=== PATIENT | male | born 1950 | race Caucasian/White ===

== ENCOUNTER 2023-04-10 10:17 | Outpatient (OUT) | payer MEDICARE, OTHER, SELFPAY ==
[2023-04-10 11:12] LABS: Bilirubin Urine NEGATIVE (NEGATIVE); Blood Urine NEGATIVE (NEGATIVE); Clarity Urine CLEAR (CLEAR); Color Urine YELLOW (YELLOW); Glucose Urine UA NEGATIVE (NEGATIVE); Ketones Urine NEGATIVE (NEGATIVE); Leukocyte Esterase Urine NEGATIVE (NEGATIVE); Nitrite Urine NEGATIVE (NEGATIVE); Protein Urine NEGATIVE (NEG/TRACE); Specific Gravity Urine 1.025 (1.005-1.025); Urobilinogen Urine 0.2 EU/dL (0.2-1.0); pH Urine 5.5 (5.0-9.0)
[2023-04-10 11:14] LABS: Basophils Percent Auto 0.2 % (0.2-2.0); Eosinophils Absolute Auto 0.1 10^3/uL (0.0-0.7); Eosinophils Percent Auto 0.6 % (0.9-7.0); Estimated Average Glucose 111 mg/dL; Glycohemoglobin A1C 5.5 % (4.5-6.2); Hematocrit 42.9 % (42.0-54.0); Hemoglobin 14.1 g/dL (14.0-18.0); Immature Granulocytes Abs Auto 0.02 10^3/uL (0.00-0.03); Immature Granulocytes Pct Auto 0.2 % (0.0-0.5); Lymphocytes Percent Auto 21.6 % (20.5-60.0); Mean Corpuscular HGB Conc 32.9 g/dL (29.9-35.2); Mean Corpuscular Volume 94.3 fL (80.0-94.0); Mean Platelet Volume 9.3 fL (9.5-13.5); Monocytes Absolute Auto 0.6 10^3/uL (0.3-0.8); Monocytes Percent Auto 6.9 % (1.7-12.0); Neutrophils Absolute Auto 6.5 10^3/uL (1.4-6.5); Neutrophils Percent Auto 70.5 % (43.0-75.0); Platelet Count 219 10^3/uL (150-450); Red Blood Count 4.55 10^6/uL (4.70-6.10); Red Cell Distribution Width 12.4 % (11.0-15.0); White Blood Count 9.3 10^3/uL (4.0-11.0)
[2023-04-10 11:21] LABS: Alanine Aminotransferase 42 U/L (16-63); Anion Gap 9.3; BUN Creatinine Ratio 14.7; Calcium 9.2 mg/dL (8.5-10.1); Carbon Dioxide 29.6 mmol/L (21.0-32.0); Chloride 96 mmol/L (98-107); Chol HDL Ratio 2.5; Cholesterol 188 mg/dL (<=200); Estimated GFR (African America >60 (>=60); Estimated GFR (Non-African Ame >60 (>=60); Glucose 100 mg/dL (74-106); HDL Cholesterol 76 mg/dL (40-60); Potassium 3.9 mmol/L (3.5-5.1); Sodium 131 mmol/L (136-145); Triglycerides 119 mg/dL (<=150); VLDL CHOLESTEROL 23.8 mg/dL
[2023-04-10 11:31] LABS: Bacteria Urine NONE SEEN #/HPF (NONE SEEN); Cast Seen? NONE SEEN #/LPF (NONE SEEN); Crystals Seen? None Seen #/HPF (None Seen); Mucus Urine TRACE (NONE SEEN); RBC Urine 0-2 #/HPF (0-2); Squamous Epithelial Cell Urine RARE #/LPF (NONE/RARE)
[2023-04-10 12:17] LABS: Prostate Specific Antigen Scrn 1.98 ng/mL (<=4.00)
== END 2023-04-10 10:18 | disposition home or self-care (01) ==
LOC: LAB 10:22
PROVIDERS: PCP Internal Medicine; Visit Provider Internal Medicine
DX: E78.00 Pure hypercholesterolemia, unspecified (principal); R35.0 Frequency of micturition; I10 Essential (primary) hypertension; Z12.5 Encounter for screening for malignant neoplasm of prostate; R73.01 Impaired fasting glucose; Z79.899 Other long term (current) drug therapy
CPT/HCPCS: 36415; 80048; 80061; 81001; 83036; 84460; 85025; 87086; G0103

== ENCOUNTER 2023-05-05 08:03 | Outpatient (OUT) | payer MEDICARE, OTHER, SELFPAY ==
[2023-05-05 08:47] LABS: Basophils Percent Auto 0.5 % (0.2-2.0); Eosinophils Absolute Auto 0.1 10^3/uL (0.0-0.7); Eosinophils Percent Auto 1.2 % (0.9-7.0); Hematocrit 42.1 % (42.0-54.0); Hemoglobin 13.8 g/dL (14.0-18.0); Immature Granulocytes Abs Auto 0.04 10^3/uL (0.00-0.03); Immature Granulocytes Pct Auto 0.6 % (0.0-0.5); Lymphocytes Percent Auto 30.5 % (20.5-60.0); Mean Corpuscular HGB Conc 32.8 g/dL (29.9-35.2); Mean Corpuscular Hemoglobin 31.2 pg (25.9-34.0); Mean Corpuscular Volume 95.2 fL (80.0-94.0); Mean Platelet Volume 9.4 fL (9.5-13.5); Monocytes Absolute Auto 0.5 10^3/uL (0.3-0.8); Monocytes Percent Auto 7.7 % (1.7-12.0); Neutrophils Absolute Auto 3.9 10^3/uL (1.4-6.5); Neutrophils Percent Auto 59.5 % (43.0-75.0); Platelet Count 224 10^3/uL (150-450); Red Blood Count 4.42 10^6/uL (4.70-6.10); Red Cell Distribution Width 12.7 % (11.0-15.0); White Blood Count 6.5 10^3/uL (4.0-11.0)
== END 2023-05-05 08:04 | disposition home or self-care (01) ==
LOC: LAB 08:06
PROVIDERS: PCP Internal Medicine
DX: I47.1 Supraventricular tachycardia (principal); H02.109 Unspecified ectropion of unspecified eye, unspecified eyelid
CPT/HCPCS: 36415; 85025

== ENCOUNTER 2023-12-17 09:53 | Outpatient (OUT) | payer MEDICARE, OTHER, SELFPAY ==
--- NOTE | 2023-12-17 10:07 | CT_ITS ---
[address] [address] Patient Name: KEVIN GRANT MRN: [id number] date: 1950 Sex: M Assigned Patient Location: CT Current Patient Location: Accession/Order Number: [id number] Exam Date: 12/17/2023 10:19 Report Date: 12/18/2023 05:52 At the request of: BLADE CONROY Procedure: CT lung screening low-dose EXAMINATION: CT lung screening low-dose HISTORY: History Of Tobacco Dependence Z87.891 COMPARISON: No relevant comparison available. TECHNIQUE: Axial, Coronal, and Sagittal images were created without the administration of IV contrast material. Dose reduction techniques were achieved by using automated exposure control and/or adjustment of mA and/or kV according to patient size and/or use of iterative reconstruction technique. FINDINGS: LUNGS: Minimal emphysematous changes. No nodules or acute infiltrates. PLEURA: No mass, effusion, or pneumothorax. VASCULATURE: No abnormality. RENAE: No mass or pathologic adenopathy. MEDIASTINUM: No mass or pathologic adenopathy. CARDIAC: No enlargement, pericardial thickening, or pericardial effusion. AORTA: No aneurysm or dissection. CHEST WALL: No mass or axillary adenopathy BONES: Old healed left rib fractures. LIMITED ABDOMEN: No suspicious findings. Limited images of the upper abdomen. OTHER: Negative. CT/CT lung screening low-dose IMPRESSION: 1. Lung-RADS Category 1 Negative. No nodules and definitely benign nodules. Continue annual screening with LDCT in 12 months. Electronically authenticated by: RANDY BARBER Date: 12/18/2023 05:52
--- NOTE | 2023-12-17 10:30 | NM_ITS ---
Patient Name: KEVIN GRANT MR#: [id number] : 1950 Exam Date: 12/17/2023 Ordering Doctor: DR BLADE CONROY D.O. RADIOLOGY REPORT PROCEDURE: NM DARNELL PERF SPECT REST STR COMPARISON: None. INDICATIONS: CHEST PAIN, DYSPNEA TECHNIQUE: Exam Description: Stress/Rest one day protocol gated SPECT Rest Imagin.5 mCi Tc-99m Cardiolite IV on 12/17/2023 Stress Imaging 29.9 mCi Tc-99m Cardiolite IV on 12/17/2023 Exercise Protocol: 0.4 mg Lexiscan given IV Heart Rate (bpm): Rest: 69 Max: 112 PMHR: 76 Blood Pressure: Rest: 108/64 Max: 126/68 Symptoms: Rest and peak stress ECG findings were normal and the exercise portion of the study was normal per attending physician Dr. Tay Conroy . For more details please see separate cardiac stress test report. FINDINGS: QUALITY OF STUDY: Excellent. PERFUSION DEFECT: None. LOCATION: N/A SIZE: N/A. SEVERITY: N/A. TYPE: N/A. WALL MOTION: Normal. LV SIZE: Normal. 57 mL. TID / TCD: None; 0.7 LVEF: Normal. Calculated EF 84%. SUMMARY: Myocardial perfusion imaging study is NORMAL. CONCLUSION: 1. Normal nuclear medicine myocardial perfusion scan. Dictated by: Toby Simmons M.D. on 12/17/2023 at 15:48 Approved by: Toby Simmons M.D. on 12/17/2023 at 15:49
--- NOTE | 2023-12-17 11:00 | CA_ITS ---
Patient Name: KEVIN GRANT MR#: [id number] : 1950 Exam Date: 12/17/2023 Ordering Doctor: DR Aayush Escudero D.O. ECHOCARDIOGRAM REPORT PROCEDURE: CA ECHO DOPPLER COMPLETE INDICATIONS: Heart murmur, chest pain COMPARISON: None. DESCRIPTION: COMPLETE ECHOCARDIOGRAM Real-time transthoracic echocardiography with 2D, M-mode, spectral and color flow Doppler performed. QUALITY: Technical quality was good. 64 , 184#, BSA 1.89 m2, BP 116/66 LEFT VENTRICLE: Normal chamber size. Borderline left ventricular hypertrophy. LV EF: Global left ventricular systolic function is normal; visually estimated ejection fraction is 60 to 65%. No significant wall motion abnormalities. DIASTOLIC: Normal diastolic function. ATRIAL SEPTUM: Visually appears intact. LEFT ATRIUM: Normal chamber size. RIGHT ATRIUM: Normal chamber size. RIGHT VENTRICLE: Normal chamber size. Normal right ventricular systolic function. TRICUSPID VALVE: Normal mobility and thickness. No stenosis with no regurgitation. Unable to assess right-sided pressures due to lack of measurable tricuspid regurgitation. MITRAL VALVE: Normal mobility and thickness. No evidence of mitral valve stenosis. There is no mitral annular calcification. No mitral regurgitation. AORTIC VALVE: Normal trileaflet appearance. No visible sclerosis. Normal leaflet mobility. No evidence of aortic valve stenosis. Trivial aortic regurgitation. AORTIC ROOT: Normal diameter and appearance. Ascending aorta is normal in size PULMONIC VALVE: Normal thickness and mobility. No stenosis. Trivial regurgitation. PERICARDIUM: No evidence of pericardial effusion. IVC: Collapses with inspirations. IVC is normal in size. CONCLUSION: 1. Global left ventricular systolic function is normal; visually estimated ejection fraction is 60 to 65% 2. Normal right ventricular size and systolic function 3. Normal diastolic function 4. No significant valvular abnormalities Adult Echocardiography Procedure Report Left Ventricle LVEDD (3.7 - 5.6 cm): 3.91 cm LVESD (2.2 - 4.0 cm): 2.82 cm LVIVS thickness (0.6 - 1.2 cm): 0.79 cm LVPW thickness (0.5 - 1.0 cm): 1.08 cm e': 0.09 m/s E - e': 6.56 LVOT Max Gradient: 4.12 mm[Hg] LVOT Area (cm2): 1.01 m/s Peak Velocity (LVOT): 1.01 m/s Mean Velocity (LVOT): 0.60 m/s LVOT Diameter 2.22 cm Left Atrium LA Volume Index (2D A2C): 22.64 ml/m2 Left Atrium Systolic Dimension: 3.50 cm Mitral Valve MV E to A Ratio: 0.87 Mitral Valve A-Wave Peak Velocity: 0.70 m/s Mitral Valve E-Wave Peak Velocity: 0.60 m/s Right Ventricle Aorta AO Root Diam: 3.30 cm Ascending Ao Diam: 2.90 cm Aortic Valve AoV Area (Peak Estevan): 3.95 cm2, 3.95 cm2 AoV Area (VTI): 3.78 cm2, 3.78 cm2 Peak Velocity(Antegrade Flow): 0.99 m/s Peak Gradient(Antegrade Flow): 3.96 mm[Hg] Mean Velocity(Antegrade Flow): 0.61 m/s Mean Gradient(Antegrade Flow): 1.77 mm[Hg] Velocity Time Integral: 20.16 cm Tricuspid Valve Pulmonic Valve Peak Gradient: 2.96 mm[Hg], 2.87 mm[Hg] Right Atrium Right Atrium Systolic Pressure: 33.96 ml, 33.96 ml Dictated by: Mariela Mercer M.D. on 12/17/2023 at 15:50 Approved by: Mariela Mercer M.D. on 12/17/2023 at 15:54
--- NOTE | 2023-12-17 13:44 | P.STRESS_ITS ---
Stress Test Stress Test Requesting physician: Aayush Escudero Procedure: Lexiscan stress test General Information: Reason for Stress Test: [Exertional chest pain] Cardiac History and Risk Factors: [This is a 73-year-old patient with no person al history of coronary disease. Has a strong family mother and brother having coronary disease. Primary risk factors include essential hypertension and hyperlipidemia.] Resting 12 - Lead Electrocardiogram: Normal sinus rhythm with a ventricular rate of 69 bpm. The IN interval is 0.16 QRS 0.08 and the QT is 0.36 all within normal limits. There are no pathologic Q waves only nonspecific ST-T wave changes. Stress Test: Protocol: [. Lexiscan protocol] Exercise Capacity: [. Nonapplicable] Blood Pressure Response: [Blood pressure decreased with a slight decrease in heart rate during the Lexiscan infusion.] Rhythm: [During infusion the patient remained in normal sinus rhythm] ST - Response: [. During infusion there is no ST T-wave changes] Patient Response: [. Following administration of Lexiscan Cardiolite patient did become diaphoretic a list corresponding decrease in blood pressure and heart rate. He remained hemodynamically stable and this resolved without intervention.] Interpretation: . There is no subjective or objective evidence of myocardial ischemia. Cardiolite was injected with images in interpretation pending
[2023-12-17] MEDS: REGADENOSON 0.4 MG/5 ML SYRINGE 0.400000000000000022 MG IV (15:54)
== END 2023-12-17 09:54 | disposition home or self-care (01) ==
LOC: CT 09:56
PROVIDERS: PCP Internal Medicine; Visit Provider Internal Medicine
DX: R07.2 Precordial pain (principal); I10 Essential (primary) hypertension; R73.01 Impaired fasting glucose; E78.00 Pure hypercholesterolemia, unspecified; R01.1 Cardiac murmur, unspecified; Z87.891 Personal history of nicotine dependence
CPT/HCPCS: 71271; 78452; 93017; 93306; A9500; J2785

== ENCOUNTER 2023-12-30 08:44 | Outpatient (OUT) | payer MEDICARE, OTHER, SELFPAY ==
[2023-12-30 08:57] LABS: Hemoglobin 13.7 g/dL (14.0-18.0)
--- OUTSIDE RECORDS SUMMARY | 2023-12-30 09:06 | XMS_ITS | CCD ---
Author Organization [facility] Care Team Providers Care Commercial Escrow Officer Name Role Phone DR AAYUSH ESCUDERO Consulting Unavailable KOTA, DR MURGUIA Attending Unavailable KOTA, DR MURGUIA Admitting Unavailable KOTA, DR MURGUIA Primary Care Unavailable GURVINDER BROOKS Admitting GURVINDER Murphy Consulting Unavailable GURVINDER BROOKS Attending Unavailable KOTA, DR MURGUIA Primary Care Unavailable Aayush Escudero Unavailable Allergies Allergy Classification Reported Allergen(s) Allergy Type Date of Onset Reaction(s) Facility (4 sources) Amoxicillin / Clavulanate Drug Allergy 01-02-2014 Unknown [facility] Medications Current Medications Medication Drug Class(es) Dates Sig (Normalized) Sig (Original) [id number] 200 actuat albuterol 0.09 mg/actuat metered dose inhaler (3 sources) beta2-Adrenergic Agonist Start: 10-30-2021 take 2 puff(s) by inhalation every four hours as needed for cough Albuterol Sulfate HFA 108 (90 Base) MCG/ACT Albuterol Sulfate HFA 108 (90 Base)MCG/ACT, 2 (two) Puff Puff every 4 hours PRN SOB, cough # 1, 10/30/2021, Ref. x2. Active Inhalation every 4 hours PRN SOB, cough Oct, Active Start: 10-30-2021 take 2 puff(s) by in halation every four hours as needed for cough Albuterol Sulfate HFA 108 (90 Base) MCG/ACT Albuterol Sulfate HFA 108 (90 Base)MCG/ACT, 2 (two) Puff Puff every 4 hours PRN SOB, cough # 1, 10/30/2021, Ref. x2. Active Inhalation every 4 hours PRN SOB, cough Oct, Active 24 hr alfuzosin hydrochloride 10 mg extended release oral tablet (2 sources) alpha-Adrenergic Shola Start: 04-14-2023 take 1 tablet by mouth at dinner Alfuzosin HCl ER 10 MG 1 tablet Orally after evening meal for 30 days Mar, Active amLODIPine 5 mg oral tablet (3 sources) Dihydropyridine Calcium Channel Shola amLODIPine Besylate 5 MG TAKE 1 TABLET DAILY Active fluticasone / salmeterol (3 sources) Corticosteroid, beta2-Adrenergic Agonist Start: 06-09-2022 Advair Diskus 250-50mcg/dose Advair Diskus 250-50mcg/dose, 1 (one) Puff every 12 hours # 0, 06/09/2022, No Refill. Active inhalation every 12 hours May, Active Advair Diskus 25 0-50 MCG/ACT USE 1 INHALATION ORALLY EVERY 12 HOURS for 90 Active lisinopril 40 mg oral tablet (3 sources) Angiotensin Converting Enzyme Inhibitor Lisinopril 40 MG CHRIS E 1 TABLET DAILY Active Psyllium (3 sources) Start: 04-10-2023 Metamucil 28 % 1 packet with 8 ounces of liquid as needed Orally Once a day for 30 days Mar, Active Completed/Discontinued Medications Medication Drug Class(es) Dates Sig (Normalized) Sig (Original) amitriptyline hydrochloride 25 mg oral tablet (3 sources) Tricyclic Antidepressant Start: 03-19-2022 take 1 tablet by mouth once daily at bedtime Amitriptyline HCl 25MG Amitriptyline HCl 25MG, 1 (one) Tablet Tablet daily at HS # 0, 03/19/2022, No Refill. Active Oral daily at HS for 0 Feb, Not-Taking ascorbic acid 4700 mg / polyethylene glycol 3350 [id number] mg / potassium chloride 1015 mg / sodium ascorbate 5900 mg / sodium chloride 2690 mg / sodium sulfate 7500 mg powder for oral solution (3 sources) Osmotic Laxative, Vitamin C Start: 12-30-2013 MoviPrep 100 GM as directed Orally 1 for 1 December, Not-Taking pravastatin sodium 80 mg oral tablet (6 sources) HMG-CoA Reductase Inhibitor Start: 03-19-2022 take 1 tablet by mouth once daily in the evening Pravastatin Sodium 80MG Pravastatin Sodium 80MG, 1 (one) Tablet Tablet daily in evening # 0, 03/19/2022, No Refill. Active Oral daily in evening for 0 Feb, Not-Taking Problems Active Problems Problem Classification Problem Date Documented Da te Episodic/Chronic Chronic obstructive pulmonary disease and bronchiectasis (4 sources) Simple chronic bronchitis; Translations: [Simple chronic bronchitis] Chronic Diabetes mellitus without complication (1 source) Impaired fasting glucose Episodic Disorders of lipid metabolism (5 sources) Familial hypercholesterolem ia; Translations: [Hypercholesterole miladis] Onset: 04-04-2022 Chronic Essential hypertension (5 sources) Essential (primary) hypertension; Translations: [Essential hypertension] Onset: 04-04-2022 Chronic Genitourinary symptoms and ill-defined conditions (1 source) Frequency of micturition Episodic Hyperplasia of prostate (5 sources) Urinary frequency due to benign prostatic hypertrophy; Translations: [Benign prostatic hyperplasia with lower urinary tract symptoms] Chronic Other aftercare (2 sources) Other residential (current) drug therapy; Translations: [OTH [facility]DC CURRENT DRUG THERAPY] Onset: 04-04-2022 Episodic Other and unspecified benign neoplasm (3 sources) History of polyp of colon; Translations: [Personal history of colonic polyps] Episodic Other gastrointestinal disorders (1 source) Fecal smearing Episodic Other nervous system disorders (3 sources) Polyneuropathy; Translations: [Polyneuropathy, unspecified] Chronic Other nervous system disorders (1 source) Polyneuropathy, unspecified Chronic Other screening for suspected conditions (not mental disorders or infectious disease) (5 sources) Encounter for screening for malignant neoplasm of prostate; Translations: [ENC SCREEN MALIG NEOPLASM PROSTATE] Onset: 04-03-2022 Episodic Past or Other Problems Problem Classification Problem Date Documented Da te Episodic/Chronic Immunizations and screening for infectious disease (4 sources) Encounter for immunization; Translations: [ENCOUNTER FOR IMMUNIZATION] Onset: 06-11-2021 Episodic Results Test Name Value Interpretation Reference Range Facil ity CBC AUTO DIFFon 04-03-2022 BASO # 0.0 103/ul Normal 0.0-0.1 [facility] Comment on above: Performed By: #### C BC #### [facility] [address] [address] [address] Ashley Elizabeth Basophils/100 WBC (Bld) 0.5 % Normal 0.2-2.0 [facility] Comment on above: Performed By: #### C BC #### [facility] [address] [address] [address] Ashley Elizabeth EO # 0.1 103/ul Normal 0.0-0.7 [facility] Comment on above: Performed By: #### C BC #### [facility] [address] [place] [address] Dr. Ashley Elizabeth Eosinophils/100 WBC (Bld) 0.9 % Normal 0.9-7.0 [facility] Comment on above: Performed By: #### C BC #### [facility] [address] [place] [address] Dr. Ashley Elizabeth Erythrocyte distribution width (RBC) [Ratio] 12.7 % Normal 11.0-15.0 [facility] Comment on above: Performed By: #### C BC #### [facility] [address] [place] [address] Dr. Ashley Elizabeth Hematocrit (Bld) [Volume fraction] 42.9 % Normal 42.0-54.0 [facility] Comment on above: Performed By: #### C BC #### [facility] [address] [place] [address] Dr. Ashley Elizabeth Hemoglobin (Bld) [Mass/Vol] 14.2 g/dL Normal 14.0-18.0 [facility] Comment on above: Performed By: #### C BC #### [facility] [address] [place] [address] Dr. Ashley Elizabeth IG # 0.04 10e3/ul Critically high 0.00-0.03 [facility] Comment on above: Performed By: #### C BC #### [facility] [address] [place] [address] Dr. Ashley Elizabeth IG % 0.5 % Normal 0.0-0.5 [facility] Comment on above: Performed By: #### C BC #### [facility] [address] [place] [address] Dr. Ashley Elizabeth LYMPH # 2.2 103/ul Normal 1.2-3.8 [facility] Comment on above: Performed By: #### C BC #### [facility] [address] [place] [address] Dr. Ashley Elizabeth Lymphocytes/100 WBC (Bld) 27.7 % Normal 20.5-60.0 [facility] Comment on above: Performed By: #### C BC #### [facility] [address] [place] [address] Dr. Ashley Elizabeth MANUAL DIFF REQ NO Normal [facility] Comment on above: Performed By: #### C BC #### [facility] [address] [place] [address] Dr. Ashley Elizabeth MCH (RBC) [Entitic mass] 31.6 pg Normal 25.9-34.0 [facility] Comment on above: Performed By: #### C BC #### [facility] [address] [place] [address] Dr. Ashley Elizabeth MCHC (RBC) [Mass/Vol] 33.1 g/dL Normal 29.9-35.2 [facility] Comment on above: Performed By: #### C BC #### [facility] [address] [place] [address] Dr. Ashley Elizabeth MCV (RBC) [Entitic vol] 95.5 fL Critically high 80.0-94.0 [facility] Comment on above: Performed By: #### C BC #### [facility] [address] [place] [address] Dr. Ashley Elizabeth MONO # 0.6 103/ul Normal 0.3-0.8 [facility] Comment on above: Performed By: #### C BC #### [facility] [address] [place] [address] Dr. Ashley Elizabeth Monocytes/100 WBC (Bld) 7.2 % Normal 1.7-12.0 [facility] Comment on above: Performed By: #### C BC #### [facility] [address] [place] [address] Dr. Ashley Elizabeth NEUT # 5.0 103/ul Normal 1.4-6.5 [facility] Comment on above: Performed By: #### C BC #### [facility] [address] [place] [address] Dr. Ashley Elizabeth Neutrophils/100 WBC (Bld) 63.2 % Normal 43.0-75.0 [facility] Comment on above: Performed By: #### C BC #### [facility] [address] [address] [address] Ashley Elizabeth Platelet mean volume (Bld) [Entitic vol] 9.0 fL Critically low 9.5-13.5 [facility] Comment on above: Performed By: #### C BC #### [facility] [address] [address] [address] Ashley Elizabeth PLT 213 103/ul Normal 150-450 [facility] Comment on above: Performed By: #### C BC #### [facility] [id number] Ashley Elizabeth RBC 4.49 106/ul Critically low 4.70-6.10 [facility] Comment on above: Performed By: #### C BC #### [facility] [address] [address] [address] Ashley Elizabeth WBC 7.9 103/ul Normal 4.0-11.0 [facility] Comment on above: Performed By: #### C BC #### [facility] [address] [address] [address] Ashley Elizabeth DIRECT LDLon 04-03-2022 Cholesterol in LDL [Mass/Vol] 105 mg/dL Normal [facility] Comment on above: Performed By: #### B MICHAEL DLDL, ALT #### [facility] [address] [address] [address] Ashley Elizabeth DLDL NORMAL SEE BELOW Normal [facility] Comment on above: Result Comment: <100 mg/dl OPTIMAL 100 - 129 mg/dl NEAR OR ABOVE OPTIMAL 130 - 159 mg/dl BORDERLINE HIGH 160 - 189 mg/dl HIGH >190 mg/dl VERY HIGH Performed By: #### B MP, DLDL, ALT #### [facility] [id number] Ashley Elizabeth PROF CHEM 8 (BAS METB)on Anion gap [Moles/Vol] 13.9 mmol/L Normal [facility] Comment on above: Performed By: #### B MP, DLDL, ALT #### [facility] [address] [address] [address] Ashley Elizabeth Calcium [Mass/Vol] 9.1 mg/dL Normal 8.5-10.1 [facility] Comment on above: Performed By: #### B MP, DLDL, ALT #### [facility] [address] [address] [address] Ashley Elizabeth Chloride [Moles/Vol] 101 mmol/L Normal 98-107 [facility] Comment on above: Performed By: #### B MP, DLDL, ALT #### [facility] [address] [address] [address] Ashley Elizabeth CO2 [Moles/Vol] 24.6 mmol/L Normal 21.0-32.0 [facility] Comment on above: Performed By: #### B MP, DLDL, ALT #### [facility] [address] [address] [address] Ashley Elizabeth Creatinine [Mass/Vol] 1.28 mg/dL Normal 0.70-1.30 [facility] Comment on above: Performed By: #### B MP, DLDL, ALT #### [facility] [address] [address] [address] Ashley Elizabeth EGFR-AF CHADIAN >60 Normal >=60 [facility] Comment on above: Performed By: #### B MP, DLDL, ALT #### [facility] [address] [address] [address] Ashley Elizabeth EGFR-NON AF CHADIAN 55 mL/min/1.73m2 Critically low >=60 [facility] Comment on above: Performed By: #### B MP, DLDL, ALT #### [facility] [address] [address] [address] Ashley Elizabeth Glucose [Mass/Vol] 121 mg/dL Critically high 74-106 [facility] Comment on above: Performed By: #### B MP, DLDL, ALT #### [facility] [address] [address] [address] Ashley Elizabeth Potassium [Moles/Vol] 4.5 mmol/L Normal 3.5-5.1 [facility] Comment on above: Performed By: #### B MP, DLDL, ALT #### [facility] [address] [address] [address] Ashley Elizabeth Sodium [Moles/Vol] 135 mmol/L Critically low 136-145 [facility] Comment on above: Performed By: #### B MP DLDL, ALT #### [facility] [address] [address] [address] Ashley Elizabeth Urea nitrogen [Mass/Vol] 24.0 mg/dL Critically high 7.0-18.0 [facility] Comment on above: Performed By: #### B MP DLDL, ALT #### [facility] [address] [place] [address] Dr. Ashley Elizabeth Urea nitrogen/Creatinine [Mass ratio] 18.8 mg/mg Normal [facility] Comment on above: Performed By: #### B MICHAEL DLDL, ALT #### [facility] [address] [place] [address] Dr. Ashley Elizabeth [facility] 04-03-2022 ALT [Catalytic activity/Vol] 45 U/L Normal 16-63 [facility] Comment on above: Performed By: #### B MICHAEL DLDL, ALT #### [facility] [address] [place] [address] Dr. Ashley Dumont 02-07-2022 L Specimen: [id number] Received: 02/07/22 Status: JESUS Gary Num: [id number] Spec Type: Surgical Subm Dr: Chintan Dsouza Jr, DO Tissues: A Colon - Polyp (ASCENDING POLYPS) B Colon - Polyp (TRANSVERSE POLYP) Procedures: HE Stain/4, Gross/Micro L4/2 Patient Age/Sex Location Account [id number] Chintan Dsouza Jr, DO SPEC NUM: [id number] RECD: 02/07/22 STATUS: JESUS GARY NUM: [id number] KARLY: 02/07/22- [facility] DR: Chintan Dsouza Jr, DO ENTERED: 02/07/22-1136 [facility] DR: ELENA TYPE: Surgical DEPT: S ORDERED: HE Stain/4, Gross/Micro L4/2 ORDERED: HE Stain/4, Gross/Micro L4/2 Pathological Diagnosis A. Colon, ascending, polypectomy: - Fragments of tubular adenoma and hyperplastic polyp. B. Colon, transverse, polypectomy: - Tubular adenoma Clinical Information History of polyps, family history of colon cancer Gross Description A. Received in formalin labeled with the patient's name, number and ascending colon polyps are multiple peraza-pink tissue fragments aggregating 0.8 x 0.5 x 0.2 cm. The resection margin is indeterminate, entirely submitted in one cassette labeled A1. Type of Fixative: 10% Neutral Buffered Formalin (/YJ) B. Received in formalin labeled with the patient's name, number and transverse colon polyp are multiple peraza-pink tissue fragments aggregating 1.3 x 0.9 x 0.4 cm, entirely submitted in one cassette labeled B1. Type of Fixative: 10% Neutral Buffered Formalin (SM/YJ) Specimen: [id number] Received: 02/07/22 Status: JESUS Raindebbie Num: [id number] Spec Type: Surgical Subm Dr: Chintan Dsouza Jr, DO Tissues: A Colon - Polyp (ASCENDING POLYPS) B Colon - Polyp (TRANSVERSE POLYP) Procedures: HE Stain/4, Gross/Micro L4/2 Patient: Ricardo Grant [id number] (Continued) Specimen: [id number] Received: 02/07/22 (Continued) Signed (signature on file) Arley Poole MD 02/10/22 1467 Specimen: [id number] Received: 02/07/22 Status: JESUS Gary Num: [id number] Spec Type: Surgical Subm Dr: Chintan Dsouza Jr, DO Tissues: A Colon - Polyp (ASCENDING POLYPS) B Colon - Polyp (TRANSVERSE POLYP) Procedures: HE Stain/4, Gross/Micro L4/2 Patient: Ricardo Grant [id number] (Continued) Specimen: [id number] Received: 02/07/22 (Continued) Microscopic Description A, Two H E stained slides are reviewed. Microscopic examination is performed. B. Two H E stained slides are reviewed. Microscopic examination is performed. This case is interpreted at [place], [place]. [address] B. [address]194 Specimen: [id number] Received: 02/07/22 Status: JESUS Gary Num: [id number] Spec Type: Surgical Subm Dr: Chintan Dsouza Jr, DO Tissues: A Colon - Polyp (ASCENDING POLYPS) B Colon - Polyp (TRANSVERSE POLYP) Procedures: HE Stain/4, Gross/Micro L4/2 Patient: Ricardo Grant [id number] (Continued) Signed (signature on file) Arley Poole MD 02/10/22 1735 [facility] COVID-19 Antigenon 2 COVID-19 Antigen Healthcare Worker?: N Reference Range: Negative Negative results, from patients with symptom onset beyond five days, should be treated as presumptive and confirmation with a molecular assay, if necessary, for patient management, may be performed. Negative results do not rule out COVID-19 and should not be used as the sole basis for treatment or patient management decisions, including infection control decisions. Negative results should be considered in the context of a patient's recent exposures, history and the presence of clinical signs and symptoms consistent with COVID-19. The Alanis SARS Antigen MANSOOR does not differentiate between SARS-CoV and SARS-CoV-2. This test was developed and its performance characteristic determined by [employer] and validated at [facility]. This test has not been FDA cleared or approved. This test has been authorized by FDA under an Emergency Use Authorization (EUA). This test has been validated in accordance with the FDA's Guidance Document (Policy for Diagnostics Testing in Laboratories Certified to Perform High Complexity Testing under CLIA prior to Emergency Use Authorization for Coronavirus Disease-2019 during the Public Health Emergency) issued on November 24, 2019. This test is only authorized for the duration of time the declaration that circumstances exist justifying the authorization of the emergency use of in vitro diagnostic tests for detection of SARS-CoV-2 virus and/or diagnosis of COVID-19 infection under section 564(b)(1) of the Act, 21 U.S.C. 360bbb-3(b)(1), unless the authorization is terminated or revoked sooner. SARS-CoV+SARS-CoV-2 (COVID-19) Ag [Presence] in Respiratory specimen by Rapid immunoassay Negative for SARS Antigen by [employer] PERFORMED BY: [place] [address] PATHOLOGIST SADDLE LINING STITCHER SHERRELL WILLS M.D. Normal [facility] Comment on above: Performed By: #### S OFIANEG, COVID-19 ALANIS #### [facility] [address] [id number] [facility] Alanis Ag Negativeon 02-06-20 22 Alanis Ag Negative Negative Normal Negative [facility] Comment on above: Result Comment: This is a duplicate Alanis SARS Antigen (MANSOOR) result to be used for statistical tracking purpose only. PERFORMED BY: [facility] [address] [place] [address] PATHOLOGIST SADDLE LINING STITCHER SHERRELL WILLS M.D. Performed By: #### S FILOMENA BECK-19 ALANIS #### [facility] [address] OBSOLETEon 09-03-2018 OBSOLETE Refill (NENMMN) RICARDO GRANT ([id number]) 1950 M Date Time Provider Department 09/03/18 BIANCA RIVERA During your visit today, we recorded the following information about you: Nika [facility] 09/03/2018 3:41 PM Signed Fax from pharmacy requesting refill. Please E-Scribe. Pending Prescriptions Disp Refills PRAVASTATIN 80 MG TABLET Sig: Take 1 tablet by mouth once daily. JUVE: No Pharmacy Name / Store Number: [facility] Phone #: [phone] [facility] Gloria Reynoso RN, RN 09/03/2018 5:01 PM Signed Medication and dose reviewed. Last refill historical. Last office visit 12/25/17. Future appointment: not scheduled at this time. Appropriate for refill. Please review and if approved e-prescribe as requested below. Routed to [facility]. Gloria Reynoso RN September 03, 2018 5:01 PM Bianca Rivera MD 09/06/2018 5:43 PM Signed Refill request declined - not following this patient for hyperlipidemia. Please call patient to recommend he request refill from his PCP. Thanks! K Allergies As of Date: 09/03/2018 Noted Allergy Reaction AUGMENTIN (AMOXICILLIN-POT CLAVUL*12/25/2017 4 - Hives Date Reviewed: 12/25/2017 Reviewed by: Bianca Rivera - Fully Assessed Reason for Visit: Refill Request [94] Primary Visit Diagnosis:Disturbanc e of skin sensation [R20.9] Prescriptions as of 09/03/2018 Sig: AMITRIPTYLINE 10 MG TABLET Take 2 tablets by mouth daily* GABAPENTIN 300 MG CAPSULE Take 3 capsules by mouth thre* LISINOPRIL 40 MG TABLET Take 40 mg by mouth once titi* PRAVASTATIN 80 MG TABLET Take 80 mg by mouth once titi* ASPIRIN 81 MG TABLET,DELAYED * Take 81 mg by mouth as needed* VITAMIN C ORAL Take by mouth. VITAMIN D2 ORAL Take by mouth. ADVAIR HFA INHALATION Inhale as instructed. Problem List As Of Date 09/03/2018 Noted Resolved Disturbance of skin sensation [R20.9] INVALID FOR* Obesity, Class I, BMI 30-34.9 E66.9 [E66.9] INVALID FOR* Encounter Status:Closed by NIKA THOMAS on 05/25/19 Normal [facility] Vital Signs Date Time Vital Sign Value Performing Clinician Facility 04-10-2023 09:00-0400 Body height 162.56 cm Aayush Escudero Other e([facility] Other 04-10-2023 09:00-0400 Body mass index (BMI) [Ratio] 31.31 kg/m2 Aayush Escudero Other e([facility] Other 04-10-2023 09:00-0400 Body weight 82.74 kg Aayush Escudero Other e(ye)[facility] Other 04-10-2023 09:00-0400 Respiratory rate 56 /min Aayush Kota Other e(ye)[facility] Other Encounters Encounter Date Encounter Type Care Provider Facility Start: 05-15-2023 End: 05-15-2023 ambulatory Aayush Kota Other e(ye)[facility] Other Start: 05-15-2023 Nursing evaluation o f patient and report Aayush Escudero [facility] Start: 04-13-2023 End: 04-13-2023 ambulatory Aayush Kota Other e(ye)[facility] Other Start: 04-13-2023 Telephone encounter Aayush Recio [facility] Start: 04-10-2023 End: 04-10-2023 ambulatory Aayush Escudero Other e(ye)[facility] Other Start: 04-10-2023 Patient encounter procedure [facility] Start: 04-03-2022 End: 04-04-[address] AAYUSH ESCUDERO Facility:[facility] Start: 06-11-2021 End: 06-11-2021 ambulatory GURVINDER BROOKS Facility:[facility] Procedures Date Procedure Procedure Detail Performing Clinician Start: 04-03-[address] FLORES IN [place] Comment on above: Performed By: #### P [facility] [place] #### [facility] [address] [place] [address] Dr. Ashley Elizabeth Immunizations Immunization Date Immunization Notes Care Provider [facility] 05-15-2023 influenza, high dose seasonal, preservative-free Aayush Escudero Other e(ye)[facility] Other 05-06-2022 influenza, high dose seasonal, preservative-free Aayush Escudero Other e(ye)[facility] Other 05-05-2022 COVID-19 Vaccine Pfi zer - Documentation Purposes Only Aayush Escudero Other e(ye)[facility] Other 12-18-2021 COVID-19 Vaccine Pfi zer - Documentation Purposes Only Aayush Escudero Other e(ye)[facility] Other 05-17-2021 influenza virus vaccine, split virus (incl. purified surface antigen) Aayush Escudero Other e(ye)[facility]RA[facility] Other 04-27-2020 influenza virus vaccine, split virus (incl. purified surface antigen) Aayush Escudero Other e(ye)BRAIN Other 05-06-2018 influenza virus vaccine, split virus (incl. purified surface antigen) Aayush Escudero Other e(ye)BRAIN Other 05-01-2017 influenza virus vaccine, split virus (incl. purified surface antigen) Aayush Escudero Other e(ye)BRAIN Other 02-26-2017 pneumococcal polysaccharide vaccine, 23 valent Aayush Escudero Other e(ye)[facility] Other 06-18-2016 influenza virus vaccine, split virus (incl. purified surface antigen) Aayush Escudero Other e(ye)[facility]RA[facility] Other 02-18-2016 pneumococcal conjuga te vaccine, 13 valent Aayush Escudero Other e(ye)BRAIN Other 06-11-2015 influenza virus vaccine, split virus (incl. purified surface antigen) Aayush Escudero Other e(ye)BRAIN Other Payers Date Payer Category Payer Medicare [id number] 1959 Unknown [id number] 1950 Unknown [id number] 1950 Unknown [id number] Social History Date Type Detail Facility Sex Assigned At e(ye)BRAIN Other Evaluation note 04-13-2023 Note Date & Type Note Facility 04-13-2023 Evaluation note Encounter Date Diagnosis Assessment Notes Mar, Benign prostatic hyperplasia with lower urinary tract symptoms (ICD-10 - N40.1) e(ye)BRAIN Other Evaluation note 04-10-2023 Note Date & Type Note Facility 04-10-2023 Evaluation note Encounter Date Diagnosis Assessment Notes Mar, Medicare annual wellness visit, subsequent (ICD-10 - Z00.00) Personalized health advice was given to the beneficiary including a written plan for screenings discussed and provided. Advanced care planning reviewed and/or information given as requested. Additional counseling was provided here today in regards to, [ ]. The above visit was performed by [ ], under direct supervision of [ ]. Document reviewed and amended by provider signed below. Mar, Primary hypertension (ICD-10 - I10) This patient is instructed to consume a healthy, low-fat, low-salt diet. They are also encouraged to continue exercise to achieve/maintain a normal BMI. Mar, Simple chronic bronchitis (ICD-10 - J41.0) Continue mucinex as needed. Continue tobacco abstinence Mar, Elevated cholesterol (ICD-10 - E78.00) Instructed on diet and exercise with continued statin therapy.Discussed the beneficial effects of lowering cholesterol in reducing the risk for cerebrovascular and cardiovascular disease. Mar, IFG (impaired fasting glucose) (ICD-10 - R73.01) This patient is following a comprehensive diabetic treatment plan. They are checking their feet daily for calluses and nonhealing ulcers. They are being seen for yearly dilated eye examinations. Goals: SBP less than 130, LDL less than 100, FBS less than 140, AC and A1C less than 7%. Mar, Peripheral polyneuropathy (ICD-10 - G62.9) Inspect feet daily for cuts and calluses.Recommen d diabetic shoes and inserts to prevent callus formation.Fall precautions. Mar, Frequency of micturition (ICD-10 - R35.0) Mar, Benign prostatic hyperplasia with lower urinary tract symptoms (ICD-10 - N40.1) Check UA for infection and glucosuria Yearly PSA and PETEY Mar, Screening PSA (prostate specific antigen) (ICD-10 - Z12.5) Yearly PSA Mar, High risk medication use (ICD-10 - Z79.899) Mar, Fecal smearing (ICD-10 - R15.1) e(ye)BRAIN Other Evaluation note Note Date & Type Note Facility Evaluation note No Information [employer] Other History general Narrative - Reported Note Date & Type Note Facility History general Narrative - Reported Type Medical History Mixed hyperlipidemia Medical History Essential (primary) hypertension Medical History Hyperlipidemia, unspecified Medical History Polyp of colon Medical History Neuralgia and neuritis Surgical History ARTHROSCOPY KNEE Surgical History ULNAR NERVE RELEASE Surgical History COLONOSCOPY, repeat 5 yrs 2006, 2009,2021 Surgical History LEFT THORACOSTOMY TUBE 2018 Hospitalization History SEE SURGICAL HX e(ye)BRAIN Other Summary Purpose Family History No Family History Records FoundNo Family History Records FoundNo Family History Records Found Advance Directives No Advanced Directives Records FoundNo Advanced Directives Records FoundNo Advanced Directives Records Found Additional Source Comments (unrecognized sect ion and content) No Status Records FoundNo Status Records FoundNo Status Records Found INFORMATION SOURCE (unrecogn ized section and content) DATE CREATED AUTHOR 05/26/2019 [facility] DATE CREATED AUTHOR AUTHOR'S ORGANIZ ATION 02/13/2022 [facility] DATE CREATED AUTHOR AUTHOR'S ORGANIZ ATION 04/05/2022 [facility] REASON FOR VISIT (unrecogniz ed section and content) [facility] ResultsFLU Shot FOR RECORDS PERTAINING TO PATIENTS WHO ARE OR HAVE BEEN ENROLLED IN A CHEMICAL DEPENDENCY/SUBSTANCEABUSE PROGRAM, SOME INFORMATION MAY BE OMITTED. This clinical summary was aggregated from multiple sources. Caution should be exercised in using it in the provision of clinical care. This summary normalizes information from multiple sources, and as a consequence, information in this document may materially change the coding, format and clinical context of patient data. In addition, data may be omitted in some cases. CLINICAL DECISIONS SHOULD BE BASED ON THE PRIMARY CLINICAL RECORDS. [employer] provides no warranty or guarantee of the accuracy or completeness of information in this document.
[2023-12-30] MEDS: ALBUTEROL SULFATE 2.5 MG/3 ML VIAL NEB IH (09:37)
--- NOTE | 2023-12-30 09:37 | RT_ITS ---
[facility] Test Date: 2023-12-30 Pat Name: KEVIN GRANT Department: Room: - Gender: Male [employer] Tender: Shukri Ray RRT : 1950 Requested By: BLADE CONROY Order Number: [id number] Reading MD: BLADE CONROY Interpretive Statements The FEV1, FEV1/FVC ratio and IZA18-15% are reduced indicating airway obstruction. It is impossible to adequately evaluate the flow volume loop due to excessive variablity such as might be produced by coughing. The MVV is reduced. The increased airway resistance and decreased specific conductance indicate a central airway disease. While the TLC is within normal limits, the FRC, RV and RV/TLC ratio are increased. Following administration of bronchodilators, there is no significant response. The reduced diffusing capacity indicates a mild loss of functional alveolar capillary surface. Spirometry: FVC normal 89% FEV1 decreased 60% FEV1/FVC decreased 49 PYR84-44 decreased 29% MVV decreased 58% Volumes: TLC normal 114% RV/TLC increased DLCOcor decreased 67% Impression: Moderate obstructive lung disease without response to bronchodilators. Findings consistent with air trapping. Decreased diffusion capcity consistent with emphysema. Electronically Signed On 01-02-2024 8:25:34 EDT by BLADE CONROY
== END 2023-12-30 08:45 | disposition home or self-care (01) ==
LOC: CARD 08:45
PROVIDERS: PCP Internal Medicine; Visit Provider Internal Medicine
DX: J41.0 Simple chronic bronchitis (principal); R06.00 Dyspnea, unspecified
CPT/HCPCS: 36415; 85018; 94060; 94726; 94729

== ENCOUNTER 2024-04-18 07:38 | Outpatient (OUT) | payer MEDICARE, OTHER, SELFPAY ==
[2024-04-18 08:06] LABS: Basophils Percent Auto 0.4 % (0.2-2.0); Eosinophils Absolute Auto 0.1 10^3/uL (0.0-0.7); Eosinophils Percent Auto 1.1 % (0.9-7.0); Hematocrit 43.3 % (42.0-54.0); Hemoglobin 14.3 g/dL (14.0-18.0); Immature Granulocytes Abs Auto 0.05 10^3/uL (0.00-0.03); Immature Granulocytes Pct Auto 0.6 % (0.0-0.5); Lymphocytes Percent Auto 25.7 % (20.5-60.0); Mean Corpuscular Hemoglobin 31.6 pg (25.9-34.0); Mean Corpuscular Volume 95.6 fL (80.0-94.0); Mean Platelet Volume 9.1 fL (9.5-13.5); Monocytes Absolute Auto 0.6 10^3/uL (0.3-0.8); Monocytes Percent Auto 8.1 % (1.7-12.0); Neutrophils Percent Auto 64.1 % (43.0-75.0); Platelet Count 263 10^3/uL (150-450); Red Blood Count 4.53 10^6/uL (4.70-6.10); Red Cell Distribution Width 12.3 % (11.0-15.0); White Blood Count 7.9 10^3/uL (4.0-11.0)
[2024-04-18 08:41] LABS: Estimated Average Glucose 108 mg/dL; Glycohemoglobin A1C 5.4 % (4.5-6.2)
[2024-04-18 08:43] LABS: Alanine Aminotransferase 37 U/L (16-63); Albumin Globulin Ratio 0.9; Albumin Level 3.2 g/dL (3.4-5.0); Alkaline Phosphatase 96 U/L (46-116); Anion Gap 11.8; Aspartate Amino Transferase 18 U/L (15-37); Bilirubin Total 0.4 mg/dL (0.2-1.0); Calcium 9.4 mg/dL (8.5-10.1); Carbon Dioxide 30.7 mmol/L (21.0-32.0); Chloride 103 mmol/L (98-107); Chol HDL Ratio 2.9; Cholesterol 198 mg/dL (<=200); Estimated GFR (African America >60 (>=60); Estimated GFR (Non-African Ame >60 (>=60); Globulin 3.7 g/dL; Glucose 109 mg/dL (74-106); HDL Cholesterol 69 mg/dL (40-60); Potassium 4.5 mmol/L (3.5-5.1); Sodium 141 mmol/L (136-145); Total Protein 6.9 g/dL (6.4-8.2); Triglycerides 142 mg/dL (<=150); VLDL CHOLESTEROL 28.4 mg/dL
[2024-04-18 09:11] LABS: Prostate Specific Antigen Scrn 2.63 ng/mL (<=4.00)
== END 2024-04-18 07:39 | disposition home or self-care (01) ==
LOC: LAB 07:39
PROVIDERS: PCP Internal Medicine; Visit Provider Internal Medicine
DX: R73.01 Impaired fasting glucose (principal); I10 Essential (primary) hypertension; E78.00 Pure hypercholesterolemia, unspecified; Z12.5 Encounter for screening for malignant neoplasm of prostate
CPT/HCPCS: 36415; 80053; 80061; 83036; 85025; G0103

== ENCOUNTER 2024-06-03 20:36 | Inpatient (IN) | payer MEDICARE, OTHER, SELFPAY ==
[2024-06-03] VITALS (26 sets, daily range): BP systolic 93–118; BP diastolic 59–82; PULSE 59–112; TEMP 36.8; O2SAT 90–97; BMI 31.4
--- OUTSIDE RECORDS SUMMARY | 2024-06-03 20:42 | XMS_ITS | CCD ---
Author Organization [facility] Care Team Providers Care Assistant Chief Nursing Officer Name Role Phone DR AAYUSH ESCUDERO Consulting Unavailable MARYCARMEN, DR MURGUIA Attending Unavailable MARYCARMEN, DR MURGUIA Admitting Unavailable MARYCARMEN, DR MURGUIA Primary Care Unavailable GURVINDER BROOKS Admitting Unavailable GURVINDER BROOKS Consulting Unavailable GURVINDER BROOKS Attending Unavailable MARYCARMEN, DR MURGUIA Primary Care Unavailable Aayush Escudero Unavailable ANJUM LATHAM Attending Unavailable Lane Chen Admitting Unavailable Aayush Escudero Primary Care Unavailable Lane Chen Attending Unavailable Aayush Escudero Primary Care Unavailable Lane Chen Attending Unavailable Lane Chen Admitting Unavailable Aayush Escudero Primary Care Unavailable Lane Chen Attending Unavailable Lane Chen Admitting Unavailable Allergies Allergy Classification Reported Allergen(s) Allergy Type Date of Onset Reaction(s) Facility (5 sources) Amoxicillin / Clavulanate; Translations: [Augmentin] Drug Allergy 01-02-2014 Unknown [facility] Rep[facility] Medications Current Medications Medication Drug Class(es) Dates Sig (Normalized) Sig (Original) [id number] 200 actuat albuterol 0.09 mg/actuat metered dose [...] acid 4700 mg / polyethylene glycol 3350 486514 mg / potassium chloride 1015 mg / [...] symptoms] Chronic Other aftercare (2 sources) Other group home (current) drug therapy; Translations: [OTH CORRECTION CURRENT DRUG THERAPY] Onset: 04-04-2022 Episodic Other [...] Results Test Name Value Interpretation Reference Range Facility Anesthesia Noteon 06-02-2024 Anesthesia Note Patient: RICARDO GRANT Age: 74 years Sex: MALE : 1950 Associated Diagnoses: None Author: Marcos Hoyt MD Postoperative Information Anesthetic utilized: General. Assessment Anesthetic outcome No anesthetic complications noted. Plan Transfer/ Discharge: Patient can be discharged from PACU when criteria met. Condition good. [Electronically Signed on: 06/02/2024 08:52 EDT] Marcos Hoyt MD [Verified on: 06/02/2024 08:52 EDT] Marcos Hoyt MD [facility] Anesthesia Note Patient: RICARDO GRANT Age: 74 years Sex: MALE : 1950 Associated Diagnoses: None Author: Marcos Hoyt MD Preoperative Information Anesthesia history: Family history. Patient history: No prior anesthesia problems. Review of Systems Constitutional: Negative. Cardiovascular: No Chest Pain. No SOB. Health Status Allergies: Allergic Reactions (All) Moderate Augmentin- Hives. Current medications: Home Medications (12) Active Advair Diskus 250 mcg-50 mcg inhalation powder 1 puff(s), Inhale, BID Albuterol (Eqv-ProAir HFA) 90 mcg/inh inhalation aerosol 2 puff(s), PRN, Inhale, q6hr amLODIPine 5 mg oral tablet 5 mg = 1 tab(s), Oral, Daily lisinopril 40 mg oral tablet 40 mg = 1 tab(s), Oral, Daily oxybutynin 10 mg/24 hr oral tablet, extended release 10 mg = 1 tab(s), Oral, Daily pravastatin 80 mg oral tablet 80 mg = 1 tab(s), Oral, Daily r/alpha liporic acid 300 mg, Oral, Daily Vitamin B1 1 tab(s), Oral, HS Vitamin C 1000 mg oral tablet 1,000 mg = 1 tab(s), Oral, Daily Vitamin D3 1 tab(s), Oral, Daily vitamin E 180 mg oral capsule 1 tab(s), Oral, Daily zinc (as gluconate) 50 mg oral tablet 50 mg = 1 tab(s), Oral, Daily Problem list (past medical history): All Problems BPH (benign prostatic hyperplasia) / SNOMED CT 014830860 / Confirmed COPD (chronic obstructive pulmonary disease) / SNOMED CT 513310770 / Confirmed History of skin cancer / SNOMED CT 1883239973 / Confirmed Hyperlipidemia / SNOMED CT 48421298 / Confirmed Hypertension / SNOMED CT 5646050788 / Confirmed Neuropathy / SNOMED CT 5818767801 / Confirmed Histories Family History: No family history items have been selected or recorded. Procedure history: Cystoscopy ([id number]) on 03/17/2024 at 73 Years. Arthroscopy of knee ([id number]) in 1997 at 48 Years. Comments: 05/18/2024 8:59 DARAT - Mandy Hanson RN ?Right Colonoscopy ([id number]). Elbow ([id number]). Comments: 05/18/2024 9:01 Mandy Crawford RN left arm- ? ulnar nerve disposition Social History Electronic Cigarette/Vaping Assessment Electronic Cigarette Use: Former use, quit more than 90 days ago. Comment: about 4-5 months; Also quit in 2010 Alcohol Assessment Use: Current. Beer, 3-5 times per week Tobacco Assessment Former tobacco user Tobacco Use:. 40 year(s). Comment: Quit smoking in 2010 Substance Abuse Assessment Substance use: Never. . Social & Psychosocial Habits Alcohol 05/18/2024 Alcohol Use: Current Type: Beer Frequency: 3-5 times per week Substance Use 05/18/2024 Substance use: Never Tobacco 05/18/2024 Smoking tobacco use: Former tobacco user Number of years: 40 Comment: Quit smoking in 2010 - 05/18/2024 09:01 - Mandy Hanson RN Electronic Cigarette/Vaping 05/18/2024 Electronic Cigarette Use: Former use, quit more nona Comment: about 4-5 months; Also quit in 2010 - 05/18/2024 09:02 - Mandy Hanson RN . Physical Examination Pain assessment: Self-reports no pain. General: Alert and oriented, No acute distress. Airway: Mallampati classification: II (soft palate, fauces, uvula visible). Temporomandibular joint mobility: Good. Respiratory: Lungs are clear to auscultation. Cardiovascular: Regular rhythm. Neurologic: Alert, Oriented. Review / Management Laboratory Results Plan [place] [employer]#( A) physical status classification: Class III. Anesthetic Preoperative Plan Anesthesia: General. . Anesthetic plan, risks, benefits, and alternatives discussed with the patient and/or family. Patient verbalized understanding. Informed consent was given. Anesthetic technique: General anesthesia. [Electronically Signed on: 06/02/2024 07:38 EDT] Marcos Hoyt MD [Verified on: 06/02/2024 07:38 EDT] Marcos Hoyt MD [facility] Inpatient Patient Summaryon 06-02-2024 Inpatient [place] [address] Patient Discharge Instructions Name: RICARDO GRANT : 1950 Patient Address: [address] [place] [address] Primary Care Provider: Name: Aayush Escudero After you are discharged if you find you have any questions, please, call [phone] ext [phone] to speak to a nurse. Discharge Diagnosis: 1:BPH (benign prostatic hyperplasia) Prescription Information: If you have been given a prescription for narcotics, seek immediate medical attention if you have any difficulty breathing or any sudden status changes such as confusion and sleepiness. If you or anyone you know is experiencing suicidal thoughts, mental health, alcohol and/or drug addiction problems; contact the Mental Health [facility] Recovery [facility] 16/03 Crisis Hotline -Text 4HLKZ yk 860689. If you received any narcotics, sedation, or any other medication that causes drowsiness for the next 24 hours, unless otherwise directed: ? Do not drive a car. ? Do not operate machinery such as power tools, lawn mowers, drills, sewing machines, or stoves ? Avoid alcoholic beverages and drugs for allergies, nerves, or sleep ? Do not make important personal or business decisions or sign any legal documents [facility] would like to thank you for allowing us to assist you with your healthcare needs. The following includes patient education materials and information regarding your injury/illness. RICARDO GRANT has been given the following list of follow-up instructions, prescriptions, and patient education materials: Follow-up Instructions With: Address: When: Lane Chen MD Medications During the course of your visit, your medication list was updated with the most current information. The details of those changes are reflected below: New Medications [id number], [address], [place] [id number], [phone] cephalexin (cephalexin 500 mg oral capsule) 1 cap(s) Oral (given by mouth) Every 12 hours scheduled time for 3 Days. Refills: 0. traMADol (Ultram 50 mg oral tablet) 1 tab(s) Oral (given by mouth) every 6 hours as needed as needed for pain. Refills: 0. Medications to Continue That Have Not Changed Other Medications albuterol (Albuterol (Eqv-ProAir HFA) 90 mcg/inh inhalation aerosol) 2 puff(s) Inhale (breathe in) every 6 hours. as needed shortness of breath or wheezing. amLODIPine (amLODIPine 5 mg oral tablet) 1 tab(s) Oral (given by mouth) every day. ascorbic acid (Vitamin C 1000 mg oral tablet) 1 tab(s) Oral (given by mouth) every day. cholecalciferol (Vitamin D3) 1 tab(s) Oral (given by mouth) every day. fluticasone-salmetero l (Advair Diskus 250 mcg-50 mcg inhalation powder) 1 puff(s) Inhale (breathe in) 2 times per day. lisinopril (lisinopril 40 mg oral tablet) 1 tab(s) Oral (given by mouth) every day. oxyBUTYnin (oxybutynin 10 mg/24 hr oral tablet, extended release) 1 tab(s) Oral (given by mouth) every day. pravastatin (pravastatin 80 mg oral tablet) 1 tab(s) Oral (given by mouth) every day. Template Non-Formulary (r/alpha liporic acid) 300 Milligram Oral (given by mouth) every day. thiamine (Vitamin B1) 1 tab(s) Oral (given by mouth) At bedtime. vitamin E (vitamin E 180 mg oral capsule) 1 tab(s) Oral (given by mouth) every day. zinc gluconate (zinc (as gluconate) 50 mg oral tablet) 1 tab(s) Oral (given by mouth) every day. It is important to always keep an active list of medications available so that you can share with other providers and manage your medications appropriately. As an additional courtesy, we are also providing you with your final active medications list that you can keep with you. albuterol (Albuterol (Eqv-ProAir HFA) 90 mcg/inh inhalation aerosol) 2 puff(s) Inhale (breathe in) every 6 hours. as needed shortness of breath or wheezing. amLODIPine (amLODIPine 5 mg oral tablet) 1 tab(s) Oral (given by mouth) every day. ascorbic acid (Vitamin C 1000 mg oral tablet) 1 tab(s) Oral (given by mouth) every day. cephalexin (cephalexin 500 mg oral capsule) 1 cap(s) Oral (given by mouth) Every 12 hours scheduled time for 3 Days. Refills: 0. cholecalciferol (Vitamin D3) 1 tab(s) Oral (given by mouth) every day. fluticasone-salmetero l (Advair Diskus 250 mcg-50 mcg inhalation powder) 1 puff(s) Inhale (breathe in) 2 times per day. lisinopril (lisinopril 40 mg oral tablet) 1 tab(s) Oral (given by mouth) every day. oxyBUTYnin (oxybutynin 10 mg/24 hr oral tablet, extended release) 1 tab(s) Oral (given by mouth) every day. pravastatin (pravastatin 80 mg oral tablet) 1 tab(s) Oral (given by mouth) every day. Template Non-Formulary (r/alpha liporic acid) 300 Milligram Oral (given by mouth) every day. thiamine (Vitamin B1) 1 tab(s) Oral (given by mouth) At bedtime. traMADol (Ultram 50 mg oral tablet) 1 tab(s) Oral (given by mouth) every 6 hours as needed as needed fo (more content not included)... [facility] Intraoperative Record MAGR Intra-Op Record Summary Primary Physician: Lane Chen MD Finalized Date/Time: 06/02/24 08:48:28 Pt. Name: RICARDO GRANT Prasanna/Sex: 1950 MALE Med Rec #: [id number] Physician: Lane Chen MD Financial #: [id number] Pt. Type: D Room/Bed: / Admit/Disch: 06/02/24 05:52:27 - Institution: Case Times MAGR Entry 1 Patient In Room Time 06/02/24 07:41:00 Out Room Time 06/02/24 08:33:00 Anesthesia Start Time 06/02/24 07:41:00 Stop Time 06/02/24 08:33:00 Surgery Start Time 06/02/24 07:55:00 Stop Time 06/02/24 08:26:00 Last Modified By: Frances Ling RN 06/02/24 08:33:30 Case Attendance MAGR Entry 1 Entry 2 Entry [address] Chen MD [facility], Frances Lopes MD, RN Role Performed Surgeon - Primary Anesthesiologist of Filling Carrier Record Time In 06/02/24 07:48:00 06/02/24 07:41:00 06/02/24 07:41:00 Time Out 06/02/24 08:26:00 06/02/24 08:33:00 06/02/24 08:33:00 Procedure Cystoscopy PVP Cystoscopy PVP Cystoscopy PVP Greenlight Laser Greenlight Laser Greenlight Laser Prostate Prostate Prostate Last Modified By: Frances Ling RN, Barbara RN Long, Barbara RN 06/02/24 08:33:31 06/02/24 08:33:31 06/02/24 08:33:31 Entry 4 Entry 5 Entry 6 Case Attendee Todd RN, Imelda Hanson CST, Brittany E CSFA THREADING MACHINE OPERATOR Role Performed Filling Carrier Scrub Personnel Scrub Personnel Time In 06/02/24 07:41:00 06/02/24 07:41:00 06/02/24 07:41:00 Time Out 06/02/24 08:33:00 06/02/24 08:33:00 06/02/24 08:33:00 Procedure Cystoscopy PVP Cystoscopy PVP Cystoscopy PVP Greenlight Laser Greenlight Laser Greenlight Laser Prostate Prostate Prostate Last Modified By: Frances Ling RN, Barbara RN Long, Barbara RN 06/02/24 08:33:31 06/02/24 08:33:31 06/02/24 08:33:31 Surgical Procedures MAGR Pre-Care Text: A.20 Verifies operative procedure, surgical site, and laterality Im.150 Develops individualized plan of care Entry 1 Procedure Cystoscopy PVP Primary Procedure Yes Greenlight Laser Prostate Primary Surgeon Lane Chen MD Surgeon Comment Cysto, Greenlight Laser Start 06/02/24 07:55:00 Stop 06/02/24 08:26:00 Anesthesia Type General Surgical Service Urology Wound Class Clean-Contaminated Technique Details Closure Technique N/A Entire procedure No was performed via laparoscope or robotic assistance Last Modified By: Frances Ling RN 06/02/24 08:31:52 Post-Care Text: O.730 The patient's care is consistent with the individualized perioperative plan of care General Case Data MAGR Pre-Care Text: A.350.1 Classifies surgical wound Entry 1 Case Information OR MAGR OR 05 Case Level Level 4 Wound Class Clean-Contaminated Specialty Urology ASA Class 3 Diagnosis Preop Diagnosis BPH Postop Same As Preop Yes Postop Diagnosis BPH Blunt or No Is the procedure No penetrating injury considered occured prior to Emergent/Urgent? the start of the procedure: Last Modified By: Frances Ling RN 06/02/24 07:45:13 Post-Care Text: O.760 Patient receives consistent and comparable care regardless of the setting Time Out MAGR Entry 1 Procedure(s) Cystoscopy PVP Greenlight Laser Prostate Time Out Checklist Verifications Team Introductions Yes Confirmed Identity, Yes Completed Procedure, Incision Site, and Consent(s) Presence of Yes Site Verification, Yes Necessary Site Marking, Site Procedural Marking Equipment, Devices, Alternative, and/or and Implants Site Marking Verified Exception in Accordance with Facility Policy Anesthesia Review Antibiotic Received Yes All Anesthesia Yes Within an Concerns Addressed Appropriate Time Interval Prior to Surgical Incision Surgeon Review Anticipated Blood Yes Expected Case Yes Loss Risk Addressed Duration Addressed Critical and Yes Non-Routine Steps to be Performed Addressed Nurse Review Equipment Yes Fire Risk Yes Checks/Concerns Assessment Addressed Completed and Interventions Performed Diagnostic and n/a Sterilization n/a Radiological Test Concerns Addressed Results Displayed are Appropriate and Labeled Other Concerns n/a Addressed Time Out Lane Chen MD, Time Out Time 06/02/24 07:54:00 Participants Marcos Hoyt MD, Frances Ling RN, Imelda Balderrama [facility] Last Modified By: Frances Ling RN 06/02/24 07:54:21 Patient Positioning MAGR Pre-Care Text: A.280 Identifies baseline musculoskeletal status Im.40 Positions the patient Im.80 Applies safety devices Entry 1 Procedure Cystoscopy PVP Body Position Low Lithotomy Greenlight Laser Prostate Left Arm Position Extended on padded arm Right Arm Position Extended on padded arm board board Left Leg Position Secured in Stirrup Right Leg Position Secured in Stirrup Press Points Checked Yes Positioning Device Safety Strap, Stirrups Outcome Met (O.80) Yes Last Modified By: Frances Ling RN 06/02/24 07:45:58 Post-Care Text: E.290 Evaluate (more content not included)... [facility]R PACU Record Summary Primary Physician: Lane Chen MD Finalized Date/Time: 06/02/24 09:05:41 Pt. Name: RICARDO GRANT/Sex: 1950 MALE Med Rec #: [id number] Physician: Lane Chen MD Financial #: [id number] Pt. Type: D Room/Bed: / Admit/Disch: 06/02/24 05:52:27 - Institution: PACU Case Times MAGR Entry 1 In PACU I 06/02/24 08:35:00 Discharge from PACU 06/02/24 09:05:00 I Last Modified By: Colleen Denney RN 06/02/24 09:05:09 Finalized By: Colleen Denney RN Document Signatures Signed By: Colleen Denney RN 06/02/24 09:05 [facility] MAGR Postoperative Record MAGR Phase II Record Summary Primary Physician: Lane Chen MD Finalized Date/Time: 06/02/24 10:23:59 Pt. Name: RICARDO GRANT./Sex: 1950 MALE Med Rec #: [id number] Physician: Lane Chen MD Financial #: [id number] Pt. Type: D Room/Bed: / Admit/Disch: 06/02/24 05:52:27 - Institution: Phase II Case Times MAGR Pre-Care Text: Patient is free from s/s of injury. Patient remains free from compromised physical state related to surgery or anesthesia. Patient comfort maintained. Patient/family verbalize understanding of discharge instructions. Entry 1 In PACU II 06/02/24 09:07:00 Discharge from PACU 06/02/24 10:17:00 II Last Modified By: Lorene Pollard RN 06/02/24 10:23:52 Post-Care Text: The patient remains free from s/s of injury. Patient's vital signs stable, circulation maintained, return to preop mental and physical status, opsite/dressing intact, minimal or absent nausea and vomiting, tolerates po intake. Patient verbalizes adequate pain control. Patient/family express understanding of discharge instructions. Finalized By: Lorene Pollard RN Document Signatures Signed By: Lorene Pollard RN 06/02/24 10:23 [facility] Preoperative Recordon 1 [facility] Preoperative Record [facility] Pre-Op Record Summary Primary Physician: Lane Chne MD Finalized Date/Time: 06/02/24 07:41:40 Pt. Name: RICARDO GRANT/Sex: 1950 MALE Med Rec #: [id number] Physician: Lane Chen MD Financial #: [id number] Pt. Type: D Room/Bed: / Admit/Disch: 06/02/24 05:52:27 - Institution: Pre-Op Case Times MAGR Pre-Care Text: Patient will be optimally prepared for surgery. Patient is free from s/s of injury. Provide information to patient/family related to plan of care. Verify patient allergies. Confirm identity and verify consent before the operative or invasive procedure. Entry 1 Patient Arrival Time 06/02/24 05:58:00 Preop Departure 06/02/24 07:40:00 Last Modified By: Clarissa Castro RN 06/02/24 07:41:36 Post-Care Text: Patient is prepared mentally and physically and is ready for surgery. The patient remains free from s/s of injury. Patient/family express understanding of plan of care and participate in decisions affecting his or her perioperrative plan of care. Allergies documented appropriately. Patient identifiers and consent correct. General Comments: Pt arrives to w ambulatory. Pt denies cp, sob, cough or flu like symptoms. Pt denies pacemaker/defibillato r or sleep apnea. Finalized By: Clarissa Castro RN Document Signatures Signed By: Clarissa Castro RN 06/02/24 07:41 [facility] Patient Handouton 06-02-2024 Patient Handout [facility] Coding Summaryon 06-01-2024 Coding Summary HTMLBase 64 OwjobcsrEYw4dHl+PGhlY WQ+PN3UINFwA13tnJWhlI 8jR8JNVJhAAdizKRVEANl ASxIfmbBrKU2mhQVwSXGo IC8+PE9bCWJiIfnefMXpq 8V1rUU7S06wyq0xHQyyaJ E4TAXqFoElzodmj7ujmRb 6IDcuNmluOyBt CEHwnL02RPB3jB21Hg04h YCleTCdc8bgfZw9XlSeKZ MmAGV0sSaePWanz7HvFYS aY42ssVYjr1P0 LYFscWfzzNQyTjNpuEG4r N5nCDcbiudsr6icjhkaIp w8dn63jFBvq1T4wFB3I7Y wmzC1YPJmwZUc FazxrTADrD0hahrmx7xgw mlfXzPyRXYnWGm0NLr2DW GciLhaAwOxFD39DIM8NAS swbIvO3ReFTVm fMazIiE0a8A3Rb8ZM0TDL ydtK6AACMEMYErwzHR+PC 26cy88E0HbVkhsMpl0ROI lVJB0bKN6gJ6q GRYjQImpz8T9hVT0O5Rmn rKdst1mr9nuBONjGUjvB2 6upNKwj9L4KYWbpON7SUF naCknFwXqjQ25 Oyc+AZJulSskd6NjDysgd 1sra2xpwWa7FjagNEWvyc EdjBxeHWZ9l3ToUp3uEUI ilTI8nNE3zE9f XlMoVaX3ZSkuL016GdDfg BQbFcsnK52rL8TpqRW+PH CiCxx0STXpbYimAT9dZ2K hZGRpbmctbGVm pDhsUF3mUMFfiumhQDOio E3qCTFrB8m0CpDtIpV7CU vsU3ArGNZjbbgdZr18lC1 qKeSgWvD5OFzs V1GgauH6LOLvxEDdVCmwO GW2Q06yv4W1IWWrOSXwQK X3kVF0zO3ycOslbsxzaEM mdDsgdmVydGlj WUddGEgeV060QMApsNkxU kNvZGluZyBEYXRlOiAgMT AvMDkvMjAyNDwvdGQ+PHR zOKW4tNpvCVFb aVBlHOlrDc1hzGuyiGziQ R5sYITwpverCOTjoW5xJP AisTDbvOfqON9iQKJwcww yd410KkXrJTB7 YLLmmXJuI7AsnG6pNtVeA JQqFZAjY3XjgYXpTJiyN6 23DYvuMzP6OXYlxwJaJ5K sLWFsaWduOiB0 d6O6Rd5Cg5SznvynQ0Yrs NQyJtXtXdhqTKo2O6NwJg wvdHI+EC56HVDmXH47FBw 1VFL0jDcsWTrh EZZsZ9DsoK4dMdPnFOCgP GRkOyc+PHRhYmxlIHdpZH RoPScxMDAlJyBzdHlsZT0 bKp4nPEUtFWZq rSzwcKGuUxTqe9fgSDJzQ AkqIH6ldXjfG4CxtQY6YJ Ywb0e5Ns89S78wU0WxoCS +BWUxqIP1sRL9 eQ8qUxMdYiB9JUzjB633G qIruLEoBvmjx7tso5pcmJ n3AiJ0HMZngwPloFumRXM 0u0OxAr77X60m IHdpZHRoPSIxNSUiIHZhb Ayjlc7uaH8lBv9+PGNvbC V5aLI0wS5nLdDjDuV2ULz yJ867GbRihBKz Wzykx1wdo0kjxGe3FhDcZ STjaaPhkHnrKLZ8y3GoMq 67T8ErgVvyx5XyZmo3xi6 8fZPcz0S7sOW1 R6RrEOIxvvqezMFgzTvlQ H6fNRPcxjneSWLzeK9cSK JyS1a9CmIlLiQ0IIasU1Y xwhW2MDLghPUw WCIddLISpO5mxnyjy9vfy spuIoIhLIRzKIp2TCp6XU NkiRsnNaIsYIJ1QzN3COL 7dRDdjV2bbXbo tggjkN3xKnh+RXK7lDSjh ABOIJ9fOdsqhUX+PHRkIH S1tLvjEOxmYGAepP0sHVA fT6c8ImJbDyG6 NVygD3WtpnT8WGTvlDEfJ KIitTNDdE0xfuzfc9cnll lhCdHxOMXbHNs0OHk0DQC saWduOiBsZWZ0 SdR8FWB1tXKjlL1koZtxz btioU4lEkg+QmlydGggRG O6PIe0D6EpVjn2KOHgsEa iRR9yyDHbDVtp Um4srHuocReoFL9mENSpj lezg957VnSmv1rwHNDagW ZpZBcdVRI2B41ys9P5CCV jOHDyDOO4tQF8 jE5yiGjkvrquqWDpsDawl wFgeRcyXRviWVwzY626UM KurEwvMuJlSXi0U7HvAiv 7PQJisZgwGO1t gVTbZUxnVr8dgUuwyFdzY W1zEPFddodwg187ScQqp7 mzNKAchDFlNGvuFLX4N03 an8F2PNOsZMCk PZC0cSF6kJ9rmOamfudah GVmdDsgdmVydGljYWwtYW lrR586LYKpgWaqBvMynJm 7G7XmBxo1GGTl dYgdWJ2sxZEnDUljJq9up BfxeHwrEJ3gNYHzkcaam2 91JzMoz0cdJFPnfDCjGWw cMAU1T32hq8G7 NIHdHYYdROC4zSY4hD3vf GlnbjogbGVmdDsgdmVydG faULpqZRgvX519QRLbtEr nPlBhdGllbnQg EKyrRYw9S5VpEdiwzRX+P C87LRIyGM42xEWdlYDvn2 fraGs0DdInZVDsAWK7iSe tAEccy7FnRKGy S40vcKDte3Q3DMWkzXjkc AMwRyEhbTY4hJ0fNBmvai jse5advwwmQuczy9jyac4 9rK92V85wXHqq ZHRoPSIzMCUiIHZhbGlnb f3enH0dQj7+RFPsbII9rG M5wC2dIOJoBbA3RZdjB85 9InRvcCIvPjxj d3vgs8hsdXe1WeV7GIEmn sUhpWwtDPZ6s6FiEf77Y1 9sIHdpZHRoPSIyMCUiIHZ lyFlglq8glU2l Ii8+HNVgyMG4zUW8cZ5hB aUyGnJ8DWboI470NyDlqM NyScuaD60uA6YyoIE+PHR sNls1CWGrqVpy RX8mlVGlAWkcJn7fAIL3P tAtDoPpUKnhW8YwFCUfml hfazcgoOZ3HKIsBLRccE3 1Ai6evEadGFEi qPKGyF1kjbalh2mwpypeZ aMoOXKtVMd3QXl9UDLueA qhZvOoIKB5IxC0WER2jRF isY4iiWqexwzd qE0vV6HpQDGdqqkzIs19c Y1jFkGnSbD9DYhpNpq+UE YZF2eTWtjaEZUYUM8RQFL 7E2FuDrb4VPDz aJtgEL4qdPAkVFhrAy9ax CracNmaSV4xGNAdmmogCT OvoF1oOQDmmPGutEaqMH5 aMIFwxxpzl354 PyOwRVQ3VMSiqZClI2Jov B2pEhNlGVDwEPDgG9ThlQ QtAUasK851TUijJbF3JNI kenSoQ8WxUBEg uLdkCyQ5c6X6Rl9vXW3dC f1gCQKqSW90YD06jPQxp4 V5cPT5N7YbXKAlxxiefvt wyVY6ZHCyJRDh qC04xIFzCPmtPc9xh9G6o 352OOJbFISvrR19Ak8hsQ uwRYCaxPVQpI5htesbf2v vcjogIzAwMDAw CXt9IMu3ZIVwbDseUwZqV GQ1LhM9SZQ2lDHepL9okA ghzackdG2cNml+NzQgWWV kkzT6B5DjHug3 SOHylKfyMY3mlHTxQYyjH x4nnPowvNxlEL4iERRjpi yiMLCwuR2rBJUnrYRcdIg sUL8nDVBnpalr y642QlTfXFD2SFPcwDDaP 5NmiC7zDvRtRGWoBLMlG8 UzwCTiTRuxR826TBesIzP 0SJZiutQgY6Mo NTGrsMiyVfS3c7T3Af3LR JfZCN80VW21qCCly0L8iS J0R4UoORLicrfqdpqmvDH 7TOJnQKImzK17 fQReSWmcUh4tj5T1m948A XHfUQCoxJ00St1sqOjsMO FyzLVHuO3cxbdja4zrpkv gIzAwMDAwMDt0 LTn4YHTmgMcjQbRfVYV0Y nG1XEK6oCBtwH0raYxswi yrnZ3wNrq+R8M3B2LeBpj vdHI+JF85YVQw BT58tVCtgQZnz6dvrTi2T xPgHWGlBHX6fRcqCDtos6 EsNQLeS62xlGQku7V7KDY vbGxhcHNlOyBl tIY7nO8lIOpcyzypj8clw mayVuugs6gdld27hM58Y2 9sIHdpZHRoPSIzMCUiIHZ tcPmgpw9zwH9x Ii8+HKJvzYB2lFK4sI5nH zAqVaJ3YXrbO220MoAqkZ HoFcxwd8ind3jdiIj0ClX wJSIgdmFsaWdu AIR2e3KfVo30B75jSLnbV HRoPSIyMCUiIHZhbGlnbj 7zuG8nNt7+DB9hv6tkgz2 7kY08gHM+PHRk KQQ2iLwiQNncZAInnS4dJ CsbXfX9YLIhNjUfeG22gL TtCVluCs7gqEqqrIieTT0 xZBJrzwsti787 XmLmt8zvMYDqoOKiPOqkI NQ8J78dj6O8KUAnLAIoXQ T8tGT5eU0dxZuslxjxqEZ mdDsgdmVydGlj RFgtUZgqR817BIRcdWieT aRfnUWmP1yjtcGVTJ4eOj wvdGQ+LEKpMNH7jZuvOOa qJVUamF6gAGJk T3b0HzWsOcB9IUiuN9Djk dM2YXDpdQDmFDFsrAXKhB 2xxwrnn6dutsvqZoUlXYX rUGc9WUi7YDBw lFdeIyDsXUW9BoO4SSS9m EMxiB6saDwglovdrX6nSx c+RklOOjwvdGQ+PHRkIHN 0eWxlPSdwYWRk nU6jIWKcW0n7IvRrLrR8H NibG1JzndK3TOJknDSqJL LmcTMHhZ8pyuahz3ilxvn gIzAwMDAwMDt0 IJl4YBRttHnvYaWqJRM0F xQ6AKR4rGBakJ4hdLkejw jtgZ4hWby+TVJOOjwvdGQ +LOQfQPG0bWdw LYsrFPFhiI2lBMYxI7v9F lFlVlG4JIssR3FxerJ5CY WsuSYfVZIbqZOWkV8erlx sf0vmszktIxAv QERqWSn1NPg8YBUhwTozB xFeJNV4LiS4FRA3eGXdyL 7amDwsmqyhhO3rZji+UGF 3VNV3UZ12DJ49 Z2YyPqkrgGQxzGO+PHRhY mxlIHdpZHRoPScxMDAlJy RibOktPL9dPd7zJIWiYLX vbGxhcHNlOiBj b2x (more content not included)... [facility] Progress Note - Nurseon Progress Note - Nurse Pre-op call made for 06-02-2024 surgery- pt given arrival time of 0600 tomorrow. Pt denies being sick. Pt reminded of NPO status after midnight except for any meds that he was instructed to take with sip of water, to bring photo ID and insurance card, no jewelry, and needing transport driver- pt with understanding. [Electronically Signed on: 06/01/2024 09:27 EDT] Mandy Hanson RN [Verified on: 06/01/2024 09:27 EDT] Mandy Hanson RN [facility] Progress Note - Nurseon - Progress Note - Nurse Dr Yoo reviews pt chart and no new orders were received. [Electronically Signed on: 05/20/2024 11:47 EDT] Mya Lobo RN [Verified on: 05/20/2024 11:47 EDT] Yamil, Lossel RN [facility] Coding Summaryon 03-21-2024 Coding Summary HTMLBase 64 ZgengnfhAOf2zGt+PGhlY WQ+MN4VKWXaW88ooJBzeI 1yP7KKUTxSBqrxXTJVWIh MTuQvpkEoMF0crLClRKLm IC8+UF8yJATeYjuscZDps 3Y0iNW0C87smq6lNDsasC U8WDZpHcIzchvkr3ygeKk 6IDcuNmluOyBt QPJmqR64OOM1hC49Zw08z GUfgFSma7qddEe4RlWnFC UjTZU5rMlgKPxfa3SzKYR gE13ffXHlk2F9 HKHatTtdaNAeTlCtuEH8f O9vWIlzghnuc7rdiyvvNo z4pm32kLLlz8H5fJS7G5N swxD7VVPlxGSi RdimvGFTcG3qkmrvl5huy iapCgPlLEQiSRw8ZSu1XV DpgRuiRjGeCH18AAP9IPE aekPqT0XrYOGe mOgxBhA5k3J9El7GA8ZHP rybW6FPCNHYARaacOS+PC 37oy34A6JzUlqvInd8MDM nIAE5mQI3sG0g SLGcFXttq4V3kCC8Z8Hfs pZiin4gb3ewVUMpGXrdU9 3lpRGkl7F1JIZxfOX5AZT dhHedWdWklM61 Oyc+KWYfgZxap2JqMsyco 9pbn7ljfKo3GmccIULrus XziGqmJEB1d8KgAw7jCQK leQW5uSE2iB8o IeJuJrI6CSilR961TdHap LZlKjkmT76xJ2QxnGE+PH LyNvx0SDBdzHweZM8sE3A hZGRpbmctbGVm lYpzOW9cWDPoqyxsBQGpt N6fNEKgQ8b5NuHkCvQ8GB xoS1FhQHUtxxpzRw28lA1 cJyUxKaJ4SYsy V2HpwnW9YADzyIAnPBgdP DM6M31yw8E6ICUpUAFhXZ N9gSG9nC0lrDdjhmzkiTF mdDsgdmVydGlj UOaaJTjhH217EPRmkWtpA kNvZGluZyBEYXRlOiAgMD cvMjkvMjAyNDwvdGQ+PHR aYWR9fEflPZEr vSXbBEkcDq2dyDwlbSwtE X0pCDEovpznCPXecC8pHP IzoGQssJpcGV8mBWWesko kf012VtJeWRZ6 GMSrsYPqV0MvzQ3yFpXeW HHwQHRbH9LudJJgPTveC4 59XBqvDfH5JRFkmcWvX2D sLWFsaWduOiB0 u9Q0Rm6Ib6CrghmkH8Ijn IKyYaPsYbteEHv1N4BhIp wvdHI+NA67KBYoBV77XQz 4JGT7vYwsIGfh COUqY8BaxC7mSvZcQJHeL GRkOyc+PHRhYmxlIHdpZH RoPScxMDAlJyBzdHlsZT0 kEv7eDFXuTTOc gVlvlCOwVfLmg2izEXIqQ InhPY0nfWgaU2DvdSZ9IG Xdc3n8Qe51K07gK3AhiKU +OUZloGS2wRF3 vL6bFmIwBdX6YMbsM960P pAtcLJnNldln2aip8fzpB t0EjF1GDNxtzJnbXhjYKS 1s1IcRj65F77x IHdpZHRoPSIxNSUiIHZhb Kskur0hcG2xKi3+PGNvbC Z2mQB5jU1wKtYiXbS8TGj jM711VnMnyWMh Ayrww8qpm7affWp9UoSyX HIgwuOfrNhdNKZ1b0OiTi 23E1YycGtkf3LqTck4xq0 3vVXpp0I2xYU7 R3RrKUHbwfmtfBSxkQrrM S1qILSeqtbiOZEuwG8zKZ QkP0p0NuKjMkN4UWixA7H jpgS1GTBqfRHa NCBfeZUAiX8zvwhcw4lbl xriLuKmBUXuPWk7PJz3NM RtxMyuNkPgUIO3MhT6HLW 3mENpbU0pnUdm vmfloL0tSak+CAH5aPUsp ZFINR4eTjbpfWN+PHRkIH Q4oMerXJeaAHKltS2zJZG iH4k9DlVeFbW9 YSugU6ScbpE9JTApxWIhG YClyWWYwW6ulmpvd1oqit nqTmLhKYLeHEn3NTr5OSP saWduOiBsZWZ0 WzB1PPG1lTFtzE0zwXhme hvwmN0oUln+QmlydGggRG N7AOn1J7NyBmp3LYBizKc vPW0awSAbMVbl Hi4gwKppsLiqEJ0mLEZcx xkjt647GpZki8mbHLDxlJ TkITlvLGY6R66kh0K3NBC uDKHuFSG2kDB8 wG2usXryuyecgEHazZdef uMeeDssILokVPdzM004FK CziNgbEjFzRKq0Q0LzBjp 9XGBgwWocYM7m wHDhFEqxGg9dwToclMkxI G0iAEUrnwyrl032CiHvn4 jlTQUvtWOhDWcqIEL2O58 ng5L2PPRyCMFz WTG1qZQ1qE2acEbrduerv GVmdDsgdmVydGljYWwtYW wcU737YEVvvLgnVrMcrSo 7Y7QeIai7XNAb yTbyRD7ogNSxRRsvXt3jb NmdcQvjXT8oIEVcfggdm9 87FbLuh6haAQHxjMPeIUi kBVZ1W62ze2B4 OHIcBUMrVYH7hXL2oT4cv GlnbjogbGVmdDsgdmVydG iwWNvyXYdaU248PXLedUl nPlBhdGllbnQg UQjxUDv1T3JxOvaskSP+P U96NOCyBW85xBIbeBWzh7 kpfFi2MaGuDCSkYQA1nJf dKRhty2PoZUZj O83ugMRmj7V4YWTrxUqql KLeJmCeeUY4yA3tQJxnsx aoq0ryxzenMwfjy8hifc5 0yH80Z84aHPfm ZHRoPSIzMCUiIHZhbGlnb w9zzB5oMq5+FAOdcYT4gU T9eH4ySTKaTbE5PIgnM90 9InRvcCIvPjxj d1zqw4sdnPm3LvU3WCKzw cDtmMkxESZ9b9VgPq99S7 9sIHdpZHRoPSIyMCUiIHZ haCclgh0aiF7g Ii8+TSXxbDV6hYH0mL5xF zRnQbU0MFygZ148YwUjaH PpNfdpB95hT4MeqBT+PHR zEkf7GJIbyNvu ZV5orQCiLUspMj5rDTR9A wQjCrHeUAbnA2PfWBBsds irfjbteCU4LLGnZLGkoW6 1Dr3dzDjdMKIz zAWZrQ3putsvt6mwoxetW uXmIWStXVm8YVo8CYKzyY ooIlUuUFT7BaD5MFE1fWG yvT2swVwvhhfy oC9rM6EySBBxkanlEl95t G9lGdOpEoQ9GTdoMbs+UE ECV8zLQcdfUFIZUD2SPUM 0B3SbJqt1NCFk zVorEW7soIXfJIktOr3ac EgboGbaCS9jXODgvhsuCX IqtV9eEFBoeQIjwVswEQ8 oUKYvoypse731 KnElRMA0PBScdKGaT7Gaa J5fQiViEHJrMDQqX4TkxK XdEJqoD372CLjsUfD7ECC sveOrU3WnWERq aSjxUtV4f5I3Mo1uGV6uS l9vTXGwBC56XO69lTVvb6 V2nUP3F2FnKRSkoulrkgu elFX0PLIqYBXw zC57xLUjLEqvJf9jh7C7p 640VMTcYUDbvF48Md1nrG zfSNYeyJWDbN2jborkp2w vcjogIzAwMDAw NFm8QRs5LQAipOsgKrYmA NQ7DmK5NEV8jKHcxV6ruM zfdllifH1pLcz+NzMgWWV cgxB5Z6BfRft9 ZJRsrZzlYG9iaJRkZSlyQ k7oeAoxuZuySK1jZFGtgx fwVAQcoL8kTUUtcGWumBf fFT1gXHGbdsjg p543HaUdRVG2LLYyqRLfE 1TqdH3fFwRcZYGjFTFpM5 BiuYCjWJkvB594EKkqIvR 1CWKonuGyH9Jw MZJmmCasIlS8z4V3Zh6UQ VtEDB71XG42jNVdb6D1pR U7T3GfJHMxpqlxgwlrdKA 7MLDvUROcdQ13 hQGhQEtjDf9kl5D4e475R ECbTMFocT02Ns1zzFzcXN VmlBYRwS5mffugi7rbhhu gIzAwMDAwMDt0 UPr8PMAvjCdiPkWmQOC5L oW7NVK7wRDriY9hdDyctj aztN5hNdr+VSV1TAU0okz xurm5J6LnKhct dHI+JS57NGUmKB56zFCgw FQlm6nwbTq1QyDgROAcAX O9vIscSZekk9YkYYMcU94 fbKIrw0Q2KLMh oJqnwLYyMcQrqVN3nD7eU Btpphhas1ahgwbjJowxx0 rlsa20wV70I78bABuvKOL oPSIzMCUiIHZh dTjdjg2kyA8lXb8+PGNvb LS5tXB1gF6jTeOoBjC2BT sxO990WuEtyZUlXjtbo1g lz7buvLg8KvOq CWNlwqIhzAmuNXJ9p2IpO c84G59kHKonHYHjYYKuEY HtFXKniKjzzt7zjB2cVl6 +MQ4lf4euer47 rF13zND+RPEvANY8eKbbK PjnMPMlzZ5qJOjdWfJ2WJ XeUxFjbJ00fITbFTabOq1 nsOxbyHfpBE1b WQGltolwq625FaWrb4wnY ZAleWWrGOfkBIV3H60bi3 J0QPJxIMEwMVK6hNM8sL8 hbGlnbjogbGVm dDsgdmVydGljYWwtYWxpZ 545SLYwaJyqGjXcrEYpG7 kcjsCVAM5iPlfhvNA+PHR hYDN7mIsdMSrz BHMvoC9kEDQuM4w3JpSqV qA2ZIhpK1NdlnL7QKQelV KjAGPpvTITyN0ueqeat2l vcjogIzAwMDAw XSp1XQc7WGHlkFntGhCiP UL8PcV5DIK7xFVkqK4boR dhgblbwL0bTqe+RklOOjw vdGQ+PHRkIHN0 zYnjQCfjZDMdvE3mILTvL 7i7AcJaTpX4IWoqT1Ykst T1QIFjfWIcKTKgbHFFlL5 qsbcvg4erltmi TnLvJPVgENl4KQb3YFQlv NfrEsLqNRL4NwY9EUX8kV QqpA8byPqwawqdpU8kEkl +TVJOOjwvdGQ+ TTHsMCM4zBxzMDmlXSRba B3eQKVxJ4y2SgRaEyJ3SF nwU1XfczG9EIFpgMHeDIM xbKDJcD2nzgjy o5qhmqkoDwTzJINrTQh6A Cc9BDXviFvoBlTfAFQ0Vx T7EWG8lEPsgQ8cwQxkmsd ypU9dSni+UGF5 GFK1AZ97BZ12V1IrVkmfl GFibGU+PHRhYmxlIHdpZH RoPScxMDAlJyBzdHlsZT0 tWk9vOSCiTKBl bGx (more content not included)... [facility] Provider Orderson 03-21-2024 Provider Orders [id number]. [facility] Cons[facility] 03-18-2024 Consent Forms [id number]. 00[facility] Inpatient Patient Summaryon 03-17-2024 [place]patient [place] [address] Patient Discharge Instructions Name: RICARDO GRANT Ankit : 1950 Patient Address: [address] [place] [address] Primary Care Provider: Name: Aayush Escudero After you are discharged if you find you have any questions, please, call [phone] ext [phone] to speak to a nurse. Discharge Diagnosis: 1:BPH associated with nocturia; Nocturia Prescription Information: If you have been given a prescription for narcotics, seek immediate medical attention if you have any difficulty breathing or any sudden status changes such as confusion and sleepiness. If you or anyone you know is experiencing suicidal thoughts, mental health, alcohol and/or drug addiction problems; contact the [facility] 16/03 Crisis Hotline -Text 1PSND ve 247391. If you received any narcotics, sedation, or any other medication that causes drowsiness for the next 24 hours, unless otherwise directed: ? Do not drive a car. ? Do not operate machinery such as power tools, lawn mowers, drills, sewing machines, or stoves ? Avoid alcoholic beverages and drugs for allergies, nerves, or sleep ? Do not make important personal or business decisions or sign any legal documents [facility] would like to thank you for allowing us to assist you with your healthcare needs. The following includes patient education materials and information regarding your injury/illness. RICARDO GRANT has been given the following list of follow-up instructions, prescriptions, and patient education materials: Follow-up Instructions With: Address: When: Lane hCen MD Medications During the course of your visit, your medication list was updated with the most current information. The details of those changes are reflected below: Medications to Continue That Have Not Changed Other Medications albuterol (Albuterol (Eqv-ProAir HFA) 90 mcg/inh inhalation aerosol) 2 puff(s) Inhale (breathe in) every 6 hours. as needed shortness of breath or wheezing. amLODIPine (amLODIPine 5 mg oral tablet) 1 tab(s) Oral (given by mouth) every day. fluticasone-salmetero l (fluticasone-salmeter ol 250 mcg-50 mcg inhalation powder) 1 puff(s) Inhale (breathe in) 2 times per day. lisinopril (lisinopril 40 mg oral tablet) 1 tab(s) Oral (given by mouth) every day. multivitamin (Multivitamin, generic) 1 tab(s) Oral (given by mouth) every day. oxyBUTYnin (oxybutynin 10 mg/24 hr oral tablet, extended release) 1 tab(s) Oral (given by mouth) every day. pravastatin (pravastatin 80 mg oral tablet) 1 tab(s) Oral (given by mouth) every day. Template Non-Formulary (r/alpha liporic acid) 300 Milligram Oral (given by mouth) every day. thiamine (Vitamin B1) Oral (given by mouth) At bedtime. zinc gluconate (zinc (as gluconate) 50 mg oral tablet) 1 tab(s) Oral (given by mouth) every day. It is important to always keep an active list of medications available so that you can share with other providers and manage your medications appropriately. As an additional courtesy, we are also providing you with your final active medications list that you can keep with you. albuterol (Albuterol (Eqv-ProAir HFA) 90 mcg/inh inhalation aerosol) 2 puff(s) Inhale (breathe in) every 6 hours. as needed shortness of breath or wheezing. amLODIPine (amLODIPine 5 mg oral tablet) 1 tab(s) Oral (given by mouth) every day. fluticasone-salmetero l (fluticasone-salmeter ol 250 mcg-50 mcg inhalation powder) 1 puff(s) Inhale (breathe in) 2 times per day. lisinopril (lisinopril 40 mg oral tablet) 1 tab(s) Oral (given by mouth) every day. multivitamin (Multivitamin, generic) 1 tab(s) Oral (given by mouth) every day. oxyBUTYnin (oxybutynin 10 mg/24 hr oral tablet, extended release) 1 tab(s) Oral (given by mouth) every day. pravastatin (pravastatin 80 mg oral tablet) 1 tab(s) Oral (given by mouth) every day. Template Non-Formulary (r/alpha liporic acid) 300 Milligram Oral (given by mouth) every day. thiamine (Vitamin B1) Oral (given by mouth) At bedtime. zinc gluconate (zinc (as gluconate) 50 mg oral tablet) 1 tab(s) Oral (given by mouth) every day. Take only the medications listed above. Contact your doctor prior to taking any medications not on this list. Diet & Activity Patient Activity Level: Patient Diet: Patient Activity Restrictions: Comment: Patient education materials, if any, will display below Viruses or Bacteria What?s got you sick? Antibiotics only treat bacterial infections. Viral illnesses cannot be treated with antibiotics. When an antibiotic is not prescribed, ask your healthcare professional for tips on how to relieve symptoms and feel better. Usual Cause Illness Viruses Bacteria Antibiotic Needed Cold/Runny Nose NO Bronchitis/Chest Cold (in otherwise healthy children and adults) NO Whooping Cough Yes Flu NO Strep Thro (more content not included)... Normal [facility] MAGR Intraoperative Recordon 03-17-2024 MAGR Intraoperative Record MAGR Intra-Op Record Summary Primary Physician: Lane Chen MD Finalized Date/Time: 03/17/24 13:58:17 Pt. Name: RICARDO GRANT Ankit Mims/Sex: 1950 MALE Med Rec #: [id number] Physician: Lane Chen MD Financial #: [id number] Pt. Type: D Room/Bed: / Admit/Disch: 03/17/24 12:30:36 - Institution: Case Times MAGR Entry 1 Patient In Room Time 03/17/24 13:44:00 Out Room Time 03/17/24 13:59:00 Anesthesia Start Time 03/17/24 13:54:00 Stop Time 03/17/24 13:55:00 Surgery Start Time 03/17/24 13:54:00 Stop Time 03/17/24 13:55:00 Last Modified By: Ann Huang RN 03/17/24 13:58:12 Case Attendance MAGR Entry 1 Entry 2 Entry [address] Chen MD, Erica RN Gump RN, Beryl Role Performed Surgeon - Primary Filling Carrier Filling Carrier Time In 03/17/24 13:53:00 03/17/24 13:44:00 03/17/24 13:44:00 Time Out 03/17/24 13:57:00 03/17/24 13:59:00 03/17/24 13:59:00 Procedure Cystoscopy Local Cystoscopy Local Cystoscopy Local Last Modified By: Ann Huang RN, Erica RN Baumer, Erica RN 03/17/24 13:58:13 03/17/24 13:58:13 03/17/24 13:58:13 Entry 4 Entry 5 Entry 6 Case Attendee Lauren Palma RN, Kelly THREADING MACHINE OPERATOR Iwona Loza THREADING MACHINE OPERATOR Role Performed Filling Carrier Scrub Personnel Strategy Manager Time In 03/17/24 13:44:00 03/17/24 13:44:00 03/17/24 13:44:00 Time Out 03/17/24 13:59:00 03/17/24 13:59:00 03/17/24 13:59:00 Procedure Cystoscopy Local Cystoscopy Local Cystoscopy Local Last Modified By: Ann Huang RN, Erica RN Baumer, Erica RN 03/17/24 13:58:13 03/17/24 13:58:13 03/17/24 13:58:13 Surgical Procedures MAGR Pre-Care Text: A.20 Verifies operative procedure, surgical site, and laterality Im.150 Develops individualized plan of care Entry 1 Procedure Cystoscopy Local Primary Procedure Yes Primary Surgeon Lane Chen MD Surgeon Comment LOCAL CYSTOSCOPY Start 03/17/24 13:54:00 Stop 03/17/24 13:55:00 Anesthesia Type Local Surgical Service Urology Wound Class Clean-Contaminated Technique Details Closure Technique N/A Entire procedure No was performed via laparoscope or robotic assistance Last Modified By: Ann Huang RN 03/17/24 13:57:40 Post-Care Text: O.730 The patient's care is consistent with the individualized perioperative plan of care General Case Data MAGR Pre-Care Text: A.350.1 Classifies surgical wound Entry 1 Case Information OR MAGR OR 01 Case Level Level 2 Wound Class Clean-Contaminated Specialty Urology ASA Class 2 Diagnosis Preop Diagnosis BPH Postop Same As Preop Yes Postop Diagnosis BPH Blunt or No Is the procedure No penetrating injury considered occured prior to Emergent/Urgent? the start of the procedure: Last Modified By: Ann Huang RN 03/17/24 13:50:09 Post-Care Text: O.760 Patient receives consistent and comparable care regardless of the setting Time Out MAGR Entry 1 Procedure(s) Cystoscopy Local Time Out Checklist Verifications Team Introductions Yes Confirmed Identity, Yes Completed Procedure, Incision Site, and Consent(s) Presence of Yes Site Verification, Yes Necessary Site Marking, Site Procedural Marking Equipment, Devices, Alternative, and/or and Implants Site Marking Verified Exception in Accordance with Facility Policy Anesthesia Review Antibiotic Received n/a All Anesthesia Case does not involve Within an Concerns Addressed an anesthesia Appropriate Time professional Interval Prior to Surgical Incision Surgeon Review Anticipated Blood Yes Expected Case Yes Loss Risk Addressed Duration Addressed Critical and Yes Non-Routine Steps to be Performed Addressed Nurse Review Equipment Yes Fire Risk Yes Checks/Concerns Assessment Addressed Completed and Interventions Performed Diagnostic and n/a Sterilization n/a Radiological Test Concerns Addressed Results Displayed are Appropriate and Labeled Other Concerns n/a Addressed Time Out Lane Chen MD, Time Out Time 03/17/24 13:53:00 Participants Ann Huang RN, Todd RN, Louie Cordoba Diane RN, Imelda Balderrama THREADING MACHINE OPERATOR, Iwona Loza THREADING MACHINE OPERATOR Last Modified By: Ann Huang RN 03/17/24 13:55:04 Patient Positioning MAGR Pre-Care Text: A.280 Identifies baseline musculoskeletal status Im.40 Positions the patient Im.80 Applies safety devices Entry 1 Procedure Cystoscopy Local Body Position Supine Left Arm Position Resting at Side Right Arm Position Resting at Side Left Leg Position Extended Right Leg Position Extended Press Points Checked Yes Positioning Device Pillow Outcome Met (O.80) Yes Last Modified By: Ann Huang RN 03/17/24 13:50:48 Post-Care Text: E.290 Evaluates musculoskeletal status O.80 Patient is free from signs and symptoms of injury related to positioning Skin Prep MAGR Pre-Care Text: A.30 Verifies allergies Im.270 Performs skin preparation Im.270.1 Implements protective measures to prevent (more content not included)... [facility] MAGR Preoperative Record MAGR Pre-Op Record Summary Primary Physician: Lane Chen MD Finalized Date/Time: 03/17/24 14:10:40 Pt. Name: RICARDO GRANT/Sex: 1950 MALE Med Rec #: [id number] Physician: Lane Chen MD Financial #: [id number] Pt. Type: D Room/Bed: / Admit/Disch: 03/17/24 12:30:36 - Institution: Pre-Op Case Times MAGR Pre-Care Text: Patient will be optimally prepared for surgery. Patient is free from s/s of injury. Provide information to patient/family related to plan of care. Verify patient allergies. Confirm identity and verify consent before the operative or invasive procedure. Entry 1 Patient Arrival Time 03/17/24 12:38:00 Preop Departure 03/17/24 13:44:00 Last Modified By: Sandy Ward RN 03/17/24 14:10:36 Post-Care Text: Patient is prepared mentally and physically and is ready for surgery. The patient remains free from s/s of injury. Patient/family express understanding of plan of care and participate in decisions affecting his or her perioperrative plan of care. Allergies documented appropriately. Patient identifiers and consent correct. General Comments: Pt arrives to w ambulatory. Pt denies cp, sob, cough or flu like symptoms. Pt denies pacemaker/defibillato r or sleep apnea. Finalized By: Sandy Ward RN Document Signatures Signed By: Sandy Ward RN 03/17/24 14:10 Normal [facility] Patient Handouton 03-17-2024 Patient Handout Normal [facility] CBC AUTO DIFFon 04-03-2022 BASO # 0.0 103/ul Normal 0.0-0.1 [facility] Comment on above: Performed By: #### C BC #### [facility] [address] [place] [address] Dr. Ashley Elizabeth Basophils/100 WBC (Bld) 0.5 % Normal 0.2-2.0 [facility] Comment on above: Performed By: #### C BC #### [facility] [address] [place] [address] Dr. Ashley Elizabeth EO # 0.1 103/ul Normal 0.0-0.7 [facility] Comment on above: Performed By: #### C BC #### [facility] [address] [place] [address] Dr. Ashley Elizabeth Eosinophils/100 WBC (Bld) 0.9 % Normal 0.9-7.0 [facility] Comment on above: Performed By: #### C BC #### [facility] [address] [place] [address] Dr. Ashley Elizabeth Erythrocyte distribution width (RBC) [Ratio] 12.7 % Normal 11.0-15.0 [facility] Comment on above: Performed By: #### C BC #### [facility] [address] [place] [address] Dr. Ashley Elizabeth Hematocrit (Bld) [Volume fraction] 42.9 % Normal 42.0-54.0 [facility] Comment on above: Performed By: #### C BC #### [facility] [address] [place] [address] Dr. Ashley Elizabeth Hemoglobin (Bld) [Mass/Vol] 14.2 g/dL Normal 14.0-18.0 [facility] Comment on above: Performed By: #### C BC #### [facility] [address] [place] [address] Dr. Ashley Elizabeth IG # 0.04 10e3/ul Critically high 0.00-0.[address] [facility] Comment on above: Performed By: #### C BC #### [facility] [address] [place] [address] Dr. Ashley Elizabeth IG % 0.5 % Normal 0.0-0.5 [facility] Comment on above: Performed By: #### C BC #### [facility] [address] [place] [address] Dr. Ashley Elizabeth LYMPH # 2.2 103/ul Normal 1.2-3.8 [facility] Comment on above: Performed By: #### C BC #### [facility] [address] [place] [address] Dr. Ashley Elizabeth Lymphocytes/100 WBC (Bld) 27.7 % Normal 20.5-60.0 [facility] Comment on above: Performed By: #### C BC #### [facility] [address] [place] [address] Dr. Ashley Elizabeth MANUAL DIFF REQ NO Normal [facility] Comment on above: Performed By: #### C BC #### [facility] [address] [place] [address] Dr. Ashley Elizabeth MCH (RBC) [Entitic mass] 31.6 pg Normal 25.9-34.0 [facility] Comment on above: Performed By: #### C BC #### [facility] [address] [address] [address] Ashley Elizabeth MCHC (RBC) [Mass/Vol] 33.1 g/dL Normal 29.9-35.2 [facility] Comment on above: Performed By: #### C BC #### [facility] [address] [place] [address] Dr. Ashley Elizabeth MCV (RBC) [Entitic vol] 95.5 fL Critically high 80.0-94.0 [facility] Comment on above: Performed By: #### C BC #### [facility] [address] [place] [address] Dr. Ashley Elizabeth MONO # 0.6 103/ul Normal 0.3-0.8 [facility] Comment on above: Performed By: #### C BC #### [facility] [address] [place] [address] Dr. Ashley Elizabeth Monocytes/100 WBC (Bld) 7.2 % Normal 1.7-12.0 [facility] Comment on above: Performed By: #### C BC #### [facility] [address] [place] [address] Dr. Ashley Elizabeth NEUT # 5.0 103/ul Normal 1.4-6.5 [facility] Comment on above: Performed By: #### C BC #### [facility] [address] [place] [address] Dr. Ashley Elizabeth Neutrophils/100 WBC (Bld) 63.2 % Normal 43.0-75.0 [facility] Comment on above: Performed By: #### C BC #### [facility] [address] [place] [address] Dr. Ashley Elizabeth Platelet mean volume (Bld) [Entitic vol] 9.0 fL Critically low 9.5-13.5 [facility] Comment on above: Performed By: #### C BC #### [facility] [address] [place] [address] Dr. Ashley Elizabeth PLT 213 103/ul Normal 150-450 [facility] Comment on above: Performed By: #### C BC #### [facility] [address] [place] [address] Dr. Ashley Elizabeth RBC 4.49 106/ul Critically low 4.70-6.10 [facility] Comment on above: Performed By: #### C BC #### [facility] [address] [address] [address] Ashley Elizabeth WBC 7.9 103/ul Normal 4.0-11.0 [facility] Comment on above: Performed By: #### C BC #### [facility] [address] [address] [address] Ashley Elizabeth DIRECT LDLon 04-03-2022 Cholesterol in LDL [Mass/Vol] 105 mg/dL Normal [facility] Comment on above: Performed By: #### B OLGA LIDIA RODRIGUEZL, ALT #### [facility] [address] [place] [address] Dr. Ashley Elizabeth DLDL NORMAL SEE BELOW Normal [facility] Comment on above: Result Comment: <100 mg/dl OPTIMAL 100 - 129 mg/dl NEAR OR ABOVE OPTIMAL 130 - 159 mg/dl BORDERLINE HIGH 160 - 189 mg/dl HIGH >190 mg/dl VERY HIGH Performed By: #### B MICHAEL DLDL, ALT #### [facility] [address] [address] [address] Ashley Elizabeth PROF CHEM 8 (BAS METB)on Anion gap [Moles/Vol] 13.9 mmol/L Normal [facility] Comment on above: Performed By: #### B MP DLDL, ALT #### [facility] [address] [address] [address] Ashely Elizabeth Calcium [Mass/Vol] 9.1 mg/dL Normal 8.5-10.1 [facility] Comment on above: Performed By: #### B MP DLDL, ALT #### [facility] [address] [address] [address] Ashley Elizabeth Chloride [Moles/Vol] 101 mmol/L Normal 98-107 [facility] Comment on above: Performed By: #### B MP DLDL, ALT #### [facility] [address] [address] [address] Ashley Elizabeth CO2 [Moles/Vol] 24.6 mmol/L Normal 21.0-32.0 [facility] Comment on above: Performed By: #### B MIRYAM RODRIGUEZ, ALT #### [facility] [address] [address] [address] Ashley Elizabeth Creatinine [Mass/Vol] 1.28 mg/dL Normal 0.70-1.30 [facility] Comment on above: Performed By: #### B MIRYAM RODRIGUEZ, ALT #### [facility] [address] [address] [address] Ashley Elizabeth EGFR-AF PARAGUAYAN >60 Normal >=60 [facility] Comment on above: Performed By: #### B MIRYAM RODRIGUEZ, ALT #### [facility] [address] [place] [address] Dr. Ashley Elizabeth EGFR-NON AF PARAGUAYAN 55 mL/min/1.73m2 Critically low >=60 [facility] Comment on above: Performed By: #### B MIRYAM RODRIGUEZ, ALT #### [facility] [address] [address] [address] Ashley Elizabeth Glucose [Mass/Vol] 121 mg/dL Critically high 74-106 T [facility] Comment on above: Performed By: #### B MIRYAM RODRIGUEZ, ALT #### [facility] [address] [place] [address] Dr. Ashley Elizabeth Potassium [Moles/Vol] 4.5 mmol/L Normal 3.5-5.1 [facility] Comment on above: Performed By: #### B MIRYAM RODRIGUEZ, ALT #### [facility] [address] [address] [address] Ashley Elizabeth Sodium [Moles/Vol] 135 mmol/L Critically low 136-145 Th [facility] Comment on above: Performed By: #### B MIRYAM RODRIGUEZ, ALT #### [facility] [address] [address] [address] Ashley Elizabeth Urea nitrogen [Mass/Vol] 24.0 mg/dL Critically high 7.0-18.0 [facility] Comment on above: Performed By: #### B MIRYAM RODRIGUEZ, ALT #### [facility] [address] [place], [place] [address] Dr. Ashley Elizabeth Urea nitrogen/Creatinine [Mass ratio] 18.8 mg/mg Normal [facility] Comment on above: Performed By: #### B MP, DLDL, ALT #### [facility] [address] [place], [place] [address] Dr. Ashley Elizabeth [facility] 04-03-2022 ALT [Catalytic activity/Vol] 45 U/L Normal 16-63 [facility] Comment on above: Performed By: #### B MP, DLDL, ALT #### [facility] [address], [place] [address] Dr. Ashley Dumont 02-07-2022 L - -------- Specimen: [id number] Received: 02/07/22 Status: JESUS Gary Num: [id number] Spec Type: Surgical Subm Dr: Chintan Dsouza Jr, Tissues: A Colon - Polyp (ASCENDING POLYPS) B Colon - Polyp (TRANSVERSE POLYP) Procedures: HE Stain/4, Gross/Micro L4/2 -------- Patient Age/Sex Location Account Attending Physician -------- Ricardo Grant/Surjit [id number] Chintan Dsouza Jr, DO -------- SPEC NUM: [id number] RECD: 02/07/22 STATUS: JESUS GARY NUM: [id number] KARLY: 02/07/22- DR: Chintan Dsouza Jr, DO ENTERED: 02/07/22-[address]: ELENA TYPE: Surgical DEPT: S ORDERED: [...] Type of Fixative: 10% Neutral Buffered Formalin (/YDexter) B. Received in formalin labeled with the patient's name, number and transverse colon polyp are multiple peraza-pink tissue fragments aggregating 1.3 x 0.9 x 0.4 cm, entirely submitted in one cassette labeled B1. Type of Fixative: 10% Neutral Buffered Formalin (SM/YJ) -------- Specimen: Received: 02/07/22 Status: JESUS Gary Num: [id number] Spec Type: Surgical Subm Dr: Chintan Dsouza Jr, Tissues: A Colon - Polyp (ASCENDING POLYPS) B Colon - Polyp (TRANSVERSE POLYP) Procedures: HE Stain/4, Gross/Micro L4/2 -------- Patient: Ricardo Grant [id number] (Continued) -------- Specimen: Received: 02/07/22 (Continued) Signed (signature on file) Arley Poole MD 02/10/22 1455 -------- Specimen: Received: 02/07/22 Status: JESUS Gary Num: [id number] Spec Type: Surgical Subm Dr: Chintan Dsouza Jr, Tissues: A Colon - Polyp (ASCENDING POLYPS) B Colon - Polyp (TRANSVERSE POLYP) Procedures: HE Stain/4, Gross/Micro L4/2 -------- Patient: Ricardo Grant [id number] (Continued) -------- Specimen: [id number] Received: 02/07/22 (Continued) Microscopic Description A, Two H E stained slides are reviewed. Microscopic examination is performed. B. Two H E stained slides are reviewed. Microscopic examination is performed. This case is interpreted at [place], [place] CPT Codes A. 9[address] B. 07395 -------- -------- Specimen: [id number] Received: 02/07/22 Status: JESUS Gary Num: [id number] Spec Type: Surgical Subm Dr: Chintan Dsouza Jr, DO Tissues: A Colon - Polyp (ASCENDING POLYPS) B Colon - Polyp (TRANSVERSE POLYP) Procedures: HE Stain/4, Gross/Micro L4/2 -------- Patient: Ricardo Grant [id number] (Continued) -------- Signed (signature on file) Arley Poole MD 02/10/22 1455 [facility] COVID-19 Antigenon 2 COVID-19 Antigen Healthcare [...] developed and its performance characteristic determined by [employer] and validated at [facility]. This test has not been FDA cleared [...] for SARS Antigen by [employer] PERFORMED BY: [place] [address] PATHOLOGIST [employer] SHERRELL WILLS M.D. [facility] Comment on above: Performed By: #### S EBONY COVID-19 ALANIS #### [address] Alanis Ag Negativeon 02-06-20 22 Alanis Ag Negative Negative Normal Negative [facility] Comment on above: Result Comment: This is a duplicate Alanis SARS Antigen ([employer]) result to be used for statistical tracking purpose only. PERFORMED BY: [place] [address] PATHOLOGIST [employer] SHERRELL WILLS M.D. Performed By: #### S EBONY COVID-19 ALANIS #### [address] OBSOLETEon 09-03-2018 OBSOLETE Refill (NENMMN) RICARDO GRANT ([id number]) 1950 M Date Time Provider Department 09/03/18 BIANCA RIVERA NENMMN During your visit today, we recorded the following information about you: Nika Simmons 09/03/2018 3:41 PM Signed Fax from pharmacy requesting refill. Please E-Scribe. Pending Prescriptions Disp Refills PRAVASTATIN 80 MG TABLET Sig: Take 1 tablet by mouth once daily. JUVE: No Pharmacy Name / Store Number: [facility] Pharmacy Phone #: [phone] Nika Olivier [place] Gloria Reynoso RN, RN 09/03/2018 5:01 PM Signed Medication and dose reviewed. Last refill historical. Last office visit 12/25/17. Future appointment: not scheduled at this time. Appropriate for refill. Please review and if approved e-prescribe as requested below. [facility] Gloria Reynoso RN September 03, 2018 5:01 [...] for Visit: Refill Request [94] Primary Visit Diagnosis:Disturbance of skin sensation [R20.9] Prescriptions as of [...] Encounter Status:Closed by NIKA THOMAS on 05/25/19 [facility] Vital Signs Date Time Vital Sign Value Performing Clinician Facility 04-10-2023 09:00-0400 Body height 162.56 cm Aayush Escudero Other [email or web address] Other 04-10-2023 09:00-0400 Body mass index (BMI) [Ratio] 31.31 kg/m2 Aayush Escudero Other [email or web address] Other 04-10-2023 09:00-0400 Body weight 82.74 kg Aayush Escudero Other [email or web address] Other 04-10-2023 09:00-0400 Respiratory rate 56 /min Aayush Escudero Other [email or web address] Other Encounters Encounter Date Encounter Type Care Provider Facility Start: 06-02-2024 End: 06-02-2024 ambulatory Aayush Escudero Facility:[facility] Start: 05-18-2024 End: 05-18-[address] Chen Facility:[facility] Start: 03-24-2024 End: 03-24-2024 ambulatory ANJUM LATHAM Not Available Start: 03-17-2024 End: 03-17-2024 ambulatory Aayush Escudero Facility:[facility] Start: 05-15-2023 End: 05-15-2023 ambulatory Aayush Escudero Other [email or web address] Other Start: 05-15-2023 Nursing evaluation o f patient and report Aayush Escudero [facility] Start: 04-13-2023 End: 04-13-2023 ambulatory Aayush Escudero Other [email or web address] Other Start: 04-13-2023 Telephone encounter Aayush Escudero [facility] Start: 04-10-2023 End: 04-10-2023 ambulatory Aayush Escudero Other [email or web address] Other Start: 04-10-2023 Patient encounter procedure Aayush Escudero [facility] Start: 04-03-2022 End: 04-04-[address] AAYUSH ESCUDERO Facility:[facility] Start: 06-11-2021 End: 06-11-2021 ambulatory GURVINDERCHRISTIAN BROOKS Facility:[facility] Procedures Date Procedure Procedure Detail Performing Clinician Start: 04-03-[address] MARK ESCUDERO Comment on above: Performed By: #### P [facility] #### [facility] [address] [place] [address] Dr. Ashley Elizabeth Immunizations Immunization Date Immunization Notes Care Provider Fa [facility] 05-15-2023 influenza, high dose seasonal, preservative-free Aayush Escudero Other [email or web address] Other 05-06-2022 influenza, high dose seasonal, preservative-free Aayush Escudero Other [email or web address] Other 05-05-2022 COVID-19 Vaccine Pfi zer - Documentation Purposes Only Aayush Escudero Other [email or web address] Other 12-18-2021 COVID-19 Vaccine Pfi zer - Documentation Purposes Only Aayush Escudero Other [email or web address] Other 05-17-2021 influenza virus vaccine, split virus (incl. purified surface antigen) Aayush Escudero Other [email or web address] Other 04-27-2020 influenza virus vaccine, split virus (incl. purified surface antigen) Aayush Escudero Other [email or web address] Other 05-06-2018 influenza virus vaccine, split virus (incl. purified surface antigen) Aayush Escudero Other [email or web address] Other 05-01-2017 influenza virus vaccine, split virus (incl. purified surface antigen) Aayush Escudero Other [email or web address] Other 02-26-2017 pneumococcal polysaccharide vaccine, 23 valent Aayush Escudero Other [email or web address] Other 06-18-2016 influenza virus vaccine, split virus (incl. purified surface antigen) Aayush Escudero Other [email or web address] Other 02-18-2016 pneumococcal conjuga te vaccine, 13 valent Aayush Escudero Other [email or web address] Other 06-11-2015 influenza virus vaccine, split virus (incl. purified surface antigen) Aayush Escudero Other [email or web address] Other Payers Date Payer Category Payer Unknown [id number] 2015 Unknown [id number] 1959 Medicare [id number] 1959 Unknown [id number] 1950 Unknown [id number] 2.16.84 [id number] 1950 Unknown [id number] 2.16.84 [id number] 1950 Unknown [id number] 2.16.84 [id number] 1950 Unknown [id number] 2.16.8 [id number] 1950 Unknown [id number] 2.16.8 [id number] 1950 Unknown [id number] 2.16.8 [id number] Social History Date Type Detail Facility Sex Assigned At [email or web address] Other Clinical Note 06-02-2024 Note Date & Type Note Facility 06-02-2024 Note [facility] SURGERY Clinical Discharge Summary PERSON INFORMATION Name RICARDO GRANT Age 74 Years 1950 Sex MALE Language [place] PCP Aayush Escudero Marital Status Med Service Ambulatory Surgery Acct# Arrival 06/02/2024 05:52:27 Visit Reason Surgery- Cysto, Greenlight Laser Acuity LOS 072 19:32 Address: [address] [place] [id number] Comment: PROVIDER INFORMATION VITALS INFORMATION Vital Sign Triage Latest Temp Oral Temp Temporal Temp Intravascular Temp Axillary Temp Rectal 02 Sat 98 % 94 % Respiratory Rate Peripheral Pulse Rate Apical Heart Rate Blood Pressure / 72 mmHg / 66 mmHg Comment: MEDICAL INFORMATION Allergy Info: Augmentin Prescriptions Given: albuterol (Albuterol (Eqv-ProAir HFA) 90 mcg/inh inhalation aerosol) 2 puff(s) Inhale (breathe in) every 6 hours. as needed shortness of breath or wheezing. amLODIPine (amLODIPine 5 mg oral tablet) 1 tab(s) Oral (given by mouth) every day. ascorbic acid (Vitamin C 1000 mg oral tablet) 1 tab(s) Oral (given by mouth) every day. cephalexin (cephalexin 500 mg oral capsule) 1 cap(s) Oral (given by mouth) Every 12 hours scheduled time for 3 Days. Refills: 0. cholecalciferol (Vitamin D3) 1 tab(s) Oral (given by mouth) every day. fluticasone-salmeterol (Advair Diskus 250 mcg-50 mcg inhalation powder) 1 puff(s) Inhale (breathe in) 2 times per day. lisinopril (lisinopril 40 mg oral tablet) 1 tab(s) Oral (given by mouth) every day. oxyBUTYnin (oxybutynin 10 mg/24 hr oral tablet, extended release) 1 tab(s) Oral (given by mouth) every day. pravastatin (pravastatin 80 mg oral tablet) 1 tab(s) Oral (given by mouth) every day. Template Non-Formulary (r/alpha liporic acid) 300 Milligram Oral (given by mouth) every day. thiamine (Vitamin B1) 1 tab(s) Oral (given by mouth) At bedtime. traMADol (Ultram 50 mg oral tablet) 1 tab(s) Oral (given by mouth) every 6 hours as needed as needed for pain. Refills: 0. vitamin E (vitamin E 180 mg oral capsule) 1 tab(s) Oral (given by mouth) every day. zinc gluconate (zinc (as gluconate) 50 mg oral tablet) 1 tab(s) Oral (given by mouth) every day. Medication List: New Medications [id number], [address], [place] [id number], [phone] cephalexin (cephalexin 500 mg oral capsule) 1 cap(s) Oral (given by mouth) Every 12 hours scheduled time for 3 Days. Refills: 0. traMADol (Ultram 50 mg oral tablet) 1 tab(s) Oral (given by mouth) every 6 hours as needed as needed for pain. Refills: 0. Medications to Continue That Have Not Changed Other Medications albuterol (Albuterol (Eqv-ProAir HFA) 90 mcg/inh inhalation aerosol) 2 puff(s) Inhale (breathe in) every 6 hours. as needed shortness of breath or wheezing. amLODIPine (amLODIPine 5 mg oral tablet) 1 tab(s) Oral (given by mouth) every day. ascorbic acid (Vitamin C 1000 mg oral tablet) 1 tab(s) Oral (given by mouth) every day. cholecalciferol (Vitamin D3) 1 tab(s) Oral (given by mouth) every day. fluticasone-salmeterol (Advair Diskus 250 mcg-50 mcg inhalation powder) 1 puff(s) Inhale (breathe in) 2 times per day. lisinopril (lisinopril 40 mg oral tablet) 1 tab(s) Oral (given by mouth) every day. oxyBUTYnin (oxybutynin 10 mg/24 hr oral tablet, extended release) 1 tab(s) Oral (given by mouth) every day. pravastatin (pravastatin 80 mg oral tablet) 1 tab(s) Oral (given by mouth) every day. Template Non-Formulary (r/alpha liporic acid) 300 Milligram Oral (given by mouth) every day. thiamine (Vitamin B1) 1 tab(s) Oral (given by mouth) At bedtime. vitamin E (vitamin E 180 mg oral capsule) 1 tab(s) Oral (given by mouth) every day. zinc gluconate (zinc (as gluconate) 50 mg oral tablet) 1 tab(s) Oral (given by mouth) every day. New Medications [id number], [address], [place] [id number], [phone] cephalexin (cephalexin 500 mg oral capsule) 1 cap(s) Oral (given by mouth) Every 12 hours scheduled time for 3 Days. Refills: 0. traMADol (Ultram 50 mg oral tablet) 1 tab(s) Oral (given by mouth) every 6 hours as needed as needed for pain. Refills: 0. Medications to Continue That Have Not Changed Other Medications albuterol (Albuterol (Eqv-ProAir HFA) 90 mcg/inh inhalation aerosol) 2 puff(s) Inhale (breathe in) every 6 hours. as needed shortness of breath or wheezing. amLODIPine (amLODIPine 5 mg oral tablet) 1 tab(s) Oral (given by mouth) every day. ascorbic acid (Vitamin C 1000 mg oral tablet) 1 tab(s) Oral (given by mouth) every day. cholecalciferol (Vitamin D3) 1 tab(s) Oral (given by mouth) every day. fluticasone-salmeterol (Advair Diskus 250 mcg-50 mcg inhalation powder) 1 puff(s) Inhale (breathe in) 2 times per day. lisinopril (lisinopril 40 mg oral tablet) 1 tab(s) Oral (given by mouth) every day. oxyBUTYnin (oxybutynin 10 mg/24 hr oral tablet, extended release) 1 tab(s) Oral (given by mouth) every day. pravastatin (pravastatin 80 mg oral tablet) 1 tab(s) (more content not included)... [facility] History and physical note 03-21-2024 Note Date & Type Note Facility 03-21-2024 Note [id number] F [facility] Clinical Note 03-17-2024 Note Date & Type Note Facility 03-17-2024 Note [facility] SURGERY Clinical Discharge Summary PERSON INFORMATION Name RICARDO GRANT Age 73 Years 1950 Sex MALE Language [place] PCP Aayush Escudero Marital Status Med Service Ambulatory Surgery Acct# Arrival 03/17/2024 12:30:36 Visit Reason SURGERY - LOCAL CYSTO Acuity LOS 002 01:59 Address: [address] [place] [address] Comment: PROVIDER INFORMATION VITALS INFORMATION Vital Sign Triage Latest Temp Oral Temp Temporal Temp Intravascular Temp Axillary Temp Rectal 02 Sat 96 % 97 % Respiratory Rate Peripheral Pulse Rate Apical Heart Rate Blood Pressure / 76 mmHg / 64 mmHg Comment: MEDICAL INFORMATION Allergy Info: Augmentin Prescriptions Given: albuterol (Albuterol (Eqv-ProAir HFA) 90 mcg/inh inhalation aerosol) 2 puff(s) Inhale (breathe in) every 6 hours. as needed shortness of breath or wheezing. amLODIPine (amLODIPine 5 mg oral tablet) 1 tab(s) Oral (given by mouth) every day. fluticasone-salmeterol (fluticasone-salmeterol 250 mcg-50 mcg inhalation powder) 1 puff(s) Inhale (breathe in) 2 times per day. lisinopril (lisinopril 40 mg oral tablet) 1 tab(s) Oral (given by mouth) every day. multivitamin (Multivitamin, generic) 1 tab(s) Oral (given by mouth) every day. oxyBUTYnin (oxybutynin 10 mg/24 hr oral tablet, extended release) 1 tab(s) Oral (given by mouth) every day. pravastatin (pravastatin 80 mg oral tablet) 1 tab(s) Oral (given by mouth) every day. Template Non-Formulary (r/alpha liporic acid) 300 Milligram Oral (given by mouth) every day. thiamine (Vitamin B1) Oral (given by mouth) At bedtime. zinc gluconate (zinc (as gluconate) 50 mg oral tablet) 1 tab(s) Oral (given by mouth) every day. Medication List: Medications to Continue That Have Not Changed Other Medications albuterol (Albuterol (Eqv-ProAir HFA) 90 mcg/inh inhalation aerosol) 2 puff(s) Inhale (breathe in) every 6 hours. as needed shortness of breath or wheezing. amLODIPine (amLODIPine 5 mg oral tablet) 1 tab(s) Oral (given by mouth) every day. fluticasone-salmeterol (fluticasone-salmeterol 250 mcg-50 mcg inhalation powder) 1 puff(s) Inhale (breathe in) 2 times per day. lisinopril (lisinopril 40 mg oral tablet) 1 tab(s) Oral (given by mouth) every day. multivitamin (Multivitamin, generic) 1 tab(s) Oral (given by mouth) every day. oxyBUTYnin (oxybutynin 10 mg/24 hr oral tablet, extended release) 1 tab(s) Oral (given by mouth) every day. pravastatin (pravastatin 80 mg oral tablet) 1 tab(s) Oral (given by mouth) every day. Template Non-Formulary (r/alpha liporic acid) 300 Milligram Oral (given by mouth) every day. thiamine (Vitamin B1) Oral (given by mouth) At bedtime. zinc gluconate (zinc (as gluconate) 50 mg oral tablet) 1 tab(s) Oral (given by mouth) every day. Medications to Continue That Have Not Changed Other Medications albuterol (Albuterol (Eqv-ProAir HFA) 90 mcg/inh inhalation aerosol) 2 puff(s) Inhale (breathe in) every 6 hours. as needed shortness of breath or wheezing. amLODIPine (amLODIPine 5 mg oral tablet) 1 tab(s) Oral (given by mouth) every day. fluticasone-salmeterol (fluticasone-salmeterol 250 mcg-50 mcg inhalation powder) 1 puff(s) Inhale (breathe in) 2 times per day. lisinopril (lisinopril 40 mg oral tablet) 1 tab(s) Oral (given by mouth) every day. multivitamin (Multivitamin, generic) 1 tab(s) Oral (given by mouth) every day. oxyBUTYnin (oxybutynin 10 mg/24 hr oral tablet, extended release) 1 tab(s) Oral (given by mouth) every day. pravastatin (pravastatin 80 mg oral tablet) 1 tab(s) Oral (given by mouth) every day. Template Non-Formulary (r/alpha liporic acid) 300 Milligram Oral (given by mouth) every day. thiamine (Vitamin B1) Oral (given by mouth) At bedtime. zinc gluconate (zinc (as gluconate) 50 mg oral tablet) 1 tab(s) Oral (given by mouth) every day. Medications to Continue That Have Not Changed Other Medications albuterol (Albuterol (Eqv-ProAir HFA) 90 mcg/inh inhalation aerosol) 2 puff(s) Inhale (breathe in) every 6 hours. as needed shortness of breath or wheezing. amLODIPine (amLODIPine 5 mg oral tablet) 1 tab(s) Oral (given by mouth) every day. fluticasone-salmeterol (fluticasone-salmeterol 250 mcg-50 mcg inhalation powder) 1 puff(s) Inhale (breathe in) 2 times per day. lisinopril (lisinopril 40 mg oral tablet) 1 tab(s) Oral (given by mouth) every day. multivitamin (Multivitamin, generic) 1 tab(s) Oral (given by mouth) every day. oxyBUTYnin (oxybutynin 10 mg/24 hr oral tablet, extended release) 1 tab(s) Oral (given by mouth) every day. pravastatin (pravastatin 80 mg oral tablet) 1 tab(s) Oral (given by mouth) every day. Template Non-Formulary (r/alpha liporic acid) 300 Milligram Oral (given by mouth) every day. thiamine (Vitamin B1) Oral (given by mouth) At bedtime. zinc gluconate (zinc (as gluconate) 50 mg oral tablet) 1 tab(s) Oral (given by mouth) every day. Comment: Lab and Radiology Resu (more content not included)... [facility] Evaluation note 04-13-2023 Note Date & Type Note Facility 04-13-2023 Evaluation note Encounter Date Diagnosis Assessment Notes Mar, Benign prostatic hyperplasia with lower urinary tract symptoms (ICD-10 - N40.1) [email or web address] Other Evaluation note 04-10-2023 Note Date & [...] Z79.899) Mar, Fecal smearing (ICD-10 - R15.1) [email or web address] Other Evaluation note Note Date & Type Note Facility Evaluation note No Information [employer] Other History general Narrative - Reported Note [...] TUBE 2018 Hospitalization History SEE SURGICAL HX [email or web address] Other Summary Purpose Family History No Family [...] Records FoundNo Status Records FoundNo Status Records FoundNo Status Records FoundNo Status Records Found INFORMATION SOURCE (unrecogn ized section and content) DATE CREATED AUTHOR 05/26/2019 [facility] DATE CREATED AUTHOR AUTHOR'S ORGANIZ ATION 02/13/2022 [facility] DATE CREATED AUTHOR AUTHOR'S ORGANIZ ATION 04/05/2022 [facility] DATE CREATED AUTHOR AUTHOR'S ORGANIZ ATION 03/26/2024 [facility] EPIC DATE CREATED AUTHOR AUTHOR'S ORGANIZ ATION 06/03/2024 [facility] REASON FOR VISIT (unrecogniz ed section and content) [facility] Shot FOR RECORDS PERTAINING TO PATIENTS [...] BE BASED ON THE PRIMARY CLINICAL RECORDS. [employer] [facility]. provides no warranty or guarantee of the accuracy or completeness of information in this document.
--- NOTE | 2024-06-03 20:43 | CT_ITS ---
The [address] [address] Patient Name: KEVIN GRANT MRN: [id number] date: 1950 Sex: M Assigned Patient Location: ER Current Patient Location: ED.MAIN Accession/Order Number: [id number] Exam Date: 06/03/2024 21:05 Report Date: 06/03/2024 22:58 At the request of: KATHERIN GREEN Procedure: CT head/brain wo con EXAM: CT head/brain wo con HISTORY: Syncope, fall COMPARISON: None. TECHNIQUE: Noncontrast axial CT images through the head were obtained with coronal and sagittal reformats. Dose reduction techniques were achieved by using automated exposure control and/or adjustment of mA and/or kV according to patient size and/or use of iterative reconstruction technique. FINDINGS: There is mild generalized volume loss. The density of the cerebrum, brainstem, and cerebellum is unremarkable. There is no evidence of intracranial hemorrhage, mass, or midline shift. No extra-axial fluid collection is seen. The brainstem and cerebellum are normal in appearance. The visualized paranasal sinuses and mastoid air cells are clear. No skull abnormalities are identified. CT/CT head/brain wo con IMPRESSION: 1. No acute intracranial abnormality. Electronically authenticated by: Sue HENRY Date: 06/03/2024 22:58
--- NOTE | 2024-06-03 20:43 | ECG_ITS ---
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
--- NOTE | 2024-06-03 20:43 | XR_ITS ---
The [address] [address] Patient Name: KEVIN GRANT MRN: [id number] date: 1950 Sex: M Assigned Patient Location: ER Current Patient Location: ER Accession/Order Number: [id number] Exam Date: 06/03/2024 21:05 Report Date: 06/03/2024 23:02 At the request of: KATHERIN GREEN Procedure: XR chest 1V EXAM: XR chest 1V HISTORY: Syncope COMPARISON: None. TECHNIQUE: One view of the chest was obtained. FINDINGS: The cardiac silhouette is normal in size. There are a few suspected calcified granulomas in the lungs. There is no significant pneumothorax or pleural effusion. No acute osseous abnormality is seen. XR/XR chest 1V IMPRESSION: 1. No acute cardiopulmonary abnormality. Electronically authenticated by: Sue HENRY Date: 06/03/2024 23:02
--- NOTE | 2024-06-03 20:44 | ED_ITS ---
HPI HPI - General Adult General Chief complaint: Syncope Stated complaint: Syncope Time Seen by Provider: 06/03/24 20:37 Source: patient Mode of arrival: ambulance History of Present Illness HPI narrative: 74-year-old male presented for a syncopal episode. He was in his home and was going to the bathroom and he reportedly slid down and was on the bathroom floor. Paramedics were summoned and he was found to have a low blood pressure of 60-65 systolic. He was given IV fluids and transported here. The patient does not believe he hurt himself when he went down. 2 days ago he had laser surgery on his prostate for enlargement, not cancer. Earlier today he had his catheter removed. He states he has been urinating sporadically. He does not complain of abdominal pain or neck pain. Related Data Allergies Allergy/AdvReac Type Severity Reaction Status Date / Time amoxicillin (From Augmentin) Allergy Severe Unknown Verified 06/03/24 21:41 clavulanic acid (From Allergy Severe Unknown Verified 06/03/24 21:41 Augmentin) Opioid HPI Opioid Management Most Recent Opioid Data: No Data to Display Review of Systems ROS Narrative A ten point review of systems is negative except as noted above. Exam Narrative Exam Narrative: Nurses note and vital signs reviewed and patient is not hypoxic. General: The patient appears in no apparent distress. Skin: Warm, dry, no pallor noted. There is no rash noted. Head: Normocephalic, atraumatic Eye: Normal conjunctiva, no drainage Ears, Nose, Mouth, and Throat: oral mucosa is moist. Nares patent. Cardiovascular: Regular Rate and Rhythm Respiratory: Patient is in no distress, no accessory muscle use, lungs are clear to auscultation, no wheezing, rales or rhonchi Back: non-tender GI: Obese and nontender Musculoskeletal: No palpable tenderness to his extremities. Neurological: Awake and alert and oriented. Psychiatric: Cooperative Constitutional Vital Signs, click to edit/add: Last Vital Signs Temp 98.3 F 06/03/24 20:37 Pulse 59 L 06/03/24 21:50 Resp 38 H 06/03/24 21:12 BP 102/68 06/03/24 21:45 Pulse Ox 96 06/03/24 21:50 O2 Del Method Room Air 06/03/24 21:02 Course Vital Signs Vital signs: Vital Signs Temperature 98.3 F 10/11/24 20:37 Pulse Rate 64 06/03/24 20:37 Respiratory Rate 16 06/03/24 20:37 Blood Pressure 100/64 06/03/24 20:37 Pulse Oximetry 95 06/03/24 20:37 Oxygen Delivery Method Room Air 06/03/24 20:37 Temperature 98.3 F 06/03/24 20:37 Pulse Rate 59 L 06/03/24 21:50 Respiratory Rate 38 H 06/03/24 21:12 Blood Pressure 102/68 06/03/24 21:45 Pulse Oximetry 96 06/03/24 21:50 Oxygen Delivery Method Room Air 06/03/24 21:02 Medical Decision Making MDM Narrative Medical decision making narrative: The patient presented with syncope and this appears to be due to dehydration. BUN and creatinine are elevated above his baseline. He was given IV fluids and feels improved. The rest of his workup is negative with urinalysis pending. Bladder scan on arrival showed only 19 mL in his bladder. Findings are discussed thoroughly with the patient and his . Differential Diagnosis Differential Diagnosis: Dehydration, acute kidney injury, cardiac dysrhythmia Lab Data Lab results reviewed: Yes I reviewed the patient's lab results Labs: Lab Results 06/03/24 06/03/24 Range/Units 20:43 20:55 WBC 18.1 H (4.0-11.0) 10^3/uL RBC 5.00 (4.70-6.10) 10^6/uL Hgb 15.8 (14.0-18.0) g/dL Hct 48.7 (42.0-54.0) % MCV 97.4 H (80.0-94.0) fL MCH 31.6 (25.9-34.0) pg MCHC 32.4 (29.9-35.2) g/dL RDW 12.9 (11.0-15.0) % Plt Count 252 (150-450) 10^3/uL MPV 9.8 (9.5-13.5) fL Neut % (Auto) 81.2 H (43.0-75.0) % Lymph % (Auto) 13.6 L (20.5-60.0) % Wallace % (Auto) 4.3 (1.7-12.0) % Eos % (Auto) 0.1 L (0.9-7.0) % Baso % (Auto) 0.2 (0.2-2.0) % Neut # (Auto) 14.7 H (1.4-6.5) 10^3/uL Lymph # (Auto) 2.5 (1.2-3.8) 10^3/uL Wallace # (Auto) 0.8 (0.3-0.8) 10^3/uL Eos # (Auto) 0.0 (0.0-0.7) 10^3/uL Baso # (Auto) 0.0 (0.0-0.1) 10^3/uL Abs Immat Gran (auto) 0.10 H (0.00-0.03) 10^3/uL Imm/Tot Granulo (auto) 0.6 H (0.0-0.5) % Sodium 131 L (136-145) mmol/L Potassium 4.3 (3.5-5.1) mmol/L Chloride 98 (98-107) mmol/L Carbon Dioxide 22.5 (21.0-32.0) mmol/L Anion Gap 14.8 BUN 32.0 H (7.0-18.0) mg/dL Creatinine 2.29 H (0.70-1.30) mg/dL Est GFR ( Amer) 34 L (>=60 mL/min/1.73m^2) Est GFR (Non-Af Amer) 28 L (>=60 mL/min/1.73m^2) BUN/Creatinine Ratio 14.0 Glucose 152 H (74-106) mg/dL Calcium 8.8 (8.5-10.1) mg/dL Troponin I High Sens 9.5 (4.0-76.1) pg/mL POC Glucose 136 H (74-106) mg/dL Imaging Data Chest x-ray: Radiologist's impression: ITS Impressions Chest X-Ray 06/03/24 20:43 IMPRESSION: 1. No acute cardiopulmonary abnormality. Electronically authenticated by: Sue HENRY Date: 06/03/2024 23:[address] 06/03/24 20:43 IMPRESSION: 1. No acute intracranial abnormality. Electronically authenticated by: Sue HENRY Date: 06/03/2024 22:58 ECG Data Attestation: I personally reviewed and interpreted this ECG as follows: (EKG on my interpretation shows normal sinus rhythm with a rate of 62 and no acute change.) Discharge Plan Discharge Chief Complaint: Syncope Clinical Impression: Syncope, Dehydration Patient Disposition: Admitted as Observation Time of Disposition Decision: 23:10 Condition: Fair
[2024-06-03 20:47] LABS: Glucometer 136 mg/dL (74-106)
[2024-06-03 21:36] LABS: Basophils Percent Auto 0.2 % (0.2-2.0); Eosinophils Percent Auto 0.1 % (0.9-7.0); Hematocrit 48.7 % (42.0-54.0); Hemoglobin 15.8 g/dL (14.0-18.0); Immature Granulocytes Pct Auto 0.6 % (0.0-0.5); Lymphocytes Absolute Auto 2.5 10^3/uL (1.2-3.8); Lymphocytes Percent Auto 13.6 % (20.5-60.0); Mean Corpuscular HGB Conc 32.4 g/dL (29.9-35.2); Mean Corpuscular Hemoglobin 31.6 pg (25.9-34.0); Mean Corpuscular Volume 97.4 fL (80.0-94.0); Mean Platelet Volume 9.8 fL (9.5-13.5); Monocytes Absolute Auto 0.8 10^3/uL (0.3-0.8); Monocytes Percent Auto 4.3 % (1.7-12.0); Neutrophils Absolute Auto 14.7 10^3/uL (1.4-6.5); Neutrophils Percent Auto 81.2 % (43.0-75.0); Platelet Count 252 10^3/uL (150-450); Red Cell Distribution Width 12.9 % (11.0-15.0); White Blood Count 18.1 10^3/uL (4.0-11.0)
[2024-06-03] MEDS: 0.9 % SODIUM CHLORIDE 1,000 ML 1000 ML IV (21:45)
[2024-06-03 21:55] LABS: Anion Gap 14.8; Calcium 8.8 mg/dL (8.5-10.1); Carbon Dioxide 22.5 mmol/L (21.0-32.0); Chloride 98 mmol/L (98-107); Estimated GFR (African America 34 (>=60 mL/min/1.73m^2); Estimated GFR (Non-African Ame 28 (>=60 mL/min/1.73m^2); Glucose 152 mg/dL (74-106); Potassium 4.3 mmol/L (3.5-5.1); Sodium 131 mmol/L (136-145); Troponin I High Sensitivity 9.5 pg/mL (4.0-76.1)
--- OUTSIDE RECORDS SUMMARY | 2024-06-03 23:47 | XMS_ITS | CCD ---
Author Organization [facility] Care Team Providers Care Chairman & Co Founder Name Role Phone DR AAYUSH ESCUDERO Consulting [...] Translations: [Augmentin] Drug Allergy 01-02-2014 Unknown [facility] Repository Medications Current Medications Medication Drug Class(es) Dates Sig (Normalized) Sig (Original) [id number] 200 actuat albuterol 0.09 mg/actuat metered dose [...] acid 4700 mg / polyethylene glycol 3350 [id number] mg / potassium chloride 1015 mg / [...] symptoms] Chronic Other aftercare (2 sources) Other chcf (current) drug therapy; Translations: [OTH PENITENTIARY CURRENT DRUG THERAPY] Onset: 04-04-2022 Episodic Other [...] on: 06/02/2024 08:52 EDT] Marcos Hoyt MD [facility] Anesthesia Note Patient: RICARDO GRANT Age: [...] BPH (benign prostatic hyperplasia) / SNOMED CT 224291826 / Confirmed COPD (chronic obstructive pulmonary disease) / SNOMED CT 145561144 / Confirmed History of skin cancer / SNOMED CT 6887188748 / Confirmed Hyperlipidemia / SNOMED CT 21100165 / Confirmed Hypertension / SNOMED CT 0311756927 / Confirmed Neuropathy / SNOMED CT 8673711144 / Confirmed Histories Family History: No family history items have been selected or recorded. Procedure history: Cystoscopy ([id number]) on 03/17/2024 at 73 Years. Arthroscopy of knee ([id number]) in 1997 at 48 Years. Comments: 05/18/2024 8:59 DARAT - Mandy Hanson RN ?Right Colonoscopy ([id number]). Elbow ([id number]). Comments: 05/18/2024 9:01 Mandy Crawford RN left [...] Oriented. Review / Management Laboratory Results Plan [employer]#( A) physical status classification: Class III. Anesthetic Preoperative Plan Anesthesia: General. . Anesthetic plan, risks, benefits, and alternatives discussed with the patient and/or family. Patient verbalized understanding. Informed consent was given. Anesthetic technique: General anesthesia. [Electronically Signed on: 06/02/2024 07:38 EDT] Marcos Hoyt MD [Verified on: 06/02/2024 07:38 EDT] Marcos Hoyt MD [facility] Inpatient Patient Summaryon 06-02-2024 Inpatient [place] [address] Patient Discharge Instructions Name: RICARDO GRANT : 1950 Patient Address: [address] [place] [address] Primary Care Provider: Name: Aayush Escudero After you are discharged if you find you have any questions, please, call [phone] ext [phone] to speak to a nurse. Discharge Diagnosis: [...] problems; contact the [facility] 16/03 Crisis Hotline -Text 4HIDQ yv [id number]. If you received any narcotics, sedation, or [...] business decisions or sign any legal documents [facility] would like to thank you for allowing [...] changes are reflected below: New Medications [id number], [address] [place], [place] [id number], [phone] cephalexin (cephalexin 500 mg oral capsule) 1 [...] needed fo (more content not included)... [facility] MAGR Intraoperative Record MAGR Intra-Op Record Summary Primary Physician: Lane Chen MD Finalized Date/Time: 06/02/24 08:48:28 Pt. Name: RICARDO GRANT Prasanna/Sex: 1950 MALE Med Rec #: [id number] Physician: Lane Chen MD Financial #: [id number] Pt. Type: D Room/Bed: / Admit/Disch: 06/02/24 [...] Entry [address] Chen MD [facility], Frances Lopes MD, RN Role Performed Surgeon - Primary Anesthesiologist of [place] Drier Record Time In 06/02/24 07:48:00 06/02/24 07:41:00 [...] RN, Imelda Hanson CST, Brittany E CSFA INVOICE MACHINE OPERATOR Role Performed [place] Scrub Personnel Scrub Personnel Time In 06/02/24 [...] Hoyt MD, Frances Ling RN, Imelda Balderrama [facility] Last Modified By: Frances Ling RN 06/02/24 [...] Text: E.290 Evaluate (more content not included)... [facility]R PACU Record Summary Primary Physician: Lane Chen MD Finalized Date/Time: 06/02/24 09:05:41 Pt. Name: RICARDO GRANT/Sex: 1950 MALE Med Rec #: [id number] Physician: Lane Chen MD Financial #: [id number] Pt. Type: D Room/Bed: / Admit/Disch: 06/02/24 05:52:27 - Institution: PACU Case Times MAGR Entry 1 In PACU I 06/02/24 08:35:00 Discharge from PACU 06/02/24 09:05:00 I Last Modified By: Colleen Denney RN 06/02/24 09:05:09 Finalized By: Colleen Denney RN Document Signatures Signed By: Colleen Denney RN 06/02/24 09:05 [facility]-02-2024 MAGR Postoperative Record MAGR Phase II Record Summary Primary Physician: Lane Chen MD Finalized Date/Time: 06/02/24 10:23:59 Pt. Name: RICARDO GRANT./Sex: 1950 MALE Med Rec #: [id number] Physician: Lane Chen MD Financial #: [id number] Pt. Type: D Room/Bed: / Admit/Disch: 06/02/24 [...] Signed By: Lorene Pollard RN 06/02/24 10:23 [facility] Preoperative Recordon 1 [facility] Preoperative Record [facility] Pre-[facility] Summary Primary Physician: Lane Chen MD Finalized Date/Time: 06/02/24 07:41:40 Pt. Name: RICARDO GRANT/Sex: 1950 MALE Med Rec #: [id number] Physician: Lane Chen MD Financial #: [id number] Pt. Type: D Room/Bed: / Admit/Disch: 06/02/24 [...] Signed By: Clarissa Castro RN 06/02/24 07:41 [facility] Patient Handouton 06-02-2024 Patient Handout [facility] Coding Summaryon 06-01-2024 Coding Summary HTMLBase 64 UxqqkgwbURe2oBb+PGhlY WQ+PB0RBLGzA39wgNGmmZ 9vE1WFNZhWTyswRIKLVYg YDbWspvRfYJ2oxHNiCWPp IC8+SD2cPVFqSlnhuAZof 9B8aYM9O82fsn2jJQhzfV T8JHQgXoYubdfxp2essHg 6IDcuNmluOyBt URJuoV62QPO1lU59Ns68w SRhfSFlh4anpJt0UaMcFJ KaOTU6eYqrAOrie1KcKHU rD09vrQHax9C2 OGUyvUkhcONkYdOxkPX9q G9wCSfzyiggy8giimjxVt g9ce92zNUcs1S4pHV9R3S ybeR6AJQmqAFm DyrodDFJcW4gnjvei9rks rbrYrWbJZZeUTv4SYf4QC VdwPkrKkZzLU15IXS1FHJ lzzBfH9VpKQAb hZmoQfG8x0T7Uo3YW5PKV mpnF2FKCDIHSMeypHJ+PC 10uz76X2WcGrrkLhj8QTN fINE9nZP7lG7k ASGhJOhbs5I1hAN5S5Lnz sLplx0mu5tqBABvTBnnR1 9seOScp1I2CLFucTF8KFE onQoeNbEgtC84 Oyc+EPHnuKkor1WkFhsyb 4bzk4fdbHv4UduyYTBggl IhuFjeSUO7o0RjPp1eRWP tvZT3kPI5nT4s XzRxFuI0BGjuL707LpOcm BOsZqkfX91fI6NufXX+PH WzUmu9DXVyyLkjCH8tO2W hZGRpbmctbGVm hTqjSS7tWLYaxdtyFAXij Y3aNJTlV7n7IeZnFmP2DC cnM3GtFGQuzasoXv49yH6 dDmUqTrL4SPok E6FwklC3LCPcuKIwRWvzC BS1I11eo1A7AZIxHBKnOZ N1lRN3mW1uiJqsmbimvCY mdDsgdmVydGlj GQxfLBdpO812OIWobSmcF kNvZGluZyBEYXRlOiAgMT AvMDkvMjAyNDwvdGQ+PHR dPHB7rMvaXRUt tRKjLAqeWy5usQhjoElrB W8vVDIrrbqjGAYafG6mBI OwtFLasYzlIA4eDRUpvwy or999KfDjVLH9 PWEplTUkW9OfaA5tWhGsL FHwHEOxM6MwfOAqDYnsN2 58YSceWxH3CKJmepWbN0J sLWFsaWduOiB0 a9U8Li0Ar0IaxmywQ7Bby YTeEtXkTdbmTUe7W2HuUc wvdHI+FH96UPRpYT29AIs 7VKN9zBagKAeo NALbK5JvrN7iZkXtKVVwZ GRkOyc+PHRhYmxlIHdpZH RoPScxMDAlJyBzdHlsZT0 qNh9hFOBgEGZa gWxalCGfWjDyp5xpRDAkN HvtIU2pkWesK1UpzZF5JE Xta5m4Zs61S01uM7RlhRK +MFZgsSY8wHW9 sW3nCzUjEiN1SNufT544U tXzbIByOfwdh9pnb2umcD d8OaY0NKKuaqKzxAljAHK 8i9MkOs47C31u IHdpZHRoPSIxNSUiIHZhb Wdjil1weV1hZe3+PGNvbC C5sBU7fJ3dDrSpPoS3QDt zL304NaZeqFZv Qiook3frs7hahBt7XrExE UQzcsNjuDwcJYD4t5NjEi 58Q4CobAuzs5WkTlf1da5 8cEHxg6C9wZY7 K5GuMCKiyiewpQXseVoiB P8kVOHugqbtLPDycI2gYS SzM0v5JeOnBkR7GTswZ1W rleR8SRGtaJKe ATXskDBSuW4sotrza3vwe lroOtMxVABzPAn0MRf1LM RfrAgjLyKjYVH8QtO1BKQ 6lGRfuS3zkYwc fuzzkH9rGeu+GTU2vCIev OBYSH7qQxzhjTQ+PHRkIH T6yZniXXdvBENslY5zANU lQ8e1NoXhSoR9 FNekH5DfxpI4SNHwiWWyJ HDaxIIJxS0svojbf6jvse neDwJnSVPrQVm4IWq7PMX saWduOiBsZWZ0 SkC1ZKL4uGGgxL8zdMthv worsB6sYpl+QmlydGggRG Q1WNd7K8JiTty2YRZhcAj sWN1uqKNbVMpg Im7nyFcbdOuaPZ7rGASjh kurp306PzJle7atWVQpcW ErEYizVXU6R69ho2P9BAN uICNySAC2vIN5 rS8snWotshvtcMJcgXhkh zRftUrqDGwnOQceN857FS GsoRrbEkXrLPu8H6CcSer 1QUOkjVhrJS1d fLJzOPygMv3ooEzgiTboP I3hWTKortdyn161JnUie8 naUJUqzCRgVAiqSBN1Q33 oh9N8IWXrAXHu ZIE3nEX6tU7vkVjzjqazk GVmdDsgdmVydGljYWwtYW byL944UJOrpCtyBdEmuUw 8K5AvJck2SJEl gZiyUZ4dtWJkNQbhGy1sb HxbwZnsID2hESGkpttkp1 72XbMiu6paEQDupSSgJFb wFGO7Q87jt8W3 DHHaXJJiSNJ5bHH8hT1ug GlnbjogbGVmdDsgdmVydG fbCMucVCgxX368SJAprWu nPlBhdGllbnQg FLfaGQl0N6MtWvdgsHH+P D94VQLbVN79iOSjfZWqx6 vosBp4IwHnNZVhSHD9pSw zQDypf7ZlESWq T67vuLLnb1D7YBNcoZjln FAgZrDajMT7uZ4tQWbbmd yct4zogjplFethl3zlso2 9eJ41T90zKRnu ZHRoPSIzMCUiIHZhbGlnb x0grR9oWz3+PJBpgOH5tL A1gC4uGRSrXyN2QSkkB33 9InRvcCIvPjxj l9pem8talSa7UyW4VBEnv sPhaPrtENR2s6IvSk53E0 9sIHdpZHRoPSIyMCUiIHZ yyElocb9dkQ9d Ii8+EVDneNT3qJB0wJ4sR dZuYgV5DXmcQ424ZdIvcB FoLqmlV22fQ4LulXC+PHR iOki5KIPoeJmr EY1hqHVcKSvjXw2zIZQ2V uRrSgMnOUnoX8BhBYGfnj aeslfpgQD7TGWdGNMiiR4 1Be7tpHcuKUYv aBWWtX1mpcncm8xpcrwgQ uBaIRVmRZp1XCh2LSRtsI tnInGaKPO2VwB1FNJ2yNW miW9uxCzvdrki oE1bT8LfJPGknrwxUc82n Y0nDfJuPkP7APhrItq+UE WSG0bMAhppQQBCKR9IBMK 9B6BgFev3JFCx kUelKA9lbEBkTYarCg2qw VzpcKwfMW8gVKHyhfycUN MrnO2aUTGndXCjzVnfBQ3 uNOTxhmwxq301 QbUbBHD1HKXnwRWzU7Izy E0qBaYaQXKfZNKgI9WxkJ IpGBigG696QVtkNhP4NPO vpzZtB8WmBMMa fYbyKpH3q1G0Pr2jIY5eC u6vUTQkKJ25ND59bDNcl9 J1zES5N5UoMTUmqwdegud jtHH2SORcDKZt oA50xEFgQCysLd0td5U4w 183GZTbNPKnuC96Br1trV fqVICkhWJIpO1srkqwx6y vcjogIzAwMDAw CTt5ZFb9DODsoDstYpQyJ SV2XhZ5FKJ8lSPqsV9tiC wqmisfuG8xWgi+NzQgWWV qqrU2K6SaYhm3 FBTmxCgcYR6vxBJbYKbtA e6cpYbcuOmaNM2nZSZgcz adJKMwoF6jHRNorEOvvIm gDD9sXKPostll j625OiRgKTU0GVQepSTgK 7QctJ0sSaQrAWIrJPHjG1 DvhKRqPCanC023XEacZbS 5JUFvgbZmK8At NQAisEohHmG4o4T4Gx9CW LyIJT77TF40yBYqj2U6nC N9E3JwJQKwccifnqueiMN 5KJPgHPStlZ23 rZCgTCmjXb6et5W3q286C ASeRYRcaU09Fz7vaLhfJO AtaPBHtQ4taidtx2knbzn gIzAwMDAwMDt0 HPn8RYYgjWdbYaEdQMK0S vI2CSX0jYYoeQ2gyEdqyt qwgR3bTij+T5W7N8EtTff vdHI+NO81ELAz TL36wZNvtKLda7bwnLs4H mNdPCDpXNQ4eQdxXTjwz7 XxLSZmU81dkKMeh5Y4SVW vbGxhcHNlOyBl qFR0qK8hBApxpjyyt1mag orrGxclu0dtry50aV10O4 9sIHdpZHRoPSIzMCUiIHZ foRstax8tzG4v Ii8+SXZwyJX9hLG2hS7pN wYjUjI1BLbdB705ScYbqP AyRjrmx1wlg6hljQb4MlC wJSIgdmFsaWdu TQB9r4AbDs12L93oCFroB HRoPSIyMCUiIHZhbGlnbj 8guE0zVx2+EE6no9xuyw0 8jQ69jAM+PHRk ACS0wKqxUGngHOBbbA5yD HffPxL7JHYmQiMdrQ62rJ DcQEivHf2imGqkaKiwSR8 xMFBlnhrsn819 BqWic7taZRVbhQNlIDzgA LC0R68kk4E1SHLoAMZkSB O0oWL1jU2thExpigidpOO mdDsgdmVydGlj GFzbPSbhJ503XWGyrCdvR vQgbZMuA1zjzeYJGR5lOl wvdGQ+VDWiWVL3jMohNOc xLOMqwD4nAIOr T6o9BaQgBrS8ZKhgS3Mlv iF5XNMafPHbWSCtpVEKqO 8wtmzhk4mcwznuZrUtJBX xZQc9GSg7HHMw vOxpTvBvJHH0TtH4HXQ7l SGfeZ4msBxaeclzoT7qSk c+RklOOjwvdGQ+PHRkIHN 0eWxlPSdwYWRk nD6hESOnL9b0VgLzQgR0Z OfkU2ArchI1STVqiIFjNW ZtmMZPfP8gdyazv9daeof gIzAwMDAwMDt0 IWe5UDLwgBvvDnGzGQX0U aD2IIP0qFOnuJ2gwLylhm nglN1lKzk+TVJOOjwvdGQ +LCLrPZN3aKhe DGlsOABhjV7dVXDfO7m8D sMpUyO6IPyoC3PsnrR5CY QhlJYcWCIjaWZRqM3rozr al8xgvcfjXaAb GYEgFWc4PDk7SAEzwYtjX gVkSED1ZyL3AOM7yQUnrJ 9jzVylwantpU5cJmg+UGF 6ABF8TQ81CX90 T2KeDtfynGOvlVA+PHRhY mxlIHdpZHRoPScxMDAlJy MmmNtbES6jYk9vRPVhJKQ vbGxhcHNlOiBj b2x (more content not included)... [facility] Progress Note - Nurseon Progress Note - Nurse Pre-op call made for 06-02-2024 surgery- pt given arrival time of 0600 tomorrow. Pt denies being sick. 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 [Electronically Signed on: 06/01/2024 09:27 EDT] Mandy Hanson RN [Verified on: 06/01/2024 09:27 EDT] Mandy Hanson RN [facility] Progress Note - Nurseon - Progress Note - Nurse Dr Yoo reviews pt chart and no new orders were received. [Electronically Signed on: 05/20/2024 11:47 EDT] Mya Lobo RN [Verified on: 05/20/2024 11:47 EDT] Yamil, Lossel RN [facility] Coding Summaryon 03-21-2024 Coding Summary HTMLBase 64 AjtpmuktRIp9aAy+PGhlY WQ+BC4EGPVnC92xxICgvP 0zD1JRDCrMLainCRUJHBu QQcYsaaGqSW1hhAMxCVWo IC8+CR2tSMLbGngyqAYri 9E4wTE7Q48baq1sELkkbS Q8RTVeLcXazmzng6mjdIy 6IDcuNmluOyBt WKXmkI96GOC5aL02Oy62t FOjzGDfg3kbiQh1TxKmUD XeIJP1vZslYDkrr9ZhKYI pE74rkNFll8T8 GOWfbFxvyEQwGlKdyWY1e P1nZRjcwsvmz2kdzeiaCe n6ce06sMIel4H6rNB2Q0E qbiB2AMUiyNMb XqrcwYSGbI2oesjie6cty rxhJhCuDPRhUWi1ICb7KJ WwtLcyShXbMR94PBA6AKF ncdEvJ0CjASOx bBjwXcA6b3V7Xz4TP8LWK ducJ8EJRBQSFViwsGW+PC 43jk35C6LqUzxrRth6HWP vEDB5eUF3eK3o UTYtISjyl8U3nCM0P8Dqr dYnls7vf0rdWFYjAZhgF3 4emLNpb8S9VTXmtKW6OQL ueZxlBwCxoP08 Oyc+GIOdoJjml8CdHdtkc 6naa6rdqTo1AqikEJZheu QhsTvyASF1n4DlAz8uLEL fvZF2yLV6oH6j IyWrDxX7NMgvU202AaEhp FViXbrlR13rN8AnvMZ+PH YwJsy4TWYiiSmwSF9jK8Z hZGRpbmctbGVm aRryFJ3vMYNavycaWAQlm I1rSQQxO1m8ErHsRzR6EI kxA5VwVCGpkvodJb88pK4 jEuZyJmG2PLtl C9UemaC2YPPwjDHnKNaoB EQ1I90qq2J5YECrQXUfUN C9lCU9rO3ocWcybduxtMT mdDsgdmVydGlj KEqlMUklJ474LLUdzQllX kNvZGluZyBEYXRlOiAgMD cvMjkvMjAyNDwvdGQ+PHR hYWJ5cRfuIKUd tMItFXpqQy2izDvdwGoeV W9eMISnfxvvIYTgjY6jQV SzmJCoeNclIW9xLBAymzr nd265KcCfATC5 UAPsjQYjW6JjtY0dXmEwX DFbDJJiK1OcsRBsRArxV2 99QKutRyK0ZNHkyoYoC5N sLWFsaWduOiB0 t8F4Fd3Cl4ZpquhpV8Lex UTcEnZbKvbrQEk9B8VjIl wvdHI+DF61NPTeXX67CFs 9TMT0mJylHDqj VHWpV8OxfU4hRtFmUIZrQ GRkOyc+PHRhYmxlIHdpZH RoPScxMDAlJyBzdHlsZT0 mNb6aBUHnTGIw cTjwuERnZuMbp1vqKIGdG JuhNR8hrNvaE9HbaIQ7SO Jgj4r9Jo05Y50iX7BlrXI +DBIvqQG8pPV9 eD4lGrPaMqH5MNetQ306S cEzkFPkCkccs4zvg8nbuF v9MhT9ILKxvhKavFmeVVV 5i5KbYh35S24k IHdpZHRoPSIxNSUiIHZhb Elmak8fsM3jRg5+PGNvbC Y9vZY1xM7iRiWdUjU9ISm fT661FpFirCDx Zegar4pbh5clbOs0RaLsQ UJojiGamUkwKGP0o6UzUy 30H8BdlQwxh0VqRet7qt7 9oONmb3W2fLK6 E6EiIEOkezrcnIEmmHqmF G9qPQOlvzziECTgyA2nQE MqS5u8AbWiRkW8LLhxG9M emgE0LHTacDNv OPCmlBSKtS0cplasm3xvq nvlYpHxCVJeMOt5MDp0XH CmeQhmYuMbNBF5WhH1EBC 8gYKtmG6nkQjt zlblaQ0mIxs+TBH4tDHgw CNLIL0iSprpvDO+PHRkIH E5bOmeRGndIXQniS1yOOS qW1s1YqNlYeG3 ZZbxU9JjjxK3LZMyoOEvH GZgoSCGhV0kxqzvk9uxmh zrQhHvRLOcPHw9BIb7FKR saWduOiBsZWZ0 ZjL7WOB9fBNxoT6vaOweh dyevK8yOme+QmlydGggRG L8RId0C6CyDav9TRPsoCi xZM4hsPBoDUoj Dy6smJnbuTwtLM4cJDAqf jcxy305CbFaf2tvKTUavW HbQDduFMY4U44qf3F6LOZ kYPGfBPR1fLO0 sC6gnRpeoefxxUJbyMrdf zHpnCzrINuqREqaB262DL AdtAswEqRvYIm3S5WdCly 8EERjxHnsJK2v gRRgDWspCe6tmZfulKfrL B2nTEToimggj617VbFlx5 brFTAhlQCkHYydIJG5S45 hd7N8XTBtTGTf ZDI0tGT4zB8pjNcvegwuq GVmdDsgdmVydGljYWwtYW inT813FSFiwGbbZeDjtYr 2F2QdKdh7BODf eWwkCZ6baADgNWtyEz4ox NlefUkdIE1xBHHghvbkw3 84AvUry2yeJEGihAMzVAo eRDQ6A15ar3W9 CSHqCYOiLMX1cOR5dD2ei GlnbjogbGVmdDsgdmVydG uqGPvrFFznB585EWMteCb nPlBhdGllbnQg GLdmMVo1T3XoPixewSM+P G46ILNfUY17vLTwrPUmt2 crbMa3ItYwZQAvITU9wGm uAIflk0MbTMLm U70yyYFvo5D3ZTUvuGdyo HYjYnQliWB9sV2yVUmbuo ypk3jmrescZueum0rqgf6 0mT49Z00mVCxk ZHRoPSIzMCUiIHZhbGlnb k9onT4oVt9+BCVgsFG8fG F8qW4vINTfPxK5CXvtW47 9InRvcCIvPjxj z8qty0pwjEx8GeR0TMKza wTarKjiVIB0r4UhCj51H5 9sIHdpZHRoPSIyMCUiIHZ kfMzrvd1naK0g Ii8+YTAjlDW2xFD2mV1eD oOvJkJ2XCsyT268FgZswN XdEtalV85fQ0CrzAE+PHR hAup6TWOhlRhw DK1wuTJwYUimZa9rBIZ4Y jYsScKmGIwwD2CpDBNnwn pgfmbcxPP3YHVpRPYsdC9 3Rm0iiLogSPSy zCAYyS1qtjpye3kwyccuL oJfKTKmBFt8CWz3RAAzhO hiJySxEAG2PeY6XCR1cRB seU0mmJsrkhcc eH8cN5QlTCEfidwrYn85h M2tJbKlLcN4AGorQbh+UE WTV1oIIlzlMYQPCB1UHER 3T8VfKrp3OFFm nQosNL1mjTYtINecBw1vt KbsvXtzRC9kGSEgpzmyDP DmoG5pMGKqeWKrbFnaME6 zEBXiyfuow651 OcPsPAR3RTXdrKFiG0Bvc S4fGyRlXNIkQQTpK5RwtL FmKLdrK178FGotKjT7BEZ dwzZdO7UiTUDs yUgyFiF4b6V8Lz5mKN9mX a6fNTOwBB64OC72tAXeg2 E1nHH1E2HcTMAhesanyuj gtDQ8KBSlPVEy dA78jKJdAMoiYp0ag9K3f 699ZSWuADFriL83Wv6dnK xvFMNozTJFyY8oogvaq9u vcjogIzAwMDAw DNh4KEr6TYJwdEzbEmTaY OK8LjI9KMI2nFAoxV9xdE gexxmitH2aYdm+NzMgWWV uugM6L5EzQpb8 DTQktZczTK5acPMhCFjgF y0auQqppJqiTS5cFJFqfx seTPUgtX6yIQSzgQCnoUd vNT4aBGJeuykm b087ZaHrIQK4ISCbrQBoA 5YouN9nJjBxVEKmUROnD3 FfoKPtSZvhK745HHxxAdM 4TRPesqHkT5Na JMAcfTxnDgQ9p5K6Nf9NU AbOKZ32CI84cRPgo8H2mV R0X2KfDJFbctspdfdsdHV 8SEOiAWYepV86 bKIpIUnyBz2di1S7n205D PCiFLIupP77Li7arTqgQL HgnEQSzH4nsdzpu5llkpr gIzAwMDAwMDt0 EQv0OTIqlMpzThLfTDH5A sN0UTD3bGBeyL8xlKtent rhwM3yHxq+QML7TUS3chg mrfg2X6EmEvwj dHI+QI31IXCuAG57cRKfh LZcf9krbQk4UgLkWLGwDE B3lYesKJczi3GdVAOoV59 gpPOph7Z5IMHk eUhfdPLoDiZtvDA8eV6wO Xstfreiz1ajmaryFxeed5 fjlq70iD86Y73eVFngTKK oPSIzMCUiIHZh dJxhku4wnR9dGy7+PGNvb FG4lNJ7sH2uJoFnNgY2IF kcR565JuOcbIXcDizul5r bs2oiaNc5EjNq LVSwmvZylYvpZOQ8e8GoP n34X46pGQlxOXOoYFUnVE QpMDNuyQklud3ahS2qTh9 +BN5cn2znra28 uQ17jLQ+CFYsSFZ3xMfiT FahWTKemI0qVQfaSrO5KF BwSsLzyJ41gPOeUBuwXu2 llDwxfWqqYE1n LPFuhskbq041OrEpv0sfB MAhrHXfRYjaGMW1P37tw3 Q8QUToSKDyICY0gQX7nU9 hbGlnbjogbGVm dDsgdmVydGljYWwtYWxpZ 851TSIbuTdvEoMsuXPlY8 ffysLETE7jLsxcwSP+PHR nXAX1iBzuKEqm PXBauS5xPQUkU1l8YqKoC wD3AJihI1GvibL1GHSaaF XcFTKkoDUVtR8pojmjb3k vcjogIzAwMDAw FPa4HEk3NIQwrKjmYyDgG PT5FkM6RXF8bQLajH1tdF cendkwhW5aAnc+RklOOjw vdGQ+PHRkIHN0 eUtyYPqsJXEdyY8xASMkQ 4b7ApFwTjM8IQtwY5Yzph N5JPOqkADpETOrcLVVqV7 htkkpd7xqiycq JxFtKHVuTQd6HIs4VGHpp JveIsHtVYN2AlM2YOJ7xA KifX5hwOdxckbmoE2cXqr +TVJOOjwvdGQ+ XEHuPPN6uQrqKCzrFOUlh I2jNWBoN1j1QrTdFfE6AK wpZ3TxsxC6BTRzoVMdKZQ xoYNQeP5oubex o2utqsriRpLbUFAcXAc3S Xj5DZWbuGzaLhVfEVS7Dd T6XZI7zCUnbE7iwXgkuat grM9hUko+UGF5 YUX5GH25KT51N3ZmNttic GFibGU+PHRhYmxlIHdpZH RoPScxMDAlJyBzdHlsZT0 wPd1kHTFfGZWl bGx (more content not included)... [facility] Provider Orderson 03-21-2024 Provider Orders [id number]. [facility]-18-[facility]24 Consent Forms [id number]#1. [facility] Inpatient Patient Summaryon 03-17-2024 Inpatient [place] [address] Patient Discharge Instructions Name: RICARDO GRANT Ankit : 1950 Patient Address: [address] [place] [address] Primary Care Provider: Name: Aayush Escudero After you are discharged if you find you have any questions, please, call [phone] ext [phone] to speak to a nurse. Discharge Diagnosis: 1:BPH associated with nocturia; Nocturia Prescription Information: If you have been given a prescription for narcotics, seek immediate medical attention if you have any difficulty breathing or any sudden status changes such as confusion and sleepiness. If you or anyone you know is experiencing suicidal thoughts, mental health, alcohol and/or drug addiction problems; contact the [facility] 16/03 Crisis Hotline -Text 0UJLV xn [phone]. If you received any narcotics, sedation, or [...] business decisions or sign any legal documents [facility] would like to thank you for allowing [...] Strep Thro (more content not included)... Normal [facility] MAGR Intraoperative Recordon 03-17-2024 MAGR Intraoperative Record MAGR Intra-Op Record Summary Primary Physician: Lane Chen MD Finalized Date/Time: 03/17/24 13:58:17 Pt. Name: RICARDO GRANT Ankit Mims/Sex: 1950 MALE Med Rec #: [id number] Physician: Lane Chen MD Financial #: [id number] Pt. Type: D Room/Bed: / Admit/Disch: 03/17/24 [...] RN, Beryl Role Performed Surgeon - Primary Skein Drier Skein Drier Time In 03/17/24 13:53:00 03/17/24 13:44:00 03/17/24 13:44:00 Time Out 03/17/24 13:57:00 03/17/24 13:59:00 03/17/24 13:59:00 Procedure Cystoscopy Local Cystoscopy Local Cystoscopy Local Last Modified By: Ann Huang RN, Erica RN Baumer, Erica RN 03/17/24 13:58:13 03/17/24 13:58:13 03/17/24 13:58:13 Entry 4 Entry 5 Entry 6 Case Attendee Lauren Palma RN, Kelly INVOICE MACHINE OPERATOR Iwona Loza INVOICE MACHINE OPERATOR Role Performed Skein Drier [employer] Representative Time In 03/17/24 13:44:00 03/17/24 13:44:00 03/17/24 [...] RN, Louie Cordoba Diane RN, Imelda Balderrama INVOICE MACHINE OPERATOR, Iwona Loza INVOICE MACHINE OPERATOR Last Modified By: Ann Huang [...] to prevent (more content not included)... [facility] 03-17-2024 MAGR Preoperative Record MAGR Pre-Op Record Summary Primary Physician: Lane Chen MD Finalized Date/Time: 03/17/24 14:10:40 Pt. Name: RICARDO GRANT/Sex: 1950 MALE Med Rec #: [id number] Physician: Lane Chen MD Financial #: [id number] Pt. Type: D Room/Bed: / Admit/Disch: 03/17/24 [...] By: Sandy Ward RN 03/17/24 14:10 Normal [facility] Patient Handouton 03-17-2024 Patient Handout Normal [facility] CBC AUTO DIFFon 04-03-2022 BASO # 0.0 103/ul Normal 0.0-0.1 [facility] Comment on above: Performed By: #### C BC #### [facility] [address] [place] [address] Dr. Ashley Elizabeth Basophils/100 WBC (Bld) 0.5 % Normal 0.2-2.0 [facility] Comment on above: Performed By: #### C BC #### [facility] [address] [place] [address] Dr. Ashley Elizabeth EO # 0.1 103/ul Normal 0.0-0.7 [facility] Comment on above: Performed By: #### C BC #### [facility] [address] [place] [address] Dr. Ashley Elizabeth Eosinophils/100 WBC (Bld) 0.9 % Normal 0.9-7.0 [facility] Comment on above: Performed By: #### C BC #### [facility] [address] [place] [address] Dr. Ashley Elizabeth Erythrocyte distribution width (RBC) [Ratio] 12.7 % Normal 11.0-15.0 [facility] Comment on above: Performed By: #### C BC #### [facility] [address] [place] [address] Dr. Ashley Elizabeth Hematocrit (Bld) [Volume fraction] 42.9 % Normal 42.0-54.0 [facility] Comment on above: Performed By: #### C BC #### [facility] [address] [place] [address] Dr. Ashley Elizabeth Hemoglobin (Bld) [Mass/Vol] 14.2 g/dL Normal 14.0-18.0 [facility] Comment on above: Performed By: #### C BC #### [facility] [address] [place] [address] Dr. Ashley Elizabeth IG # 0.04 10e3/ul Critically high 0.00-0.03 [facility] Comment on above: Performed By: #### C BC #### [facility] [address] [place] [address] Dr. Ashley Elizabeth IG % 0.5 % Normal 0.0-0.5 [facility] Comment on above: Performed By: #### C BC #### [facility] [address] [place] [address] Dr. Ashley Elizabeth LYMPH # 2.2 103/ul Normal 1.2-3.8 [facility] Comment on above: Performed By: #### C BC #### [facility] [address] [place] [address] Dr. Ashley Elizabeth Lymphocytes/100 WBC (Bld) 27.7 % Normal 20.5-60.0 [facility] Comment on above: Performed By: #### C BC #### [facility] [address] [place] [address] Dr. Ashley Elizabeth MANUAL DIFF REQ NO Normal [facility] Comment on above: Performed By: #### C BC #### [facility] [address] [place] [address] Dr. Ashley Elizabeth MCH (RBC) [Entitic mass] 31.6 pg Normal 25.9-34.0 [facility] Comment on above: Performed By: #### C BC #### [facility] [address] [address] [address] Ashley Elizabeth MCHC (RBC) [Mass/Vol] 33.1 g/dL Normal 29.9-35.2 [facility] Comment on above: Performed By: #### C BC #### [facility] [address] [place] [address] Dr. Ashley Elizabeth MCV (RBC) [Entitic vol] 95.5 fL Critically high 80.0-94.0 [facility] Comment on above: Performed By: #### C BC #### [facility] [address] [place] [address] Dr. Ashley Elizabeth MONO # 0.6 103/ul Normal 0.3-0.8 [facility] Comment on above: Performed By: #### C BC #### [facility] [address] [place] [address] Dr. Ashley Elizabeth Monocytes/100 WBC (Bld) 7.2 % Normal 1.7-12.0 [facility] Comment on above: Performed By: #### C BC #### [facility] [address] [place] [address] Dr. Ashley Elizabeth NEUT # 5.0 103/ul Normal 1.4-6.5 [facility] Comment on above: Performed By: #### C BC #### [facility] [address] [place] [address] Dr. Ashley Elizabeth Neutrophils/100 WBC (Bld) 63.2 % Normal 43.0-75.0 [facility] Comment on above: Performed By: #### C BC #### [facility] [address] [place] [address] Dr. Ashley Elizabeth Platelet mean volume (Bld) [Entitic vol] 9.0 fL Critically low 9.5-13.5 [facility] Comment on above: Performed By: #### C BC #### [facility] [address] [place] [address] Dr. Ashley Elizabeth PLT 213 103/ul Normal 150-450 [facility] Comment on above: Performed By: #### C BC #### [facility] Laboratory [address] [place] [address] Dr. Ashley Elizabeth RBC 4.49 106/ul Critically low 4.70-6.10 [facility] Comment on above: Performed By: #### C BC #### [facility] [address] [address] [address] Ashley Elizabeth WBC 7.9 103/ul Normal 4.0-11.0 [facility] Comment on above: Performed By: #### C BC #### [facility] [address] [address] [address] Ashley Elizabeth DIRECT LDLon 04-03-2022 Cholesterol in LDL [Mass/Vol] 105 mg/dL Normal [facility] Comment on above: Performed By: #### B OLGA LIDIA RODRIGUEZL, ALT #### [facility] [address] [place] [address] Dr. Ashley Elizabeth DLDL NORMAL SEE BELOW Normal [facility] Comment on above: Result Comment: <100 mg/dl OPTIMAL 100 - 129 mg/dl NEAR OR ABOVE OPTIMAL 130 - 159 mg/dl BORDERLINE HIGH 160 - 189 mg/dl HIGH >190 mg/dl VERY HIGH Performed By: #### B MICHAEL DLDL, ALT #### [facility] [address] [address] [address] Ashley Elizabeth PROF CHEM 8 (BAS METB)on Anion gap [Moles/Vol] 13.9 mmol/L Normal [facility] Comment on above: Performed By: #### B MP DLDL, ALT #### [facility] [address] [address] [address] Ashley Elizabeth Calcium [Mass/Vol] 9.1 mg/dL Normal 8.5-10.1 [facility] Comment on above: Performed By: #### B MP DLDL, ALT #### [facility] [address] [address] [address] Ashley Elizabeth Chloride [Moles/Vol] 101 mmol/L Normal 98-107 [facility] Comment on above: Performed By: #### B MP DLDL, ALT #### [facility] [address] [address] [address] Ashley Elizabeth CO2 [Moles/Vol] 24.6 mmol/L Normal 21.0-32.0 [facility] Comment on above: Performed By: #### B MIRYAM RODRIGUEZ, ALT #### [facility] [address] [address] [address] Ashley Elizabeth Creatinine [Mass/Vol] 1.28 mg/dL Normal 0.70-1.30 [facility] Comment on above: Performed By: #### B MIRYAM RODRIGUEZ, ALT #### [facility] [address] [address] [address] Ashley Elizabeth EGFR-AF BERMUDIAN >60 Normal >=60 [facility] Comment on above: Performed By: #### B MIRYAM RODRIGUEZ, ALT #### [facility] [address] [place] [address] Dr. Ashley Elizabeth EGFR-NON AF BERMUDIAN 55 mL/min/1.73m2 Critically low >=60 [facility] Comment on above: Performed By: #### B MIRYAM RODRIGUEZ, ALT #### [facility] [address] [address] [address] Ashley Elizabeth Glucose [Mass/Vol] 121 mg/dL Critically high 74-106 [facility] Comment on above: Performed By: #### B MIRYAM RODRIGUEZ, ALT #### [facility] [address] [place] [address] Dr. Ashley Elizabeth Potassium [Moles/Vol] 4.5 mmol/L Normal 3.5-5.1 [facility] Comment on above: Performed By: #### B MIRYAM RODRIGUEZ, ALT #### [facility] [address] [address] [address] Ashley Elizabeth Sodium [Moles/Vol] 135 mmol/L Critically low 136-145 [facility] Comment on above: Performed By: #### B MIRYAM RODRIGUEZ, ALT #### [facility] [address] [address] [address] Ashley Elizabeth Urea nitrogen [Mass/Vol] 24.0 mg/dL Critically high 7.0-18.0 [facility] Comment on above: Performed By: #### B MIRYAM RODRIGUEZ, ALT #### [facility] [address], [place] [address] Dr. Ashley Elizabeth Urea nitrogen/Creatinine [Mass ratio] 18.8 mg/mg Normal [facility] Comment on above: Performed By: #### B MP, DLDL, ALT #### [facility] [address], [place] [address] Dr. Ashley Elizabeth [facility] 04-03-2022 ALT [Catalytic activity/Vol] 45 U/L Normal 16-63 [facility] Comment on above: Performed By: #### B MP, DLDL, ALT #### [facility] [address], [place] [address] Dr. Ashley Dumont 02-07-2022 L - -------- Specimen: [id number] Received: 02/07/22 Status: JESUS Gary Num: [id number] Spec Type: Surgical Subm Dr: Chintan Dsouza Jr, Tissues: A Colon - Polyp (ASCENDING POLYPS) B Colon - Polyp (TRANSVERSE POLYP) Procedures: HE Stain/4, Gross/Micro L4/2 -------- Patient Age/Sex Location Account Attending Physician -------- Ricardo Grant/Surjit [id number] Chintan Dsouza Jr, DO -------- SPEC NUM: [id number] RECD: 02/07/22 STATUS: JESUS GARY NUM: [id number] KARLY: 02/07/22- DR: Chintan Dsouza Jr, DO [...] Specimen: Received: 02/07/22 Status: JESUS Gary Num: [id number] Spec Type: Surgical Subm Dr: Chintan Dsouza Jr, Tissues: A Colon - Polyp (ASCENDING POLYPS) B Colon - Polyp (TRANSVERSE POLYP) Procedures: HE Stain/4, Gross/Micro L4/2 -------- Patient: Ricardo Grant [id number] (Continued) -------- Specimen: Received: 02/07/22 (Continued) Signed (signature on file) Arley Poole MD 02/10/22 1455 -------- Specimen: Received: 02/07/22 Status: JESUS Gary Num: [id number] Spec Type: Surgical Subm Dr: Chintan Dsouza Jr, Tissues: A Colon - Polyp (ASCENDING POLYPS) B Colon - Polyp (TRANSVERSE POLYP) Procedures: HE Stain/4, Gross/Micro L4/2 -------- Patient: Ricardo Grant [id number] (Continued) -------- Specimen: [id number] Received: 02/07/22 (Continued) Microscopic Description A, Two H E stained slides are reviewed. Microscopic examination is performed. B. Two H E stained slides are reviewed. Microscopic examination is performed. This case is interpreted at [place], [place] CPT Codes A. [address] B. 22704 -------- -------- Specimen: [id number] Received: 02/07/22 Status: JESUS Gary Num: [id number] Spec Type: Surgical Subm Dr: Chintan Dsouza Jr, DO Tissues: A Colon - Polyp (ASCENDING POLYPS) B Colon - Polyp (TRANSVERSE POLYP) Procedures: HE Stain/4, Gross/Micro L4/2 -------- Patient: Ricardo Grant [id number] (Continued) -------- Signed (signature on file) Arley Poole MD 02/10/22 1455 [facility] COVID-19 Antigenon 2 COVID-19 Antigen Healthcare Worker?: [...] developed and its performance characteristic determined by [employer] and validated at [facility]. This test has not been FDA [...] for SARS Antigen by [employer] PERFORMED BY: [place] [address] PATHOLOGIST GEOSPATIAL ANALYST SHERRELL WILLS M.D. [facility] Comment on above: Performed By: #### S EBONY COVID-19 ALANIS #### [address] Alanis Ag Negativeon 02-06-20 22 Alanis Ag Negative Negative Normal Negative [facility] Comment on above: Result Comment: This is a duplicate Alanis SARS Antigen ([facility]) result to be used for statistical tracking purpose only. PERFORMED BY: [place] [address] PATHOLOGIST GEOSPATIAL ANALYST SHERRELL WILLS M.D. Performed By: #### S EBONY COVID-19 ALANIS #### [address] OBSOLETEon 09-03-2018 OBSOLETE Refill (NENMMN) RICARDO GRANT ([id number]) 1950 M Date Time Provider Department 09/03/18 BIANAC RIVERA NENMMN During your visit today, we recorded the following information about you: Nika Simmons 09/03/2018 3:41 PM Signed Fax from pharmacy requesting refill. Please E-Scribe. Pending Prescriptions Disp Refills PRAVASTATIN 80 MG TABLET Sig: Take 1 tablet by mouth once daily. JUVE: No Pharmacy Name / Store Number: [facility] Pharmacy Phone #: [phone] Nika Olivier [facility] Gloria Reynoso RN, RN 09/03/2018 5:01 PM Signed Medication and dose reviewed. Last refill historical. Last office visit 12/25/17. Future appointment: not scheduled at this time. Appropriate for refill. Please review and if approved e-prescribe as requested below. Routed to [facility]. Gloria Reynoso RN September 03, 2018 [...] Encounter Status:Closed by NIKA THOMAS on 05/25/19 [facility] Vital Signs Date Time Vital Sign Value Performing Clinician Facility 04-10-2023 09:00-0400 Body height 162.56 cm Aayush Escudero Other [facility] Other 04-10-2023 09:00-0400 Body mass index (BMI) [Ratio] 31.31 kg/m2 Aayush Escudero Other [facility] Other 04-10-2023 09:00-0400 Body weight 82.74 kg Aayush Escudero Other [facility] Other 04-10-2023 09:00-0400 Respiratory rate 56 /min Aayush Escudero Other [facility] Other Encounters Encounter Date Encounter Type Care Provider Facility Start: 06-02-2024 End: 06-02-2024 ambulatory Aayush Escudero Facility:[facility] Start: 05-18-2024 End: 05-18-[address] Chen Facility:[facility] Start: 03-24-2024 End: 03-24-2024 ambulatory ANJUM LATHAM Not Available Start: 03-17-2024 End: 03-17-2024 ambulatory Aayush Escudero Facility:[facility] Start: 05-15-2023 End: 05-15-2023 ambulatory Aayush Escudero Other [facility] Other Start: 05-15-2023 Nursing evaluation o f patient and report Aayush Escudero [facility] Start: 04-13-2023 End: 04-13-2023 ambulatory Aayush Escudero Other [facility] Other Start: 04-13-2023 Telephone encounter Aayush Escudero [facility] Start: 04-10-2023 End: 04-10-2023 ambulatory Aayush Escudero Other [facility] Other Start: 04-10-2023 Patient encounter procedure Aayush Escudero [facility] Start: 04-03-2022 End: 04-04-[address] AAYUSH ESCUDERO Facility:[facility] Start: 06-11-2021 End: 06-11-2021 ambulatory GURVINDERCHRISTIAN BROOKS Facility:[facility] Procedures Date Procedure Procedure Detail Performing Clinician Start: 04-03-[address] MARK ESCUDERO Comment on above: Performed By: #### P [facility] #### [facility] [address] [place] [address] Dr. Ashley Elizabeth Immunizations Immunization Date Immunization Notes Care Provider Fa [facility] 05-15-2023 influenza, high dose seasonal, preservative-free Aayush Escudero Other [facility] Other 05-06-2022 influenza, high dose seasonal, preservative-free Aayush Escudero Other [facility] Other 05-05-2022 COVID-19 Vaccine Pfi zer - Documentation Purposes Only Aayush Escudero Other [facility] Other 12-18-2021 COVID-19 Vaccine Pfi zer - Documentation Purposes Only Aayush Escudero Other [facility] Other 05-17-2021 influenza virus vaccine, split virus (incl. purified surface antigen) Aayush Escudero Other [facility] Other 04-27-2020 influenza virus vaccine, split virus (incl. purified surface antigen) Aayush Escudero Other [facility] Other 05-06-2018 influenza virus vaccine, split virus (incl. purified surface antigen) Aayush Escudero Other [facility] Other 05-01-2017 influenza virus vaccine, split virus (incl. purified surface antigen) Aayush Escudero Other [facility] Other 02-26-2017 pneumococcal polysaccharide vaccine, 23 valent Aayush Escudero Other [facility] Other 06-18-2016 influenza virus vaccine, split virus (incl. purified surface antigen) Aayush Escudero Other [facility] Other 02-18-2016 pneumococcal conjuga te vaccine, 13 valent Aayush Escudero Other [facility] Other 06-11-2015 influenza virus vaccine, split virus (incl. purified surface antigen) Aayush Escudero Other [facility] Other Payers Date Payer Category Payer Unknown [id number] 2015 Unknown [id number] 1959 Medicare [id number] 1959 Unknown [id number] 1950 Unknown [id number] 2.16.84 [id number] 1950 Unknown [id number] 2.16.84 [id number] 1950 Unknown [id number] 2.16.84 [id number] 1950 Unknown [id number] 2.16.8 [id number] 1950 Unknown [id number] 2.16.8 [id number] 1950 Unknown [id number] 2.16.8 [id number] Social History Date Type Detail Facility Sex Assigned At [facility] Other Clinical Note 06-02-2024 Note Date & Type Note Facility 06-02-2024 Note [facility] SURGERY Clinical Discharge Summary PERSON INFORMATION Name RICARDO GRANT Age 74 Years 1950 Sex MALE Language Palestinian PCP Aayush Escudero Marital Status Med Service Ambulatory Surgery Acct# Arrival 06/02/2024 05:52:27 Visit Reason Surgery- Cysto, [facility] LOS 072 19:32 Address: [address] [place] [address] Comment: PROVIDER INFORMATION VITALS INFORMATION Vital Sign [...] Medication List: New Medications [id number], [address] [place], [place] [id number], [phone] cephalexin (cephalexin 500 mg oral capsule) 1 [...] day. New Medications [facility], [address] [place], [place] [id number], [phone] cephalexin (cephalexin 500 mg oral capsule) 1 [...] tablet) 1 tab(s) (more content not included)... [facility] History and physical note 03-21-2024 Note Date & Type Note Facility 03-21-2024 Note [id number] F [facility] Clinical Note 03-17-2024 Note Date & Type Note Facility 03-17-2024 Note [facility] SURGERY Clinical Discharge Summary PERSON INFORMATION Name RICARDO GRANT Age 73 Years 1950 Sex MALE Language Palestinian PCP Aayush Escudero Marital Status Med Service Ambulatory Surgery Acct# Arrival 03/17/2024 12:30:36 Visit Reason SURGERY - LOCAL CYSTO Acuity LOS 002 01:59 Address: [address] [place] [address] Comment: PROVIDER INFORMATION VITALS INFORMATION Vital Sign [...] and Radiology Resu (more content not included)... [facility] Evaluation note 04-13-2023 Note Date & Type Note Facility 04-13-2023 Evaluation note Encounter Date Diagnosis Assessment Notes Mar, Benign prostatic hyperplasia with lower urinary tract symptoms (ICD-10 - N40.1) [facility] Other Evaluation note 04-10-2023 Note Date & [...] Z79.899) Mar, Fecal smearing (ICD-10 - R15.1) [facility] Other Evaluation note Note Date & Type Note Facility Evaluation note No Information [facility] Other History general Narrative - Reported Note [...] TUBE 2018 Hospitalization History SEE SURGICAL HX [facility] Other Summary Purpose Family History No Family [...] section and content) DATE CREATED AUTHOR 05/26/2019 [facility] DATE CREATED AUTHOR AUTHOR'S ORGANIZ ATION 02/13/2022 [facility] DATE CREATED AUTHOR AUTHOR'S ORGANIZ ATION 04/05/2022 [facility] DATE CREATED AUTHOR AUTHOR'S ORGANIZ ATION 03/26/2024 [facility] EPIC DATE CREATED AUTHOR AUTHOR'S ORGANIZ ATION 06/03/2024 [facility] REASON FOR VISIT (unrecogniz ed section and [...] BE BASED ON THE PRIMARY CLINICAL RECORDS. [facility]. provides no warranty or guarantee of the accuracy or completeness of information in this document.
[2024-06-04] VITALS (42 sets, daily range): BP systolic 76–128; BP diastolic 44–78; PULSE 57–90; TEMP 36.3–36.4; O2SAT 91–100; BMI 33.3
[2024-06-04] MEDS: 0.9 % SODIUM CHLORIDE 1,000 ML 125 ML IV ×2 (00:48→06:30)
--- NOTE | 2024-06-04 04:22 | PC.NURSE ---
0350 patient called out to go to bathroom. Rn and nurse aide into room. Patient helped to sit at side of bed. Patient doing and feeling fine. Patient into bathroom. Sat on commode, voided bloody urine. Patient walked over and to sink and hunched over and stated I don't feel good. Nurse aide went out and grabbed a wheel chair. Patient helped to wheel chair. Vital signs obtianed, temp 97.4 temp, 57 pulse, 20 resp and 53/34 machine spo2 93% on room air. 76/44 manual.. Patient back to bed. Oxygen applied to patient as he was complaining of sob. Once in bed patient laid flat. bp obtained at 112/54. 0404 bp 115/70. Telehospitalist contract administration specialist notified. Telemetry and iv bolus ordered.
[2024-06-04 04:24] LABS: Clarity Urine CLEAR (CLEAR); Color Urine DK RED (YELLOW)
[2024-06-04 04:25] LABS: Bilirubin Urine COLOR INTERFERENCE (NEGATIVE); Blood Urine COLOR INTERFERENCE (NEGATIVE); Glucose Urine UA COLOR INTERFERENCE mg/dL (NEGATIVE); Ketones Urine COLOR INTERFERENCE mg/dL (NEGATIVE); Leukocyte Esterase Urine COLOR INTERFERENCE (NEGATIVE); Nitrite Urine COLOR INTERFERENCE (NEGATIVE); Protein Urine COLOR INTERFERENCE mg/dL (NEG/TRACE); Specific Gravity Urine 1.015 (1.005-1.025); Urobilinogen Urine COLOR INTERFERENCE EU/dL (0.2-1.0); pH Urine COLOR INTERFERENCE (5.0-9.0)
[2024-06-04 04:29] LABS: Bacteria Urine NONE SEEN #/HPF (NONE SEEN); Cast Seen? NONE SEEN #/LPF (NONE SEEN); Crystals Seen? None Seen #/HPF (None Seen); Mucus Urine NONE SEEN (NONE SEEN); RBC Urine >100 #/HPF (0-2); Squamous Epithelial Cell Urine RARE #/LPF (NONE/RARE); Urine Culture Indicated NO
[2024-06-04 06:21] LABS: Basophils Absolute Auto 0.1 10^3/uL (0.0-0.1); Basophils Percent Auto 0.4 % (0.2-2.0); Eosinophils Percent Auto 0.2 % (0.9-7.0); Hematocrit 46.6 % (42.0-54.0); Immature Granulocytes Abs Auto 0.13 10^3/uL (0.00-0.03); Lymphocytes Absolute Auto 1.4 10^3/uL (1.2-3.8); Mean Corpuscular HGB Conc 32.2 g/dL (29.9-35.2); Mean Corpuscular Hemoglobin 31.6 pg (25.9-34.0); Mean Corpuscular Volume 98.1 fL (80.0-94.0); Mean Platelet Volume 9.6 fL (9.5-13.5); Monocytes Absolute Auto 0.6 10^3/uL (0.3-0.8); Monocytes Percent Auto 4.9 % (1.7-12.0); Neutrophils Absolute Auto 10.6 10^3/uL (1.4-6.5); Neutrophils Percent Auto 82.5 % (43.0-75.0); Platelet Count 210 10^3/uL (150-450); Red Blood Count 4.75 10^6/uL (4.70-6.10); Red Cell Distribution Width 13.1 % (11.0-15.0); White Blood Count 12.9 10^3/uL (4.0-11.0)
[2024-06-04 06:40] LABS: Alanine Aminotransferase 23 U/L (16-63); Albumin Globulin Ratio 0.8; Albumin Level 2.4 g/dL (3.4-5.0); Alkaline Phosphatase 80 U/L (46-116); Anion Gap 14.7; Aspartate Amino Transferase 21 U/L (15-37); BUN Creatinine Ratio 12.7; Bilirubin Total 0.6 mg/dL (0.2-1.0); Calcium 7.8 mg/dL (8.5-10.1); Carbon Dioxide 22.7 mmol/L (21.0-32.0); Chloride 102 mmol/L (98-107); Estimated GFR (African America 27 (>=60 mL/min/1.73m^2); Estimated GFR (Non-African Ame 22 (>=60 mL/min/1.73m^2); Globulin 2.9 g/dL; Glucose 106 mg/dL (74-106); Potassium 4.4 mmol/L (3.5-5.1); Sodium 135 mmol/L (136-145); Total Protein 5.3 g/dL (6.4-8.2)
[2024-06-04] MEDS: SODIUM CHLORIDE 0.9% IRRIG SOLUTION 1,000 ML BOTTLE 3000 ML IRR ×2 (06:50→07:23)
--- NOTE | 2024-06-04 06:59 | P.HP_ITS ---
HPI H&P: HPI History of Present Illness Chief complaint: Syncope Narrative: Patient had recent procedure for prostate and bladder procedure with laser. This is for BPH and not for cancer. Had Dozier catheter removed the day before. Got up in the middle the night and had syncopal episode. Squad was called and blood pressure significantly low upon arrival started fluid bolus in the field. In the ER blood pressure still low, kidney test elevated consistent with acute renal failure and patient was admitted for workup and treatment of same This a.m. patient had another fall no head injury at that time. Blood pressure low, low-dose fluid bolus was instituted. Received a phone call and increase the fluid bolus to finish over the rest of an hour. . when I arrived at the hospital was called from nursing staff the patient had left facial droop, ordered stat CT scan, in the CT scanner patient had worsening dysarthria and patient transferred from the CT scanner up to the intensive care unit. Once up in the intensive care unit to speech did seem to improve. When I saw patient at bedside other than a little slowness to his speech he could identify me remember my name from 10 minutes previously as well as could say his and where he was located. On secondary rounds approximately 2 hours later patient had had a essentially normal neurological assessment by nursing staff, he could do the reading as requested he could identify the objects as requested and he can do all the motions requested. Shortly after that had another episode of dysarthria. Unable to express where he was at. Was unable to verbalize his name my name. This lasted about 15 to 20 minutes and then was able to start to identify objects again, could say who his was speech is a little thickened. During the episode the patient no focal neurological deficits again he had good strengt h in his upper and lower extremities and able to follow physical commands just not verbal. Case initially discussed with telestroke team and at the earlier stage since he had improved and CT scan was negative recommended is to observe and continue with treatment for sepsis. With recurrence of the neurological changes reconsulted to telestroke team recommended CTA unable to do secondary to acute renal failure, unable to do MRI due to availability, equipment down. Opioid HPI Opioid Management Most Recent Pain and Opioid Data: Last Pain Assessment 06/04/24 10:00 Last ORT Total Score 0 06/04/24 00:01 06/04/24 Last ORT Risk Category Low Risk 06/04/24 00:01 06/04/24 Review of Systems ROS Status of ROS 10 or more systems reviewed and unremark able except as noted in history and below [facility] Medical History (Updated 06/04/24 @ 11:32 by Luis Ross MD) Cataracts, bilateral ?H26.9 - Unspecified cataract (ICD-10) Pinched nerve ?G58.9 - Mononeuropathy, unspecified (ICD-10) High cholesterol ?E78.00 - Pure hypercholesterolemia, unspecified (ICD-10) High blood pressure ?I10 - Essential (primary) hypertension (ICD-10) COPD (chronic obstructive pulmonary disease) ?J44.9 - Chronic obstructive pulmonary disease, unspecified (ICD-10) Surgical History (Updated 06/04/24 @ 00:33 by Gloria Suresh) History of prostate surgery ?Z98.890 - Other specified postprocedural states (ICD-10) Family History (Updated 06/04/24 @ 00:18 by Gloria Suresh) Mother Family history of cancer Family history of diabetes mellitus Father Family history of cancer Brother Family history of cancer Family history of myocardial infarction Social History (Updated 06/04/24 @ 00:20 by Gloria Suresh) Within the past year, how often did you have a drink containing alcohol: 2-3 times a week Smoking status: Former smoker Non-prescribed substance use: denies use Previous occupational history: retired Highest level of school completed/degree received: high school graduate Are you now , , , , never or living with a partner: In a typical week, how many times do you talk on the telephone with family, friends, or neighbors: once per week How often do you get together with friends or relatives: once per week How often do you attend scientologist or anabaptist services: never Little interest or pleasure in doing things: not at all Feeling down, depressed, or hopeless: not at all Feel stressed/tense/nervous/anxious/difficulty sleeping: not at all Do you think of yourself as: straight/heterosexual Gender Identity: male Meds Home Medications and Allergies Home Medications ?Medication ?Instructions ?Recorded ?Confirmed ?Type amlodipine 5 mg tablet 5 mg PO .qd 06/04/24 06/04/24 History cephalexin 500 mg capsule 500 mg PO Q12H 06/04/24 06/04/24 History fluticasone 250 mcg-salmeterol 50 1 inh inhalation Q12H 06/04/24 06/04/24 History mcg/dose blistr powdr for inhalation lisinopril 40 mg tablet 40 mg PO DAILY 06/04/24 06/04/24 History oxybutynin chloride 10 mg 10 mg PO DAILY 06/04/24 06/04/24 History tablet,extended release 24 hr pravastatin 80 mg tablet 80 mg PO DAILY 06/04/24 06/04/24 History tramadol 50 mg tablet 50 mg PO Q6H PRN pain 06/04/24 06/04/24 History Allergies Allergy/AdvReac Type Severity Reaction Status Date / Time amoxicillin (From Augmentin) Allergy Severe Unknown Verified 06/03/24 21:41 clavulanic acid (From Allergy Severe Unknown Verified 06/03/24 21:41 Augmentin) Exam Constitutional Vital Signs, click to edit/add: Last Vital Signs Temp 97.4 F L 06/04/24 03:59 Pulse 57 L 06/04/24 03:59 Resp 20 06/04/24 03:59 BP 115/70 06/04/24 04:04 Pulse Ox 93 L 06/04/24 03:59 O2 Del Method Room Air 06/04/24 03:59 Documenting provider has reviewed patient's vital signs: yes Common normals: apparent distress (During time of dysarthria, patient anxious with increasing tremor) Chest Common normals: inspection of chest normal Respiratory Common normals: normal respiratory effort and no retractions Cardio Common normals: regular rate and regular rhythm GI Common normals: Normal to inspection, nondistended, normoactive bowel sounds present Common normals: no CVA tenderness Bladder/kidney exam: catheter in place Results Labs Labs: Short CBC 06/03/24 06/04/24 Range/Units 20:55 05:44 WBC 18.1 H 12.9 H (4.0-11.0) 10^3/uL Hgb 15.8 15.0 (14.0-18.0) g/dL Hct 48.7 46.6 (42.0-54.0) % Plt Count 252 210 (150-450) 10^3/uL BMP 06/03/24 06/04/24 20:55 05:44 Sodium 131 L 135 L Potassium 4.3 4.4 Chloride 98 102 Carbon Dioxide 22.5 22.7 BUN 32.0 H 36.0 H Creatinine 2.29 H 2.84 H Glucose 152 H 106 Calcium 8.8 7.8 L Liver Function 06/04/24 Range/Units 05:44 Total Bilirubin 0.6 (0.2-1.0) mg/dL AST 21 (15-37) U/L ALT 23 (16-63) U/L Alkaline Phosphatase 80 (46-116) U/L Albumin 2.4 L (3.4-5.0) g/dL Urine 06/04/24 Range/Units 04:10 Urine Color Dk red A (YELLOW) Urine Clarity Clear (CLEAR) Urine pH Color interference A (5.0-9.0) Ur Specific [place] 1.015 (1.005-1.025) Urine Protein Color interference A (NEG/TRACE) mg/dL Urine Glucose (UA) Color interference A (NEGATIVE) mg/dL Assessment and Plan Assessment and Plan (1) Dehydration: (2) Syncope: (3) Dysarthria: (4) Facial droop: (5) Acute renal failure: (6) Multisystem organ failure: (7) Leukocytosis: (8) Hyponatremia: (9) Hyperglycemia: (10) High blood pressure: (11) High cholesterol: (12) History of prostate surgery: (13) COPD (chronic obstructive pulmonary disease): (14) Moderate protein-calorie malnutrition: (15) Hypotension: (16) Sepsis: (17) Altered mental status: (18) Hematuria: Plan Admission criteria: Hypotension with syncope, acute renal failure, severe hypotension, not responding to IV fluids after getting 2 L of normal saline in ER, tomorrow after admission, leukocytosis, altered mental status, dysarthria, left facial droop, hematuria post prostate surgery Syncope with sepsis syndrome with multisystem organ failure-significant hypotension despite IV fluid resuscitation, 4 L so far and blood pressure still less than 100 at times. Continue with IV fluid resuscitation. Multisystem organ failure being acute renal failure and altered mental status Left facial droop with dysarthria-waxing and waning-consultation with telestroke, unable to do CTA secondary to acute renal failure, unable to do MRI due to machine. Discussed likely transfer for further intervention and testing unable to be performed here. This has been waxing and waning is currently stable without facial droop and speech improving Severe hypotension secondary to sepsis likely secondary to urinary tract infection due to recent prostate laser surgery-started IV antibiotics, blood cultures and urine culture pending Hematuria-secondary to recent prostate surgery, three-way catheter placed and bladder irrigated, currently is clear and CBI will be stopped. Recheck urinalysis Leukocytosis secondary to the sepsis as outlined above-somewhat improved from admission, repeat lab pending later today. Hyponatremia likely secondary to the sepsis as outlined above-monitor daily Hyperglycemia on admission-this is nonfasting, will track and trend results daily Hypertension by history-holding blood pressure medications Hypercholesterolemia-holding oral medications COPD-can use home inhaler, currently not active Moderate protein calorie malnutrition-1 swallowing eval is completed can institute oral supplementation Admission criteria: Patient. Initially placed in observation but condition continued to deteriorate-had recurrent syncopal episode with severe hypotension despite now 4 L of IV fluids, patient with sepsis with multisystem organ dysfunction and possible recurrent stroke, medically necessary treatment will span 2 midnights, inpatient status. Currently working on transfer to [facility] in [facility]
--- NOTE | 2024-06-04 07:35 | CT_ITS ---
The [address] [address] Patient Name: KEVIN GRANT MRN: [id number] date: 1950 Sex: M Assigned Patient Location: MS Current Patient Location: ICU Accession/Order Number: [id number] Exam Date: 06/04/2024 07:53 Report Date: 06/04/2024 08:43 At the request of: KATRIN HERNANDEZ Procedure: CT stroke head/brain wo con EXAM: CT stroke head/brain wo con HISTORY: facial droop COMPARISON: CT head 06/03/2024. TECHNIQUE: Axial noncontrast CT imaging of the head was performed with coronal and sagittal reformats. This CT exam was performed using one or more of the following dose reduction techniques: Automated exposure control, adjustment of the MA and/or kV according to patient size, or use of iterative reconstruction technique. FINDINGS: Calvarium/skull base: No evidence of acute fracture or destructive lesion. Bilateral [place] ocular lens replacements. Mastoid air cells are well aerated. Paranasal sinuses: No air fluid levels. Brain: No acute intracranial hemorrhage. No acute large vascular territory infarct. . Small right extra-axial arachnoid cyst adjacent to the frontal parietal interface splaying adjacent sulci with mild mass effect on adjacent brain parenchyma. The presumed arachnoid cyst measures approximately 1.8 x 2.8 x 2.1 cm. No associated parenchymal edema. No hydrocephalus. CT/CT stroke head/brain wo con IMPRESSION: 1. No acute large vascular territory infarct or acute cranial hemorrhage. No substantial change in appearance of the brain parenchyma from CT head performed 06/03/2024. If there is clinical concern for acute ischemia recommend MR brain for further evaluation. 2. Probable right parietal convexity arachnoid cyst without associated parenchymal edema. Electronically authenticated by: DARLYN ALANIS Date: 06/04/2024 08:43
--- NOTE | 2024-06-04 07:45 | ECG_ITS ---
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
[2024-06-04 08:10] LABS: INR 1.03; Partial Thromboplastin Time 26.2 sec (22.3-36.2); Prothrombin Time 10.9 sec (9.0-11.6)
[2024-06-04 08:12] LABS: Lactate/Lactic Acid 1.4 mmol/L (0.4-2.0)
--- NOTE | 2024-06-04 08:16 | PC.NURSE ---
aware of patient moving to ICU. [employer] Assistants escorted her back to ICU.
--- NOTE | 2024-06-04 08:18 | PC.NURSE ---
Patient arrived to the floor at 8:10, Assistant Analyst Dr. Cody Cho, RN Bernarda, RN Peggy Millan in the room. Stroke assessment completed. Patient was able to say his name and give his location when asked. Patient was able to complete touch tests without issue. Bilateral supervisor carbon paper coating is equal. Patient was unable to completed the heel to chin. Tele-stroke initiated per Dr. Ross. Lab in with patient. CBI to be discontinued. Urine flow is clear.
[2024-06-04 09:10] LABS: Troponin I High Sensitivity 10.8 pg/mL (4.0-76.1)
[2024-06-04 09:16] LABS: Troponin I High Sensitivity 9.7 pg/mL (4.0-76.1)
[2024-06-04] MEDS: 0.9 % SODIUM CHLORIDE 1,000 ML 1000 ML IV (10:29)
[2024-06-04] MEDS: CEFTRIAXONE 1,000 MG in 0.9 % SODIUM CHLORIDE 50 ML 100 MG IV (10:32)
[2024-06-04 10:40] LABS: Glucometer 81 mg/dL (74-106)
[2024-06-04] MEDS: BUDESONIDE 0.5 MG/2 ML AMPULE NEB IH (11:11)
[2024-06-04] MEDS: ALBUTEROL SULFATE 2.5 MG/3 ML VIAL NEB IH (11:11)
[2024-06-04 11:22] LABS: Basophils Percent Auto 0.2 % (0.2-2.0); Eosinophils Percent Auto 0.1 % (0.9-7.0); Hematocrit 39.1 % (42.0-54.0); Hemoglobin 12.8 g/dL (14.0-18.0); Immature Granulocytes Abs Auto 0.12 10^3/uL (0.00-0.03); Immature Granulocytes Pct Auto 0.7 % (0.0-0.5); Lymphocytes Absolute Auto 1.8 10^3/uL (1.2-3.8); Mean Corpuscular HGB Conc 32.7 g/dL (29.9-35.2); Mean Corpuscular Volume 97.8 fL (80.0-94.0); Mean Platelet Volume 9.5 fL (9.5-13.5); Monocytes Absolute Auto 1.6 10^3/uL (0.3-0.8); Monocytes Percent Auto 8.6 % (1.7-12.0); Neutrophils Absolute Auto 14.7 10^3/uL (1.4-6.5); Neutrophils Percent Auto 80.4 % (43.0-75.0); Platelet Count 169 10^3/uL (150-450); Red Cell Distribution Width 13.1 % (11.0-15.0); White Blood Count 18.3 10^3/uL (4.0-11.0)
[2024-06-04 11:38] LABS: Anion Gap 13.9; BUN Creatinine Ratio 17.6; Calcium 7.6 mg/dL (8.5-10.1); Carbon Dioxide 20.7 mmol/L (21.0-32.0); Chloride 109 mmol/L (98-107); Estimated GFR (African America 36 (>=60 mL/min/1.73m^2); Estimated GFR (Non-African Ame 30 (>=60 mL/min/1.73m^2); Glucose 98 mg/dL (74-106); Potassium 4.6 mmol/L (3.5-5.1); Sodium 139 mmol/L (136-145); Troponin I High Sensitivity 8.1 pg/mL (4.0-76.1)
--- NOTE | 2024-06-04 11:38 | P.DS_ITS ---
DS: Providers Provider Date of admission: 06/03/24 23:43 Primary care physician: Aayush Escudero DO Consults: 06/04/24 Consult to Telestroke Routine Reason for consultation: r/o or confirm stroke Has provider been notified: Yes 06/04/24 07:01 Occupational Therapy Eval and Treat Routine Reason for consultation: Only if needed for Rehab Has provider been notified: No Physical Therapy Eval and Treat Routine Reason for consultation: Eval and Treat Has provider been notified: No DS: Diagnosis Discharge Diagnosis (1) Dehydration: (2) Syncope: (3) Dysarthria: (4) Facial droop: (5) Acute renal failure: (6) Multisystem organ failure: (7) Leukocytosis: (8) Hyponatremia: (9) Hyperglycemia: (10) High blood pressure: (11) High cholesterol: (12) History of prostate surgery: (13) COPD (chronic obstructive pulmonary disease): (14) Moderate protein-calorie malnutrition: (15) Hypotension: (16) Sepsis: (17) Altered mental status: (18) Hematuria: Plan Admission criteria: Hypotension with syncope, acute renal failure, severe hypotension, not responding to IV fluids after getting 2 L of normal saline in ER, tomorrow after admission, leukocytosis, altered mental status, dysarthria, left facial droop, hematuria post prostate surgery Syncope with sepsis syndrome with multisystem organ failure-significant hypotension despite IV fluid resuscitation, 4 L so far and blood pressure still less than 100 at times. Continue with IV fluid resuscitation. Multisystem organ failure being acute renal failure and altered mental status Left facial droop with dysarthria-waxing and waning-consultation with telestroke, unable to do CTA secondary to acute renal failure, unable to do MRI due to machine. Discussed likely transfer for further intervention and testing unable to be performed here. This has been waxing and waning is currently stable without facial droop and speech improving Severe hypotension secondary to sepsis likely secondary to urinary tract infection due to recent prostate laser surgery-started IV antibiotics, blood cultures and urine culture pending Hematuria-secondary to recent prostate surgery, three-way catheter placed and bl adder irrigated, currently is clear and CBI will be stopped. Recheck urinalysis Leukocytosis secondary to the sepsis as outlined above-somewhat improved from admission, repeat lab pending later today. Hyponatremia likely secondary to the sepsis as outlined above-monitor daily Hyperglycemia on admission-this is nonfasting, will track and trend results daily Hypertension by history-holding blood pressure medications Hypercholesterolemia-holding oral medications COPD-can use home inhaler, currently not active Moderate protein calorie malnutrition-1 swallowing eval is completed can institute oral supplementation Admission criteria: Patient. Initially placed in observation but condition continued to deteriorate-had recurrent syncopal episode with severe hypotension despite now 4 L of IV fluids, patient with sepsis with multisystem organ dysfunction and possible recurrent stroke, medically necessary treatment will span 2 midnights, inpatient status. Currently working on transfer to [facility] in [facility] ? DS: Summary Hospital Course Hospital Course: Present to the hospital with syncopal episode and significant hypotension as documented in the field. Started on IV fluids in the field, in the ER had leukocytosis and acute kidney injury, given 2 L of fluid in the ER, was given start of another third liter when up on the floor when he had another after having another syncopal episode. Blood pressure in the 70s. Blood pressure did improve when patient was placed back in the bed and third fluid bolus was started. About an hour after the fall patient did have some left facial weakness and alteration in mental status. CT stat CT scan was done which showed no acute bleed, telestroke was consulted that by the time he was transferred to the intensive care unit his symptoms had improved. Patient had a neurological assessment with the nurse and was stable, when I entered the room approximate 10 minutes after that patient had another episode of dysarthria, no facial droop, family was present and agreed, after about 10 to 15 minutes he was able to start speaking again, he had no focal neurological deficits with good strength in upper and lower extremities. Speech is improving when I left, blood pressure was still little bit low at that time. Case was again read discussed with telestroke team and agreed to accept patient in transfer, unable to do CTA head and neck or MRI due to acute renal failure and MRI availability. Patient will be transferred to stepdown unit at the [facility] for continued critical care. Status at Discharge Cognitive/behavioral status at discharge: Stable but critical Overall status at discharge: patient is not back to baseline Time Spent with Patient Time attestation: Total time spent providing and/or coordinating discharge services: Time spent: greater than 30 minutes Exam Constitutional Vital Signs, click to edit/add: Last Vital Signs Temp 97.6 F 06/04/24 07:54 Pulse 67 06/04/24 11:12 Resp 18 06/04/24 07:54 BP 108/57 06/04/24 07:54 Pulse Ox 95 06/04/24 11:12 O2 Del Method Nasal Cannula 06/04/24 11:12 O2 Flow Rate 1 06/04/24 11:12 Documenting provider has reviewed patient's vital signs: yes Common normals: apparent distress (During time of dysarthria, patient anxious with increasing tremor) Chest Common normals: inspection of chest normal Respiratory Common normals: normal respiratory effort and no retractions Cardio Common normals: regular rate and regular rhythm GI Common normals: Normal to inspection, nondistended, normoactive bowel sounds present Common normals: no CVA tenderness Bladder/kidney exam: catheter in place DS: Data Data Completed and Pending Labs on day of discharge: Labs from last 24 hours 06/04/24 06/04/24 06/04/24 11:17 10:39 08:50 WBC 18.3 H RBC 4.00 L Hgb 12.8 L Hct 39.1 L MCV 97.8 H MCH 32.0 MCHC 32.7 RDW 13.1 Plt Count 169 MPV 9.5 Neut % (Auto) 80.4 H Lymph % (Auto) 10.0 L [place] % (Auto) 8.6 Eos % (Auto) 0.1 L Baso % (Auto) 0.2 Neut # (Auto) 14.7 H Lymph # (Auto) 1.8 Giles # (Auto) 1.6 H Eos # (Auto) 0.0 Baso # (Auto) 0.0 Abs Immat Gran (auto) 0.12 H Imm/Tot Granulo (auto) 0.7 H PT INR APTT Sodium Potassium Chloride Carbon Dioxide Anion Gap BUN Creatinine Est GFR ( Amer) Est GFR (Non-Af Amer) BUN/Creatinine Ratio Glucose Lactate Calcium Magnesium Total Bilirubin AST ALT Alkaline Phosphatase Troponin I High Sens 9.7 NT-Pro-B Natriuret Pep 119.0 Total Protein Albumin Globulin Albumin/Globulin Ratio Urine Color Urine Clarity Urine pH Ur Specific [place] Urine Protein Urine Glucose (UA) Urine Ketones Urine Occult Blood Urine Nitrite Urine Bilirubin Urine Urobilinogen Ur Leukocyte Esterase Urine RBC Urine WBC Ur Squamous Epith Cells Urine Crystals Urine Bacteria Urine Casts Urine Mucus Ur Culture Indicated? POC Glucose 81 06/04/24 06/04/24 06/04/24 07:40 05:44 04:10 WBC 12.9 H RBC 4.75 Hgb 15.0 Hct 46.6 MCV 98.1 H MCH 31.6 MCHC 32.2 RDW 13.1 Plt Count 210 MPV 9.6 Neut % (Auto) 82.5 H Lymph % (Auto) 11.0 L [place]iles % (Auto) 4.9 Eos % (Auto) 0.2 L Baso % (Auto) 0.4 Neut # (Auto) 10.6 H Lymph # (Auto) 1.4 Giles # (Auto) 0.6 Eos # (Auto) 0.0 Baso # (Auto) 0.1 Abs Immat Gran (auto) 0.13 H Imm/Tot Granulo (auto) 1.0 H PT 10.9 INR 1.03 APTT 26.2 Sodium 135 L Potassium 4.4 Chloride 102 Carbon Dioxide 22.7 Anion Gap 14.7 BUN 36.0 H Creatinine 2.84 H Est GFR ( Amer) 27 L Est GFR (Non-Af Amer) 22 L BUN/Creatinine Ratio 12.7 Glucose 106 Lactate 1.4 Calcium 7.8 L Magnesium 2.0 Total Bilirubin 0.6 AST 21 ALT 23 Alkaline Phosphatase 80 Troponin I High Sens 10.8 NT-Pro-B Natriuret Pep Total Protein 5.3 L Albumin 2.4 L Globulin 2.9 Albumin/Globulin Ratio 0.8 Urine Color Dk red A Urine Clarity Clear Urine pH Color interference A Ur Specific [place] 1.015 Urine Protein Color interference A Urine Glucose (UA) Color interference A Urine Ketones Color interference A Urine Occult Blood Color interference A Urine Nitrite Color interference A Urine Bilirubin Color interference A Urine Urobilinogen Color interference A Ur Leukocyte Esterase Color interference A Urine RBC >100 A Urine WBC 2-5 A Ur Squamous Epith Cells Rare Urine Crystals None seen Urine Bacteria None seen Urine Casts None seen Urine Mucus None seen Ur Culture Indicated? No POC Glucose 06/03/24 06/03/24 20:55 20:43 WBC 18.1 H RBC 5.00 Hgb 15.8 Hct 48.7 MCV 97.4 H MCH 31.6 MCHC 32.4 RDW 12.9 Plt Count 252 MPV 9.8 Neut % (Auto) 81.2 H Lymph % (Auto) 13.6 L [place] % (Auto) 4.3 Eos % (Auto) 0.1 L Baso % (Auto) 0.2 Neut # (Auto) 14.7 H Lymph # (Auto) 2.5 Giles # (Auto) 0.8 Eos # (Auto) 0.0 Baso # (Auto) 0.0 Abs Immat Gran (auto) 0.10 H Imm/Tot Granulo (auto) 0.6 H PT INR APTT Sodium 131 L Potassium 4.3 Chloride 98 Carbon Dioxide 22.5 Anion Gap 14.8 BUN 32.0 H Creatinine 2.29 H Est GFR ( Amer) 34 L Est GFR (Non-Af Amer) 28 L BUN/Creatinine Ratio 14.0 Glucose 152 H Lactate Calcium 8.8 Magnesium Total Bilirubin AST ALT Alkaline Phosphatase Troponin I High Sens 9.5 NT-Pro-B Natriuret Pep Total Protein Albumin Globulin Albumin/Globulin Ratio Urine Color Urine Clarity Urine pH Ur Specific [place] Urine Protein Urine Glucose (UA) Urine Ketones Urine Occult Blood Urine Nitrite Urine Bilirubin Urine Urobilinogen Ur Leukocyte Esterase Urine RBC Urine WBC Ur Squamous Epith Cells Urine Crystals Urine Bacteria Urine Casts Urine Mucus Ur Culture Indicated? POC Glucose 136 H Discharge Plan Discharge Disposition: Xfer Acute Care Hospital Condition: Fair
[2024-06-04] MEDS: LEVOFLOXACIN IN DEXTROSE 5 % 750 MG/150 ML PREMIX 100 MG IV (11:46)
--- NOTE | 2024-06-04 13:26 | P.CCEN_ITS ---
Critical Care Event Note Summary Code activated: No Narrative: This case had a high probability of a clinically significant, sudden, or life threatening deterioration of this patient's condition which required my full and direct attention, intervention and personal management. Called to see patient secondary to left facial droop, had a significant fall about an hour prior to that patient was transferred to stat CT scan of the head and then transferred to continue the intensive care unit, care coordination spent secondary to significant hypotension long-term discussion with telestroke team on multiple occasions as well as coordinating care with transfer, was present in the ICU for over 30 minutes. Family with patient at bedside. Long- term discussion with them as well Critical care time: 30 - 74 mins
--- NOTE | 2024-06-04 14:11 | PC.NURSE ---
10:45 Spoke with MI Fiore with [facility] Tele-Stroke. 11:00 Dr. Ross was contacted, Patient kidney function currently too poor for CTA of the neck and head as requested by Dr. Farfan. BGL at 81, BP 118/57 with bolus of NS, temp 99.1, O2 95 on 2L via NC 11:15 Lab and RT in with patient, Dr. Nice from [facility] is requesting and MRI be done, Dr. Ross notified. Patient O2 at 99%, NC reduced to 1L 11:45 Blood results back for kidney function, BUN 38.0, Creatinine 2.16. CTA unable to be done at this time due to Renal function, Family decides to transfer patient to [facility] in [place]. 12:[address] Ross, Accepting Dr is Dr. Weinberg at [facility] in [place]. Family updated on patients condition. 12:15 [facility] contaced, Bed information given and transportation arranged. Arival ETA 45 minutes. 13:30 [facility] arrives, ground crew, Elisa. Family updated, Report given to Joshua. 13:40 [facility] leaves with patient. 13:41 Attempted to call report, no answer 14:01 Report called and given to Marisol at [facility].
[2024-06-04 14:57] LABS: Bilirubin Urine NEGATIVE (NEGATIVE); Blood Urine LARGE (NEGATIVE); Glucose Urine UA NEGATIVE (NEGATIVE); Ketones Urine NEGATIVE (NEGATIVE); Leukocyte Esterase Urine TRACE (NEGATIVE); Nitrite Urine NEGATIVE (NEGATIVE); Protein Urine 100 mg/dL (NEG/TRACE); Specific Gravity Urine 1.025 (1.005-1.025); Urobilinogen Urine 0.2 EU/dL (0.2-1.0)
[2024-06-04 15:28] LABS: Clarity Urine CLOUDY (CLEAR); Color Urine BROWN (YELLOW); RBC Urine >100 #/HPF (0-2); WBC Urine 20-50 #/HPF (NONE SEEN)
[2024-06-04 15:29] LABS: Amorphous Sediment Urine MODERATE; Bacteria Urine SMALL #/HPF (NONE SEEN); Cast Seen? NONE SEEN #/LPF (NONE SEEN); Crystals Seen? None Seen #/HPF (None Seen); Mucus Urine NONE SEEN (NONE SEEN); Squamous Epithelial Cell Urine NONE SEEN #/LPF (NONE/RARE); Urine Culture Indicated ALREADY ORDERED
== END 2024-06-04 13:40 | disposition short-term general hospital (02) | DRG 872 ==
LOC: ER 23:44 → MS 23:45 → ICU 06-04 09:05 → MS 06-08 13:52
PROVIDERS: Registered Nurse; Admitting Provider Family Medicine; Emergency Provider Emergency Medicine; PCP Internal Medicine; Visit Provider Family Medicine
DX: A41.9 Sepsis, unspecified organism (principal); N17.9 Acute kidney failure, unspecified; E87.1 Hypo-osmolality and hyponatremia; E44.0 Moderate protein-calorie malnutrition; R55 Syncope and collapse; R41.82 Altered mental status, unspecified; R47.1 Dysarthria and anarthria; R29.810 Facial weakness; R31.9 Hematuria, unspecified; I10 Essential (primary) hypertension; R73.9 Hyperglycemia, unspecified; E78.00 Pure hypercholesterolemia, unspecified; J44.9 Chronic obstructive pulmonary disease, unspecified; Z79.899 Other long term (current) drug therapy; Z68.33 Body mass index [BMI] 33.0-33.9, adult; Z87.891 Personal history of nicotine dependence; Z98.890 Other specified postprocedural states
CPT/HCPCS: 36415; 51702; 51798; 70450; 71045; 80048; 80053; 81001; 82948; 83605; 83735; 83880; 84484; 85025; 85610; 85730; 87040; 87086; 93005; 94640; 94761; 96360; 96361; 99285; J0696

== ENCOUNTER 2024-12-06 06:39 | Emergency (ER) | payer MEDICARE, OTHER, SELFPAY ==
[2024-12-06] VITALS (16 sets, daily range): BP systolic 128–165; BP diastolic 66–78; PULSE 56–64; TEMP 36.6; O2SAT 91–98; BMI 31.8
--- OUTSIDE RECORDS SUMMARY | 2024-12-06 06:45 | XMS_ITS | CCD ---
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 Name Role Phone DR AAYUSH ESCUDERO Consulting Unavailable MARYCARMEN, DR MURGUIA Attending Unavailable BALL, DR MURGUIA Admitting Unavailable BALL, DR MURGUIA Primary Care Unavailable GURVINDER BROOKS Admitting Unavailable GURVINDER BROOKS Consulting Unavailable GURVINDER BROOKS Attending Unavailable MARYCARMEN, DR MURGUIA Primary Care Unavailable Aayush Escudero Unavailable Aayush Escudero MD Primary Care Provider JUAN DRUMMOND Attending Unavailable JUAN DRUMMOND Attending Unavailable DEVON ROWELL Attending Unavailable AAYUSH ESCUDERO Referring Unavailable AAYUSH ESCDUERO Primary Care Unavailable KENNY, CARMELITA Contreras Admitting Unavailable GANJULY, CARMELITA Contreras Attending Unavailable KATRIN HERNANDEZ Referring Unavailable PARAMJIT, DEVON Consulting Unavailable PEDRO INGRAM Consulting Unavailable RANDY CASTANO Consulting Unavailable HOPPS V, VLADISLAV Consulting Unavailable LANE CHEN Consulting Unavailable RIOS, MURTAZA Referring Unavailable AAYUSH ESCUDERO Primary Care Unavailable KATRIN HERNANDEZ Referring Unavailable Lane Chen Admitting Unavailable Marycarmen, Aayush Primary Care Unavailable Lane Chen Attending Unavailable Lane Chen Admitting Unavailable Aayush Escudreo Primary Care Unavailable Lane Chen Attending Unavailable Marycarmen, Aayush Primary Care Unavailable Lane Chen Admitting Unavailable Lane Chen Attending Unavailable Lane Chen Admitting Unavailable Aayush Escudero Primary Care Unavailable Lane Chen Attending Unavailable Aayush sEcudero DO Primary Care Provider Allergies Allergy Classification Reported Allergen(s) Allergy Type Date of Onset Reaction(s) Facility (5 sources) Amoxicillin / Clavulanate; Translations: [Augmentin] Drug Allergy 4 Unknown [facility] Repository (8 sources) Amoxicillin; Translations: [AMOXICILLIN] Drug Allergy 4 [facility] Repository (8 sources) AMOXICILLIN-POT CLAVULANATE; Translations: [AMOXICILLIN-POT CLAVULANATE] Propensity to adverse reactions to drug (disorder) [facility] Medications Current Medications Medication Drug Class(es) Dates Sig (Normalized) Sig (Original) [id number] 200 actuat albuterol 0.09 mg/actuat metered dose [...] Mar, Active amLODIPine 5 mg oral tablet (11 sources) Dihydropyridine Calcium Channel Shola Start: 03-16-2024 take 1 tablet by mouth once daily amLODIPine (Norvasc) 5 MG tablet Take 5 mg by mouth Daily 03/16/2024 Active ascorbic acid 500 mg oral tablet (6 sources) Vitamin C take 1 tablet by mouth in the morning ascorbic acid (VITAMIN C) 500 mg tablet Take 1 tablet (500 mg total) by mouth in the morning. Active aspirin 81 mg delayed release oral tablet (6 sources) Platelet Aggregation Inhibitor, Nonsteroidal Anti-inflammatory Drug Start: 06-07-2024 take 1 tablet by mouth in the morning aspirin 81 mg Take 1 tablet (81 mg total) by mouth in the morning. 30 tablet 2 06/07/2024 Active cholecalciferol 0.025 mg oral tablet (6 sources) Vitamin D take 1 tablet by mouth in the morning cholecalciferol 1,000 units tablet Take 1 tablet (1,000 Units total) by mouth in the morning. Active ciprofloxacin 500 mg oral tablet (3 sources) Quinolone Antimicrobial Start: 07-18-2024 take 1 tablet by mouth in the morning, then take 1 tablet by mouth at bedtime ciprofloxacin HCl (CIPRO) 500 mg tablet Take 1 tablet (500 mg total) by mouth in the morning and 1 tablet (500 mg total) before bedtime. 07/18/2024 Active docusate sodium 50 mg / sennosides, assisted 8.6 mg oral tablet (6 sources) Start: 06-07-2024 take 2 tablets by mouth once daily sennosides-docusate sodium (SENOKOT-S) 8.6-50 mg Take 2 tablets by mouth nightly. 06/07/2024 Active fluticasone / salmeterol (9 sources) Corticosteroid, beta2-Adrenergic Agonist Start: 06-09-2022 Advair Diskus 250-50mcg/dose Advair Diskus 250-50mcg/dose, 1 (one) Puff every 12 hours # 0, 06/09/2022, No Refill. Active inhalation every 12 hours May, Active take 1 puff(s) by in halation in the morning fluticasone propion-salmeteroL (ADVAIR) 250-50 mcg/dose DISKUS Inhale 1 puff in the morning and 1 puff before bedtime. Active Advair Diskus 25 0-50 MCG/ACT USE 1 INHALATION ORALLY EVERY 12 HOURS for 90 Active lisinopril 40 mg oral tablet (11 sources) Angiotensin Converting Enzyme Inhibitor Start: 03-16-2024 take 1 tablet by mouth once daily lisinopril 40 MG tablet Take 40 mg by mouth Daily 03/16/2024 Active polyethylene glycol 3350 27644 mg powder for oral solution (6 sources) Osmotic Laxative Start: 06-07-2024 polyethylene glycol (GLYCOLAX) 17 gram packet Indications: constipation Take 17 g by mouth in the morning. Indications: constipation. 06/07/2024 Active pravastatin sodium 80 mg oral tablet (8 sources) HMG-CoA Reductase Inhibitor Start: 03-16-2024 take 1 tablet by mouth once daily pravastatin (Pravachol) 80 MG tablet Take 80 mg by mouth Daily 03/16/2024 Active Start: 03-19-2022 take 1 tablet by ryan th once daily in the evening Pravastatin Sodium 80MG Pravastatin Sodium 80MG, 1 (one) Tablet Tablet daily in evening # 0, 03/19/2022, No Refill. Active Oral daily in evening for 0 Feb, Not-Taking Psyllium (3 sources) Start: 04-10-2023 Metamucil 28 % 1 packet with 8 ounces of liquid as needed Orally Once a day for 30 days Mar, Active rosuvastatin calcium 20 mg oral tablet (7 sources) HMG-CoA Reductase Inhibitor Start: 06-07-2024 End: 07-19-2024 take 1 tablet by mouth once daily rosuvastatin (CRESTOR) 20 mg tablet Take 1 tablet (20 mg total) by mouth nightly. 30 tablet 2 07/19/2024 Active zinc gluconate 50 mg oral tablet (8 sources) Start: 03-16-2024 take 1 tablet by mouth once daily zinc gluconate 50 MG tablet Take 50 mg by mouth Daily 03/16/2024 Active Completed/Discontinued Medications Medication Drug Class(es) Dates [...] acid 4700 mg / polyethylene glycol 3350 432213 mg / potassium chloride 1015 mg / sodium ascorbate 5900 mg / sodium chloride 2690 mg / sodium sulfate 7500 mg powder for oral solution (3 sources) Osmotic Laxative, Vitamin C Start: 12-30-2013 MoviPrep 100 GM as directed Orally 1 for 1 December, Not-Taking Problems Active Problems Problem Classification Problem Date Documented Da te Episodic/Chronic Acute cerebrovascular disease (2 sources) Cerebral infarction, unspecified; Translations: [Cerebral artery occlusion, unspecified with cerebral infarction] Onset: 07-19-2024 07-19-2024 Chronic Chronic obstructive pulmonary disease and bronchiectasis (4 sources) Simple chronic bronchitis; Translations: [Simple chronic bronchitis] Chronic Diabetes mellitus without complication (1 source) Impaired fasting glucose Episodic Disorders of lipid metabolism (5 sources) Familial hypercholesterolemia; Translations: [Hypercholesterolemia ] Onset: 04-04-2022 Chronic Essential hypertension (5 sources) Essential (primary) hypertension; Translations: [Essential hypertension] Onset: 04-04-2022 Chronic Genitourinary symptoms and ill-defined conditions (1 source) Frequency of micturition Episodic Hyperplasia of prostate (5 sources) Urinary frequency due to benign prostatic hypertrophy; Translations: [Benign prostatic hyperplasia with lower urinary tract symptoms] Chronic Mycoses (1 source) Pain in toe; Translations: [Tinea unguium] 06-17-2024 Episodic Other aftercare (2 sources) 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; Translations: [OTH FORKLIFT TECHNICIAN CURRENT DRUG THERAPY] Onset: 04-04-2022 Episodic Other and ill-defined cerebrovascular disease (1 source) Other cerebrovascular vasospasm and vasoconstriction; Translations: [Other cerebrovascular vasospasm and vasoconstriction] Onset: 06-09-2024 Chronic Other and ill-defined cerebrovascular disease (2 sources) Cerebrovascular disease; Translations: [Other cerebrovascular vasospasm and vasoconstriction] 06-09-2024 Chronic Other and unspecified benign neoplasm (3 sources) History of polyp of colon; Translations: [Personal history of colonic polyps] Episodic Other gastrointestinal disorders (1 source) Fecal smearing Episodic Other nervous system disorders (4 sources) Polyneuropathy; Translations: [Polyneuropathy, unspecified] 06-17-2024 Chronic Other nervous system disorders (1 source) Polyneuropathy, unspecified Chronic Other nervous system disorders (1 source) Aphasia; Translations: [Aphasia] Onset: 06-04-2024 Chronic Other nervous system disorders (8 sources) Expressive dysphasia; Translations: [Aphasia] Onset: 06-04-2024 06-04-2024 Chronic Other screening for suspected conditions (not mental disorders or infectious disease) (5 sources) Encounter for screening for malignant neoplasm of prostate; Translations: [ENC SCREEN MALIG NEOPLASM PROSTATE] Onset: 04-03-2022 Episodic Residual codes; unclassified (1 source) Pain, unspecified; Translations: [Pain, unspecified] Onset: 06-04-2024 Episodic Transient cerebral ischemia (1 source) Transient cerebral ischemic attack, unspecified; Translations: [Transient cerebral ischemic attack, unspecified] Onset: 06-04-2024 Chronic Unclassified (1 source) Expressive Aphasia Onset: 06-04-2024 Past or Other Problems Problem Classification Problem Date Documented Da te Episodic/Chronic Epilepsy; convulsions (6 sources) Seizure; Translations: [Unspecified convulsions] Onset: 06-05-2024 06-05-2024 Episodic Immunizations and screening for infectious disease (4 sources) Encounter for immunization; Translations: [ENCOUNTER FOR IMMUNIZATION] Onset: 06-11-2021 Episodic Mood disorders (6 sources) Mood disorders Onset: 06-04-2024 Resolved: 07-19-2024 06-04-2024 Results Test Name Value Interpretation Reference Range Facility Coding Queryon 08-11-2024 Coding Query [id number] [facility] Coding Summaryon 08-09-2024 Coding Summary HTMLBase 64 IoefxlgiOGf5jNq+PGhlY WQ+SN1HZGJcU38gnZEtyR 2jI2IJBKnRQbqtJLALWFd UVcUfgzGtUV2lpTYkPLLa IC8+TX0wLUFnUztnpMGsh 8C2xKO6T16hlr1dJYczdU H5NWYtSkBsblgrr8yvgZe 6IDcuNmluOyBt WXEpuS19SAX1vQ09Nh50f DQkfJVjk6cuoEj7WoFbFR NeCKT7mGkwDJsyr1UnBSK jL25vhBVim5S0 ZSPteJygtOJeJmFlwZS8a J4sPLroirtgn6txtljpZc j7vi36iNSdd3V2lJG2W5K elpI3ILGueMDb PepmzZHOxZ7hdyrrm8xgx ewdDwGaMZHtTKa3JHo9YD WltUvjWhDjBQ68FRP3HFV pykTsZ2RtHLZi cVgxGtS3l9N1Tc5ST2HOX tfpG6FYZVGKIGjrhTZ+PC 21bs22E5XiRcjdNud7BJX eFIK8yPE9zX2n QRZvNCoul9H0xSQ4Y6Wvy aYxho4to8nzSAGuGXscD0 9lmETnv0F2CSTtsEG9QTG gsSidDcIqiD16 Oyc+EJIflLklq1ZdGmddi 3yen1ssxOj7NugdBQLtcg JotSpcNDA0a7XbYc5tOFC bwMD3cEP5tJ4z YoJfDsA5JJlwV425SdGny IYkHaywG47yK1WauTQ+PH OxUar6TOQcnTkzGA7yP6H hZGRpbmctbGVm rTczPK0mZVAjtvwgEILjy K3vWROpM1t6NpIaApL4PJ uwY9NhBOHqgfyrXv35bL2 qYvAyFjB4NGal P2XasyW2MGQkqZIgYFruA SY5I34zo2B9LCVtABXkRG E9hJN4wW3fiAbjxcrrkWR mdDsgdmVydGlj OSrkZFwbL682CQRbiUzeP kNvZGluZyBEYXRlOiAgMT IvMTcvMjAyNDwvdGQ+PHR hVQA9fKwdMFKa kZWpIOdtLb2qjYgyvDypC C9bJIEycpbjHCFenJ6gGK VdjWEsfYmbAI2fQWDkmql rb643HnJfHIL5 WOOkoHCnR2UadI2tAhQvQ LUeARJxX7BruUSwLAuzB5 38SYheXfL3YOWvszSaT4F sLWFsaWduOiB0 s9A4Ry5Qf2RkojofI3Gxt ZVpSlXiDvxvQCe1D1BiNb wvdHI+WM89HPUoAT65EYt 7BSG7kKmcPAco OMIdP9HgzJ7lZqKdJXZtB GRkOyc+PHRhYmxlIHdpZH RoPScxMDAlJyBzdHlsZT0 aPb8aODZpPYZx aDxkyWLlCvYvh4iaKZGwG NpwOS6jwVfpL1JrkBR3AA Ink4v8Tg45O01hI9VzpYK +BSWytZW0dOW2 lM2sBxRkChA1CTxlI438L dAntXBdFluhw8aet8pyyG r0YuJ2LAThrzIgqZuyMRP 1r9JjOa77W30b IHdpZHRoPSIxNSUiIHZhb Nxfqz3eoU9qYk3+PGNvbC H4jHI4dM2lFqKpEcL5VVj fB013NeHswVOj Pxgaj5nji9ixbRz5TtRtS XOlcnGtoPcsBGN2n7DoJc 77S9GnzTeiq2FmTsw1et8 3uMChi8X8jLT3 X7EwBEOhfmhpbTSpkUjjK U8rIVFiamjmAVKapM1iDM UiJ0n8NnSdBkB0PIdiF4X yweY4QICqhSNb DRHikHSOpD2zczkmz9ajt bzuHhKpDJXdYXs7QCi0NZ HgkNvbBsDvTQT3TsQ5FBR 7hSOmvH5klBkk mmeqtV8aOzm+AVV7vAEgg FRKZL1wHmyedCW+PHRkIH N1gGbzQLwzPLYwyI8tOBX nB6o4PcOiBpB0 WHtzG0IvkyO7BWLkyVAeU MWktDRKuL6zmbtto2wmgh cxBbNcNRPmVOa1IJc2RHL saWduOiBsZWZ0 OtZ2QST0dPZpqJ7jlYkab fvkmI1rNoa+QmlydGggRG N7MTv3V3CsMml5DRAdmWt xGB9fvZSlZBpe Si7cwSrxgAzrSI3vOYMbb cixl509JsAdl3gbXAEstY PlYYytABM4J05rm2F7XHT tODAuKXY3eYN2 vJ2mzKclaihvbQVguDtyg fJuwBqzUJtwZDkpO624NN PhlUbwRxNmLQr2Q9CgZrp 3ODSafPztMJ8l wXJjZXpvSb3xaEqtkGpoF H6rYLHzdphsn578RoArf2 jxJGLmnMNfHOppCBX3I88 gw6S8ZSDbTKOp IYQ5aPS0bL5pdKhmnvdhz GVmdDsgdmVydGljYWwtYW aoR474WIBsaUcsOlVpdGo 0G6AePfj8CGGc cZvaNO3avOJoIDraGq1qg UppcZndTB5zBMVmhhkba2 98QdZws8gpRPEljAMpHBl hCRW2T65th7H4 DCQiGMIhVNH9dIG5uA8al GlnbjogbGVmdDsgdmVydG qcNOvnOGneL902LYDdzNn nPlBhdGllbnQg IBzaMNe3G0FmKtjctYJ+P P38OZAdTW69jPQjjBQjj7 kdvJz4PePeIJSlAFZ4rOa jOKykz2TeAVBl P93raBEsm1W9ECQblQqdv FNySvDtxFY3aP6uZSulcv gjk8hvipshOqmxd3ptym7 8nV19C67gGPna ZHRoPSIzMCUiIHZhbGlnb a9gtB2yIh2+FIPleMH8bY D6zG2yFCCzBvY9FLsvZ92 9InRvcCIvPjxj i1ugn8usxCw6EbY4BBBty mSqjLfvUSF6s8VsOd94N2 9sIHdpZHRoPSIyMCUiIHZ fhDpzae5xvY9y Ii8+ATLuhJH4lRR4aU6sU pGlTyI8PPzzM509RnVcrM MwKgdhP45dZ5HjvXX+PHR tGrj2VJDvuMuc OV6yaKWdOTjrAu0dWLG8V aDhKqKrXAoyE0FaVIXous docqcrrTS4RXJiSNDvqY8 2Xg6zyLkuESCh vOHLlS8dgflsl7fhwcfdX aOkPAWoRZz9PSk7HMZddJ lxGrEsLVU2AfU5SFI3tXI vtD0rjQkvbehx yE1mL9PbLKSwqttmXi86q L4pIsZwCkZ3JYlpGrg+UE YUK5zZFakwRKUSOC4SQCG 6I1CdPjo3CPTr zCkhGL5ovQVcNZhvAq7bl DsidOemQV5cEUCceiqiQE BnqB1gLAEhwPSvyWndGF3 pNNDorwfgo703 IwMxKLA0GOMizOTmX6Dnk L4gToNqRVHeYEIxM6GclA FmWFtpI322SRxvYnA6CTK yfhPtW9ZsYDHx kRnqRhP3o8R8Uz5nAT3hH g7rEMMtBQ82DX49lJMfg7 W6rEU4B8ExUTGkkitbyad pbZR9UXOwJOIg iF75jUJwJRlrCv4wy4K7z 009BONyHQCgrV79Eb7cuD mbBAWyqKHPuR1hyqbip1n vcjogIzAwMDAw ANl1TRd9ZLZmuTlaTfKxT PA6ZdC2CJQ3bQDvwL0ksZ zxfsezwF2hZbc+NzQgWWV xiaB9L1KzYpz8 EWDfgBrxZN7sdOVcRWwsR d7ndUbcmJeqLY9nDDCrpw zdFMJygZ5bEXXvdEDnuTa uYE2sNFTpxpfk j113KaYrFWO9XKBdlYJbK 6XxeC3tHxFoHYXiEJFoH0 FuuVWhJVwpA426KThsPmA 3IWPwzaXkD3Ba HCUzkJhyBlD5u6W2Fk2IC OjQWP14KX20sOHse4N0vD V4H3ZvICPoydbxrqfqjGM 1ESMnZYIunB46 oNTxQXpmKo3dc7V8n095B NVuJSGzuR51Hb3anYhfIV MjnFMKjO0wrgwbr3dzoee gIzAwMDAwMDt0 YGt9GOYvkLbgDwCbSYS4I rM3AKJ3mIEioI3fiDhpgf iszU9yQar+B1X4Y7NfChk vdHI+JK76MKJz WT77nJHcuGHmu0sybPu3X tQcCRNzSSP6uPlgRDulr2 RuGCWcU89eoVHlw2D6TQK vbGxhcHNlOyBl vUA4iG7yXUxsrixwk5yny zstOamju6yfhp60wC88D9 9sIHdpZHRoPSIzMCUiIHZ pcIaknn1skB4u Ii8+LFBdcGO3fAY7xU7eV uZgIrS6RIftP095EeUsdU VyOktet2jfn6rxnSo6WgF wJSIgdmFsaWdu AUW4w8OnIq52O68tUEomT HRoPSIyMCUiIHZhbGlnbj 6ftQ6mTu8+JT1dw7gxio3 8fW59qQB+PHRk BCZ7pEhpYKsdBHSjkI1jP VifUoU8QDMkUyFmsZ10cN LsZFlnKz1woNrkdLreHG6 oOHAwrejup050 VlHqt2baTRMylVKaZJuwX QT1J63ts6J4ZBZpMARxOL O2oMD4fV9ojHyjfodfqHG mdDsgdmVydGlj DBgwORdrS732PWHnkTloX gXteYDwX3dhgxRULK0nNa wvdGQ+ZOEoAIB2bBudVFa uEQUxmE8wDBIm B2x1MhSrMdP5OSipW3Stq uQ9AZUheLOxHITpkEKEaT 5ffpdvx6ueqcsjUwCwZRD bGSo4KMs2PEIi nCeeFnSlLLO1PdM8QTT1d IHrrR5eiLgljuesyU3gCu c+RklOOjwvdGQ+PHRkIHN 0eWxlPSdwYWRk pA3lWMWjT2n5VwFpOdI2S ZvlG6AmruV6YUDepJKlDT DdoDMOtO8pasbrr6iiyow gIzAwMDAwMDt0 GJp3FRJvzZgyEsLjXUM1W tK6OTK2aIVkuP4hbPyigh hgwJ2bEbc+TVJOOjwvdGQ +VOVvTTH3rVeh MOcgTPNytZ4sLVWgH9r4I rLeZqO4EZauD4PxweF6YR BqtPMzPQPepATWoV3eawu vc1aegpjeZkJx WVOjAQt5KOr5SQVncFdsD fZkLAW0PhM2TRO5xAKlqV 2lyFdavbrbbL4iUpz+UGF 4YBY4NQ26LA32 A0KdKzwnzLTjxIC+PHRhY mxlIHdpZHRoPScxMDAlJy BaqMfoKR7rVd1jQUQdVAA vbGxhcHNlOiBj b2x (more content not included)... [facility] C Urineon 07-16-2024 C Urine >100,000 cfu/ml Enterococcus faecalis ORGANISM [employer] ---- SUSCEPTIBILITY --- ORGANISM ID: 1 ANTIBIOTIC INTERPRETATION JENIFFER STATUS ORGANISM [employer] Amox/Cla <=4/2 Verified Amp S <=2 Verified Amp/Sul <=8/4 Verified Ceftri >32 Verified Cipro S <=1 Verified Clinda >4 Verified Eryth >4 Verified Gent 8 Verified Gent-Syn S <=500 Verified Levo S <=1 Verified Linez S <=1 Verified Nitro S <=32 Verified Ox >2 Verified Pen S 2 Verified Rif I 2 Verified Tetra R >8 Verified Tri/Sulf <=0.5/9.5 Verified Vanc S 2 Verified [facility] Comment on above: Performed By: #### [id number] ####[facility] (DEFAULT)[address] [place] [address] Provider Orderson 07-12-2024 Provider Orders [id number] [facility] MAGR PACU Recordon MAGR PACU Record MAGR PACU Record Summary Primary Physician: Lane Chen MD Finalized Date/Time: 07/04/24 14:17:54 Pt. Name: RICARDO GRANT/Sex: 1950 MALE Med Rec #: [id number] Physician: Lane Chen MD Financial #: [id number] Pt. Type: D Room/Bed: / Admit/Disch: 06/02/24 05:52:27 - 06/02/24 10:17:00 Institution: PACU Case Times MAGR Entry 1 In PACU I 06/02/24 08:35:00 Discharge from PACU 06/02/24 09:04:00 I Last Modified By: Lamar Christie RN 07/04/24 14:17:53 Finalized By: Lamar Christie RN Document Signatures Signed By: Colleen Denney RN 06/02/24 09:05 Lamar Christie RN 07/04/24 14:17 Unfinalized History Date/Time Username Reason for Unfinalizing Freetext Reason for Unfinalizing 07/04/24 14:17 MHRSCOTT Correct Documentation Decreasing time by 1 minute in order for charges to drop correctly. [facility] MAGR Postoperative Recordon 07-04-2024 MAGR Postoperative Record MAGR Phase II Record Summary Primary Physician: Lane Chen MD Finalized Date/Time: 07/04/24 14:18:22 Pt. Name: RICARDO GRANT/Sex: 1950 MALE Med Rec #: [id number] Physician: Lane Chen MD Financial #: [id number] Pt. Type: D Room/Bed: / Admit/Disch: 06/02/24 05:52:27 - 06/02/24 10:17:00 Institution: Phase II Case Times [facility] Pre-Care Text: Patient is free from s/s of injury. Patient remains free from compromised physical state related to surgery or anesthesia. Patient comfort maintained. Patient/family verbalize understanding of discharge instructions. Entry 1 In PACU II 06/02/24 09:07:00 Discharge from PACU 06/02/24 10:16:00 II Last Modified By: Lamar Christie RN 07/04/24 14:18:20 Post-Care Text: The patient remains free from s/s of injury. Patient's vital signs stable, circulation maintained, return to preop mental and physical status, opsite/dressing intact, minimal or absent nausea and vomiting, tolerates po intake. Patient verbalizes adequate pain control. Patient/family express understanding of discharge instructions. Finalized By: Lamar Christie RN Document Signatures Signed By: Lorene Pollard RN 06/02/24 10:23 Lamar Christie RN 07/04/24 14:18 Unfinalized History Date/Time Username Reason for Unfinalizing Freetext Reason for Unfinalizing 07/04/24 14:18 MHRSCOTT Correct Documentation Decreasing time by 1 minute in order for charges to drop correctly. Normal [facility] Coding Summaryon 06-09-2024 Coding Summary HTMLBase 64 YguxotdlLHo7gEn+PGhlY WQ+QI7AFYGnH11qePRyoY 9gF2VPKBlMKmdlOEKNGEk VLmTlkwWjKZ9vhCFwNFJy IC8+SM5mNUSbDvsiyUSsb 7H4lBV3B08fwk5uYGlpuQ H1DNJrErVcsdgdl3qalSy 6IDcuNmluOyBt BTVseI46TJK1hQ65Pu02u PSjaVOrb2hegZa7IvUxOP RxQPF6uLyhCFcnq4TxRRA sP24leIWbi9H9 MQLrlZcrjCEiIpFojZW9c Z3oLRcxitupw1esryuuOr v3am37wSEhq5O8hOR1L7N wywB1JZNeePPh KjrepGOLzB2mqfvgz1jhc iahAhFmMRGzPYl2OSy7PD QjbLduZcTyZS09KKC7OHE rraOnP9PaAQKh cZptBcA0j4G2Mq9FV7APV civN3DCPLLJIElydOH+PC 23qf37R5KbVukeLzx1ODF qQAS0mPG0jG5p EATfNBbcl6E3gYL9L0Eop uBayu4mh8nfLJTaCVigV8 5bnIMwp2N5PREjdJO4LOF acQayIfWofE91 Oyc+HCLdtVaar1IqCsjcw 6dyi3natQz3HlqhIPMyoq IdjXuiHMR7q2BeWb7cONJ ylVH8fVA5eY2n DbHwPmX2SFrwB440DxRxx NKxRtllY32yU0CybRS+PH BbPmr4AMBqyJzcRT5hT8U hZGRpbmctbGVm yGzpRH1zCYTtiopjOKNnm S8cUOCuI3i6XdKhJfG0SI ppV6CaRCQjwvnjCe29dT2 aYhVzTgM5YGeo N1JbshO7XISveAAnPHoiY GA4K35tf4A5RONpIHLrBO J6eES8bL5jtHpcjtuwgMY mdDsgdmVydGlj WCcwWZicO348PNSrtJzsN kNvZGluZyBEYXRlOiAgMT AvMTcvMjAyNDwvdGQ+PHR sKZX1mHzsPZSu lWEoUPfhHh3zsPffhFxtH O5eAVWtmvjkZJBzqH1fMN DiaZRogFagMW1kCYFsgey jr416ZzVgYXG6 QXPukPTxC8SuaH8pNwTkZ LTfIVClG3SogEBcTGyxX4 18DJqxJrF9JQVytxUkU4W sLWFsaWduOiB0 n6R7Mu7Ta5IvejjzJ2Gnd DAmDnRcSncoCZj0W6OpAd wvdHI+TZ06ERUiQV87OOp 4ZCC9iOgwIBmr GQAeP7AkhY2qMdVyOVQyY GRkOyc+PHRhYmxlIHdpZH RoPScxMDAlJyBzdHlsZT0 eOh4kJLTmRWUb fAolgZZaSbFbf1ebMLHuK VfpKP8bfEdyL2UuyLZ2GA Dhf1c3Bq99T02kB1GuxAS +TFJclZW0kLI6 jG6zMzXaNyB5JVmqK168S uDxnXMnKfsmt9ttg9tavK b7PuS8MGCmdaVacIllJKH 2x1TnZi76U57e IHdpZHRoPSIxNSUiIHZhb Jfnsf8qwO1qIz6+PGNvbC K9hAO9gY9nEpKyDdD6KSv nN948BbFszSYc Owogm6nkq4wqzCs0YwVyD XBojfOcgHhgKQM9r7PbOp 87G8MxrAwgl5RwQza6ij8 7cZJsr7E6jTJ1 U8YpXOHbajwfiDEuqNylL V1lNEQvfekcOONijT9jHO JiK0d1MaAvUyQ1NEymF8X rwaS7RKRzqJVo DHRfbTMJeS4paziry8nlx fhqOxNvRZAuQQx8YNq9WP ZphHmqJuIjSIU0XkK0LJH 8wUOmrN5akNai hvikiB4wLbs+ENB9mMDks XYWHJ7kYbaumWF+PHRkIH B5dKqkXYrfWIOkoD9yNVO bH4w3PzTnHoK1 ASvoO0HklxL7KHOqfQYpS FVkvCLZnE1edzymw8gich auKbFbPMYiUBj7CNp3RKL saWduOiBsZWZ0 LmY1QSW4qCErlU4qjWlxr aligU9vCnf+QmlydGggRG V0HHw6S9HjHti6BBSgjUo pIK2ekTBkIOvf Rr8cxOufmUxsIX2lEGPzf tsvv192HhSwz6wxEGIzoY BsEJltNPV9D52wo0O9WGJ zAAFbRVD8pUG5 aN7peJlnnlnfgDUhpBpgh mQqkDqrNGeeRCxdI824EL UqoMxhUhThCHn1F1FxNce 2CNFruMbxJH4j tWWfPAkeCr1zuPptxAvpS G4gFTAxjcdle645EbHcl7 hrQVNycXWvWUnsFRG8I02 lb2R8ANBfVHMi PZW7zXQ5jS1xyJesbwtcg GVmdDsgdmVydGljYWwtYW fkE617LSIvkRhuPvFarWo 9V7PyYkz1NQTu dPnbMX7hxGYkEKkbUf3xl UtjnKdrOT0eIIIilznqr5 47QwDzh5olVWMujSRpXHj lKGZ4X03fu5E4 TLSeAIXjDIP1fAN0aE2gd GlnbjogbGVmdDsgdmVydG yyVAbyYRyiR709RKLlwWp nPlBhdGllbnQg NZnqGVo5T5UqRramxZD+P F00BTMpBQ07qPCtdXVqi5 oqlIj4JuZnRVQrJWS7cXt qMPlio7XzYRAm C23wrFHqz5A5RXLvmTceb FCiPjNtiFY4vF9fFApwbu avp1jmdhysOulcr0qoca0 8bU90I05rJBxu ZHRoPSIzMCUiIHZhbGlnb n5jwB1dYh1+VOCrsEX1pW M3zH8wQAShWhT8MPpfF60 9InRvcCIvPjxj n0nvv8kpaAt4ZbQ9WVXio eXvpOtdHJJ9z5NbFk86R7 9sIHdpZHRoPSIyMCUiIHZ xlQnpnw3osV3i Ii8+COPlcLU4nGL7nV6gH iViUfT1ILpaK132KxPqgU VcGucsW71vL6IbvPS+PHR pPfx3HLDaeExx ZS2trWTrJRlyPw4pGYX3K dUqGdEdFXjcP4EoQYWmfw avotxduOU4DTHtKEHgvI5 4Jv3yeIyiOJLs gHHQcT8kwjqig3qozwiyS sAhIRCsDKz0WQb2BKBxbX wkSdUrMTH3FhQ7UEJ0tSC orK7dbHmmwilu wG8cX5YjLJUhhjqjZe30r G2vOaGbUvF8HCynZop+UE IAG1vNFsgcPXIPNU6DURT 5X2QvYjz4YNUs oPswYW9hjACbATudNu1eq RmxdDwvXI2pXNJothmvEY CybT0vXWPioVXpwIidJU5 tESZvfnzws316 DyEcYSV0LMCfaZCqL2Odu E5dBwTqEIFoSAVmB1AtzE AkPOlrC495LBnfVkM3ESZ dcbIgJ0GdMECy lBlkBeT9g3K5Ow1zGE6kN s6vSXHqKM36SR10yXRqm5 Q2bHJ3F8SfURLujbyhree dgXZ2EQQwVHFg iH00qRHeVGloPz8wq6O5x 098DLYxTGDdsV78Mr2tyM wvOQBkvSFFyU9memsxf6i vcjogIzAwMDAw PSz9HIc4GDSgcAuhJyCkE SE6SeD8LPX3qFOfeP7hvU cvdauuuB6mNrr+NzQgWWV gtzD3U0EyFsl8 ZIBvvYtqKG8ejSUlMBhgG k1mhUginNiiAX5gMIKrwz qyGVNimV7iHKRqqRCvuYo hYH9xGDKaedwk i430YbBtWQH0IERjqNWuO 1LcrK8cQzGfJVPxBMOeT5 UgsTSnGPfjV531TZqvRwV 0HVWlvhNdB4Bd BETvpMetEdE9n3V1Po8UD BsVHV05HV77kTGzl1L4oQ E8U1DcJKXkhftcmwdtfFF 9PYLvPEBxgT36 rKZsBWbjVa0ew9T9z358A ZBhRYPovD64If1kzWqgZA RytURQdQ1vkqiow7oorom gIzAwMDAwMDt0 CMi8VHIsvQyqPaFqHRO4O xK1CIG5rFDemH0veMzwnx xzhV2aAvn+ZDU9KSP7pyl jwec8D4VwNekj dHI+JD20GIImQU78tHZeb RFwl5mguWa2FbKhDKFqVI R3jKlrUKpnn3DgXDIeS50 cuXXbh3S4DMMw dNxvfAJfZeGorZC6oE8fC Qwqpvdnw5scstsxGaezb4 jmws10mS21V99yPLrxPAT oPSIzMCUiIHZh yHhipx5wdP1xSk3+PGNvb EQ6cEC5xP8rWfBkUaT2GK ozH640WxEgrWTtMybkk6e fo7mxpWp9QqVr AITnufMirVqhXFI7h4BvM j67H66mQEwqUDCbYFQdXN TbQEPacQndjf2liN2jUa0 +YD4fw9evau55 wH19wJM+LJPoIID1nDjnP NabXSInoI6zNPmtHcC3WG MnNuPcaM60gZGgINbsHz7 ldRnilJblXE1o ISFtzqmfa855ZeGce4idK IXeqFMyNSsrZIW9G79wa6 H9HEDoXMIoZFW1mTI0cO0 hbGlnbjogbGVm dDsgdmVydGljYWwtYWxpZ 449BZKafCafInFsyNPiM4 vefrPTEN2yUuqjnFO+PHR xAIP6dUawQLyx WDHxxB4mNOKoD1i5FeCgM rM1RWitU2TbavA9YKAlhU XnSLVohPMOuV7glelcx0p vcjogIzAwMDAw EPa3GGw4DWKviHvpWkElX NT2TvN6JIU1eOQhtY6jbC ierjkbdY3hKku+RklOOjw vdGQ+PHRkIHN0 pMugVNonUENizD1vPVSwZ 5k8AfRmFnX4BQjgD8Ihgi U7TDFyiOIbVOTiaOBYgK6 bccfbi5mhdbsj ZxDrJCDhFRf2DIj6GBCbn IudJmDdHFI4IuK4OCM1zG EadU4vjJzfsuquwA5yOdm +TVJOOjwvdGQ+ ZBYrBSZ0iWhmMKibNOAzg O0tPLQhC7g1JaQbOmJ4OH jtA0WekrL2TVBieSFtREE seMRPmH6loizv j2zvgbdwEyPvZSLaYFo2J Pk6QYLrtWjsVvPmLMF4Ng Q3FWB6yZMznU5ocPlakls hbO5sOub+UGF5 TED0UU61NH03B1CaDewoi GFibGU+PHRhYmxlIHdpZH RoPScxMDAlJyBzdHlsZT0 tKv6cUQLoXMHv bGx (more content not included)... Normal [facility] [place] BASIC METABOLIC PANLon 06-07 Anion gap [Moles/Vol] 6 mmol/L Normal 01-05 [facility] Comment on above: Performed By: #### C BCA, 00294-0, CMP, 30771-7, 5477-1, 44827- 9, 44312-2 #### [facility] ([id number]) [address], [address] [place] [address] Calcium [Mass/Vol] 8.8 mg/dL Normal 8.5-10.5 [facility] Comment on above: Performed By: #### C BCA, 57723-3, CMP, 72972-7, 2777-1, 58439- 9, 27583-8 #### [facility] ([id number]) [address], [address] [place] [address] Chloride [Moles/Vol] 106 mmol/L Normal 98-109 [facility] Comment on above: Performed By: #### C BCA, 64188-7, CMP, 75492-5, 2777-1, 52417- 9, 73035-1 #### [facility] ([id number]) [address] [address] [place] [address] CO2 [Moles/Vol] 28 mmol/L Normal 22-32 [facility] Comment on above: Performed By: #### C BCA, 52174-2, CMP, 84233-3, 2777-1, 36948- 9, 44633-7 #### [facility] ([id number]) [address] [facility] [place] [address] Creatinine [Mass/Vol] 0.86 mg/dL Normal 0.60-1.30 [facility] Comment on above: Result Comment: METH OD TRACEABLE TO IDMS STANDARD Performed By: #### C BCA, 98811-3, CMP, 21714-2, 2777-1, 25882-8, 77624-1 #### [facility] ([id number]) [address] [address] [place] [address] eGFR (CKD-EPI) NON-RACE DEPENDENT >90 Normal >59 [facility] Comment on above: Result Comment: Reported eGFR is based on the CKD-EPI 2020 equation that does not use a race coefficient. Performed By: #### C BCA, 07186-4, CMP, 04414-6, 2777-1, 95681-9, 11217-7 #### [facility] ([id number]) [address] [place] [address] Glucose [Mass/Vol] 116 mg/dL High 65-99 [facility] Comment on above: Performed By: #### C BCA, 40744-5, CMP, 16545-5, 2777-1, 73290- 9, 20713-8 #### [facility] ([id number]) [address] [place] [address] Potassium [Moles/Vol] 4.3 mmol/L Normal 3.5-5.0 [facility] Comment on above: Performed By: #### C BCA, 65905-4, CMP, 46168-6, 2777-1, 99739- 9, 06063-6 #### [facility] ([id number]) [address] [place] [address] Sodium [Moles/Vol] 140 mmol/L Normal 134-146 [facility] Comment on above: Performed By: #### C BCA, 97059-0, CMP, 90340-6, 2777-1, 40966- 9, 95718-3 #### [facility] ([id number]) [address] [place] [address] Urea nitrogen [Mass/Vol] 17 mg/dL Normal 5-27 [facility] Comment on above: Performed By: #### C BCA, 96548-3, CMP, 24446-4, 2777-1, 35885- 9, 10600-4 #### [facility] ([id number]) [address], [address] [place] [address] COMPLETE BLOOD COUNTon 06-07 Erythrocyte distribution width (RBC) [Ratio] 13.3 % Normal 11.5-15.0 [facility] Comment on above: Performed By: #### C BCA, 22002-5, CMP, 31214-4, 2777-1, 74253- 9, 02015-4 #### [facility] ([id number]) [address] [place] [address] Hematocrit (Bld) [Volume fraction] 36.5 % Low 39-49 [facility] Comment on above: Performed By: #### C BCA, 99571-9, CMP, 19972-9, 2777-1, 81088- 9, 06459-3 #### [facility] ([id number]) [address] [facility] [address] [place] [address] Hemoglobin (Bld) [Mass/Vol] 12.4 g/dL Low 13.0-17.0 [facility] Comment on above: Performed By: #### C BCA, 71832-2, CMP, 26110-1, 2777-1, 91201- 9, 55640-3 #### [facility] ([id number]) [address], [address] [place] [address] MCH (RBC) [Entitic mass] 32.3 pg Normal 27-34 [facility] Comment on above: Performed By: #### C BCA, 14179-1, CMP, 79420-0, 2777-1, 15742- 9, 78631-5 #### [facility] ([id number]) [address], [address] [place] [address] MCHC (RBC) [Mass/Vol] 34.1 g/dL Normal 32-36 [facility] Comment on above: Performed By: #### C BCA, 92067-1, CMP, 11095-6, 2777-1, 84923- 9, 18878-4 #### [facility] ([id number]) [address], [address] [place] [address] MCV (RBC) [Entitic vol] 95 fL Normal 80-100 [facility] Comment on above: Performed By: #### C BCA, 32621-9, CMP, 58763-5, 2777-1, 24801- 9, 99121-7 #### [facility] ([id number]) [address], [address] [place] [address] Platelet mean volume (Bld) [Entitic vol] 7.7 fL Normal 7-12 [facility] Comment on above: Performed By: #### C BCA, 59901-1, CMP, 03754-1, 2777-1, 75350- 9, 67470-2 #### [facility] ([id number]) [address] [place] [address] Platelets (Bld) [#/Vol] 166 10*3/uL Normal 150-450 [facility] Comment on above: Performed By: #### C BCA, 37842-5, CMP, 12748-8, 2777-1, 93834- 9, 08352-9 #### [facility] ([id number]) [address] [place] [address] RBC COUNT 3.85 X10E12/L Low 4.10-5.70 [facility] Comment on above: Performed By: #### C BCA, 63509-9, CMP, 57865-1, 2777-1, 63532- 9, 95679-5 #### [facility] ([id number]) [address], [address] [place] [address] WBC (Bld) [#/Vol] 8.3 10*3/uL Normal 4.0-11.0 [facility] Comment on above: Performed By: #### C BCA, 42235-5, CMP, 77047-4, 2777-1, 92723- 9, 52083-3 #### [facility] ([id number]) [address], [address] [place] [address] MAGNESIUMon 06-07-2024 Magnesium [Mass/Vol] 1.8 mg/dL Normal 1.8-2.6 [facility] Comment on above: Performed By: #### C BCA, 44064-5, CMP, 98510-2, 2777-1, 44067- 9, 56274-2 #### [facility] ([id number]) [address] [place] [address] PHOSPHORUSon 06-07-2024 Phosphate [Mass/Vol] 3.7 mg/dL Normal 2.4-4.9 [facility] Comment on above: Performed By: #### C BCA, 63630-2, CMP, 24102-0, 2777-1, 23109- 9, 32048-3 #### [facility] ([id number]) [address], [address] [place] [address] CBC AND AUTO DIFFon 06-06-20 24 ABSOLUTE BASOPHIL 0.0 X10E9/L Normal 0.0-0.2 [facility] Comment on above: Performed By: #### C BCA, 19181-2, CMP, 57792-0, 2777-1, 36724- 9, 79564-8 #### [facility] ([id number]) [address], [address] [place] [address] ABSOLUTE NEUTROPHIL 5.3 X10E9/L Normal 1.5-6.6 [facility] Comment on above: Performed By: #### C BCA, 83853-1, CMP, 07011-9, 2777-1, 23251- 9, 65972-5 #### [facility] ([id number]) [address], [address] [place] [address] Basophils/100 WBC (Bld) 0.3 % Normal [facility] Comment on above: Performed By: #### C BCA, 22939-7, CMP, 03636-0, 2777-1, 19791- 9, 09057-1 #### [facility] ([id number]) [address], [address] [place] [address] Eosinophils (Bld) [#/Vol] 0.1 10*3/uL Normal 0.0-0.4 [facility] Comment on above: Performed By: #### C BCA, 42577-6, CMP, 25947-6, 2777-1, 98827- 9, 98546-8 #### [facility] ([id number]) [address] [address] [place] [address] Eosinophils/100 WBC (Bld) 0.8 % Normal [facility] Comment on above: Performed By: #### C BCA, 97232-3, CMP, 50653-9, 2777-1, 56220- 9, 90050-8 #### [facility] ([id number]) [address] [address] Erythrocyte distribution width (RBC) [Ratio] 13.2 % Normal 11.5-15.0 [facility] Comment on above: Performed By: #### C BCA, 27735-2, CMP, 02152-7, 2777-1, 06667- 9, 98280-8 #### [facility] ([id number]) [address] [address] Hematocrit (Bld) [Volume fraction] 37.1 % Low 39-49 [facility] Comment on above: Performed By: #### C BCA, 33524-9, CMP, 68989-9, 2777-1, 45740- 9, 67544-9 #### [facility] ([id number]) [address] [address] [place] [address] Hemoglobin (Bld) [Mass/Vol] 12.5 g/dL Low 13.0-17.0 [facility] Comment on above: Performed By: #### C BCA, 22557-3, CMP, 75479-6, 2777-1, 81751- 9, 39123-9 #### [facility] ([id number]) [address] [address] [place] [address] Lymphocytes (Bld) [#/Vol] 1.5 10*3/uL Normal 1.0-3.5 [facility] Comment on above: Performed By: #### C BCA, 62144-4, CMP, 76403-3, 2777-1, 55218- 9, 56799-9 #### [facility] ([id number]) [address] [place] [address] Lymphocytes/100 WBC (Bld) 19.5 % Normal [facility] Comment on above: Performed By: #### C BCA, 24040-9, CMP, 52535-3, 2777-1, 88671- 9, 23832-7 #### [facility] ([id number]) [address] [place] [address] MCH (RBC) [Entitic mass] 32.0 pg Normal 27-34 [facility] Comment on above: Performed By: #### C BCA, 96936-3, CMP, 51734-0, 2777-1, 25091- 9, 56029-5 #### [facility] ([id number]) [address] [place] [address] MCHC (RBC) [Mass/Vol] 33.7 g/dL Normal 32-36 [facility] Comment on above: Performed By: #### C BCA, 99399-9, CMP, 52246-2, 2777-1, 56196- 9, 07920-9 #### [facility] ([id number]) [address] [place] [address] MCV (RBC) [Entitic vol] 95 fL Normal 80-100 [facility] Comment on above: Performed By: #### C BCA, 82953-9, CMP, 98351-3, 2777-1, 16952- 9, 31136-0 #### [facility] ([id number]) [address] [place] [address] Monocytes (Bld) [#/Vol] 0.8 10*3/uL Normal 0-0.9 [facility] Comment on above: Performed By: #### C BCA, 02259-8, CMP, 36546-5, 2777-1, 45391- 9, 50456-1 #### [facility] ([id number]) [address] [place] [address] Monocytes/100 WBC (Bld) 10.1 % Normal [facility] Comment on above: Performed By: #### C BCA, 76668-3, CMP, 58588-8, 2777-1, 36840- 9, 77351-2 #### [facility] ([id number]) [address] [place] [address] Neutrophils/100 WBC (Bld) 69.3 % Normal [facility] Comment on above: Performed By: #### C BCA, 47845-7, CMP, 27476-2, 2777-1, 73683- 9, 04823-3 #### [facility] ([id number]) [address] [place] [address] Platelet mean volume (Bld) [Entitic vol] 7.9 fL Normal 7-12 [facility] Comment on above: Performed By: #### C BCA, 93772-4, CMP, 05231-1, 2777-1, 25983- 9, 69000-2 #### [facility] ([id number]) [address] [place] [address] Platelets (Bld) [#/Vol] 151 10*3/uL Normal 150-450 [facility] Comment on above: Performed By: #### C BCA, 91200-0, CMP, 20293-7, 2777-1, 43394- 9, 59171-0 #### [facility] ([id number]) [address] [place] [address] RBC COUNT 3.90 X10E12/L Low 4.10-5.70 [facility] Comment on above: Performed By: #### C BCA, 45818-3, CMP, 69259-3, 2777-1, 64597- 9, 04238-6 #### [facility] ([id number]) [address] [place] [address] WBC (Bld) [#/Vol] 7.6 10*3/uL Normal 4.0-11.0 [facility] Comment on above: Performed By: #### C BCA, 46925-7, CMP, 51951-1, 2777-1, 04773- 9, 11330-8 #### [facility] ([id number]) [address] [place] [address] COMPREHENSIVE METABOLIC PANE Tim 06-06-2024 Albumin [Mass/Vol] 3.1 g/dL Low 3.2-5.3 [facility] Comment on above: Performed By: #### C BCA, 18218-0, CMP, 15793-4, 2777-1, 34888- 9, 18656-4 #### [facility] ([id number]) [address] [place] [address] ALP [Catalytic activity/Vol] 67 U/L Normal 39-130 [facility] Comment on above: Performed By: #### C BCA, 01560-7, CMP, 91384-5, 2777-1, 77951- 9, 05511-6 #### [facility] ([id number]) [address] [place] [address] ALT [Catalytic activity/Vol] 13 U/L Normal 0-40 [facility] Comment on above: Performed By: #### C BCA, 44073-9, CMP, 56613-5, 2777-1, 71883- 9, 31127-2 #### [facility] ([id number]) [address] [place] [address] Anion gap [Moles/Vol] 7 mmol/L Normal 5-15 [facility] Comment on above: Performed By: #### C BCA, 43256-2, CMP, 74308-3, 2777-1, 07475- 9, 82152-5 #### [facility] ([id number]) [address] [place] [address] AST [Catalytic activity/Vol] 16 U/L Normal 0-41 [facility] Comment on above: Performed By: #### C BCA, 98295-3, CMP, 31340-7, 2777-1, 43271- 9, 59867-0 #### [facility] ([id number]) [address] [place] [address] Bilirubin [Mass/Vol] 0.4 mg/dL Normal 0.3-1.2 [facility] Comment on above: Performed By: #### C BCA, 68718-2, CMP, 72220-1, 2777-1, 21211- 9, 67266-2 #### [facility] ([id number]) [address] [place] [address] Calcium [Mass/Vol] 8.8 mg/dL Normal 8.5-10.5 [facility] Comment on above: Performed By: #### C BCA, 06660-5, CMP, 88463-1, 2777-1, 58744- 9, 81602-1 #### [facility] ([id number]) [address] [place] [address] Chloride [Moles/Vol] 106 mmol/L Normal 98-109 [facility] Comment on above: Performed By: #### C BCA, 03040-6, CMP, 09718-7, 2777-1, 59779- 9, 48340-1 #### [facility] ([id number]) [address] [place] [address] CO2 [Moles/Vol] 26 mmol/L Normal 22-32 [facility] Comment on above: Performed By: #### C BCA, 89265-7, CMP, 24423-7, 2777-1, 68458- 9, 10076-5 #### [facility] ([id number]) [address] [place] [address] Creatinine [Mass/Vol] 0.87 mg/dL Normal 0.60-1.30 [facility] Comment on above: Result Comment: METH OD TRACEABLE TO IDMS STANDARD Performed By: #### C BCA, 17642-9, CMP, 96088-5, 2777-1, 95474-7, 61136-1 #### [facility] ([id number]) [address] [place] [address] eGFR (CKD-EPI) NON-RACE DEPENDENT >90 Normal >59 [facility] Comment on above: Result Comment: Reported eGFR is based on the CKD-EPI 2020 equation that does not use a race coefficient. Performed By: #### C BCA, 09053-2, CMP, 98480-7, 2777-1, 26910-8, 51268-6 #### [facility] ([id number]) [address] [place] [address] Glucose [Mass/Vol] 105 mg/dL High 65-99 [facility] Comment on above: Performed By: #### C BCA, 61563-8, CMP, 20891-5, 2777-1, 79983- 9, 64185-5 #### [facility] ([id number]) [address] [place] [address] Potassium [Moles/Vol] 4.0 mmol/L Normal 3.5-5.0 [facility] Comment on above: Performed By: #### C BCA, 86288-3, CMP, 92110-4, 2777-1, 79692- 9, 38481-4 #### [facility] ([id number]) [address] [address] Protein [Mass/Vol] 5.5 g/dL Low 6.0-8.0 [facility] Comment on above: Performed By: #### C BCA, 29560-3, CMP, 62158-5, 2777-1, 11131- 9, 27148-1 #### [facility] ([id number]) [address] [address] Sodium [Moles/Vol] 139 mmol/L Normal 134-146 [facility] Comment on above: Performed By: #### C BCA, 41900-4, CMP, 63286-8, 2777-1, 27698- 9, 59291-6 #### [facility] ([id number]) [address] [address] Urea nitrogen [Mass/Vol] 14 mg/dL Normal 5-27 [facility] Comment on above: Performed By: #### C BCA, 98948-6, CMP, 24992-3, 2777-1, 26924- 9, 62113-9 #### [facility] ([id number]) [address] [address] Consultation/Specialist Note on 06-06-2024 Consultation/Special ist Note [id number] .00OTGTIFF Normal [facility] MAGNESIUMon 06-06-2024 Magnesium [Mass/Vol] 1.8 mg/dL Normal 1.8-2.6 [facility] Comment on above: Performed By: #### C BCA, 26702-6, CMP, 72920-5, 2777-1, 70984- 9, 94145-6 #### [facility] ([id number]) [address] [place] [address] PHOSPHORUSon 06-06-2024 Phosphate [Mass/Vol] 3.0 mg/dL Normal 2.4-4.9 [facility] Comment on above: Performed By: #### C BCA, 61613-8, CMP, 38920-8, 2777-1, 67865- 9, 35589-3 #### [facility] ([id number]) [address] [facility] [place] [address] Provider Orderson 06-06-2024 Provider Orders [id number]#1 .00OTGTIFF [facility] CBC AND AUTO DIFFon 06-05-20 ABSOLUTE BASOPHIL 0.0 X10E9/L Normal 0.0-0.2 [facility] Comment on above: Performed By: #### C BCA, 95830-8, CMP, 67499-9, 2777-1, 39451- 9, 96033-5 #### [facility] ([id number]) [address] [place] [address] ABSOLUTE NEUTROPHIL 7.2 X10E9/L High 1.5-6.6 [facility] Comment on above: Performed By: #### C BCA, 37012-1, CMP, 01181-8, 2777-1, 92500- 9, 39845-9 #### [facility] ([id number]) [address] [facility] [place] [address] Basophils/100 WBC (Bld) 0.2 % Normal [facility] Comment on above: Performed By: #### C BCA, 23683-7, CMP, 75138-2, 2777-1, 71229- 9, 17224-9 #### [facility] ([id number]) [address] [facility] [place] [address] Eosinophils (Bld) [#/Vol] 0.0 10*3/uL Normal 0.0-0.4 [facility] Comment on above: Performed By: #### C BCA, 10574-4, CMP, 53756-1, 2777-1, 52346- 9, 05578-4 #### [facility] ([id number]) [address] [place] [address] Eosinophils/100 WBC (Bld) 0.4 % Normal [facility] Comment on above: Performed By: #### C BCA, 28705-4, CMP, 23005-3, 2777-1, 23486- 9, 85347-8 #### [facility] ([id number]) [address] [address] [place] [address] Erythrocyte distribution width (RBC) [Ratio] 13.4 % Normal 11.5-15.0 [facility] Comment on above: Performed By: #### C BCA, 27850-1, CMP, 03251-9, 2777-1, 67155- 9, 62951-8 #### [facility] ([id number]) [address] [place] [address] Hematocrit (Bld) [Volume fraction] 36.0 % Low 39-49 [facility] Comment on above: Performed By: #### C BCA, 58362-6, CMP, 41928-1, 2777-1, 38619- 9, 54341-7 #### [facility] ([id number]) [address] [place] [address] Hemoglobin (Bld) [Mass/Vol] 12.3 g/dL Low 13.0-17.0 [facility] Comment on above: Performed By: #### C BCA, 29524-7, CMP, 67853-8, 2777-1, 55723- 9, 58965-0 #### [facility] ([id number]) [address] [place] [address] Lymphocytes (Bld) [#/Vol] 1.3 10*3/uL Normal 1.0-3.5 [facility] Comment on above: Performed By: #### C BCA, 57439-4, CMP, 57041-1, 2777-1, 50231- 9, 21481-9 #### [facility] ([id number]) [address], [address] [place] [address] Lymphocytes/100 WBC (Bld) 13.3 % Normal [facility] Comment on above: Performed By: #### C BCA, 49544-5, CMP, 27135-5, 2777-1, 07572- 9, 21019-9 #### [facility] ([id number]) [address], [facility] [address] [place] [address] MCH (RBC) [Entitic mass] 32.7 pg Normal 27-34 [facility] Comment on above: Performed By: #### C BCA, 00331-8, CMP, 59610-3, 2777-1, 42549- 9, 19505-5 #### [facility] ([id number]) [address], [address] [place] [address] MCHC (RBC) [Mass/Vol] 34.2 g/dL Normal 32-36 [facility] Comment on above: Performed By: #### C BCA, 40045-3, CMP, 08707-7, 2777-1, 96598- 9, 70434-1 #### [facility] ([id number]) [address], [address] [place] [address] MCV (RBC) [Entitic vol] 96 fL Normal 80-100 [facility] Comment on above: Performed By: #### C BCA, 73564-9, CMP, 77035-9, 2777-1, 85563- 9, 14528-5 #### [facility] ([id number]) [address] [address] [place] [address] Monocytes (Bld) [#/Vol] 0.9 10*3/uL Normal 0-0.9 [facility] Comment on above: Performed By: #### C BCA, 73772-5, CMP, 33882-2, 2777-1, 51139- 9, 47407-0 #### [facility] ([id number]) [address], [address] [place] [address] Monocytes/100 WBC (Bld) 9.8 % Normal [facility] Comment on above: Performed By: #### C BCA, 99303-7, CMP, 51574-2, 2777-1, 56333- 9, 06368-9 #### [facility] ([id number]) [address], [address] [place] [address] Neutrophils/100 WBC (Bld) 76.3 % Normal [facility] Comment on above: Performed By: #### C BCA, 99664-7, CMP, 61306-4, 2777-1, 98921- 9, 90746-9 #### [facility] ([id number]) [address], [address] [place] [address] Platelet mean volume (Bld) [Entitic vol] 7.9 fL Normal 7-12 [facility] Comment on above: Performed By: #### C BCA, 78381-8, CMP, 56032-6, 2777-1, 53627- 9, 96804-1 #### [facility] ([id number]) [address], [address] [place] [address] Platelets (Bld) [#/Vol] 148 10*3/uL Low 150-450 [facility] Comment on above: Performed By: #### C BCA, 37077-4, CMP, 01806-1, 2777-1, 68229- 9, 33399-9 #### [facility] ([id number]) [address], [address] [place] [address] RBC COUNT 3.76 X10E12/L Low 4.10-5.70 [facility] Comment on above: Performed By: #### C BCA, 99470-5, CMP, 18530-3, 2777-1, 34609- 9, 38039-9 #### [facility] ([id number]) [address], [address] [place] [address] WBC (Bld) [#/Vol] 9.4 10*3/uL Normal 4.0-11.0 [facility] Comment on above: Performed By: #### C BCA, 48921-3, CMP, 40383-7, 2777-1, 10615- 9, 34050-9 #### [facility] ([id number]) [address], [address] [place] [address] COMPREHENSIVE METABOLIC PANE Tim 06-05-2024 Albumin [Mass/Vol] 3.0 g/dL Low 3.2-5.3 [facility] Comment on above: Performed By: #### C BCA, 21011-4, CMP, 14920-2, 2777-1, 01690- 9, 22634-8 #### [facility] ([id number]) [address], [address] [place] [address] ALP [Catalytic activity/Vol] 64 U/L Normal 39-130 [facility] Comment on above: Performed By: #### C BCA, 87251-1, CMP, 96795-0, 2777-1, 56739- 9, 86091-0 #### [facility] ([id number]) [address], [address] [place] [address] ALT [Catalytic activity/Vol] 13 U/L Normal 0-40 [facility] Comment on above: Performed By: #### C BCA, 04968-4, CMP, 57850-0, 2777-1, 02471- 9, 87876-2 #### [facility] [facility] ([id number]) [address], [address] [place] [address] Anion gap [Moles/Vol] 4 mmol/L Low 5-15 [facility] Comment on above: Performed By: #### C BCA, 01450-8, CMP, 55629-3, 2777-1, 92832- 9, 16580-5 #### [facility] ([id number]) [address], [address] [place] [address] AST [Catalytic activity/Vol] 17 U/L Normal 0-41 [facility] Comment on above: Performed By: #### C BCA, 85518-3, CMP, 29153-5, 2777-1, 78892- 9, 47372-7 #### [facility] ([id number]) [address], [address] [place] [address] Bilirubin [Mass/Vol] 0.4 mg/dL Normal 0.3-1.2 [facility] Comment on above: Performed By: #### C BCA, 68252-8, CMP, 66839-3, 2777-1, 27210- 9, 75382-7 #### [facility] ([id number]) [address], [address] [place] [address] Calcium [Mass/Vol] 8.1 mg/dL Low 8.5-10.5 [facility] Comment on above: Performed By: #### C BCA, 63583-5, CMP, 83547-9, 2777-1, 94441- 9, 86000-5 #### [facility] ([id number]) [address], [address] [place] [address] Chloride [Moles/Vol] 110 mmol/L High 98-109 [facility] Comment on above: Performed By: #### C BCA, 44563-2, CMP, 79713-4, 2777-1, 59398- 9, 13115-4 #### [facility] ([id number]) [address], [address] [place] [address] CO2 [Moles/Vol] 24 mmol/L Normal 22-32 [facility] Comment on above: Performed By: #### C BCA, 34873-3, CMP, 33380-4, 2777-1, 25235- 9, 99852-8 #### [facility] ([id number]) [address], [address] [place] [address] Creatinine [Mass/Vol] 1.12 mg/dL Normal 0.60-1.30 [facility] Comment on above: Result Comment: METH OD TRACEABLE TO IDMS STANDARD Performed By: #### C BCA, 11641-2, CMP, 69320-2, 2777-1, 30560-4, 88387-4 #### [facility] ([id number]) [address], [address] [place] [address] GFR/1.73 sq M.predicted among non-blacks MDRD (S/P/Bld) [Vol rate/Area] 69 mL/min/{1.73_m2} Normal >59 [facility] Comment on above: Result Comment: Reported eGFR is based on the CKD-EPI 2020 equation that does not use a race coefficient. Performed By: #### C BCA, 77882-0, CMP, 96496-5, 2777-1, 29822-2, 75441-1 #### [facility] ([id number]) [address], [address] [place] [address] Glucose [Mass/Vol] 96 mg/dL Normal 65-99 [facility] Comment on above: Performed By: #### C BCA, 47380-4, CMP, 77441-0, 2777-1, 68113- 9, 53985-3 #### [facility] ([id number]) [address], [address] [place] [address] Potassium [Moles/Vol] 4.5 mmol/L Normal 3.5-5.0 [facility] Comment on above: Performed By: #### C BCA, 84482-5, CMP, 36986-0, 2777-1, 11410- 9, 66922-1 #### [facility] ([id number]) [address], [address] [place] [address] Protein [Mass/Vol] 5.1 g/dL Low 6.0-8.0 [facility] Comment on above: Performed By: #### C BCA, 93069-5, CMP, 48023-5, 2777-1, 69348- 9, 18154-5 #### [facility] ([id number]) [address], [address] [place] [address] Sodium [Moles/Vol] 138 mmol/L Normal 134-146 [facility] Comment on above: Performed By: #### C BCA, 25629-7, CMP, 65926-3, 2777-1, 50631- 9, 77337-6 #### [facility] ([id number]) [address], [address] [place] [address] Urea nitrogen [Mass/Vol] 26 mg/dL Normal 5-27 [facility] Comment on above: Performed By: #### C BCA, 94190-1, CMP, 08392-1, 2777-1, 66305- 9, 19298-1 #### [facility] ([id number]) [address], [address] [place] [address] CTA CAROTIDon 06-05-[address] CTA CAROTID CLINICAL HISTORY: Stroke. COMPARISON: None. TECHNIQUE: Axial CT images were obtained through the neck following the uneventful administration of intravenous contrast. Sagittal and coronal reformatted images were performed. MIP and volume rendered images were also post processed at a separate workstation to further define anatomy and potential pathology. 100 mL of Omnipaque 350 intravenous contrast without complication. Degree of luminal narrowing characterized using NASCET criteria. FINDINGS: The brachiocephalic artery and the left common carotid artery share a common origin. Mild to moderate calcified atherosclerotic disease. No significant luminal narrowing aortic arch, great vessels. Patent common carotid arteries. Calcified plaque at the common carotid artery bifurcation without significant luminal narrowing. Patent internal, external carotid arteries. Patent vertebral arteries. Upper lung emphysema and bulla formation. IMPRESSION: 1. No arterial occlusion, dissection, or aneurysm. 2. CTA head findings dictated separately. All CT scans at this facility use dose modulation, iterative reconstruction, and/or weight based dosing when appropriate to reduce radiation dose to as low as reasonably achievable. Finalized by Yoav Orlando MD on 06/05/2024 4:18 PM Normal [facility] CT CTA HEADon 06-05-[address] CT[address] HEAD [address] CTA HEAD CLINICAL HISTORY: Stroke, expressive aphasia. COMPARISON: MRI 06/05/2024. TECHNIQUE: Axial CT images were obtained through the head following the uneventful administration of intravenous contrast. Sagittal and coronal reformatted images were performed. MIP and volume rendered images were also post processed at a separate workstation to further define anatomy and potential pathology. 100 mL of Olvkkntpr416 intravenous contrast without complication. Arterial blood flow was measured to assist the stroke clinical team in the diagnosis of large vessel occlusion in patients undergoing screening for acute ischemic stroke using Rapid AI software when clinically indicated. FINDINGS: Slight calcified atherosclerotic disease both carotid siphons without significant luminal narrowing. Otherwise the distal internal carotid arteries are unremarkable. Normal distal vertebral and basilar arteries. There is no significant stenosis in the anterior, middle or posterior cerebral arteries. No evidence of sizable aneurysm or malformation. No large vessel occlusion. Left dominant vertebral artery system. There is a small patent left-sided posterior commuting artery. IMPRESSION: 1. No large vessel arterial occlusion, significant stenosis, sizable aneursym, or malformation. 2. CTA carotid findings dictated separately. All CT scans at this facility use dose modulation, iterative reconstruction, and/or weight based dosing when appropriate to reduce radiation dose to as low as reasonably achievable. Finalized by Yoav Orlando MD on 06/05/2024 4:13 PM Normal [facility] HGB A1C (GLYCO-HGB)on 2023 Glucose [Mass/Vol] 117 mg/dL Normal [facility] Comment on above: Performed By: #### C BCA, 88084-6, CMP, 73760-2, 2777-1, 16622- 9, 53048-2 #### [facility] ([id number]) [address], [address] [place] [address] HbA1c (Bld) [Mass fraction] 5.7 % High 4.4-5.6 [facility] Comment on above: Result Comment: NOTE ADA Guidelines Result HgbA1c Normal : less than 5.7 % Prediabetes : 5.7 % to 6.4 % Diabetes : > 6.4 % Use with caution in patients with abnormal hemoglobin variants as the half-life of red blood cells and in vivo glycation rates are affected. Performed By: #### C BCA, 11234-2, CMP, 10704-2, 2777-1, 98707-4, 84096-7 #### [facility] ([id number]) [address], [address] [place] [address] Lipid 1996 panelon 4 Cholesterol [Mass/Vol] 146 mg/dL Low 150-200 [facility] Comment on above: Performed By: #### C BCA, 42496-0, CMP, 69577-9, 2777-1, 56897- 9, 94826-9 #### [facility] ([id number]) [address], [address] [place] [address] Cholesterol in HDL [Mass/Vol] 49 mg/dL Normal >39 [facility] Comment on above: Result Comment: HDL <40 mg/dL - High Risk HDL > or = 40mg/dL- Desirable HDL >60 mg/dL - Negative Risk Performed By: #### C BCA, 57848-2, CMP, 22839-6, 2777-1, 28875-5, 52799-4 #### [facility] ([id number]) [address], [address] [place] [address] Cholesterol in LDL [Mass/Vol] 65 mg/dL Normal <130 [facility] Comment on above: Result Comment: LDL <100 mg/dL - Desirable LDL >160 mg/dL - High Risk Performed By: #### C BCA, 63759-2, CMP, 77381-1, 2777-1, 80074-0, 62398-3 #### [facility] ([id number]) [address], [address] [place] [address] Cholesterol in VLDL [Mass/Vol] 32 mg/dL High 0-30 [facility] Comment on above: Performed By: #### C BCA, 39139-4, CMP, 55164-8, 2777-1, 48528- 9, 36485-0 #### [facility] ([id number]) [address], [address] [place] [address] CHOLESTEROL:HDL 3.0 Normal 1.0-5.0 [facility] Comment on above: Performed By: #### C BCA, 96419-0, CMP, 33478-8, 2777-1, 65401- 9, 65947-7 #### [facility] ([id number]) [address], [address] [place] [address] Triglyceride [Mass/Vol] 158 mg/dL High 27-150 [facility] Comment on above: Performed By: #### C BCA, 06446-5, CMP, 02897-5, 2777-1, 41788- 9, 65798-2 #### [facility] ([id number]) [address], [address] [place] [address] MAGNESIUMon 06-05-2024 Magnesium [Mass/Vol] 1.9 mg/dL Normal 1.8-2.6 [facility] Comment on above: Performed By: #### C BCA, 62809-4, [facility], 08333-4, 2777-1, 25123- 9, 87191-9 #### [facility] ([id number]) [address], [address] [place] [address] MR BRAIN WO CONTon MR BRAIN WO CONT MR BRAIN WO CONT HISTORY: A 74-year-old male with the history of the expressive aphasia. Acute neurological deficit. Stroke is suspected. TECHNIQUE: Multiplanar and multisequence MRI examination of brain is performed without intravenous contrast administration. COMPARISON: Comparison is made with the CT scan of the brain from the outside facility of 06/03/[address] scan of brain of 06/04/2024. FINDINGS: There is some mild degree of generalized atrophy. Ventricular system is normal in size and configuration for the patient's age and generalized atrophy. There are few foci of signal abnormality in the deep white matter supratentorially consistent with small vessels ischemic change. Diffusion-weighted study reveals restricted diffusion in the cortical subcortical region of the left posterior frontal lobe and foci of restricted diffusion in the frontal parietal lobes. Findings are consistent with acute ischemic infarction. There is a extra-axial cystic abnormality in the right parietal convexity. It measures 3.2 x 1.6 cm. Appearance is suggestive of an arachnoid cysts. There is no evidence of intracranial hemorrhage. The cerebellum and brainstem are unremarkable. There is no evidence of midline shift of the structures. Both cavernous carotid and basilar arteries are patent. Left vertebral artery is patent. Right vertebral artery is hypoplastic. There is a right maxillary sinus mucous retention cyst. Visualized paranasal sinuses and mastoid air cells are clear. IMPRESSION: * There is an acute ischemic infarction involving the left frontoparietal lobes with the foci of restricted diffusion in the cortical subcortical region and white matter, in the distribution of the left middle cerebral artery circulation. * Small vessels ischemic change in the deep white matter supratentorially. * No evidence of intracranial hemorrhage or midline shift of the structures. * There is a 3.2 x 1.6 cm arachnoid cyst in the right parietal convexity. Finalized by Jose Rios MD on 06/05/2024 6:08 AM Normal [facility] MR MRA HEAD W WO CONTon 05-24 MR MRA HEAD W WO CONT MR MRA HEAD W WO CONT HISTORY: A 74-year-old male with the history of the acute neurological deficit. Expressive aphasia. Stroke is suspected. TECHNIQUE: MR angiogram of the head is performed without and with intracontrast administration by using 3-D mwpp-pk-ohampv technique. Maximum intensity projection images are reconstructed. Modified cardiac monitoring was knee dated. COMPARISON: Comparison is made with MRI examination of brain of 06/05/2024. FINDINGS: Both internal carotid arteries are patent without evidence of significant stenosis. Basilar artery is patent. Distal vertebral arteries are patent. The right vertebral artery is hypoplastic. Anterior, middle and the posterior cerebral arteries are patent without evidence of significant stenosis. There is no evidence of aneurysm or arteriovenous malformation. Visualized dural venous sinuses are patent. IMPRESSION: * No evidence of significant stenosis or occlusion of the large vessels. * The right vertebral artery is hypoplastic. * No evidence of aneurysm or arteriovenous malformation. Finalized by Jose Rios MD on 06/05/2024 4:30 AM Normal [facility] PHOSPHORUSon 06-05-2024 Phosphate [Mass/Vol] 2.6 mg/dL Normal 2.4-4.9 [facility] Comment on above: Performed By: #### C BCA, 23622-4, CMP, 97281-0, 2777-1, 76101- 9, 21612-4 #### [facility] ([id number]) [address], [address] [place] [address] BLOOD CULTUREon 06-04-2024 Bacteria identified Aer cx Nom (Bld) CULTURE RESULTS NO GROWTH 5 DAYS Normal [facility] Bacteria identified Aer cx Nom (Bld) CULTURE RESULTS NO GROWTH 5 DAYS Normal [facility] CBC AND AUTO DIFFon 06-04-20 24 ABSOLUTE BASOPHIL 0.1 X10E9/L Normal 0.0-0.2 [facility] Comment on above: Performed By: #### C BCA, 66714-1, CMP, 00046-3, 2777-1, 17903- 9, 90383-4 #### [facility] ([id number]) [address], [address] [place] [address] ABSOLUTE NEUTROPHIL 11.6 X10E9/L High 1.5-6.6 [facility] Comment on above: Performed By: #### C BCA, 92846-6, CMP, 16591-5, 2777-1, 13392- 9, 42272-2 #### [facility] ([id number]) [address], [address] [place] [address] Basophils/100 WBC (Bld) 0.3 % Normal [facility] Comment on above: Performed By: #### C BCA, 45486-8, CMP, 60814-8, 2777-1, 46646- 9, 51826-3 #### [facility] ([id number]) [address], [address] [place] [address] Eosinophils (Bld) [#/Vol] 0.0 10*3/uL Normal 0.0-0.4 [facility] Comment on above: Performed By: #### C BCA, 56730-5, CMP, 14898-2, 2777-1, 53337- 9, 42067-1 #### [facility] ([id number]) [address], [address] [place] [address] Eosinophils/100 WBC (Bld) 0.3 % Normal [facility] Comment on above: Performed By: #### C BCA, 66090-6, CMP, 01630-5, 2777-1, 24437- 9, 83663-4 #### [facility] ([id number]) [address], [address] [place] [address] Erythrocyte distribution width (RBC) [Ratio] 13.8 % Normal 11.5-15.0 [facility] Comment on above: Performed By: #### C BCA, 01408-4, CMP, 63299-6, 2777-1, 08274- 9, 27567-3 #### [facility] ([id number]) [address], [facility] [address] [place] [address] Hematocrit (Bld) [Volume fraction] 40.3 % Normal 39-49 [facility] Comment on above: Performed By: #### C BCA, 21054-5, CMP, 03730-8, 2777-1, 90787- 9, 47207-0 #### [facility] ([id number]) [address], [facility] [address] [place] [address] Hemoglobin (Bld) [Mass/Vol] 13.5 g/dL Normal 13.0-17.0 [facility] Comment on above: Performed By: #### C BCA, 79299-4, CMP, 20611-7, 2777-1, 67416- 9, 66539-0 #### [facility] ([id number]) [address] [address] Lymphocytes (Bld) [#/Vol] 1.8 10*3/uL Normal 1.0-3.5 [facility] Comment on above: Performed By: #### C BCA, 78583-2, CMP, 29533-6, 2777-1, 91654- 9, 45195-0 #### [facility] ([id number]) [address] [address] Lymphocytes/100 WBC (Bld) 12.2 % Normal [facility] Comment on above: Performed By: #### C BCA, 49171-3, CMP, 95121-5, 2777-1, 73732- 9, 25666-3 #### [facility] ([id number]) [address] [address] MCH (RBC) [Entitic mass] 32.4 pg Normal 27-34 [facility] Comment on above: Performed By: #### C BCA, 88437-6, CMP, 83672-7, 2777-1, 71976- 9, 11790-6 #### [facility] ([id number]) [address], [address] [place] [address] MCHC (RBC) [Mass/Vol] 33.5 g/dL Normal 32-36 [facility] Comment on above: Performed By: #### C BCA, 78736-0, CMP, 50346-1, 2777-1, 42334- 9, 85233-2 #### [facility] ([id number]) [address], [address] [place] [address] MCV (RBC) [Entitic vol] 97 fL Normal 80-100 [facility] Comment on above: Performed By: #### C BCA, 96323-3, CMP, 10159-4, 2777-1, 54751- 9, 73608-3 #### [facility] ([id number]) [address] [place] [address] Monocytes (Bld) [#/Vol] 1.2 10*3/uL High 0-0.9 [facility] Comment on above: Performed By: #### C BCA, 54971-3, CMP, 63081-2, 2777-1, 94268- 9, 53488-1 #### [facility] ([id number]) [address], [address] [place] [address] Monocytes/100 WBC (Bld) 8.4 % Normal [facility] Comment on above: Performed By: #### C BCA, 33112-0, CMP, 23203-1, 2777-1, 11937- 9, 57981-4 #### [facility] ([id number]) [address], [address] [place] [address] Neutrophils/100 WBC (Bld) 78.8 % Normal [facility] Comment on above: Performed By: #### C BCA, 32898-2, CMP, 92170-5, 2777-1, 76336- 9, 81754-9 #### [facility] ([id number]) [address], [address] [place] [address] Platelet mean volume (Bld) [Entitic vol] 8.1 fL Normal 7-12 [facility] Comment on above: Performed By: #### C BCA, 50507-1, CMP, 87113-8, 2777-1, 33233- 9, 11998-2 #### [facility] ([id number]) [address], [address] [place] [address] Platelets (Bld) [#/Vol] 175 10*3/uL Normal 150-450 [facility] Comment on above: Performed By: #### C BCA, 19062-9, CMP, 71266-7, 2777-1, 65800- 9, 78998-5 #### [facility] ([id number]) [address], [address] [place] [address] RBC COUNT 4.17 X10E12/L Normal 4.10-5.70 [facility] Comment on above: Performed By: #### C BCA, 31747-1, CMP, 93911-9, 2777-1, 48210- 9, 91156-9 #### [facility] ([id number]) [address], [address] [place] [address] WBC (Bld) [#/Vol] 14.7 10*3/uL High 4.0-11.0 [facility] Comment on above: Performed By: #### C BCA, 10355-9, CMP, 98858-8, 2777-1, 65838- 9, 18950-9 #### [facility] ([id number]) [address], [address] [place] [address] COMPREHENSIVE METABOLIC PANE Tim 06-04-2024 Albumin [Mass/Vol] 3.2 g/dL Normal 3.2-5.3 [facility] Comment on above: Performed By: #### C BCA, 16295-7, CMP, 43151-4, 2777-1, 92215- 9, 87779-7 #### [facility] ([id number]) [address], [address] [place] [address] ALP [Catalytic activity/Vol] 67 U/L Normal 39-130 [facility] Comment on above: Performed By: #### C BCA, 01574-9, CMP, 31848-8, 2777-1, 26720- 9, 29797-8 #### [facility] ([id number]) [address] [place] [address] ALT [Catalytic activity/Vol] 13 U/L Normal 0-40 [facility] Comment on above: Performed By: #### C BCA, 57051-9, CMP, 76842-7, 2777-1, 51197- 9, 70117-0 #### [facility] ([id number]) [address] [place] [address] Anion gap [Moles/Vol] 8 mmol/L Normal 5-15 [facility] Comment on above: Performed By: #### C BCA, 64007-7, CMP, 38973-5, 2777-1, 84783- 9, 44611-2 #### [facility] ([id number]) [address], [address] [place] [address] AST [Catalytic activity/Vol] 20 U/L Normal 0-41 [facility] Comment on above: Performed By: #### C BCA, 43416-0, CMP, 58568-2, 2777-1, 56707- 9, 52544-3 #### [facility] ([id number]) [address], [address] [place] [address] Bilirubin [Mass/Vol] 0.5 mg/dL Normal 0.3-1.2 [facility] Comment on above: Performed By: #### C BCA, 29551-8, CMP, 04146-1, 2777-1, 98636- 9, 51509-8 #### [facility] ([id number]) [address], [address] [place] [address] Calcium [Mass/Vol] 7.9 mg/dL Low 8.5-10.5 [facility] Comment on above: Performed By: #### C BCA, 38503-1, CMP, 01045-4, 2777-1, 48687- 9, 19879-5 #### [facility] ([id number]) [address], [address] [place] [address] Chloride [Moles/Vol] 108 mmol/L Normal 98-109 [facility] Comment on above: Performed By: #### C BCA, 00043-7, CMP, 53794-4, 2777-1, 06726- 9, 04803-8 #### [facility] ([id number]) [address], [address] [place] [address] CO2 [Moles/Vol] 20 mmol/L Low 22-32 [facility] Comment on above: Performed By: #### C BCA, 62157-1, CMP, 07862-8, 2777-1, 14046- 9, 33262-6 #### [facility] ([id number]) [address] [place] [address] Creatinine [Mass/Vol] 1.54 mg/dL High 0.60-1.30 [facility] Comment on above: Result Comment: METH OD TRACEABLE TO IDMS STANDARD Performed By: #### C BCA, 37578-9, CMP, 86641-9, 2777-1, 92029-4, 64631-3 #### [facility] ([id number]) [address] [place] [address] GFR/1.73 sq M.predicted among non-blacks MDRD (S/P/Bld) [Vol rate/Area] 47 mL/min/{1.73_m2} Low >59 [facility] Comment on above: Result Comment: Reported eGFR is based on the CKD-EPI 2020 equation that does not use a race coefficient. Performed By: #### C BCA, 43338-3, CMP, 30716-4, 2777-1, 50862-6, 38320-1 #### [facility] ([id number]) [address], [address] [place] [address] Glucose [Mass/Vol] 87 mg/dL Normal 65-99 [facility] Comment on above: Performed By: #### C BCA, 10192-0, CMP, 16389-0, 2777-1, 89142- 9, 83765-7 #### [facility] ([id number]) [address], [address] [place] [address] Potassium [Moles/Vol] 4.8 mmol/L Normal 3.5-5.0 [facility] Comment on above: Performed By: #### C BCA, 26087-8, CMP, 72483-1, 2777-1, 25096- 9, 11129-7 #### [facility] ([id number]) [address], [address] [place] [address] Protein [Mass/Vol] 5.5 g/dL Low 6.0-8.0 [facility] Comment on above: Performed By: #### C BCA, 57280-3, CMP, 06867-0, 2777-1, 53062- 9, 55325-8 #### [facility] ([id number]) [address] [address] [place] [address] Sodium [Moles/Vol] 136 mmol/L Normal 134-146 [facility] Comment on above: Performed By: #### C BCA, 44313-9, CMP, 43511-9, 2777-1, 70109- 9, 95886-9 #### [facility] ([id number]) [address], [address] [place] [address] Urea nitrogen [Mass/Vol] 33 mg/dL High 5-27 [facility] Comment on above: Performed By: #### C BCA, 85381-8, CMP, 75300-2, 2777-1, 31450- 9, 10571-4 #### [facility] ([id number]) [address] [place] [address] ESR Photometric method (Bld) [Velocity]on 06-04-2024 ESR, ERYTHROCYTE SEDIMENTATION RATE 18 mm/h Normal 0-20 [facility] Comment on above: Performed By: #### C BCA, 66686-1, CMP, 13820-5, 2777-1, 26125- 9, 75237-4 #### [facility] ([id number]) [address] [place] [address] Lactate (P stephanie) [Moles/Vol]o n 06-04-2024 LACTATE W/REFLEX 0.9 mmol/L Normal 0.4-2.0 [facility] Comment on above: Result Comment: Result did not trigger repeat Lactate, re-order if needed. Performed By: #### C BCA, 76583-7, CMP, 77347-9, 2777-1, 18557-7, 13379-5 #### [facility] ([id number]) [address] [place] [address] MAGNESIUMon 06-04-2024 Magnesium [Mass/Vol] 1.8 mg/dL Normal 1.8-2.6 [facility] Comment on above: Performed By: #### C BCA, 67682-9, CMP, 58718-4, 2777-1, 53950- 9, 51379-3 #### [facility] ([id number]) [address], [address] [place] [address] PHOSPHORUSon 06-04-2024 Phosphate [Mass/Vol] 3.1 mg/dL Normal 2.4-4.9 [facility] Comment on above: Performed By: #### C BCA, 49847-6, CMP, 97575-3, 2777-1, 53754- 9, 55912-9 #### [facility] ([id number]) [address] [place] [address] URINALYSISon 06-04-2024 Bilirubin Ql (U) Negative Normal NEG [facility] Comment on above: Performed By: #### U A #### [facility] ([id number]) [address] [facility], [address] [place] [address] BLOOD/HGB Large Abnormal NEG [facility] Comment on above: Performed By: #### U A #### [facility] ([id number]) [address] [facility], [address] [place] [address] Color (U) YELLOW Normal YELLOW [facility] Comment on above: Performed By: #### U A #### [facility] ([id number]) [address] [facility], [address] [place] [address] Glucose Ql (U) Negative Normal NEG [facility] Comment on above: Performed By: #### U A #### [facility] ([id number]) [address] [facility], [address] [place] [address] Ketones Ql (U) Negative Normal NEG [facility] Comment on above: Performed By: #### U A #### [facility] ([id number]) [address] [place] [address] Leukocyte esterase Test strip Ql (U) MODERATE Abnormal NEG [facility] Comment on above: Performed By: #### U A #### [facility] ([id number]) [address] [facility], [address] [place] [address] Nitrite Ql (U) Negative Normal NEG [facility] Comment on above: Performed By: #### U A #### [facility] ([id number]) [address] [facility], [address] [place] [address] pH (U) 5.5 [pH] Normal 5.0-8.5 [facility] Comment on above: Performed By: #### U A #### [facility] ([id number]) [address] [place] [address] Protein Ql (U) Trace Abnormal NEG [facility] Comment on above: Performed By: #### U A #### [facility] ([id number]) [address] [place] [address] R.B.CELLS 23 /hpf High 0-5 [facility] Comment on above: Performed By: #### U A #### [facility] ([id number]) [address] [facility], [address] [place] [address] Specific gravity (U) [Rel density] 1.017 Normal 1.003-1.035 [facility] Comment on above: Performed By: #### U A #### [facility] ([id number]) [address] [facility], [address] [place] [address] SQUAMOUS EPITHELIUM <1 Normal 0-5 [facility] Comment on above: Performed By: #### U A #### [facility] ([id number]) [address] [place] [address] TURBIDITY CLEAR Normal CLEAR [facility] Comment on above: Performed By: #### U A #### [facility] ([id number]) [address] [place] [address] Urobilinogen (U) [Mass/Vol] mg/dL Normal <1.1 [facility] Comment on above: Performed By: #### U A #### [facility] ([id number]) [address] [place] [address] W.B.CELLS 5 /hpf Normal 0-5 [facility] Comment on above: Performed By: #### U A #### [facility] ([id number]) [address], [address] [place] [address] URINE CULTUREon 06-04-2024 Bacteria identified Cx Nom (U) CULTURE RESULTS NO GROWTH AT <1000 CFU/mL Normal [facility] Comment on above: Performed By: #### C BCA, 04505-6, CMP, 40845-2, 2777-1, 08998- 9, 69376-6 #### [facility] ([id number]) [address] [place] [address] XR CHEST 1 VWon 06-04-2024 XR CHEST 1 VW XR CHEST 1 VW Clinical history: Check volume status Views: 1 Comparison: 06/03/2024 Findings/Impression: 1. No acute infiltrate. No volume loss nor consolidation. There is no pleural effusion, pneumothorax, nor volume loss. Heart and mediastinal structures are unremarkable. Pulmonary vasculature stable. 2. No active disease nor significant interval change Finalized by Mihai Bazan MD on 06/04/2024 11:15 PM Normal [facility] aPTT Coag (PPP) [Time]on aPTT Coag (Bld) [Time] 28 s Normal 26-37 [facility] Comment on above: Performed By: #### C BCA, 30452-9, CMP, 41983-7, 2777-1, 70002- 9, 66547-8 #### [facility] ([id number]) [facility] [place] [address] Consent Formson 06-03-2024 Consent Forms [id number] .00OTGTIFF [facility] Discharge Instructionson Discharge Instructions [id number]. 00OTGTIFF [facility] Outside Recordson 06-03-2024 Outside Records [id number]. 00OTGTIFF [facility] Progress Note - Nurseon 10-1 Progress Note - Nurse Patient arrives to unit with for guerra removal. Note they were concerned with some bleeding on the pad in underwear. There was also old blood on the guerra catheter. Noted that the securement device had partially come undone and was not holding the guerra cath securely and it was pulling. Patient did not complain of any pain. Patient tolerated guerra removal well. Reinforced the need to drink alot of fluids. Reinforced the need to go to the ED if unable to urinate in 8 hours. Also, number on discharge instructions given yesterday. Informed them they could call that number with any questions/concerns. Patient and walked ambulatory from unit. [Electronically Signed on: 06/03/2024 12:41 EDT] Colleen Denney RN [Verified on: 06/03/2024 12:41 EDT] Colleen Denney RN [facility] Progress Note - Nurse Certified Veterinary Technician called and spoke with pts to make sure she was able to get her questions answered. Per pts she has a phone call in to Dr Mejia office and is waiting to hear back from them. Certified Veterinary Technician explained to pts again that if she does not want to pull the cath that they can come back to the hospital today and we will do it. Per pts her dos not want to have to come here. Pts said that she will wait a little bit longer to see if she hears back and if not she will call us back and bring him in to have the cath removed. [Electronically Signed on: 06/03/2024 10:44 EDT] Lorene Pollard RN [Verified on: 06/03/2024 10:44 EDT] Lorene Pollard RN [facility] Progress Note - Nurse Pts called pre surgery and is concerned about the color of urine today in husbands guerra bag. She stated that it looks like a cranberry color. Certified Veterinary Technician asked her if there were any blood clots and she said no. Certified Veterinary Technician asked pts if he has been drinking a lot of fluids and she said yes. Per pts he also has some bleeding around his penis. Certified Veterinary Technician explained to that his penis is probably irritated from the catheter. Pts stated that she is afraid to pull the catheter out because the color of urine. Pts would like to send pictures. Certified Veterinary Technician informed pt that it is really hard to give her advice without seeing exactly what things look like. Certified Veterinary Technician informed pts that she should call Dr. Mejia office with any concerns. Certified Veterinary Technician explained to pt that they may be able to use my chart to send pictures and that depending on whats is going on Dr. Mejia office may want to see him. Pt thanked bond writer and said that she would reach out to Dr. Jackie black as soon as we hang up. [Electronically Signed on: 06/03/2024 10:24 EDT] Lorene Pollard RN [Verified on: 06/03/2024 10:24 EDT] Lorene Pollard RN [facility] Telemetry Stripson Telemetry Strips [id number]. 00OTGTIFF [facility] Anesthesia Noteon 06-02-2024 Anesthesia Note Patient: RICARDO [...] on: 06/02/2024 08:52 EDT] Marcos Hoyt MD [facility] Anesthesia Note Patient: RICARDO GRANT Age: 74 [...] BPH (benign prostatic hyperplasia) / SNOMED CT 072064540 / Confirmed COPD (chronic obstructive pulmonary disease) / SNOMED CT 903653568 / Confirmed History of skin cancer / SNOMED CT 5509573685 / Confirmed Hyperlipidemia / SNOMED CT 29685308 / Confirmed Hypertension / SNOMED CT 6566197728 / Confirmed Neuropathy / SNOMED CT 1649005065 / Confirmed Histories Family History: No family history items have been selected or recorded. Procedure history: Cystoscopy ([id number]) on 03/17/2024 at 73 Years. Arthroscopy of knee ([id number]) in 1997 at 48 Years. Comments: 05/18/2024 8:59 DARAT Mandy Anderson RN ?Right Colonoscopy ([id number]). Elbow ([id number]). Comments: 05/18/2024 9:01 Mandy Crawford RN left [...] of years: 40 Comment: Quit smoking in 201005/18/2024 09:01 - Mandy Hanson RN Electronic Cigarette/Vaping 05/18/2024 Electronic Cigarette Use: Former use, quit more nona Comment: about 4-5 months; Also quit in 201005/18/2024 09:02 - Mandy Hanson RN . Physical Examination Pain assessment: Self-reports no pain. General: Alert and oriented, No acute distress. Airway: Mallampati classification: II (soft palate, fauces, uvula visible). Temporomandibular joint mobility: Good. Respiratory: Lungs are clear to auscultation. Cardiovascular: Regular rhythm. Neurologic: Alert, Oriented. Review / Management Laboratory Results Plan [employer]#( A) physical status classification: Class III. Anesthetic Preoperative Plan Anesthesia: General. . Anesthetic plan, risks, benefits, and alternatives discussed with the patient and/or family. Patient verbalized understanding. Informed consent was given. Anesthetic technique: General anesthesia. [Electronically Signed on: 06/02/2024 07:38 EDT] FullMarcos fleming MD [Verified on: 06/02/2024 07:38 EDT] Marcos Hoyt MD [facility] Inpatient Patient Summaryon 06-02-2024 Inpatient [place] [address] Patient Discharge Instructions Name: GRANT RICARDO Ankit : 1950 Patient Address: [address] [place] [address] Primary Care Provider: Name: Aayush Escudero After you are discharged if you find you have any questions, please, call [phone] ext [phone] to speak to a nurse. Discharge Diagnosis: 1:BPH (benign prostatic hyperplasia) Prescription Information: If you have been given a prescription for narcotics, seek immediate medical attention if you have any difficulty breathing or any sudden status changes such as confusion and sleepiness. If you or anyone you know is experiencing suicidal thoughts, mental health, alcohol and/or drug addiction problems; contact the [facility] 16/03 Crisis Hotline -Text 4HOPE rz 133247. If you received any narcotics, sedation, or [...] business decisions or sign any legal documents [facility] would like to thank you for allowing [...] those changes are reflected below: New Medications [facility]/pharmacy #[id number], [address], [place] [id number], [phone] cephalexin (cephalexin 500 mg oral capsule) 1 [...] needed fo (more content not included)... Normal [facility] MAGR Intraoperative Recordon 06-02-2024 MAGR Intraoperative Record MAGR Intra-Op Record Summary Primary Physician: Lane Chen MD Finalized Date/Time: 06/02/24 08:48:28 Pt. Name: RICARDO GRANT /Sex: 1950 MALE Med Rec #: [id number] Physician: Lane Chen MD Financial #: [id number] Pt. Type: D Room/Bed: / Admit/Disch: 06/02/24 [...] Entry [address] Chen MD [facility], Frances Lopes MD, RN Role Performed Surgeon - Primary Anesthesiologist of Brush Maker Machine Record Time In 06/02/24 07:48:00 06/02/24 07:41:00 06/02/24 07:41:00 Time Out 06/02/24 08:26:00 06/02/24 08:33:00 06/02/24 08:33:00 Procedure Cystoscopy PVP Cystoscopy PVP Cystoscopy PVP Greenlight Laser Greenlight Laser Greenlight Laser Prostate Prostate Prostate Last Modified By: Frances Ling RN, Barbara RN Long, Barbara RN 06/02/24 08:33:31 06/02/24 08:33:31 06/02/24 08:33:31 Entry 4 Entry 5 Entry 6 Case Attendee Todd RN, Beryl Balderrama, Sherry Serrano CST CHIEF OPERATOR REFORMER Role Performed Brush Maker Machine Scrub Personnel Scrub Personnel Time In 06/02/24 07:41:00 06/02/24 07:41:00 06/02/24 07:41:00 Time Out 06/02/24 08:33:00 10/10/24 08:33:00 06/02/24 08:33:00 Procedure Cystoscopy PVP Cystoscopy [...] Hoyt MD, Frances Ling RN, Imelda Balderrama [facility] Last Modified By: Frances Ling RN [...] Text: E.290 Evaluate (more content not included)... [facility] 1 [facility] Preoperative Record [facility] Pre-Op Record Summary Primary Physician: Lane Chen MD Finalized Date/Time: 06/02/24 07:41:40 Pt. Name: GRANTRICARDO/Sex: 1950 MALE Med Rec #: [id number] Physician: Lane Chen MD Financial #: [id number] Pt. Type: D Room/Bed: / Admit/Disch: 06/02/24 [...] consent correct. General Comments: Pt arrives to psw ambulatory. Pt denies cp, sob, cough or flu like symptoms. Pt denies pacemaker/defibillato r or sleep apnea. Finalized By: Clarissa Castro RN Document Signatures Signed By: Clarsisa Castro RN 06/02/24 07:41 [facility] Patient Handouton 06-02-2024 Patient Handout [facility] Coding Summaryon 06-01-2024 Coding Summary HTMLBase 64 PldmqhrtBSs9aJb+PGhlY WQ+GL6POQDbR90gjRWeiQ 4cR7YAXIoRKftxDIKSIZr RVbNjtdWrJP6kiZWzJRPt IC8+FA1zFLSlOuvqwBIzl 1A6ySM0B63dgr2tPWubwC D1UUSdJiZkahtjk2hdrAu 6IDcuNmluOyBt XWIbnE41NUH6oB08Io17h LAwcUNyk7mosLc8RhMfHB EaBLX6xAvbJIojx9HiUTJ vZ60oeUJin0B2 HHVleMdspQMnQuQumDT4a F2xVZhvwxnju1whbsweFx j1hx11pNBxg9U2sEU3F2P qezQ9TWAbdFYo VvbhuRXSdO8yikact6wof bdeYwUxTSVxVSr9PPx8KN WwyDqmDrIxQZ34HIM6QLY fnaCuY4QdLYIn uBfkUpN2a9J2Mt1JL9AUA cxfJ0GTMHQAQLemmKE+PC 61fv89O2PwPgvhAfl7EXY vCQK9hDG4eE4a UBUjQUzji5R3gCE2D0Bmh zBqme6pw9wxAJUeFVwjM4 5tjOFqb5D7AIZkdZN0ZKS cuQjpUsZozJ61 Oyc+YBLgxXozc4IfAiuuu 7whp7acrQa2PhsrGYTkjd KitJteSOJ4n1VvAe6eJSN hgPY2xIJ4iY2j KdQlEyB2ICpnZ230SyJec TCeGjpoC60hX5HvoIB+PH KvRcr4DEKmlWapNW1uX7V hZGRpbmctbGVm bMswYB0uILYdttvpGMJcx R6iXXAxI0v4GiVuAaM5FT lgM4SwIQAwbtgrRs82eY2 tJsJcJuD7SGqr W1IgffX6UGKbcTZiIOgbO HE0U36mu4K8CUFoONCaYY J5sQZ9kF6ymKdokkfhlTZ mdDsgdmVydGlj GIcfWEgjL658DKSsqHsgA kNvZGluZyBEYXRlOiAgMT AvMDkvMjAyNDwvdGQ+PHR tOOA2kTbwCYUa eYXzDIwmRx1mrAxjyUldZ J1uQVBnulmdQKSpqH1lRE KxySQxhQovYI7fBNDbbxa fo456RzQwOUP6 DETdbZPxQ0JmaA8zMgBvS ADwYOVlO3UcmPCbAMqfS7 65GBqqOpL1DXWtqaMvI3K sLWFsaWduOiB0 v8Q1Ak1Xr0KqhhipG0Zel QEeOvAfVygkGZc4N4ZbLk wvdHI+KG42MUQxRW71KEr 0EPJ1qRnoIUyv TORlS9HtlT5fWxJsBHZsL GRkOyc+PHRhYmxlIHdpZH RoPScxMDAlJyBzdHlsZT0 lBf2qFEVhSHIf iZwmvLSxAlWxl1lkFIEnB LipBP2wrZlqS8QasGH3JF Gkf2l3Pb03D13eM1RqrPL +SXPyjWD9tBT3 fP3sFcReEyG2XNlsX312U mJrvWDrXksqp6cgz3ssdM k7NyM3BXWndyFoyHrsTKH 7l3HxTg22M84m IHdpZHRoPSIxNSUiIHZhb Dmnbe4klL4iKy1+PGNvbC R9nIQ4xU5rRpWtOdQ5YAp xC209KxGjrVHf Jzlmf9tia6cvlZo1BxCcS HXavzNemOzwLXT6w2HqXw 55P9IxfSppq0ZyLcu5xk7 7uDRfk9L1hDR1 X7GcDOWuhenqzQTokCxeM P1xMLOdltquXVHasF5wVT NvO7d1JoZyGvS8TPahS1R qouW6ZVDtkSEs ZWJqyEZQvN7hrrauy8hyz ibdLaIbNKSzDLx3IOg5HR ZfcTnaDjSsMNS9DmW7VFA 1aPMgmA9bjLoh ygtsvA2nJop+XKJ7oYMix XQIVW8wQskybGR+PHRkIH S2gPxgNYqeITUbeD4mAIC cT3k3StIeFtG7 NUcdN0FbywF5YGZrpPGhH NKjoMRPmJ9ybcjet8lkul nvEbFdQQMrFQp1LQl9NBU saWduOiBsZWZ0 LlM0NAC9sZYezX7lyMwbh nbspZ5eXuc+QmlydGggRG E5MDr8B2GwHuy8HUKouAu mRP9ppZUsEPiw Ja4azZbexGduXO6aMDBbi zhfc902WiFho9qpNMDlhN MzWTyxYXP4E82wm2T2IBT fFOIgGLY0mBK4 tS5feRtoeqoueAHttTknm pVxxMldLYbwQGbhD893DL UpnKygAdSmSTg9S9UrPbf 6WAEkePoaFK3d cLCyLOdnMt8qxXyboXhaJ L0tBMRbtldqg435JpSno8 dsOJKysWEgRLngXSY6A43 ns2K7XVYeGEOa VBZ1oVR3jY9cnNxzkrvsr GVmdDsgdmVydGljYWwtYW ztL432UELwtNbmZrMlmJo 6E9NyOal1OZYl sKlqGM4gnXAlKOnjRx8vk VmsbGaaDW1qTZBuuktwo1 96LoLkd0rxGHIwsTCaLRb iDJH9Z96zv8I1 HSHsFGRfLCH1sXQ8gH3cv GlnbjogbGVmdDsgdmVydG lkPPdfFLglA839CLTleKk nPlBhdGllbnQg UIruWNj2E6WfMsptxWR+P Y42SBPjKL64eYMdoMRgh0 kwoNz4WrJdAOOmIGT2yDg wXRlwa4LcDKSk V88gcQGav0Z9EDNkvTffa QRgUkJawDC5rU7dPFvphv riw2ghqisrNwgmt9iyxf8 7oO64B27pDOpo ZHRoPSIzMCUiIHZhbGlnb o1jnI4fGd6+MKLsuHP2jE C9lI3xSGSxRzA5MIdpS76 9InRvcCIvPjxj g8pwi8xutTk3AzR7CPHrv jEviJgoGDX4h9CiTd24F4 9sIHdpZHRoPSIyMCUiIHZ whLeiya2wuX5i Ii8+UCIqcZB6uOK5bJ1zG gYiDpA4WCsyL062XkTsqO JkCjcnN52qJ0DyhEM+PHR hYom5IVEdwVnp PL5xwWQfDQnpPl4hLDC3O oTwYaEwFFahM4RdKSSvjm ixepzgkVX6LMTtPBGufP0 8Bg6qoLkwRZEk sHMLdZ7udetlw5etgfocL gEoAHUsTEg2OTz4BVCrgF taNzRpFNI0GiF1YBD0oPQ siN7xwRqimtry lD7gS9FhRQGlxoeeGs52q F2oNqMbBqQ3XRmcMrq+UE BQI6aXFvusVUAMCU8BKOE 3Z0RkLwm0JYJg sCqgZW0tvDFsULdrRq3qi LwrwAmiRN4yGZSjdyugJS BgvN6tNZYqoFCcqOnzGK4 nCAYvfycrf668 JfEfETU6IYTgvEOlF0Nne N3cXrUbQRZuEGQuA2TtsF ThDHhcA534WYzyPgL6LNP zpwAkI4JqANFf gPlvQgC3i9M0Fj4vMC9vK m9vRAOcBS78KI23kRXlo0 V2tGG1I5JyMAGbvrmhpsy fqYG6NKVlLYXg vZ79eOAmQRivBv8nq4J0w 299GMJzANGhxP41Lc8sqW evKLXmaSAXfS1ooukbn0r vcjogIzAwMDAw QLs1IWg8KWHfnGjvJrIwN QE8HsD1NXR7iEUfbP2rwN xpidllmB6hYbl+NzQgWWV ykuS3H7RaRlj4 BUOumVnxVZ7wcOMlZBbiB l2qaWshvHfxSH6yZWAjar vqHXKygX9rEBTciBEifJy zCC6bOTPfwcgv j164LpXmEGT3LUEznQCyT 0StnY9pJaHaGEMbWPJrY5 RxhFZlSJomH995UOcrVdV 5ZXZulqKyZ6Xb XCJsoObbPfB1s2S3Xd9HY YtKRB87PA64rDZjq3Y9bI E5V8VwQWDvovaxkglcsEJ 5RXJxLWNvfT54 aNWyZRccQt8sf8Q4o166E EEoTUYveM95Kw2wnZurFS JblGSUxG4gscvgn8dopsz gIzAwMDAwMDt0 CUu5ERFukJxwYbXmRRI1L pG9XYD3rATrvF9xgUitgp iicW1hDpt+N5K1W5IuCtc vdHI+IB20TEYj XR62cXYxuMKat8incSp7P cLrWFWlTVE5nWhjOBhup8 OzCIXrV87fjUHrv8L8ZDU vbGxhcHNlOyBl oET2qN3wTDgddkqnq2uhq wxgRjlnn0zkpf21jG98Y7 9sIHdpZHRoPSIzMCUiIHZ ajKktpo6ufB7z Ii8+ZWTznYO0iQW2hE0aU sXyCeN8TAmzW241BqNvkA DsDcvkg5bsf7hdsDa6CiV wJSIgdmFsaWdu TDW8x8SnUq63E48iPZlxO HRoPSIyMCUiIHZhbGlnbj 9adV4iRh1+YL8ha9bbfi4 4kM22fBP+PHRk WDC6bSfqZAfoZQNwoI8mQ DvmJsO7PFRwLvInuG44yY BgLDlhSw7lyXcurIxxCV6 ePQVuvuocf245 YqCcc6uwRHYalPQrAZgdB XU6F52hy1D8WSZnGBJgLI Y9dRU0vA3kyNauwfzwxHB mdDsgdmVydGlj LQybSYskA538VJYyaVcmI hBqhOZzP7wksjUYRR6qIj wvdGQ+LVIfJAM4eHvnCTe eFVPugK5oYMBy J1z5NhAvCuD2VNnjY4Rsq bW4JMOqxPJhWAKgjRHUlR 7bqpdkg5ekqfhjMgLxPZV cNIj2PRi6VRTw kTogVmSrLRY9AhO7MSQ2z CFsfA0sbEoilmmftC8sJc c+RklOOjwvdGQ+PHRkIHN 0eWxlPSdwYWRk jP0bYUOnF3o9UaFsPaJ5A EhbC3TqjeE0CERuoWEmKI OpmOOSrB1ufouln4iklui gIzAwMDAwMDt0 UTq8VNNxaBlsTlEiLXC9W iK3WWT2lSPthC9ieXdvaz isvX2jLib+TVJOOjwvdGQ +RDLfXZL4tNvt SSymHUJfpC1wWETsK4u7Q cLdKyK4UGpmI1DyugB1VR GexTBrFPBspOBMnS6vqqi mw7syffucLkOc YPZfTWz6LIo6BZSdyXcyZ aVsHHY4TwQ0KIP8qWPwbR 5jmUisnvjgsT0qRmg+UGF 3ISS9UV45TA29 I6HbMgygdMQkgRQ+PHRhY mxlIHdpZHRoPScxMDAlJy GeaGgnIT7zRz9aBGTeDZO vbGxhcHNlOiBj b2x (more content not included)... [facility] Progress Note - Nurseon - Progress Note - Nurse Pre-op call made for 06-02-2024 surgery- pt given arrival time of 0600 tomorrow. Pt denies being sick. Pt reminded of NPO status after midnight except for any meds that he was instructed to take with sip of water, to bring photo ID and insurance card, no jewelry, and needing escort car driver- pt with understanding. [Electronically Signed on: 06/01/2024 09:27 EDT] Mandy Hanson RN [Verified on: 06/01/2024 09:27 EDT] Mandy Hanson RN [facility] Progress Note - Nurseon - Progress Note - Nurse Dr Yoo reviews pt chart and no new orders were received. [Electronically Signed on: 05/20/2024 11:47 EDT] Yamil, Sidsel RN [Verified on: 05/20/2024 11:47 EDT] Yamil, Sidsel RN [facility] Coding Summaryon 03-21-2024 Coding Summary HTMLBase 64 CbtnrnelAVs0yGq+PGhlY WQ+PR3ALJPsZ93vqGVbiQ 6mR0DCMUcIAyljBZNGZTy FTeLlpqKwDA3egLRhUEZm IC8+HX8zTVAmGmrjfTGzp 4Y4gVP8H82ulq6aXAvgyI N9SEHlPzJdqpruk9gbtXx 6IDcuNmluOyBt ROIuiW92BVS9nN96Da97n DNnbZXnp8btrMg4RiIeEE PvJYS4wOheOJkds6ZpDNB tP19dfCXpg3C4 SCQhjGqyqWStSqHjbTI8r F1fNYsqxlsih9wdagddIq i2ur08xMGpb1J5iCR9J0H dngJ8VJItsRKg QjeqzEVXtB9zflhdh5obh ywsDnLwJAYnIOz1CPd3EX FayUpiMhChRX48XTA7EIA ypaNuO9KzPOLb sHdpWsQ2z2B9Xy4AP2ALM rklC2QCVWAHPBpzmWB+PC 89pn99K4RvVwhrUoe4WRQ dUKP7hOD6aJ3q OFNjHDcti8G7sJT3K8Wxq pSzhl8lg1jvXDXdOFvoT1 8ybZPyp2O5QNUjzBL3TIM cmYshPsRviS51 Oyc+KQEgfMzwr6ThGnwmz 3fjb1mvfFg8OnxcJPEavv GvlWhfSAP8f9TfIr7pNSR faUF0kEF3lE1v InUyDcQ0FOplS768JrUmy WNuKyjwX45oD1XcuZR+PH CiRcu4IJNxeAzgCK0lC4M hZGRpbmctbGVm wGnpNM1cYRZbtympSTShp O3cIRQxH3n6WbFoJvH2ZV irF4RrVJUvsahaZw96mK1 cJePeXyA1IYhd S5BloyY8PYIbrSGwMVamQ RU3X09uk8X1CNEwOFNrVG U3aID2xT3zwOkwzvzmvBN mdDsgdmVydGlj QIckTTffZ039ODYvrQnlV kNvZGluZyBEYXRlOiAgMD cvMjkvMjAyNDwvdGQ+PHR zDYI3uXfhGEVo yYEjOPfzTg1qmJdcdQloK H8aUQSbtaooGTKeeN9hCE ScjJFvzYxrHY1vGPZgkyj kp538PnBjPZB0 FSCgkEDxR8KdcK6sVrLrL MWePBCeC5LevDWaXKqlD7 01CMugOxF1ZQPnnnJdX6V sLWFsaWduOiB0 h6Y6Fa3Jp2SeaoykL4Ybg AGpTtGgZoyoHZo0Q3GhIn wvdHI+IZ01IOXkTJ91YGk 1YVW5vVtkWFgb PVPsQ8YofJ3vDyHcPZBcA GRkOyc+PHRhYmxlIHdpZH RoPScxMDAlJyBzdHlsZT0 cNc6fBVJnKYZm rCuitCPzUfKqs8ymGVWrG RbpOL5mqPndB4MdiBA6ZJ Qfd9t3Up59C61uJ0NebVL +CIUoxJV8zED1 bI9iYdOoYjN3VXnpO945P nOszQQsFhmoc5awk4iagW f8DbD7MRRxmfStlTwtBIU 1k2VgTk93R08o IHdpZHRoPSIxNSUiIHZhb Xgzsx5opC2eJx9+PGNvbC Y7gTM9kA6cUyRbLwH1WAo bT623LxZnmLGe Owsmn5blr4ivoJc2HlNjM NEophGcaFqbZIR6l0HqWu 78L1GvmFivi5CmRri2av1 6fGOoc1M3kET8 E0DdQLRziihkmDCsrIuxB Q6kVUXntcavBQKidD4nUT ExQ1w3UoYeTrO2MDhkZ6L sbdL7TRFnsKZx AAEefAJMoX8mdeycl0wfs eqnYsVgTSGiPIl1MIs8UE LfzDbvKkVhARM8BlI1EQM 3jNOhsT1ldGnj hwpbaB6aXws+APF3iSMtp WXDCS5eCsjxaHB+PHRkIH F9yWhhWZrgYFBqbO3tWCT vX8s4WoFgQxI5 YUflH6SkheK4SHTcwDEjQ YVhpUMFpB4bfsedj7yntx fmGhKmVFIbTIq8YSs2OJL saWduOiBsZWZ0 IhA5OBE6nCQmxK2egOtlx leidG4lZhb+QmlydGggRG W0UVt0M2IjJnb2TATweTg ePC7xsQArHDzo On0odIbucFiuWC0fIILhc hksy439EeOty3psVSFuoV CuPXwdRLV7R78ek9X6SDM jTFYgLUP0iGV2 qI5bcRexazikeQWpcHvhi aYzlCkrTGqeQLbqF091BM OioCpfErHcOBg4Z1YlGda 6LTUjtEtzDC8c cBJcDWdxAf6kmHnzhCxgH O2gHWIaasuef060ZeDkr9 gvTRXklNRfSAmyCQU4S57 zv7N0HEOhUMGc FOX4kBQ1hG7vkBfmrjbew GVmdDsgdmVydGljYWwtYW usO351QPFhaNsdRxAxfUr 6E2IrMmb1VBRb uYwnMD6ciEKrGRojFs0rp OdkwIjiWI6lHEPjxmsxs3 51FgXis9tjXZIkuUMlUYs eMJO2W61vm1M6 KVLcLINdXHO5lLZ3jM0cw GlnbjogbGVmdDsgdmVydG bpCAnzAMwcN853JETllGy nPlBhdGllbnQg RVjqKSy2B2YdCfbwdUM+P K89VGLvCR56fNZhxAMnn5 bajQt3QvNaQDJvSYW1mGx kGQarp9EvHKEr D82dhYYjh8G6EHCtcZqbz BXcVaXlzHK1pT4aBPgahw tns3kdkkkkAmwoa3jugz0 9aA04A05zLXtg ZHRoPSIzMCUiIHZhbGlnb i0yuE5iFx7+JPYuwBB2oS N4pZ4sBWSuTwP4AYejS40 9InRvcCIvPjxj m3pvl8lrkPm2EmV3XHIrf oKapKvkLQG2x3HeWw25I8 9sIHdpZHRoPSIyMCUiIHZ mvIfodl7wtG8j Ii8+QVLytPI3gQI9pE6yB kKzMpD5LGddJ174PyYjvJ EyUvmrN27hD2GhyOO+PHR iXoy3TTRinNeb FC4bnCDmCExbBm1tMYK1S nGsNbJuBQhsF9WeIMUmwp turchpqLG5IFRzBYOcvG4 1Vt8trZasDRQw cLEGpY3mdzvoc1gvgadaB mJkFVErRWi2ZEs9BKDtrO vaRuIoRFR6ZxQ9QDR7cOU wuS3tsLqmlzwo yU0yG4SnEUStfovnUb17u T4yPaEeAjC3HQefHib+UE FPC2qLMnljBLWAKB6DSTA 9H0OqUha4CASo zYppHH4kpEJaEKalNw5be MqytEnfCW8jRZXawrvrQF NbzP1nZOJyyRIcwUybGW0 yCJNqtmzmy528 RjAcCVI2DMEzuLJlQ0Tny K4wUiLkMFVqWJMfQ4EfhB AbPEdtF235FYygLaK7ZOS hpcLdN8YcSVFb bTjwDbM6d1W9Ug7cSG3iK n2uDJHmME64MO85bGFmp5 S4iYF0G0UxDZIfgjdbbip ufSX2MCHpHTVr qO18sOSmFQxoVr4kc1P8a 706REJdZPHdfE86Vw4zhH hoVOWxkOFNkZ6dguegu3d vcjogIzAwMDAw ZTr6LRg5SWLroNscLtXeY OC5WmM3YOQ5zHZakC4otL gfmdzoqZ7uWie+NzMgWWV wqnX9C4KbOpe6 NOBkgFlzOV6auYGdDZgnJ k5rbGsywIvcZL3xZURtrg lbLTUgnG8lNOQyaPMgyEx bJH1yWBUpwmno u616TlKmKAW8MKYppEAvU 1JufB9bAdDhJDOmNZVkX5 ZzdYEhOUlcZ814KUanWzE 0DSYhpePbC1Rx WGHuwUfbZeA0x0N9Dw3NS WvEHZ94NZ15tCAln9S2pL J1A1MuKOEvwqlcoisanAZ 7JQIaQDKksC41 gZFdSIzsRa6ug2W3c253C JHcEHGgvW20Tj0iuEziXF TlbTIOqL7xtinji3xlqmy gIzAwMDAwMDt0 EVr0BKDycYhwRvQiGQU4P wF8NTN7zKAkuC8jgKqdnw hitX2iTbh+QUN4KXD5zmx lkll1Y1FlCdzp dHI+PE48CCPcPA91wPSry ZZlp0ygnBs5TtAyEETiRQ V0vNiaQGqrv7WmSHNyJ99 bfVGdh4L0MZKn yBgxzLUsApVlrVY9eH2bP Tauldtuz7akrvrhIpkgi4 xkaq72gF81F41aVStvYGS oPSIzMCUiIHZh qZmoog8mzT0mAc5+PGNvb EW1pJJ5dJ5pHaZrGvA6CR aiE151PcMycJVgIiqim1t ro0pftKg1FrLd PYVrneFhaSivHUL5p5WtH p96K30pHZgmVLFaRTUtYN JoHPHspJxczd4ufP5fTc4 +CR7fz2vckd78 yT79jGL+ARQlDSL5nXfdV DbdJBRpsY5xIPjsJtI2YR DcGfUqoY50fDFrBMxfPf0 djLtqsXmfJW1r VNMhzhvri852JvRba6lmT LQkiHWkTAcjXFS5P00qt8 R5BKQgKBOkVUJ9uZX2eS8 hbGlnbjogbGVm dDsgdmVydGljYWwtYWxpZ 647NKDgoSlzTkNddCSnE6 innfXSOU1oCsbznPE+PHR eQEO5xZmiSUvq BUZmrU5xQBZkR8x5RqUwS dR2QRaxF9OkhuX6MLQjbR BmMPWsoMCKoR9fizoup8f vcjogIzAwMDAw MPq9MAn5VOHbyVvwFvKyL QJ2XqM4GUW5rNUqiI8nxT bypftfaQ6xXnr+RklOOjw vdGQ+PHRkIHN0 rZbcFGgwIFTqdA0pSUKwC 1h3VrKfTsJ2GNwuY5Zecq I1VAVjsFKoDPEhtOMAyU6 iytzzi2vqhyyg NvAyPIIrFPt4KYw5RRDmy PecWnYjGOL0ZxO0FGS1bZ DieJ9bcPcipjbfbE5dMfa +TVJOOjwvdGQ+ JBHdLYX0yVeiWVavZGXdd M5fKNKcX9r8LbKtYwY6QV kwV3HhlhF0TEFxoEYzKTO jvRYThV9wkkwn m4gwelgcRpLaOSSmPOy7B Pb2MGZvsTnjLhYzPOK8Zu E5QAC3wIDwwJ5wnKsrgiq nbY3aZvv+UGF5 OLW3XI21SY16I3XgKpwva GFibGU+PHRhYmxlIHdpZH RoPScxMDAlJyBzdHlsZT0 aIb5mJNStAEUb bGx (more content not included)... [facility] Provider Orderson 03-21-2024 Provider Orders [id number]. [facility] 03-18-2024 Consent Forms [id number]#1. 00[facility] Inpatient Patient Summaryon 03-17-2024 Inpatient [place] [address] Patient Discharge Instructions Name: RUDY RICARDO Ankit : 1950 Patient Address: [address] [place] [address] Primary Care Provider: Name: Aayush Escudero After you are discharged if you find you have any questions, please, call [phone] ext [phone] to speak to a nurse. Discharge Diagnosis: [...] problems; contact the Mental Health & Recovery Board [facility] 16/03 Crisis Hotline -Text 4OVBH pg [phone]. If you received any narcotics, sedation, or [...] business decisions or sign any legal documents [facility] would like to thank you for allowing [...] Strep Thro (more content not included)... Normal [facility] MAGR Intraoperative Recordon 03-17-2024 MAGR Intraoperative Record MAGR Intra-Op Record Summary Primary Physician: Lane Chen MD Finalized Date/Time: 03/17/24 13:58:17 Pt. Name: RICARDO GRANT Ankit Mims/Sex: 1950 MALE Med Rec #: [id number] Physician: Lane Chen MD Financial #: [id number] Pt. Type: D Room/Bed: / Admit/Disch: 03/17/24 [...] RN, Beryl Role Performed Surgeon - Primary Brush Maker Machine Brush Maker Machine Time In 03/17/24 13:53:00 03/17/24 13:44:00 03/17/24 13:44:00 Time Out 03/17/24 13:57:00 03/17/24 13:59:00 03/17/24 13:59:00 Procedure Cystoscopy Local Cystoscopy Local Cystoscopy Local Last Modified By: Ann Huang RN, Erica RN Baumer, Erica RN 03/17/24 13:58:13 03/17/24 13:58:13 03/17/24 13:58:13 Entry 4 Entry 5 Entry 6 Case Attendee Lauren Palma RN, Kelly CHIEF OPERATOR REFORMER Iwona Loza CHIEF OPERATOR REFORMER Role Performed Brush Maker Machine Scrub Personnel Commercial Attorney Time In 03/17/24 13:44:00 03/17/24 13:44:00 03/17/24 [...] RN, Louie Cordoba Diane RN, Imelda Balderrama CHIEF OPERATOR REFORMER, Iwona Loza CHIEF OPERATOR REFORMER Last Modified By: Ann Huang RN 03/17/24 [...] to prevent (more content not included)... [facility] MAGR Pre-Op Record Summary Primary Physician: Lane Chen MD Finalized Date/Time: 03/17/24 14:10:40 Pt. Name: RICARDO GRANT/Sex: 1950 MALE Med Rec #: [id number] Physician: Lane Chen MD Financial #: [id number] Pt. Type: D Room/Bed: / Admit/Disch: 03/17/24 [...] By: Sandy Ward RN 03/17/24 14:10 Normal [facility] Patient Handouton 03-17-2024 Patient Handout Normal [facility] CBC AUTO DIFFon 04-03-2022 BASO # 0.0 103/ul Normal 0.0-0.1 [facility] Comment on above: Performed By: #### C BC #### [facility] [address] [place] [address] Dr. Ashley Elizabeth Basophils/100 WBC (Bld) 0.5 % Normal 0.2-2.0 [facility] Comment on above: Performed By: #### C BC #### [facility] [address] [place] [address] Dr. Ashley Elizabeth EO # 0.1 103/ul Normal 0.0-0.7 [facility] Comment on above: Performed By: #### C BC #### [facility] [address] [place] [address] Dr. Ashley Elizabeth Eosinophils/100 WBC (Bld) 0.9 % Normal 0.9-7.0 [facility] Comment on above: Performed By: #### C BC #### [facility] [address] [place] [address] Dr. Ashley Elizabeth Erythrocyte distribution width (RBC) [Ratio] 12.7 % Normal 11.0-15.0 [facility] Comment on above: Performed By: #### C BC #### [facility] [address] [place] [address] Dr. Ashley Elizabeth Hematocrit (Bld) [Volume fraction] 42.9 % Normal 42.0-54.0 [facility] Comment on above: Performed By: #### C BC #### [facility] [address] [place] [address] Dr. Ashley Elizabeth Hemoglobin (Bld) [Mass/Vol] 14.2 g/dL Normal 14.0-18.0 [facility] Comment on above: Performed By: #### C BC #### [facility] [address] [place] [address] Dr. Ashley Elizabeth IG # 0.04 10e3/ul Critically high 0.00-0.03 [facility] Comment on above: Performed By: #### C BC #### [facility] [address] [place] [address] Dr. Ashley Elizabeth IG % 0.5 % Normal 0.0-0.5 [facility] Comment on above: Performed By: #### C BC #### [facility] [address] [place] [address] Dr. Ashley Elizabeth LYMPH # 2.2 103/ul Normal 1.2-3.8 [facility] Comment on above: Performed By: #### C BC #### [facility] [address] [place] [address] Dr. Ashley Elizabeth Lymphocytes/100 WBC (Bld) 27.7 % Normal 20.5-60.0 [facility] Comment on above: Performed By: #### C BC #### [facility] [address] [place] [address] Dr. Ashley Elizabeth MANUAL DIFF REQ NO Normal [facility] Comment on above: Performed By: #### C BC #### [facility] [address] [place] [address] Dr. Ashley Elizabeth MCH (RBC) [Entitic mass] 31.6 pg Normal 25.9-34.0 [facility] Comment on above: Performed By: #### C BC #### [facility] [address] [place] [address] Dr. Ashley Elizabeth MCHC (RBC) [Mass/Vol] 33.1 g/dL Normal 29.9-35.2 [facility] Comment on above: Performed By: #### C BC #### [facility] [address] [address] [address] Ashley Elizabeth MCV (RBC) [Entitic vol] 95.5 fL Critically high 80.0-94.0 [facility] Comment on above: Performed By: #### C BC #### [facility] [address] [address] [address] Ashley Elizabeth MONO # 0.6 103/ul Normal 0.3-0.8 [facility] Comment on above: Performed By: #### C BC #### [facility] [address] [address] [address] Ashley Elizabeth Monocytes/100 WBC (Bld) 7.2 % Normal 1.7-12.0 [facility] Comment on above: Performed By: #### C BC #### [facility] [address] [address] [address] Ashley Elizabeth NEUT # 5.0 103/ul Normal 1.4-6.5 [facility] Comment on above: Performed By: #### C BC #### [facility] [address] [address] [address] Ashley Elizabeth Neutrophils/100 WBC (Bld) 63.2 % Normal 43.0-75.0 [facility] Comment on above: Performed By: #### C BC #### [facility] [address] [address] [address] Ashley Elizabeth Platelet mean volume (Bld) [Entitic vol] 9.0 fL Critically low 9.5-13.5 [facility] Comment on above: Performed By: #### C BC #### [facility] [address] [address] [address] Ashley Elizabeth PLT 213 103/ul Normal 150-450 [facility] Comment on above: Performed By: #### C BC #### [facility] [address] [address] [address] Ashley Elizabeth RBC 4.49 106/ul Critically low 4.70-6.10 [facility] Comment on above: Performed By: #### C BC #### [facility] [address] [address] [address] Ashley Elizabeth WBC 7.9 103/ul Normal 4.0-11.0 [facility] Comment on above: Performed By: #### C BC #### [facility] [address] [address] [address] Ashley Elizabeth DIRECT LDLon 04-03-2022 Cholesterol in LDL [Mass/Vol] 105 mg/dL Normal [facility] Comment on above: Performed By: #### B OLGA LIDIA RODRIGUEZL, ALT #### [facility] [address] [place] [address] Dr. Ashley Elizabeth DLDL NORMAL SEE BELOW Normal [facility] Comment on above: Result Comment: <100 mg/dl OPTIMAL 100 - 129 mg/dl NEAR OR ABOVE OPTIMAL 130 - 159 mg/dl BORDERLINE HIGH 160 - 189 mg/dl HIGH >190 mg/dl VERY HIGH Performed By: #### B OLGA LIDIA RODRIGUEZL, ALT #### [facility] [address] [address] [address] Ashley Elizabeth PROF CHEM 8 (BAS METB)on Anion gap [Moles/Vol] 13.9 mmol/L Normal [facility] Comment on above: Performed By: #### B OLGA LIDIA RODRIGUEZL, ALT #### [facility] [address] [place] [address] Dr. Ashley Elizabeth Calcium [Mass/Vol] 9.1 mg/dL Normal 8.5-10.1 [facility] Comment on above: Performed By: #### B OLGA LIDIA RODRIGUEZL, ALT #### [facility] [address] [place] [address] Dr. Ashley Elizabeth Chloride [Moles/Vol] 101 mmol/L Normal 98-107 [facility] Comment on above: Performed By: #### B OLGA LIDIA RODRIGUEZL, ALT #### [facility] [address] [place] [address] Dr. Ashley Elizabeth CO2 [Moles/Vol] 24.6 mmol/L Normal 21.0-32.0 [facility] Comment on above: Performed By: #### B OLGA LIDIA RODRIGUEZL, ALT #### [facility] [address] [address] [address] Ashley Elizabeth Creatinine [Mass/Vol] 1.28 mg/dL Normal 0.70-1.30 [facility] Comment on above: Performed By: #### B MP, DLDL, ALT #### [facility] [address] [address] [address] Ashley Elizabeth EGFR-AF ALBANIAN >60 Normal >=60 [facility] Comment on above: Performed By: #### B MP, DLDL, ALT #### [facility] [address] [address] [address] Ashley Elizabeth EGFR-NON AF ALBANIAN 55 mL/min/1.73m2 Critically low >=60 [facility] Comment on above: Performed By: #### B MP, DLDL, ALT #### [facility] [address] [address] [address] Ashley Elizabeth Glucose [Mass/Vol] 121 mg/dL Critically high 74-106 [facility] Comment on above: Performed By: #### B MP, DLDL, ALT #### [facility] [address] [address] [address] Ashley Elizabeth Potassium [Moles/Vol] 4.5 mmol/L Normal 3.5-5.1 [facility] Comment on above: Performed By: #### B MP, DLDL, ALT #### [facility] [address] [address] [address] Ashley Elizabeth Sodium [Moles/Vol] 135 mmol/L Critically low 136-145 [facility] Comment on above: Performed By: #### B MP, DLDL, ALT #### [facility] [address] [address] [address] Ashley Elizabeth Urea nitrogen [Mass/Vol] 24.0 mg/dL Critically high 7.0-18.0 [facility] Comment on above: Performed By: #### B MP, DLDL, ALT #### [facility] [address] [address] [address] Ashley Elizabeth Urea nitrogen/Creatinine [Mass ratio] 18.8 mg/mg Normal [facility] Comment on above: Performed By: #### B MP, DLDL, ALT #### [facility] [address] [place], [place] [address] Dr. Ashley Taveras 04-03-2022 ALT [Catalytic activity/Vol] 45 U/L Normal 16-63 [facility] Comment on above: Performed By: #### B MP, DLDL, ALT #### [facility] [address] [place], [place] [address] Dr. Ashley Dumont 02-07-2022 L - -------- Specimen: [id number] Received: 02/07/22 Status: JESUS Cookie Num: [id number] Spec Type: Surgical Subm Dr: Chintan Dsouza Jr, DO Tissues: A Colon - Polyp (ASCENDING POLYPS) B Colon - Polyp (TRANSVERSE POLYP) Procedures: HE Stain/4, Gross/Micro L4/2 -------- Patient Age/Sex Location Account Attending Physician -------- Ricardo Grant/Surjit [id number] Chintan Dsouza Jr, DO -------- SPEC NUM: [id number] RECD: 02/07/22 STATUS: JESUS GARY NUM: [id number] KARLY: 02/07/22 DR: Chintan Dsouza Jr, ENTERED: 02/07/[address]: ELENA TYPE: Surgical DEPT: S [...] of Fixative: 10% Neutral Buffered Formalin (SM/YJ) B. Received in formalin labeled with the patient's name, number and transverse colon polyp are multiple peraza-pink tissue fragments aggregating 1.3 x 0.9 x 0.4 cm, entirely submitted in one cassette labeled B1. Type of Fixative: 10% Neutral Buffered Formalin (SM/YJ) -------- Specimen: [id number] Received: 02/07/22 Status: JESUS Gary Num: [id number] Spec Type: Surgical Subm Dr: Chintan Dsouza Jr, DO Tissues: A Colon - Polyp (ASCENDING POLYPS) B Colon - Polyp (TRANSVERSE POLYP) Procedures: HE Stain/4, Gross/Micro L4/2 -------- Patient: Ricardo Grant [id number] (Continued) -------- Specimen: [id number] Received: 02/07/22 (Continued) Signed (signature on file) Arley Poole MD 02/10/22 1455 -------- Specimen: [id number] Received: 02/07/22 Status: JESUS Gary Num: [id number] Spec Type: Surgical Subm Dr: Chintan Dsouza Jr, DO Tissues: A Colon - Polyp (ASCENDING POLYPS) B Colon - Polyp (TRANSVERSE POLYP) Procedures: HE Stain/4, Gross/Micro L4/2 -------- Patient: Ricardo Grant [id number] (Continued) -------- Specimen: [id number] Received: 02/07/22 (Continued) Microscopic Description A, Two H E stained slides are reviewed. Microscopic examination is performed. B. Two H E stained slides are reviewed. Microscopic examination is performed. This case is interpreted at [place], [place] CPT Codes A. [address] B. [address]54 -------- -------- Specimen: [id number] Received: 02/07/22 Status: JESUS Gary Num: [id number] Spec Type: Surgical Subm Dr: Chintan Dsouza Jr, DO Tissues: A Colon - Polyp (ASCENDING POLYPS) B Colon - Polyp (TRANSVERSE POLYP) Procedures: HE Stain/4, Gross/Micro L4/2 -------- Patient: Ricardo Grant [id number] (Continued) -------- Signed (signature on file) Arley Poole MD 02/10/22 1455 [facility] COVID-19 Antigenon 2 COVID-19 Antigen Healthcare [...] developed and its performance characteristic determined by [employer] and validated at [facility]. This test has not been FDA cleared [...] for SARS Antigen by [employer] PERFORMED BY: [place] [id number] PATHOLOGIST CLIENT SERVER DEVELOPER SHERRELL WILLS M.D. Normal [facility] Comment on above: Performed By: #### S OFKRISSEG, COVID-19 ALANIS #### [address] Alanis Ag Negativeon 02-06-20 22 Alanis Ag Negative Negative Normal Negative [facility] Comment on above: Result Comment: This is a duplicate Alanis SARS Antigen ([employer]) result to be used for statistical tracking purpose only. PERFORMED BY: [place] [id number] PATHOLOGIST CLIENT SERVER DEVELOPER SHERRELL WILLS M.D. Performed By: #### S EBONY, COVID-19 ALANIS #### [place] [id number] [facility] OBSOLETEon 09-03-2018 OBSOLETE Refill (HODAMN) RICARDO GRANT ([id number]) 1950 M Date Time Provider Department 09/03/18 BIANCA RIVERA During your visit today, we recorded the following information about you: Nika Olivier [facility] 09/03/2018 3:41 PM Signed Fax from pharmacy requesting refill. Please E-Scribe. Pending Prescriptions Disp Refills PRAVASTATIN 80 MG TABLET Sig: Take 1 tablet by mouth once daily. JUVE: No Pharmacy Name / Store Number: [facility] Pharmacy Phone #: [phone] [facility] Gloria Reynoso RN, RN 09/03/2018 5:01 PM Signed Medication and dose reviewed. Last refill historical. Last office visit 12/25/17. Future appointment: not scheduled at this time. Appropriate for refill. Please review and if approved e-prescribe as requested below. Routed to [facility]. Gloria Reynoso RN September 03, 2018 5:01 [...] Status:Closed by NIKA THOMAS on 05/25/19 Normal [facility] Vital Signs Date Time Vital Sign Value Performing Clinician Facility 07-19-2024 09:14-0500 Body mass index (BMI) [Ratio] 31.76 kg/m2 Devon Rowell MD Work Phone: [facility] 07-19-2024 09:14-0500 Body weight 83.92 kg Devon Rowell MD Work Phone: [facility] 07-19-2024 09:14-0500 Diastolic blood pressure 56 mm[Hg] Devon Rowell MD Work Phone: [facility] 07-19-2024 09:14-0500 Heart rate 64 /min Devon Rowell MD Work Phone: [facility] 07-19-2024 09:14-0500 Systolic blood pressure 131 mm[Hg] Devon Rowell MD Work Phone: [facility] 06-23-2024 10:22-0400 Body height 160 cm Juan Drummond DPM Work Phone: [facility] 06-23-2024 10:22-0400 Body mass index (BMI) [Ratio] 31.89 kg/m2 Juan Drummond DPM Work Phone: [facility] 06-23-2024 10:22-0400 Body weight 81.65 kg Juan Drummond DPM Work Phone: [facility] 06-23-2024 10:22-0400 Diastolic blood pressure 80 mm[Hg] Juan Drummond DPM Work Phone: [facility] 06-23-2024 10:22-0400 Heart rate 81 /min Juan Drummond DPM Work Phone: [facility] 06-23-2024 10:22-0400 Systolic blood pressure 126 mm[Hg] Juan Drummond DPM Work Phone: [facility] 04-10-2023 09:00-0400 Body height 162.56 cm Aayush Ball Other [facility] Other 04-10-2023 09:00-0400 Body mass index (BMI) [Ratio] 31.31 kg/m2 Aayush Ball Other [facility] Other 04-10-2023 09:00-0400 Body weight 82.74 kg Aayush Escudero Other [facility] Other 04-10-2023 09:00-0400 Respiratory rate 56 /min Aayush Escudero Other [facility] Other Encounters Encounter Date Encounter Type Care Provider Facility Start: 10-28-2024 End: 11-02-2024 Telephone encounter Cornelio Duncan [facility] Comment on above: Med Refill Start: 10-25-2024 End: 10-26-2024 Telephone encounter Merlene Beckman [facility] Comment on above: Med Refill Start: 07-19-2024 End: 07-19-2024 Office outpatient visit 25 minutes Devon Rowell MD [facility] Comment on above: Cryptogenic stroke ( CMS-HCC) (Primary Dx) Start: 07-19-2024 End: 07-19-2024 ambulatory [facility] Start: 07-12-2024 End: 07-12-2024 ambulatory Aayush Escudero Facility:[facility] Start: 06-23-2024 End: 06-23-2024 Bamboo flowsheet Juan Drummond DPM Work Phone: [facility] Start: 06-23-2024 End: 06-23-2024 Bamboo flowsheet Juan Drummond DPM Work Phone: [facility] Start: 06-23-2024 End: 06-23-2024 Patient encounter procedure Juan Drummond DPM Work Phone: [facility] Comment on above: Other polyneuropathy (Primary Dx); Pain due to onychomycosis of toenails of both feet Start: 06-23-2024 End: 06-23-2024 ambulatory JUAN DRUMMOND Not Available Start: 06-10-2024 End: 06-10-2024 ambulatory KATRIN Eddy [facility] Start: 06-09-2024 End: 07-15-2024 ambulatory [facility] Comment on above: Expressive aphasia ( Primary Dx); Other cerebrovascular vasospasm and vasoconstriction Start: 06-08-2024 End: 06-14-2024 Telephone encounter Jodee Khan [facility] Comment on above: Care Navigation Start: 06-07-2024 End: 06-08-2024 Telephone encounter Nga Hong [facility] Comment on above: Hospital Follow-up Start: 06-04-2024 End: 06-07-2024 Evaluation and management of inpatient CARMELITA Contreras [facility] Start: 06-04-2024 ambulatory [facility] Start: 06-04-2024 ambulatory [facility] Start: 06-02-2024 End: 06-02-2024 ambulatory [facility] Facility:[facility] Start: 05-18-2024 End: 05-18-2024 ambulatory [facility] Facility:[facility] Start: 03-24-2024 End: 03-24-2024 ambulatory JUAN DRUMMOND Not Available Start: 03-17-2024 End: 03-17-2024 ambulatory [facility] Facility:[facility] Start: 05-15-2023 End: 05-15-2023 ambulatory Aayush Escudero Other [facility] Other Start: 05-15-2023 Nursing evaluation o f patient and report Aayush Escudero [facility] Start: 04-13-2023 End: 04-13-2023 ambulatory Aayush Escudero Other [facility] Other Start: 04-13-2023 Telephone encounter Aayush Escudero FP [facility] Start: 04-10-2023 End: 04-10-2023 ambulatory Aayush Escudero Other [facility] Other Start: 04-10-2023 Patient encounter procedure Aayush Escudero [facility] Start: 04-03-2022 End: 04-04-[address] AAYUSH ESCUDERO Facility:[facility] Start: 06-11-2021 End: 06-11-2021 ambulatory GURVINDER BROOKS Facility:[facility] Procedures Date Procedure Procedure Detail Performing Clinician Start: 07-19-2024 Adult depression screening assessment Devon Rowell MD Work Phone: Start: 06-04-2024 Adult depression screening assessment Nga Hong RN Start: 04-03-[address] FLORES [facility] Comment on above: Performed By: #### P [facility] #### [facility] [address] [place] [address] Dr. Ashley Elizabeth Plan of Treatment Date Care Activity Detail Author Start: 07-19-2025 Adult BMI Screening Adult BMI Screening [facility] Start: 07-19-2025 Depression Screening Depression Screening [facility] Start: 07-19-2025 Tobacco Screening Tobacco Screening [facility] Start: 06-05-2025 Adult BMI Screening Adult BMI Screening [facility] Start: 06-04-2025 Depression Screening Depression Screening [facility] Start: 06-04-2025 Tobacco Screening Tobacco Screening [facility] Start: 12-08-2024 End: 12-08-2024 Patient encounter procedure 12/08/2024 10:00 AM EDT Procedure Visit [facility] [address] [facility] [facility] [address] [place] [id number] Juan Drummond, DPM [address] [facility] [address] [place] [address] [facility] Start: 07-19-2024 End: 07-19-2024 Patient encounter procedure 07/19/2024 9:30 AM EST Office Visit [facility] [address] [place] [id number] Devon Rowell MD [address] [place] [address], [address], [address], [address] [place], [place] [id number] [facility] Start: 06-23-2024 End: 06-23-2024 Patient encounter procedure 06/23/2024 10:30 AM EDT Procedure Visit [facility] [address] [facility] [address] [place] [address] Juan Drummond DPM [address] [facility] [address] [place] [address] Other polyneuropathy (Primary Dx); Pain due to onychomycosis of toenails of both feet [facility] Comment on above: Other polyneuropathy (Primary Dx); Pain due to onychomycosis of toenails of both feet Start: 06-09-2024 End: 06-09-2025 Wireless Telemetry (In Office) [facility] Phone: Comment on above: Expected: 06/09/2024, Expires: Start: 06-09-2024 End: 06-09-2024 Professional / ancillary services management 06/09/2024 10:45 AM EDT Ancillary Procedure [facility] [address] [place] [address] Expressive aphasia; Other cerebrovascular vasospasm and vasoconstriction [facility] Comment on above: Expressive aphasia; Other cerebrovascular vasospasm and vasoconstriction Start: 04-24-2024 COVID-19 Vaccine ( season) COVID-19 Vaccine ( season) [facility] [employer] Start: 2015 Abdominal aortic aneurysm screening Abdominal Aortic Aneurysm (AAA) Screen [facility] [employer] [facility] Start: 2015 Fall Risk Screening Fall Risk Screening [facility] Start: 2000 Administration of varicella zoster vaccine Zoster (Shingles) Vaccine (1 of 2) [facility] [employer] [facility] Start: 1969 DTaP,Tdap and Td Vaccines (1 - Tdap) DTaP,Tdap and Td Vaccines (1 - Tdap) [facility] [employer] [facility] Start: 1968 Adult BMI Follow Up Plan Adult BMI Follow Up Plan [facility] [employer] [facility] Start: 1950 Medicare Annual Wellness Visit Medicare Annual Wellness Visit [facility] Start: 1950 Screening for malignant neoplasm of colon [facility] Immunizations Immunization Date Immunization Notes Care Provider Fa cility 05-18-2024 influenza, high dose seasonal, preservative-free Nga Hong RN [facility] 06-22-2023 RSV, recombinant, protein subunit RSVpreF, adjuvant reconstituted, 0.5 mL, PF Nga Hong RN [facility] 05-15-2023 influenza virus vaccine, unspecified formulation Nga Hong RN [facility] 05-15-2023 influenza, high dose seasonal, preservative-free Aayush Escudero Other [facility] Other 05-06-2022 Influenza Vaccine, Quadrivalent, Adjuvanted Nga Hong RN [facility] 05-06-2022 influenza, high dose seasonal, preservative-free Aayush Escudero Other [facility] Other 05-05-2022 COVID-19 Vaccine Pfi zer - Documentation Purposes Only Aayush Esucdero Other [facility] Other 12-18-2021 COVID-19 Vaccine Pfi zer - Documentation Purposes Only Aayush Escudero Other [facility] Other 05-17-2021 influenza virus vaccine, split virus (incl. purified surface antigen) Aayush Escudero Other [facility] Other 05-17-2021 influenza virus vaccine, unspecified formulation Nga Hong RN [facility] 04-27-2020 influenza virus vaccine, split virus (incl. purified surface antigen) Aayush Escudero Other [facility] Other 04-27-2020 influenza virus vaccine, unspecified formulation Nga Hong RN [facility] 05-12-2019 Seasonal trivalent influenza vaccine, adjuvanted, preservative free Nga Hong RN [facility] 05-06-2018 influenza virus vaccine, split virus (incl. purified surface antigen) Aayush Escudero Other [facility] Other 05-06-2018 Seasonal trivalent influenza vaccine, adjuvanted, preservative free [facility] 05-01-2017 influenza virus vaccine, split virus (incl. purified surface antigen) Aayush Escudero Other [facility] Other 05-01-2017 influenza, high dose seasonal, preservative-free [facility] 02-26-2017 pneumococcal polysaccharide vaccine, 23 valent Aayush Escudero Other [facility] Other 06-18-2016 influenza virus vaccine, split virus (incl. purified surface antigen) Aayush Escudero Other [facility] Other 06-18-2016 influenza virus vaccine, unspecified formulation [facility] 02-18-2016 pneumococcal conjuga te vaccine, 13 valent Aayush Escudero Other [facility] Other 06-11-2015 influenza virus vaccine, split virus (incl. purified surface antigen) Aayush Escudero Other [facility] Other 06-11-2015 influenza virus vaccine, unspecified formulation Nga Hong RN [facility] [employer] Payers Date Payer Category Payer Private Health Insurance [facility] [id number] 2023 Managed Care Other (unspecified) [facility] [id number] 2023 Unknown [id number] 2015 Unknown [id number] 2015 Medicare [id number] 1959 Medicare [id number] 1959 Unknown [id number] 1950 Unknown [id number] 2.16.840.1.305556.3.579.2. 593 1950 Unknown [id number] 2.16.840.1.497761.3.579.2. 593 1950 Unknown [id number] 2.16.840.1.773497.3.579.2. 1259 1950 Unknown [id number] 2.16.840.1.898134.3.579.2. 1259 1950 Unknown [id number] 2.16.840.1.429908.3.579.2. 1286 1950 Unknown [id number] 2.16.840.1.910609.3.579.2. 128 1950 Unknown [id number] 2.16.840.1.723097.3.579.2. 128 1950 Unknown [id number] 2.16.840.1.266434.3.579.2. 128 1950 Unknown [id number] 2.16.840.1.327744.3.579.2. 1286 1950 Unknown [id number] 2.16.840.1.458607.3.579.2. 1286 1950 Unknown [id number] 2.16.840.1.206959.3.579.2. 1286 1950 Unknown [id number] 2.16.840.1.873571.3.579.2. 718 1950 Unknown [id number] 2.16.840.1.807576.3.579.2. 718 1950 Unknown [id number] 2.16.840.1.424094.3.579.2. 718 1950 Unknown [id number] 2.16.840.1.148709.3.579.2. 718 Social History Date Type Detail Facility Start: 03-24-2024 End: 07-19-2024 Sex Assigned At [facility] Start: 03-24-2024 End: 06-04-2024 Tobacco smoking status [facility] Ex-smoker [facility] Start: 08-24-2010 End: 03-24-1984 History of tobacco use Current smoker [facility] Start: 08-24-2010 End: 03-24-1984 History of tobacco use Cigarette Smoker [facility] Start: 03-24-2024 Tobacco use and exposure Former smokeless tobacco user [facility] Start: 06-17-2024 End: 07-19-2024 Alcoholic beverage intake Current drinker of alcohol (finding) [facility] Start: 06-17-2024 End: 07-19-2024 Alcoholic beverage intake [facility] Start: 1950 Sex assigned at Not on file [facility] Start: 06-04-2024 Tobacco use and exposure Smokeless tobacco non-user [facility] Has the Hangtime, gas, oil, or water [employer] threatened to shut off services in your home in past 12Mo No [facility] How often to you hav e a drink containing alcohol? Monthly or less [facility] How many standard drinks containing alcohol do you have on a typical day? 3 or 4 [facility] How often do you hav e 6 or more drinks on 1 occasion? Never [facility] How hard is it for you to pay for the very basics like food, housing, medical care, and heating Not hard at all [facility] Start: 1950 Sex assigned at Male [facility] Start: 06-01-2024 Sex Male (finding) [facility] Start: 06-05-2024 Gender identity Identifies as male gender (finding) [facility] NEGATED: Highlighted rowStart: NINF History of tobacco use Passive smoker [facility] Goals Date Patient Goal Desired Activity /State Personal health goal Comment on above: Formatting of this n ote might be different from the original. Evaluation of progress towards goal: Patient is planning to transition home with self care/family assist at discharge. Clinical Notes 04-10-2023 to 10-28-2024 Telephone Encounter - Cornelio Duncan CMA - 10/28/2024 11:29 AM ESTTelephone Encounter - Meka Danielle RN - 10/28/2024 11:29 AM ESTTelephone Encounter - Merlene Beckman CMA - 10/28/2024 11:29 AM EST Note Date & Type Note Facility 10-28-2024 Miscellaneous Notes Formattin g of this note might be different from the original. Images from the original note were not included. Refill Request: rosuvastatin (CRESTOR) 20 mg tablet Sig: Take 1 tablet (20 mg total) by mouth nightly. Last Refilled: 07/30/2024 Last Seen: 07/19/2024 Deferred to PCP, and patient was notified. Please call pharmacy and inform them as well. Pharmacy notified. documented in this encounter [facility] 10-28-2024 Telephone encount er Note Images from the original note were not included. Refill Request: rosuvastatin (CRESTOR) 20 mg tablet Sig: Take 1 tablet (20 mg total) by mouth nightly. Last Refilled: 07/30/2024 Last Seen: 07/19/2024 [facility] 10-28-2024 Telephone encount er Note Deferred to PCP, and patient was notified. Please call pharmacy and inform them as well. [facility] 10-28-2024 Telephone encount er Note Pharmacy notified. [facility] 10-25-2024 Miscellaneous Notes Formattin g of this note might be different from the original. Images from the original note were not included. Refill request RX: Rosuvastatin 20 mg tablet Sig: take one tablet by mouth at night Last filled: 07/19/24 Last appt: 07/19/24 Next appt: follow up as needed Relayed message. Patient voiced understanding. documented in this encounter [facility] 10-25-2024 Telephone encount er Note Images from the original note were not included. Refill request RX: Rosuvastatin 20 mg tablet Sig: take one tablet by mouth at night Last filled: 07/19/24 Last appt: 07/19/24 Next appt: follow up as needed [facility] 10-25-2024 Telephone encount er Note Relayed message. Patient voiced understanding. [facility] 07-19-2024 History of Presen t illness Narrative Images from the original note were not included. [address] [facility] [address] Patient: Ricardo Grant Date of : 1950 Encounter Date: 07/19/2024 History of Present Illness: Ricardo Grant is a 74 y.o. male, a new patient, and is here for follow up from inpatient evaluation for transient episode of expressive aphasia. Patient has past medical history notable for COPD, hypertension, pure hypercholesterolemia, BPH, and bilateral frontoparietal ischemic strokes. Patient was seen in the hospital on 06/05/2024 after an an episode of transient aphasia and being found down by his . Patient had been recently discharged from the hospital after a minimally invasive laser surgery for his benign prostate hyperplasia. Patient was initially evaluated outside hospital which included a noncontrast CT head which was negative for any acute intracranial findings. Patient was then transferred to [facility] for further evaluation. While inpatient,a CTA was obtained which showed no acute vessel pathology. MRI brain was obtained which showed left frontoparietal and right frontal hemispheric ischemic lesions concerning for cardioembolic phenomenon. An echo was obtained which showed an EF of 55-60% with no LV thrombus noted. Patient was noted to be septic concerning for urinary source as he had recently undergone surgery for minimally invasively laser surgery for BPH. Patient's symptoms improved during his hospitalization, however it was noted that patient had an episode of becoming limp while washing his hands and stopped responding to questions there was concern for facial droop however no side was specified. Patient had no further episodes of transient aphasia after this. Patient was instructed to continue on aspirin 81 mg daily and Crestor 20 mg nightly. Patient was discharged with an event monitor. Event monitor was obtained and completed which showed no episodes of atrial fibrillation/flutter. No Teddy arrhythmias and 1 episode of 8 beat wide complex tachycardia with a rate of 133 at 4:18 a.m.. Patient states he might have been getting up to go use the restroom at that time. Today, patient is accompanied by his and daughter. Patient states that overall he is doing well and has had no further episodes of transient aphasia. Patient states that he has been taking his aspirin and Crestor regularly and has had no side effects. Patient states he has been monitoring his blood pressure and has kept a log. Patient states his blood pressure has been around 130s to 150 systolic. Patient denies any previous or current chest pain, chest palpitations, abdominal pain, nausea, vomiting, headache, dizziness, weakness, any seizure-like activity. Patient has no other questions or concerns at this time. Discussed with the patient that they can follow up with us as needed if there was any further questions or concerns regarding his stroke. Subjective Review of Systems: Review of Systems Constitutional: Negative for chills and fever. HENT: Negative for hearing loss. Eyes: Negative for visual disturbance. Respiratory: Negative for chest tightness and shortness of breath. Cardiovascular: Negative for chest pain and palpitations. Gastrointestinal: Negative for abdominal pain, nausea and vomiting. Genitourinary: Positive for frequency. Skin: Negative for rash. Neurological: Negative for dizziness, seizures and headaches. Psychiatric/Behavioral: Negative for confusion. Review of Relevant Patient Questionnaires: PHQ-9: 07/19/2024 9:14 AM 06/04/2024 6:09 PM PM AMB PHQ 9 Little interest or pleasure in doing things 0 0 Feeling down, depressed, or hopeless 0 0 Trouble falling or staying asleep, or sleeping too much 0 0 Feeling tired or having little energy 0 0 Poor appetite or overeating 0 0 Feeling bad about yourself - or that you are a failure or have let yourself or your family down 0 0 Trouble concentrating on things, such as reading the newspaper or watching television 0 0 Moving or speaking so slowly that other people could have noticed. Or the opposite - being so fidgety or restless that you have been moving around a lot more than usual 0 0 Thoughts that you would be better off , or of hurting yourself in some way 0 0 Total Score 0 0 If you checked off any problems, how difficult have these problems made it for you to do your work, take care of things at home, or get along with other people? Not difficult at all Objective Allergies: Amoxicillin and Augmentin [amoxicillin-pot clavulanate] Past Medical, Family, Surgical, and Social History Update: The following portions of the patient's history were reviewed and updated as appropriate: allergies, current medications, past family history, past medical history, past social history, past surgical history and problem list. History reviewed. No pertinent past medical history. History reviewed. No pertinent family history. History reviewed. No pertinent surgical history. Current Outpatient Medications Medication Sig Dispense Refill amLODIPine (NORVASC) 5 mg tablet Take 1 tablet (5 mg total) by mouth in the morning. ascorbic acid (VITAMIN C) 500 mg tablet Take 1 tablet (500 mg total) by mouth in the morning. aspirin 81 mg Take 1 tablet (81 mg total) by mouth in the morning. 30 tablet 2 cholecalciferol 1,000 units tablet Take 1 tablet (1,000 Units total) by mouth in the morning. ciprofloxacin HCl (CIPRO) 500 mg tablet Take 1 tablet (500 mg total) by mouth in the morning and 1 tablet (500 mg total) before bedtime. fluticasone propion-salmeteroL (ADVAIR) 250-50 mcg/dose DISKUS Inhale 1 puff in the morning and 1 puff before bedtime. lisinopriL (PRINIVIL,ZESTRIL) 40 mg tablet Take 1 tablet (40 mg total) by mouth in the morning. zinc gluconate 50 mg tablet Take 1 tablet (50 mg total) by mouth in the morning. polyethylene glycol (GLYCOLAX) 17 gram packet Take 17 g by mouth in the morning. Indications: constipation. rosuvastatin (CRESTOR) 20 mg tablet Take 1 tablet (20 mg total) by mouth nightly. 30 tablet 2 sennosides-docusate sodium (SENOKOT-S) 8.6-50 mg Take 2 tablets by mouth nightly. No current facility-administered medications for this visit. (All medications reviewed and updated by provider since last office visit or hospitalization) Tobacco History: Social History Tobacco Use Smoking Status Former Types: Cigarettes Start date: 2010 Smokeless Tobacco Never (If patient a smoker, smoking cessation counseling offered) Social History: Social History Substance and Sexual Activity Alcohol Use Yes Alcohol/week: 2.0 standard drinks of alcohol Types: 2 Cans of beer per week Physical Exam: Vitals: Vitals: 07/19/24 0914 BP: 131/56 Pulse: 64 Weight: 83.9 kg (185 lb) Physical Exam: Constitutional: Appears well, not in acute distress, obese body habitus Respiratory: Breathing comfortably on room air HEENT: Normocephalic, atraumatic, moist oral mucosa Extremities: No significant edema Neurological Exam Mental Status Awake and alert. Oriented to person, place, time and situation. Recent and remote memory are intact. Speech is normal. Language is fluent with no aphasia. Attention and concentration are normal. Fund of knowledge is appropriate for level of education. Cranial Nerves CN II: Visual acuity is normal. Visual heredia full to confrontation. CN III, IV, : Extraocular movements intact bilaterally. Normal lids and orbits bilaterally. Pupils equal round and reactive to light bilaterally. CN V: Facial sensation is normal. CN VII: Full and symmetric facial movement. CN VIII: Hearing is normal. CN IX, X: Palate elevates symmetrically. Normal gag reflex. CN XI: Shoulder shrug strength is normal. CN XII: Tongue midline without atrophy or fasciculations. Motor Normal muscle bulk throughout. No fasciculations present. Normal muscle tone. No abnormal involuntary movements. Strength is 5/5 throughout all four extremities. Sensory Light touch is normal in upper and lower extremities. Reflexes Right Left Brachioradialis 2+ 2+ Biceps 2+ 2+ Triceps 2+ 2+ Patellar 2+ 2+ Achilles 2+ 2+ Coordination Right: Uxurjo-as-vuax normal. Mbex-hu-tpme normal.Left: Dmshxw-hm-hqqq normal. Szgx-ls-onza normal. Gait Casual gait is normal including stance, stride, and arm swing. Romberg is absent. Able to rise from chair without using arms. Assessment and Plan: Diagnoses and all orders for this visit: Cryptogenic stroke ([facility]) Other orders - rosuvastatin (CRESTOR) 20 mg tablet; Take 1 tablet (20 mg total) by mouth nightly. Assessment Ricardo Grant is a 74 y.o. male, a new patient, and is here for follow up from inpatient evaluation for transient episode of expressive aphasia. Patient has past medical history notable for COPD, hypertension, pure hypercholesterolemia, BPH, and bilateral frontoparietal ischemic strokes. History and exam concerning for cryptogenic bilateral ischemic strokes. Workup inpatient did not reveal any obvious cause of bihemispheric stroke. Patient denies any concerns for chest palpitations and cardiac monitoring was negative for any arrhythmias. Impression Transient episode of aphasia in the setting of bilateral frontoparietal ischemic lesions, concerning for cryptogenic strokes Plan Continue taking aspirin 81 mg daily Continue taking Crestor 20 mg nightly, gave the patient a refill at this visit and explained to them that they can continue getting refills from the primary care provider Continue taking all medications as prescribed Patient to follow up with us as needed Patient Instructions - Please continue taking your aspirin 81 mg daily - Please continue taking your crestor 20 mg nightly - Please continue taking your medications as prescribed - Please follow up with us needed Follow-up: as needed Murtaza Rios MD PGY-2 Neurology Resident The patient was seen and the management was discussed in the presence of Dr. Rowell Attending Attestation: I saw the patient. I participated and was physically present during the critical/ferris portions of the service. I was directly involved in the management and treatment plan of the patient. I reviewed the resident's note. Additional Notes/Findings: Multifocal left MCA stroke in setting of sepsis and recent surgery for BPH. Event monitor negative. Ok to resume driving. Continue ASA daily. Followup as needed. documented in this encounter [facility] 07-19-2024 Instructions Murtaza Rios MD - 07/19/2024 9:30 AM EST - Please continue taking your aspirin 81 mg daily - Please continue taking your crestor 20 mg nightly - Please continue taking your medications as prescribed - Please follow up with us needed documented in this encounter [facility] 07-19-2024 Miscellaneous Notes Formattin g of this note might be different from the original. Disclaimer: This note is intended for educational purposes only. It does not constitute a patient visit and is not to be used or relied on for treatment, billing, or any other purposes. It has been created solely for to enable the student to practice documentation to achieve the expected level of competency in charting and receive feedback regarding same. This note is not a part of the legal medical record. documented in this encounter [facility] 07-19-2024 Progress note Formatting of t his note might be different from the original. Disclaimer: This note is intended for educational purposes only. It does not constitute a patient visit and is not to be used or relied on for treatment, billing, or any other purposes. It has been created solely for to enable the student to practice documentation to achieve the expected level of competency in charting and receive feedback regarding same. This note is not a part of the legal medical record. [facility] 06-23-2024 History of Presen t illness Narrative Patient: Ricardo Grant : 1950 PCP: Aayush Escudero MD SUBJECTIVE This is a 74 y.o. male that presents today with a CC of elongated, thick nails. Pt states nails have been elongated and thick for many years and cause pain with ambulation in shoegear. Pt has tried previous treatment with minimal relief. Pt presents today for nail care and treatment. Patient has peripheral neuropathy of unknown origin has been seen been [facility] in the past Allergies: Not on File Past Medical History: No past medical history on file. Medications: Current Outpatient Medications: amLODIPine (Norvasc) 5 MG tablet, Take 5 mg by mouth Daily, Disp: , Rfl: lisinopril 40 MG tablet, Take 40 mg by mouth Daily, Disp: , Rfl: pravastatin (Pravachol) 80 MG tablet, Take 80 mg by mouth Daily, Disp: , Rfl: zinc gluconate 50 MG tablet, Take 50 mg by mouth Daily, Disp: , Rfl: Social History: Social History Socioeconomic History Marital status: Spouse name: Not on file Number of children: Not on file Years of education: Not on file Highest education level: Not on file Occupational History Not on file Tobacco Use Smoking status: Former Current packs/day: 0.00 Types: Cigarettes Quit date: 03/24/1984 Years since quittin.2 Passive exposure: Never Smokeless tobacco: Former Substance and Sexual Activity Alcohol use: Yes Alcohol/week: 3.0 standard drinks of alcohol Types: 3 Cans of beer per week Drug use: Never Sexual activity: Not on file Other Topics Concern Not on file Social History Narrative Not on file Social Drivers of Health Financial Resource Strain: Low Risk (06/04/2024) Received from [facility] Overall Financial Resource Strain (CARDIA) Difficulty of Paying Living Expenses: Not hard at all Food Insecurity: No Food Insecurity (06/04/2024) Received from [facility] Hunger Screening Within the past 12 months we worried whether our food would run out before we got money to buy more.: Never True Within the past 12 months the food we bought just didn't last and we didn't have money to get more.: Never True Transportation Needs: No Transportation Needs (06/04/2024) Received from [facility] PRAPARE - Transportation Lack of Transportation (Medical): No Lack of Transportation (Non-Medical): No Physical Activity: Not on file Stress: Not on file Social Connections: Not on file Intimate Partner Violence: Not on file Housing Stability: Low Risk (06/04/2024) Received from [facility] Housing Instability Are you worried or concerned that in the next two months you may not have stable housing that you own, rent or stay in as a part of a household?: No ROS: General: denies fever, chills, fatigue, malaise Gastrointestinal: denies abdominal pain, ulcers, or changes in appetite or bowel habits Musculoskeletal: denies arthritis, denies loss of strength, pain to hip, knees, back Cardiovascular: denies CP, palpitations, irregular rhythms. Positive history of hypertension OBJECTIVE LE EXAM: DERM: Elongated thick yellow crumbly nails digits 1 through 10. Negative hair growth with thin shiny atrophic skin bilaterally VASC: Positive DP and positive PT pedal pulses NEURO: 5.07 Hubbard Bren monofilament test diminished to digits and forefoot bilaterally 125Hz tuning fork diminished to 1st MPJ bilaterally ORTHO: Positive pain on palpation to nails 1 through 10 ASSESSMENT 1. Other polyneuropathy 2. Pain due to onychomycosis of toenails of both feet PLAN Discussed proper foot care with patient today. Debride nails in length and thickness digits 1 through 10 Juan Drummond DPM documented in this encounter [facility] 06-08-2024 Miscellaneous Notes Formattin g of this note might be different from the original. Contact Type: Direct contact - Phone call with patient - general Reason for Call: CN introduction. Hospital Course: 74 y.o. male with history of COPD, hypertension, pure hypercholesterolemia, and BPH who presents as transfer from [facility] with expressive aphagia with concern for stroke. Patient has a history of BPH and underwent a minimally invasive laser surgery on (06/02/2024). He was subsequently discharged with tramadol, Keflex, and Guerra. reports that she noticed some blood at the urethral meatus as well as cranberry juice colored urine output in Guerra. Later that night, patients said that she heard a thump in the bathroom and went to check in saw that the patient was on the floor. She says that she found the patient wedge between dresser and saying and that his eyes were open however he was unable to speak. Ambulance was called he was taken to [place]. There, there was concern for sepsis given hypotension with leukocytosis up to 18 and lactate of 7. Here, he was given 2 L of IV fluid administration as well as IV Rocephin and Levaquin. He was also noted to have an BRANDON with a creatinine of 2.8 This was presumed to be due to urosepsis given his recent urologic procedure. Urine culture at outside hospital was negative. Throughout his admission at [place], patient continued to have episodic episodes of altered mental status where he would become weak. An episode of facial droop was noted upon chart review. CT head noncon was negative. He was transferred to [facility] for further evaluation and concern for stroke. Upon presentation to the hospital, patient is afebrile, hemodynamically stable, in no acute distress, and satting well on 2LNC. He continues to express some difficulty with speech, however has no other noticeable focal neuro deficits. On exam, pupils are equal and reactive with no central or focal neuro deficits. Neurology was consulted given his concern for stroke. MRI head was ordered positive for acute ischemic infarction of the left frontoparietal lobe in the MCA distribution.. MRA head, CTA head, and CTA carotid were done and all unremarkable. His statin was increased to high dose intensity and patient was maintained on his aspirin. Given ischemic distribution, TTE was done, which showed normal systolic function with no wall motion abnormalities. Additionally, given his recent urologic procedure, at [facility] he was continued on Rocephin until 06/07. Blood cultures during his admission were negative. Urology was consulted given his recent urologic procedure, who recommended maintaining his Guerra. On day of discharge, patient underwent void trial per urology recommendations,(He voided thrice with satisfactory outputs and bladder scan did not show retention.) Assessment-Patient reports that he is doing ok. He states his symptoms have resolved: dizziness, facial drooping, weakness, expressive aphasia. Patient is independent with his ADLs. Patient is taking his medications as ordered except for senokot and glycolax. Patient uses metamucil at home. Patient denies any constipation. Patient is awaiting the event monitor to come in the mail. Patient has been checking his BP. SBP 158. Patient is aware that if SBP>160 for 3 consecutive days to contact PCP. Patient plans on calling his urologist to let him know that the oxybutynin was discontinued for possible hallucinations and see if the urologist wants to prescribe something different. Type of Stroke: L frontal parietal lobe MCA ischemic stroke. Date of Hospitalization: 06/04/2024-06/07/2024. New Medications: ASA, Glycolax, Crestor, Senokot. Medication Issues: None. Not using glycolax or senokot. Patient uses metamucil. No constipation noted. Anticoagulation: ASA. Labs: none Testing: none. Equipment: event monitor (to be mailed) and BP monitor. Home Care: none Outpatient Therapy: none Follow Up Appointments: PCP 06/14/2024 Neuro- awaiting office to call Urology- patient is to call. Depression: none. Support: , son and daughter. Financial Concerns: none. Transportation Concerns: none. Plan/Goals: continue to take medications as ordered. Continue to monitor blood pressure. Schedule and keep follow up appts. Call urology to notify that oxybutynin was D/C'd. Start and complete event monitor Intervention: CN called patient and received an update. CN updated PHI roles for spouse and daughter with patient's permission. Questions: None Education: CN reviewed the instructions regarding checking BP twice daily and contact PCP if SBP>160 for 3 consecutive days. Patient voiced understanding. [facility] Education Provided: Patient states he was given information about this.. Balance (Loss of Balance, Headache, Dizziness), Eyes (Abrupt Vision Changes), Face (Drooping), Arms (Numbness/Weakness Arms/Legs), Speech (Difficulty with Speech), Time (Call 911 Right Away). Patient Verbalizes Understanding. CN provided direct line to call if any questions or concerns and if any new, returning or worsening symptoms. Patient verbalized understanding. Received call from patient stating he was told he would be getting a heart monitor sent to him through the mail after discharge. He is requesting a call back . He would like to know when he should expect delivery Monitor was processed on 06/09 - will need to allow 3-5 business days for processing. Should receive soon. Called patient and left detailed message regarding EM documented in this encounter [facility] [employer] 06-08-2024 Telephone encount er Note Contact Type: Direct contact - Phone call with patient - general Reason for Call: CN introduction. Hospital Course: 74 y.o. male with history of COPD, hypertension, pure hypercholesterolemia, and BPH who presents as transfer from [facility] with expressive aphagia with concern for stroke. Patient has a history of BPH and underwent a minimally invasive laser surgery on (06/02/2024). He was subsequently discharged with tramadol, Keflex, and Guerra. reports that she noticed some blood at the urethral meatus as well as cranberry juice colored urine output in Guerra. Later that night, patients said that she heard a thump in the bathroom and went to check in saw that the patient was on the floor. She says that she found the patient wedge between dresser and saying and that his eyes were open however he was unable to speak. Ambulance was called he was taken to [place]. There, there was concern for sepsis given hypotension with leukocytosis up to 18 and lactate of 7. Here, he was given 2 L of IV fluid administration as well as IV Rocephin and Levaquin. He was also noted to have an BRANDON with a creatinine of 2.8 This was presumed to be due to urosepsis given his recent urologic procedure. Urine culture at outside hospital was negative. Throughout his admission at [place], patient continued to have episodic episodes of altered mental status where he would become weak. An episode of facial droop was noted upon chart review. CT head noncon was negative. He was transferred to [facility] for further evaluation and concern for stroke. Upon presentation to the hospital, patient is afebrile, hemodynamically stable, in no acute distress, and satting well on 2LNC. He continues to express some difficulty with speech, however has no other noticeable focal neuro deficits. On exam, pupils are equal and reactive with no central or focal neuro deficits. Neurology was consulted given his concern for stroke. MRI head was ordered positive for acute ischemic infarction of the left frontoparietal lobe in the MCA distribution.. MRA head, CTA head, and CTA carotid were done and all unremarkable. His statin was increased to high dose intensity and patient was maintained on his aspirin. Given ischemic distribution, TTE was done, which showed normal systolic function with no wall motion abnormalities. Additionally, given his recent urologic procedure, at [facility] he was continued on Rocephin until 06/07. Blood cultures during his admission were negative. Urology was consulted given his recent urologic procedure, who recommended maintaining his Guerra. On day of discharge, patient underwent void trial per urology recommendations,(He voided thrice with satisfactory outputs and bladder scan did not show retention.) Assessment-Patient reports that he is doing ok. He states his symptoms have resolved: dizziness, facial drooping, weakness, expressive aphasia. Patient is independent with his ADLs. Patient is taking his medications as ordered except for senokot and glycolax. Patient uses metamucil at home. Patient denies any constipation. Patient is awaiting the event monitor to come in the mail. Patient has been checking his BP. SBP 158. Patient is aware that if SBP>160 for 3 consecutive days to contact PCP. Patient plans on calling his urologist to let him know that the oxybutynin was discontinued for possible hallucinations and see if the urologist wants to prescribe something different. Type of Stroke: L frontal parietal lobe MCA ischemic stroke. Date of Hospitalization: 06/04/2024-06/07/2024. New Medications: ASA, Glycolax, Crestor, Senokot. Medication Issues: None. Not using glycolax or senokot. Patient uses metamucil. No constipation noted. Anticoagulation: ASA. Labs: none Testing: none. Equipment: event monitor (to be mailed) and BP monitor. Home Care: none Outpatient Therapy: none Follow Up Appointments: PCP 06/14/2024 Neuro- awaiting office to call Urology- patient is to call. Depression: none. Support: , son and daughter. Financial Concerns: none. Transportation Concerns: none. Plan/Goals: continue to take medications as ordered. Continue to monitor blood pressure. Schedule and keep follow up appts. Call urology to notify that oxybutynin was D/C'd. Start and complete event monitor Intervention: CN called patient and received an update. CN updated PHI roles for spouse and daughter with patient's permission. Questions: None Education: CN reviewed the instructions regarding checking BP twice daily and contact PCP if SBP>160 for 3 consecutive days. Patient voiced understanding. [facility] Education Provided: Patient states he was given information about this.. Balance (Loss of Balance, Headache, Dizziness), Eyes (Abrupt Vision Changes), Face (Drooping), Arms (Numbness/Weakness Arms/Legs), Speech (Difficulty with Speech), Time (Call 911 Right Away). Patient Verbalizes Understanding. CN provided direct line to call if any questions or concerns and if any new, returning or worsening symptoms. Patient verbalized understanding. [facility] 06-08-2024 Telephone encount er Note Received call from patient stating he was told he would be getting a heart monitor sent to him through the mail after discharge. He is requesting a call back . He would like to know when he should expect delivery [facility] 06-08-2024 Telephone encount er Note Monitor was processed on 06/09 - will need to allow 3-5 business days for processing. Should receive soon. [facility] 06-08-2024 Telephone encount er Note Called patient and left detailed message regarding EM [facility] 06-07-2024 Miscellaneous Notes Formattin g of this note might be different from the original. ----- Message from Murtaza Rios MD sent at 06/07/2024 4:35 PM EDT ----- Regarding: Outpatient follow up from inpatient stay Ma, Can this patient be seen in the neurovascular/stroke Clinic (attending or fellow) in 4-6 weeks of discharge. He was discharged with an order for an event monitor for 30 days concerning due to multifocal stroke concerning for cardioembolic phenomenon. Thank you What is the reason for the call? Patients daughter contacted our office stating that she needs to schedule a hospital follow up for the patient. If appointment requested, what is the reason for the appointment? Hospital follow up Is there a referral in the chart? yes Were they seen in the hospital? What hospital were they seen at? [facility] What is a good call back number? Judi (Spouse)- [phone] Spoke with Judi and scheduled appt Note* patient will be leaving for [place] 07/21/24 documented in this encounter [facility] [employer] [facility] 06-07-2024 Telephone encount er Note ----- Message from Murtaza Rios MD sent at 06/07/2024 4:35 PM EDT ----- Regarding: Outpatient follow up from inpatient stay Hi, Can this patient be seen in the neurovascular/stroke Clinic (attending or fellow) in 4-6 weeks of discharge. He was discharged with an order for an event monitor for 30 days concerning due to multifocal stroke concerning for cardioembolic phenomenon. Thank you [facility] 06-07-2024 Telephone encount er Note What is the reason for the call? Patients daughter contacted our office stating that she needs to schedule a hospital follow up for the patient. If appointment requested, what is the reason for the appointment? Hospital follow up Is there a referral in the chart? yes Were they seen in the hospital? What hospital were they seen at? [facility] What is a good call back number? Judi (Spouse)- [phone] [facility] 06-07-2024 Telephone encount er Note Spoke with Judi and scheduled appt Note* patient will be leaving for [place] 07/21/24 [facility] 06-06-2024 Note [id number] Note [id number] Note [id number] 06-02-2024 Note [facility] SURGERY Clinical Discharge Summary PERSON INFORMATION Name RICARDO GRANT Age 74 Years 1950 Sex MALE Language Yemeni PCP Aayush Escudero Marital Status Med Service Ambulatory Surgery Acct# Arrival 06/02/2024 05:52:27 Visit Reason Surgery- Cysto, Greenlight Laser Acuity LOS 072 19:32 Address: [address] [place] [address] Comment: PROVIDER INFORMATION VITALS INFORMATION Vital Sign [...] Medication List: New Medications [id number], [address], [place] [id number], [phone] cephalexin (cephalexin 500 mg oral capsule) 1 [...] every day. New Medications [id number], [address], [place] [id number], [phone] cephalexin (cephalexin 500 mg oral capsule) 1 [...] tablet) 1 tab(s) (more content not included)... [facility] 03-21-2024 Note [id number] [facility] 03-17-2024 Note [facility] SURGERY Clinical Discharge Summary PERSON INFORMATION Name RICARDO GRANT Age 73 Years 1950 Sex MALE Language Yemeni PCP Aayush Escudero Marital Status Med Service Ambulatory Surgery Acct# Arrival 03/17/2024 12:30:36 Visit Reason SURGERY - LOCAL CYSTO Acuity LOS 002 01:59 Address: [address] [place] [id number] Comment: PROVIDER INFORMATION VITALS INFORMATION Vital Sign [...] and Radiology Resu (more content not included)... [facility] 04-13-2023 Evaluation note Encounter Date Diagnosis Assessment Notes Mar, Benign prostatic hyperplasia with lower urinary tract symptoms (ICD-10 - N40.1) [facility] Other 08-18-2023 Evaluation note* Encounter Date Diagnosis Assessment Notes Treatment Notes Treatment Clinical Notes Mar, Medicare annual wellness visit, subsequent [...] G62.9) Inspect feet daily for cuts and calluses.Recommend diabetic shoes and inserts to prevent callus formation.Fall precautions. Mar, Frequency of micturition (ICD-10 - R35.0) Mar, Benign prostatic hyperplasia with lower urinary tract symptoms (ICD-10 - N40.1) Check UA for infection and glucosuria Yearly PSA and PETEY Mar, Screening PSA (prostate specific antigen) (ICD-10 - Z12.5) Yearly PSA Mar, High risk medication use (ICD-10 - Z79.899) Mar, Fecal smearing (ICD-10 - R15.1) [facility] Other Evaluation noteNo InformationNort [employer] Other Evaluation note* Diagnosis Other polyneuropathy- Primary Pain due to onychomycosis of toenails of both feet documented in this encounter [facility] HealthcareEvaluation note* Diagnosis Expressive aphasia- Primary Other cerebrovascular vasospasm and vasoconstriction Expressive aphasia Other cerebrovascular vasospasm and vasoconstriction [facility] Diagnosis Cryptogenic stroke (CMS-HCC)- Primary [facility] general Narrative - Reported* Type Description Date Medical History Mixed hyperlipidemia Medical History Essential (primary) hypertension Medical History Hyperlipidemia, unspecified Medical History Polyp of colon Medical History Neuralgia and neuritis Surgical History ARTHROSCOPY KNEE Surgical History ULNAR NERVE RELEASE Surgical History COLONOSCOPY, repeat 5 yrs 2006, 2009,2021 Surgical History LEFT THORACOSTOMY TUBE 2018 Hospitalization History SEE SURGICAL HX [facility] Other InstructionsNot on filedocumented in this encounter [facility] filedocumented in this [facility] filedocumented in [facility] encounter [facility] Summary Purpose Family History No Family History Records FoundNo Family History Records FoundNo Family History Records FoundNo Family History Records FoundNo Family History Records FoundNo Family History Records FoundNo Family History Records Found Advance Directives Date Activated Date Inactivated Comments 06/04/2024 6:11 PM 06/07/2024 7:40 PM Date Activated Date Inactivated Comments 06/04/2024 6:11 PM 06/07/2024 7:40 PM Additional Source Comments (unrecognized sect ion and content) No Status Records FoundNo Status Records FoundNo Status Records FoundNo Status Records FoundNo Status Records FoundNo Status Records FoundNo Status Records Found INFORMATION SOURCE (unrecogn ized section and content) DATE CREATED AUTHOR 05/26/2019 [facility] DATE CREATED AUTHOR AUTHOR'S ORGANIZ ATION 02/13/2022 [facility] DATE CREATED AUTHOR AUTHOR'S ORGANIZ ATION [facility]05/2022 [facility] DATE CREATED AUTHOR AUTHOR'S ORGANIZ ATION 06/25/2024 [facility] EPIC DATE CREATED AUTHOR AUTHOR'S ORGANIZ ATION 07/21/2024 [facility] DATE CREATED AUTHOR AUTHOR'S ORGANIZ ATION 07/22/2024 [facility] DATE CREATED AUTHOR AUTHOR'S ORGANIZ ATION 08/11/2024 [facility] REASON FOR VISIT (unrecogniz ed section and content) Reason Comments Toenail Care Non DM Nails Reason Onset Date Comments Hospital Follow-up 06/07/2024 Reason Onset Date Comments Care Navigation 06/08/2024 Reason Onset Date Comments Med Refill 10/25/2024 Reason Onset Date Comments Med Refill 10/28/2024 Care Teams (unrecognized sec tion and content) 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 Relationship Specialty Start Date End Date Aayush Escudero MD [address] [place] [phone] PCP - General Internal Medicine 03/24/24 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 Relationship Specialty Start Date End Date Aayush Escudero MD [address] [place] [phone] PCP - General Internal Medicine 03/24/24 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 Relationship Specialty Start Date End Date Aayush Escudero DO [address] [place] [address] [id number] PCP - General Internal Medicine 06/06/24 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 [employer] provides no warranty or guarantee of the accuracy or completeness of information in this document.
--- NOTE | 2024-12-06 07:01 | ECG_ITS ---
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 Measurements Intervals [place] Rate: 56 P: 68 OK: 208 QRS: 64 QRSD: 82 T: 70 QT: 418 QTc: 410 Interpretive Statements 1100 Sinus rhythm 9110 normal ECG Compared to ECG 06/04/2024 08:16:43 No significant changes Electronically Signed On 12-06-2024 19:29:39 EDT by GRACIE HERNANDEZ M.D.
[2024-12-06] MEDS: ONDANSETRON PF 4 MG/2 ML VIAL IV (07:10)
--- NOTE | 2024-12-06 07:29 | ED_ITS ---
HPI HPI - General Adult General Chief complaint: Neuro Symptoms/Deficit Stated complaint: DIZZINESS Time Seen by Provider: 12/06/24 06:53 Source: patient Mode of arrival: walk-in Limitations: no limitations History of Present Illness HPI narrative: This 74-year-old male presents to the ED with chief complaint of dizziness. He states that started the night before last when he was lying in bed. He woke up from sleep and had a spinning sensation lasting few seconds this happened about 3 times during the night. He states yesterday during the day he felt his normal self. His however says that during the day yesterday she noticed at times that he had a vacant stare even though he was performing his usual chores. She felt that he was not quite his normal self. Patient states last night while in bed when he woke up he felt dizzy also. He denies headache or visual symptoms or weakness of the extremities. He states in May of last year he was experiencing seeing psychedelic lights in his field of vision and had presented to this emergency department. He was then transferred to [facility] and was diagnosed with stroke. He has a history of renal insufficiency. Related Data Home Medications ?Medication ?Instructions ?Recorded ?Confirmed amlodipine 5 mg tablet 5 mg PO .qd 06/04/24 12/06/24 fluticasone 250 mcg-salmeterol 50 1 inh inhalation Q12H 06/04/24 12/06/24 mcg/dose blistr powdr for inhalation lisinopril 40 mg tablet 40 mg PO DAILY 06/04/24 12/06/24 aspirin 81 mg tablet,delayed 81 mg PO DAILY 12/06/24 12/06/24 release rosuvastatin 20 mg tablet 20 mg PO DAILY 12/06/24 12/06/24 Previous Rx's ?Medication ?Instructions ?Recorded meclizine 25 mg tablet 25 mg PO TID PRN dizziness #20 tabs 12/06/24 Allergies Allergy/AdvReac Type Severity Reaction Status Date / Time amoxicillin (From Augmentin) Allergy Severe Unknown Verified 12/06/24 06:48 clavulanic acid (From Allergy Severe Unknown Verified 12/06/24 06:48 Augmentin) Opioid HPI Opioid Management Most Recent Opioid Data: Last ORT Total Score 0 06/04/24 00:01 06/04/24 Last ORT Risk Category Low Risk 06/04/24 00:01 06/04/24 Review of Systems ROS Status of ROS 10 or more systems reviewed and unremark able except as noted in history and below [facility] Medical History Hematuria ?R31.9 - Hematuria, unspecified (ICD-10) Altered mental status ?R41.82 - Altered mental status, unspecified (ICD-10) Sepsis ?A41.9 - Sepsis, unspecified organism (ICD-10) Hypotension ?I95.9 - Hypotension, unspecified (ICD-10) Moderate protein-calorie malnutrition ?E44.0 - Moderate protein-calorie malnutrition (ICD-10) Hyperglycemia ?R73.9 - Hyperglycemia, unspecified (ICD-10) Hyponatremia ?E87.1 - Hypo-osmolality and hyponatremia (ICD-10) Leukocytosis ?D72.829 - Elevated white blood cell count, unspecified (ICD-10) Multisystem organ failure Acute renal failure ?N17.9 - Acute kidney failure, unspecified (ICD-10) Facial droop ?R29.810 - Facial weakness (ICD-10) Dysarthria ?R47.1 - Dysarthria and anarthria (ICD-10) Dehydration ?E86.0 - Dehydration (ICD-10) Syncope ?R55 - Syncope and collapse (ICD-10) Cataracts, bilateral ?H26.9 - Unspecified cataract (ICD-10) Pinched nerve ?G58.9 - Mononeuropathy, unspecified (ICD-10) High cholesterol ?E78.00 - Pure hypercholesterolemia, unspecified (ICD-10) High blood pressure ?I10 - Essential (primary) hypertension (ICD-10) COPD (chronic obstructive pulmonary disease) ?J44.9 - Chronic obstructive pulmonary disease, unspecified (ICD-10) Surgical History History of prostate surgery ?Z98.890 - Other specified postprocedural states (ICD-10) Family History Mother Family history of cancer Family history of diabetes mellitus Father Family history of cancer Brother Family history of cancer Family history of myocardial infarction Social History Within the past year, how often did you have a drink containing alcohol: 2-3 times a week Smoking status: Former smoker Non-prescribed substance use: denies use Previous occupational history: retired Highest level of school completed/degree received: high school graduate Are you now , , , , never or living with a partner: In a typical week, how many times do you talk on the telephone with family, friends, or neighbors: once per week How often do you get together with friends or relatives: once per week How often do you attend episcopal or mu-ism services: never Little interest or pleasure in doing things: not at all Feeling down, depressed, or hopeless: not at all Feel stressed/tense/nervous/anxious/difficulty sleeping: not at all Do you think of yourself as: straight/heterosexual Gender Identity: male Exam Narrative Exam Narrative: Patient has a heart rate of 58 and a blood pressure of 161/78 upon arrival. He is nondistressed. He is currently asymptomatic. Pupils are equal and reactive. EOMs are full. His NIH score is 0. HEENT exam is normal to inspection. Neck is supple. Lung sounds are clear to auscultation bilaterally with good air entry. Heart has regular rate and rhythm. Abdomen is soft nontender and there is no organomegaly. He does not have unilateral leg swelling or calf tenderness. He moves all extremities actively. Constitutional Vital Signs, click to edit/add: Last Vital Signs Temp 97.9 F 12/06/24 06:42 Pulse 62 12/06/24 08:30 Resp 15 12/06/24 08:30 BP 151/71 H 12/06/24 10:00 Pulse Ox 97 12/06/24 10:10 O2 Del Method Room Air 12/06/24 06:42 Course Vital Signs Vital signs: Vital Signs Temperature 97.9 F 12/06/24 06:42 Pulse Rate 64 12/06/24 06:42 Respiratory Rate 18 12/06/24 06:42 Blood Pressure 165/72 H 12/06/24 06:42 Pulse Oximetry 97 12/06/24 06:42 Oxygen Delivery Method Room Air 12/06/24 06:42 Temperature 97.9 F 12/06/24 06:42 Pulse Rate 62 12/06/24 08:30 Respiratory Rate 15 12/06/24 08:30 Blood Pressure 151/71 H 12/06/24 10:00 Pulse Oximetry 97 12/06/24 10:10 Oxygen Delivery Method Room Air 12/06/24 06:42 Medical Decision Making MDM Narrative Medical decision making narrative: The twelve-lead EKG is interpreted by me and shows sinus bradycardia with a rate of 56 beats minute. The axis is normal. OH interval and QRS duration are normal. QTc interval is normal. There is no acute ST elevation. According to her discharge summary from the patient's last visit to [facility] in May of last year he had had prostate surgery couple days prior to his symptoms and was found having fallen down and probably passed out. There is suspicion for seizure. His workup revealed an ischemic right frontoparietal infarct. CT brain is negative for bleed. CT angiogram of the head and neck does not show any critical stenotic lesions. MRI of the brain did not show any signs of stroke. There is a suspicion of an arachnoid cyst in the right parietal area. Patient feels better after the infusion of 1 L of fluids. He likely has positional vertigo and I am placing him on meclizine for this. He has an appointment with his PCP today. He is also advised to seek follow-up with his neurologist for further evaluation and management and is to return anytime for worsening symptoms. Lab Data Labs: Lab Results 12/06/24 Range/Units 06:51 WBC 7.8 (4.0-11.0) 10^3/uL RBC 4.95 (4.70-6.10) 10^6/uL Hgb 15.2 (14.0-18.0) g/dL Hct 46.0 (42.0-54.0) % MCV 92.9 (80.0-94.0) fL MCH 30.7 (25.9-34.0) pg MCHC 33.0 (29.9-35.2) g/dL RDW 12.5 (11.0-15.0) % Plt Count 220 (150-450) 10^3/uL MPV 9.7 (9.5-13.5) fL Neut % (Auto) 57.2 (43.0-75.0) % Lymph % (Auto) 33.3 (20.5-60.0) % [facility] % (Auto) 7.4 (1.7-12.0) % Eos % (Auto) 1.4 (0.9-7.0) % Baso % (Auto) 0.4 (0.2-2.0) % Neut # (Auto) 4.5 (1.4-6.5) 10^3/uL Lymph # (Auto) 2.6 (1.2-3.8) 10^3/uL [facility] # (Auto) 0.6 (0.3-0.8) 10^3/uL Eos # (Auto) 0.1 (0.0-0.7) 10^3/uL Baso # (Auto) 0.0 (0.0-0.1) 10^3/uL Abs Immat Gran (auto) 0.02 (0.00-0.03) 10^3/uL Imm/Tot Granulo (auto) 0.3 (0.0-0.5) % PT 10.7 (9.0-11.6) sec INR 1.01 APTT 28.1 (22.3-36.2) sec Sodium 139 (136-145) mmol/L Potassium 4.0 (3.5-5.1) mmol/L Chloride 104 (98-107) mmol/L Carbon Dioxide 27.8 (21.0-32.0) mmol/L Anion Gap 11.2 BUN 18.0 (7.0-18.0) mg/dL Creatinine 1.16 (0.70-1.30) mg/dL Est GFR ( Amer) >60 (>=60 mL/min/1.73m^2) Est GFR (Non-Af Amer) >60 (>=60 mL/min/1.73m^2) BUN/Creatinine Ratio 15.5 Glucose 117 H (74-106) mg/dL Calcium 9.4 (8.5-10.1) mg/dL Total Bilirubin 0.5 (0.2-1.0) mg/dL AST 24 (15-37) U/L ALT 31 (16-63) U/L Alkaline Phosphatase 90 (46-116) U/L Troponin I High Sens 8.0 (4.0-76.1) pg/mL Total Protein 7.3 (6.4-8.2) g/dL Albumin 3.7 (3.4-5.0) g/dL Globulin 3.6 g/dL Albumin/Globulin Ratio 1.0 Discharge Plan Discharge Chief Complaint: Neuro Symptoms/Deficit Clinical Impression: Vertigo Patient Disposition: Home, Self-Care Time of Disposition Decision: 10:34 Condition: Good Mode of Transportation: Private Vehicle Prescriptions / Home Meds: New meclizine 25 mg tablet 25 mg PO TID PRN (Reason: dizziness) Qty: 20 0RF No Action lisinopril 40 mg tablet 40 mg PO DAILY fluticasone propion-salmeterol 250-50 mcg/dose blister with device 1 inh INHALATION Q12H amlodipine 5 mg tablet 5 mg PO .qd rosuvastatin 20 mg tablet 20 mg PO DAILY aspirin 81 mg tablet,delayed release (DR/EC) 81 mg PO DAILY Print Language: Jordanian Instructions: Benign Paroxysmal Positional Vertigo (ED) Additional Instructions: Meclizine as prescribed for dizziness. Follow-up with your PCP and neurologist for further management. Return for worsening symptoms. Referrals: Aayush Escudero DO [Primary Care Provider] - 1 week
[2024-12-06 07:40] LABS: Basophils Percent Auto 0.4 % (0.2-2.0); Eosinophils Absolute Auto 0.1 10^3/uL (0.0-0.7); Eosinophils Percent Auto 1.4 % (0.9-7.0); Hemoglobin 15.2 g/dL (14.0-18.0); Immature Granulocytes Abs Auto 0.02 10^3/uL (0.00-0.03); Immature Granulocytes Pct Auto 0.3 % (0.0-0.5); Lymphocytes Absolute Auto 2.6 10^3/uL (1.2-3.8); Lymphocytes Percent Auto 33.3 % (20.5-60.0); Mean Corpuscular Hemoglobin 30.7 pg (25.9-34.0); Mean Corpuscular Volume 92.9 fL (80.0-94.0); Mean Platelet Volume 9.7 fL (9.5-13.5); Monocytes Absolute Auto 0.6 10^3/uL (0.3-0.8); Monocytes Percent Auto 7.4 % (1.7-12.0); Neutrophils Absolute Auto 4.5 10^3/uL (1.4-6.5); Neutrophils Percent Auto 57.2 % (43.0-75.0); Platelet Count 220 10^3/uL (150-450); Red Blood Count 4.95 10^6/uL (4.70-6.10); Red Cell Distribution Width 12.5 % (11.0-15.0); White Blood Count 7.8 10^3/uL (4.0-11.0)
[2024-12-06 07:56] LABS: Alanine Aminotransferase 31 U/L (16-63); Albumin Level 3.7 g/dL (3.4-5.0); Alkaline Phosphatase 90 U/L (46-116); Anion Gap 11.2; Aspartate Amino Transferase 24 U/L (15-37); BUN Creatinine Ratio 15.5; Bilirubin Total 0.5 mg/dL (0.2-1.0); Calcium 9.4 mg/dL (8.5-10.1); Carbon Dioxide 27.8 mmol/L (21.0-32.0); Chloride 104 mmol/L (98-107); Estimated GFR (African America >60 (>=60 mL/min/1.73m^2); Estimated GFR (Non-African Ame >60 (>=60 mL/min/1.73m^2); Globulin 3.6 g/dL; Glucose 117 mg/dL (74-106); Sodium 139 mmol/L (136-145); Total Protein 7.3 g/dL (6.4-8.2)
--- NOTE | 2024-12-06 08:03 | CT_ITS ---
The [address] [address] Patient Name: KEVIN GRANT MRN: [id number] date: 1950 Sex: M Assigned Patient Location: ER Current Patient Location: Accession/Order Number: [id number] Exam Date: 12/06/2024 09:48 Report Date: 12/06/2024 09:58 At the request of: ROBERT BISHOP MD Procedure: CT angio head CTA OF THE HEAD AND NECK WITH CONTRAST CLINICAL DATA: Stroke like symptoms. Vertigo. COMPARISON: None Spiral images were obtained through the head and neck following 100 mL of Omnipaque 350. Sagittal and coronal MIP as well as 3-D volume rendered reconstructions of carotid arteries and [place] were reviewed. Stenosis is evaluated using NASCET criteria. This CT exam was performed using one or more following dose reduction techniques: Automated exposure control, adjustment of the mA and/or kV according to patient size, or use of iterative reconstruction technique. There is a bovine arch. Atherosclerotic plaque is present at the aortic arch and proximal subclavian arteries. The left vertebral artery is dominant. No vertebral dissection or focal stenosis is identified. There is a small amount of plaque at the carotid bifurcations extending into the internal carotid arteries on both sides. There is no associated luminal narrowing. Slight reversal of the cervical curvature is present along mild degenerative change. There are a few shotty cervical lymph nodes. The upper imaged lungs show airspace lucencies and subpleural blebs compatible with obstructive lung disease. The right distal vertebral artery remains smaller than the left up to the confluence. The left vertebral, basilar and posterior cerebral arteries show no significant abnormalities. There is minimal carotid siphon plaque and no associated luminal narrowing. The anterior and middle cerebral arteries are patent. No focal stenosis or suspected thrombosis is seen. No aneurysms are identified. The dural venous sinuses are patent. CT/CT angio neck IMPRESSION: NO SIGNIFICANT VASCULAR FINDINGS. Impression dictated by: Rossi Rodriguez M.D.12/06/2024 9:58 AM Dictation Location: [place] [address] Electronically authenticated by: [id number] Y Date: 12/06/2024 09:58
--- NOTE | 2024-12-06 08:03 | MR_ITS ---
The [place] [id number] Patient Name: KEVIN GRANT MRN: [id number] date: 1950 Sex: M Assigned Patient Location: ER Current Patient Location: Accession/Order Number: [id number] Exam Date: 12/06/2024 09:27 Report Date: 12/06/2024 09:41 At the request of: ROBERT BISHOP MD Procedure: MR head/brain wo con EXAMINATION: MRI OF THE BRAIN WITHOUT CONTRAST CLINICAL HISTORY: stroke like symptoms. Vertigo. COMPARISON: CT brain 11/05/2024 TECHNIQUE: Multiecho, multiplanar imaging of the brain was performed without enhancement. There is minor cortical atrophy. The ventricles are normal in size and position. Minor white matter changes are seen on the T2 and FLAIR sequences that are likely chronic microvascular disease. There are no additional areas of abnormal signal intensity within the supra- or infratentorial brain. No restricted diffusion is identified to suggest a recent ischemic event. There is redemonstration of an asymmetric extra-axial CSF collection at the right parietal convexity. This is similar to previous CT exams and was thought to be an arachnoid cyst. There are no developing extra-axial collections or mass effect. There are right maxillary mucous retention cysts and minimal ethmoid mucosal thickening. No mastoid inflammation is seen. MR/MR head/brain wo con IMPRESSION: MINIMAL ATROPHY AND SMALL VESSEL ISCHEMIC CHANGE. SIMILAR SUSPECTED RIGHT PARIETAL CONVEXITY ARACHNOID CYST. NO OTHER ACUTE INTRACRANIAL FINDINGS. Impression dictated by: Rossi Rodriguez M.D.12/06/2024 9:41 AM Dictation Location: [place] [address] Electronically authenticated by: [id number] Y Date: 12/06/2024 09:41
--- NOTE | 2024-12-06 08:03 | CT_ITS ---
The [address] [address] Patient Name: KEVIN GRANT MRN: [id number] date: 1950 Sex: M Assigned Patient Location: ER Current Patient Location: Accession/Order Number: [id number] Exam Date: 12/06/2024 09:48 Report Date: 12/06/2024 09:58 At the request of: ROBERT BISHOP MD Procedure: CT angio head CTA OF THE HEAD AND NECK WITH CONTRAST CLINICAL DATA: Stroke like symptoms. Vertigo. COMPARISON: None Spiral images were obtained through the head and neck following 100 mL of Omnipaque 350. Sagittal and coronal MIP as well as 3-D volume rendered reconstructions of carotid arteries and [place] were reviewed. Stenosis is evaluated using NASCET criteria. This CT exam was performed using one or more following dose reduction techniques: Automated exposure control, adjustment of the mA and/or kV according to patient size, or use of iterative reconstruction technique. There is a bovine arch. Atherosclerotic plaque is present at the aortic arch and proximal subclavian arteries. The left vertebral artery is dominant. No vertebral dissection or focal stenosis is identified. There is a small amount of plaque at the carotid bifurcations extending into the internal carotid arteries on both sides. There is no associated luminal narrowing. Slight reversal of the cervical curvature is present along mild degenerative change. There are a few shotty cervical lymph nodes. The upper imaged lungs show airspace lucencies and subpleural blebs compatible with obstructive lung disease. The right distal vertebral artery remains smaller than the left up to the confluence. The left vertebral, basilar and posterior cerebral arteries show no significant abnormalities. There is minimal carotid siphon plaque and no associated luminal narrowing. The anterior and middle cerebral arteries are patent. No focal stenosis or suspected thrombosis is seen. No aneurysms are identified. The dural venous sinuses are patent. CT/CT angio head IMPRESSION: NO SIGNIFICANT VASCULAR FINDINGS. Impression dictated by: Rossi Rodriguez M.D.12/06/2024 9:58 AM Dictation Location: [place] [address] Electronically authenticated by: [id number] Y Date: 12/06/2024 09:58
[2024-12-06 08:13] LABS: INR 1.01; Partial Thromboplastin Time 28.1 sec (22.3-36.2); Prothrombin Time 10.7 sec (9.0-11.6)
[2024-12-06] MEDS: 0.9 % SODIUM CHLORIDE 1,000 ML 500 ML IV (08:14)
== END 2024-12-06 10:55 | disposition home or self-care (01) ==
PROVIDERS: Emergency Provider Emergency Medicine; PCP Internal Medicine
DX: R42 Dizziness and giddiness (principal); Z86.73 Personal history of transient ischemic attack (TIA), and cerebral infarction without residual deficits; N28.9 Disorder of kidney and ureter, unspecified; Z87.891 Personal history of nicotine dependence
CPT/HCPCS: 36415; 70450; 70496; 70498; 70551; 80053; 84484; 85025; 85610; 85730; 93005; 96361; 96374; 99285; J2405; Q9967

== ENCOUNTER 2024-12-07 11:18 | Outpatient (OUT) | payer MEDICARE, OTHER, SELFPAY ==
--- OUTSIDE RECORDS SUMMARY | 2024-12-07 11:43 | XMS_ITS | CCD ---
Author Organization [facility] Care Team Providers Care Jail Officer Name Role Phone DR AAYUSH ESCUDERO Consulting Unavailable BALL, DR LOONEY Attending Unavailable BALL, DR LOONEY Admitting Unavailable BALL, DR LOONEY Primary Care Unavailable GURVINDER BROOKS Admitting Unavailable GURVINDER BROOKS Consulting Unavailable GURVINDER BROOKS Attending Unavailable MARYCARMEN, DR LOONEY Primary Care Unavailable Aayush Escudero Unavailable Aayush Escudero MD Primary Care Provider JUAN DRUMMOND Attending Unavailable JUAN DRUMMOND Attending Unavailable DEVON ROWELL Attending Unavailable AAYUSH ESCUDERO Referring Unavailable AAYUSH ESCUDERO Primary Care Unavailable KENNY, CARMELITA Diane Admitting Unavailable GANIM, CARMELITA A Attending Unavailable KATRIN HERNANDEZ Referring Unavailable PARAMJIT, JANEEH Consulting Unavailable INGRAM, PEDRO A Consulting Unavailable RANDY CASTANO Consulting Unavailable HOPPS V, VLADISLAV Consulting Unavailable LANE CHEN Consulting Unavailable RIOS, MURTAZA Referring Unavailable AAYUSH ESCUDERO Primary Care Unavailable KATRIN HERNANDEZ Referring Unavailable Lane Chen Admitting Unavailable Aayush Escudero Primary Care Unavailable Lane Chen Attending Unavailable Lane Chen Admitting Unavailable Aayush Escudero Primary Care Unavailable Lane Chen Attending Unavailable Aayush Escudero Primary Care Unavailable Lane Chen Admitting Unavailable Lane Chen Attending Unavailable Lane Chen Admitting Unavailable Aayush Escudero Primary Care Unavailable Lane Chen Attending Unavailable Aayush Escudero DO Primary Care Provider Allergies Allergy Classification Reported Allergen(s) Allergy Type Date of Onset Reaction(s) Facility (5 sources) Amoxicillin / Clavulanate; Translations: [Augmentin] Drug Allergy 4 Unknown [facility] Repository (8 sources) Amoxicillin; Translations: [AMOXICILLIN] Drug Allergy 4 [facility] Repository (8 sources) AMOXICILLIN-POT CLAVULANATE; Translations: [AMOXICILLIN-POT CLAVULANATE] Propensity to adverse reactions to drug (disorder) Hives [facility] Repository Medications Current Medications Medication Drug Class(es) Dates Sig (Normalized) Sig (Original) [id number] 200 actuat albuterol 0.09 mg/actuat metered dose inhaler (5 sources) beta2-Adrenergic Agonist Start: 12-04-2023 take 1 puff(s) by inhalation every six hours Albuterol Sulfate 90 mcg/actuation HFA aerosol inhaler Active 2 PUFF INHALATION Every 6 hours 8.5 30 December 04, 2023 12:00am Start: 10-06-2023 End: 12-04-2023 take 2 puff(s) by inhalation every four hours as needed for cough Albuterol Sulfate 90 mcg/actuation HFA aerosol inhaler Discontinued INHALATION October 06, 2023 1:00am December 04, 2023 10:44am 2 (two) Puff Puff every 4 hours PRN SOB, cough Start: 10-30-2021 take 2 puff(s) by in [...] 4 hours PRN SOB, cough Oct, Active amLODIPine 5 mg oral tablet (14 sources) Dihydropyridine Calcium Channel Shola Start: 03-16-2024 take 1 tablet by mouth once daily Amlodipine 5 mg tablet Active 5 MG PO Daily April 15, 2024 11:36am Start: 01-06-2024 End: 04-15-2024 Amlodipine 5 mg tablet Disco ntinued 0 .ROUTE .COMPLEX 90 January 06, 2024 1:21pm April 15, 2024 11:38am TAKE 1 TABLET DAILY Start: 02-07-2022 End: 01-06-2024 take 1 tablet by mouth once daily Amlodipine 5 mg tablet Discontinued 5 MG PO Daily February 07, 2022 12:00am January 06, 2024 1:21pm ascorbic acid 500 mg oral tablet (6 sources) Vitamin C take 1 tablet by mouth in the morning ascorbic acid (VITAMIN C) 500 mg tablet Take 1 tablet (500 mg total) by mouth in the morning. Active aspirin 81 mg delayed release oral tablet (7 sources) Platelet Aggregation Inhibitor, Nonsteroidal Anti-inflammatory Drug Start: take 1 tablet by mouth once daily Aspirin 81 mg tablet,delayed release (DR/EC) Active 81 MG PO Daily June 12, 2024 12:00am cholecalciferol 0.025 mg oral tablet (6 sources) Vitamin D take 1 tablet by mouth in the morning cholecalciferol 1,000 units tablet Take 1 tablet (1,000 Units total) by mouth in the morning. Active ciprofloxacin 500 mg oral tablet (3 sources) Quinolone Antimicrobial Start: take 1 tablet by mouth in the morning, then take 1 tablet by mouth at bedtime ciprofloxacin HCl (CIPRO) 500 mg tablet Take 1 tablet (500 mg total) by mouth in the morning and 1 tablet (500 mg total) before bedtime. 07/18/2024 Active docusate sodium 50 mg / sennosides, [facility] 8.6 mg oral tablet (6 sources) Start: take 2 tablets by mouth once daily sennosides-docusate sodium (SENOKOT-S) 8.6-50 mg Take 2 tablets by mouth nightly. 06/07/2024 Active fluticasone / salmeterol (9 sources) Corticosteroid, beta2-Adrenergic Agonist Start: Advair Diskus 250-50mcg/dose Advair Diskus 250-50mcg/dose, 1 [...] ORALLY EVERY 12 HOURS for 90 Active Tajmgbohaus-Vjrmibzhd-Jktmgb er (2 sources) Anticholinergic, Corticosteroid, beta2-Adrenergic Agonist Start: 09-27-2024 Cimfjzqpouw-Pwiivffio-Qahaum er (Trelegy Ellipta) 100-62.5-25 mcg blister with device Active 1 INH INHALATION Daily 180 90 September 27, 2024 1:00am Start: 02-07-2022 End: 10-06-2023 Wowvqitiwsd-Rivwwymcy-Ducpsn er (Trelegy Ellipta) 100-62.5-25 mcg blister with device Discontinued 1 INH INHALATION Twice daily February 07, 2022 12:00am October 06, 2023 10:57am lisinopril 40 mg oral tablet (14 sources) Angiotensin Converting Enzyme Inhibitor Start: 03-16-2024 take 1 tablet by mouth once daily Lisinopril 40 mg tablet Active 40 MG PO Daily April 15, 2024 11:36am Start: 01-06-2024 End: 04-15-2024 Lisinopril 40 mg tablet Disc ontinued 0 .ROUTE .COMPLEX January 06, 2024 1:21pm April 15, 2024 11:38am TAKE 1 TABLET DAILY Start: 02-07-2022 End: 01-06-2024 take 1 tablet by mouth once daily Lisinopril 40 mg tablet Discontinued 40 MG PO Daily February 07, 2022 12:00am January 06, 2024 1:21pm meclizine hydrochloride 25 mg oral tablet (1 source) Antiemetic Start: 12-06-2024 take 1 tablet by mouth once daily as needed Meclizine 25 mg tablet Active 25 MG PO Daily as needed December 06, 2024 12:00am polyethylene glycol 3350 81504 mg powder for oral solution (6 sources) Osmotic Laxative Start: 06-07-2024 polyethylene glycol (GLYCOLAX) 17 gram packet Indications: constipation Take 17 g by mouth in the morning. Indications: constipation. 06/07/2024 Active Psyllium (3 sources) Start: 04-10-2023 Metamucil 28 % 1 packet with 8 ounces of liquid as needed Orally Once a day for 30 days Mar, Active rosuvastatin calcium 20 mg oral tablet (9 sources) HMG-CoA Reductase Inhibitor Start: 10-25-2024 take 1 tablet by mouth once daily Rosuvastatin 20 mg tablet Active 20 MG PO Daily October 25, 2024 1:00am Start: 06-12-2024 End: 10-25-2024 take 1 tablet by mouth once daily Rosuvastatin 40 mg tablet Discontinued 40 MG PO Daily June 12, 2024 12:00am October 25, 2024 11:05am Start: 06-07-2024 End: 07-19-2024 take 1 tablet [...] Drug Class(es) Dates Sig (Normalized) Sig (Original) 24 hr alfuzosin hydrochloride 10 mg extended release oral tablet (6 sources) alpha-Adrenergic Shola Start: 10-06-2023 End: 04-15-2024 take 1 tablet by mouth once daily at dinner Alfuzosin 10 mg tablet extended release 24 hr Discontinued 10 MG PO Daily December 04, 2023 10:43am April 15, 2024 11:37am after evening meal Start: 10-06-2023 End: 10-06-2023 take 1 tablet by mouth every twenty-four hours at dinner Alfuzosin 10 mg tablet extended release 24 hr Discontinued MG PO October 06, 2023 1:00am October 06, 2023 6:29pm FreeTextSi tablet Orally after evening meal; Note: Source Status: Taking; Refills: 5; Qty: 30 Tablet; Provider: Marycarmen Machado Start: 04-14-2023 take 1 tablet by mouth at dinn er Alfuzosin HCl ER 10 MG 1 tablet Orally after evening meal for 30 days Mar, Active amitriptyline hydrochloride 25 mg oral tablet (4 sources) Tricyclic Antidepressant Start: 02-07-2022 End: 10-06-2023 take 1 tablet by mouth once daily at bedtime Amitriptyline HCl 25MG Amitriptyline HCl 25MG, 1 (one) Tablet Tablet daily at HS # 0, 03/19/2022, No Refill. Active Oral daily at HS for 0 Feb, Not-Taking ascorbic acid 4700 mg / polyethylene glycol 3350 876362 mg / potassium chloride 1015 mg / sodium ascorbate 5900 mg / sodium chloride 2690 mg / sodium sulfate 7500 mg powder for oral solution (3 sources) Osmotic Laxative, Vitamin C Start: 12-30-2013 MoviPrep 100 GM as directed Orally 1 for 1 December, Not-Taking levoFLOXacin 500 mg oral tablet (1 source) Quinolone Antimicrobial Start: 12-04-2023 End: 04-15-2024 take 1 tablet by mouth once daily Levofloxacin 500 mg tablet Discontinued 500 MG PO Daily 06 02December 04, 2023 12:00am April 15, 2024 11:37am 24 hr oxybutynin chloride 10 mg extended release oral tablet (1 source) Cholinergic Muscarinic Antagonist Start: 04-15-2024 End: 06-12-2024 take 1 tablet by mouth once daily Oxybutynin Chloride 10 mg tablet extended release 24hr Discontinued MG PO Daily April 15, 2024 12:00am June 12, 2024 1:22pm [id number] Qhs-Hfqr-Kaw-Asb-C (Moviprep) 100-7.5-2.691 gram powder in packet (1 source) Start: 10-06-2023 End: 04-15-2024 [id number] Oli-Nymm-Gzt-Asb-C (Moviprep) 100-7.5-2.691 gram powder in packet Discontinued PO As Directed October 06, 2023 1:00am April 15, 2024 11:37am FreeTextSig: as directed Orally 1; Note: Source Status: Not-Takingundefine dPRN; Refills: 0; Provider: Marycarmen Looney ( ) pravastatin sodium 80 mg oral tablet (11 sources) HMG-CoA Reductase Inhibitor Start: 03-16-2024 End: 06-12-2024 take 1 tablet by mouth once daily Pravastatin 80 mg tablet Discontinued 80 MG PO Daily April 15, 2024 11:36am June 12, 2024 1:23pm Start: 01-06-2024 End: 04-15-2024 Pravastatin 80 mg tablet Discontinued 0 .ROUTE .COMPLEX 90 January 06, 2024 1:21pm April 15, 2024 11:38am TAKE 1 TABLET EVERY EVENING Start: 02-07-2022 End: 01-06-2024 take 1 tablet by mouth once daily [...] Chronic Chronic obstructive pulmonary disease and bronchiectasis (5 sources) Simple chronic bronchitis; Translations: [Simple chronic bronchitis] Chronic Conditions associated with dizziness or vertigo (2 sources) Benign paroxysmal positional vertigo; Translations: [Benign paroxysmal vertigo, unspecified ear] 12-06-2024 Episodic Diabetes mellitus without complication (3 sources) Impaired fasting glucose; Translations: [Impaired fasting glycemia] Episodic Disorders of lipid metabolism (8 sources) Familial hypercholesterolemia; Translations: [Hypercholesterolemia ] Onset: 04-04-2022 Chronic Essential hypertension (7 sources) Essential (primary) hypertension; Translations: [Essential hypertension] Onset: 04-04-2022 Chronic Comment on above: Echo: LVEF 60%, RV s ize/function normal - 11/2023 Genitourinary symptoms and ill-defined conditions (1 source) Frequency of micturition Episodic Hyperplasia of prostate (7 sources) Urinary frequency due to benign prostatic hypertrophy; Translations: [Benign prostatic hyperplasia with lower urinary tract symptoms] Chronic Mycoses (1 source) Pain in toe; Translations: [Tinea unguium] 06-17-2024 Episodic Other aftercare (2 sources) 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; Translations: [OTH ALF CURRENT DRUG THERAPY] Onset: 04-04-2022 Episodic Other and ill-defined cerebrovascular disease (1 source) Other cerebrovascular vasospasm and vasoconstriction; Translations: [Other cerebrovascular vasospasm and vasoconstriction] Onset: 06-09-2024 Chronic Other and ill-defined cerebrovascular disease (2 sources) Cerebrovascular disease; Translations: [Other cerebrovascular vasospasm and vasoconstriction] 06-09-2024 Chronic Other and ill-defined cerebrovascular disease (1 source) Cerebral atherosclerosis; Translations: [Cerebral atherosclerosis] 06-12-2024 Chronic Comment on above: Left MCA ischemic st roke - 05/2024 Other and ill-defined cerebrovascular disease (1 source) Cerebral atherosclerosis; Translations: [Cerebral atherosclerosis] 12-06-2024 Chronic Other and unspecified benign neoplasm (4 sources) History of polyp of colon; Translations: [Personal history of colonic polyps] 08-05-2023 Episodic Comment on above: Problem List clean-u p per request of Phys. EHR Cmte Other gastrointestinal disorders (1 source) Fecal smearing Episodic Other nervous system disorders (5 sources) Polyneuropathy; Translations: [Polyneuropathy, unspecified] 06-17-2024 Chronic Other nervous system disorders (1 source) Polyneuropathy, unspecified Chronic Other nervous system disorders (1 source) Aphasia; Translations: [Aphasia] Onset: 06-04-2024 Chronic Other nervous system disorders (8 sources) Expressive dysphasia; Translations: [Aphasia] Onset: 06-04-2024 06-04-2024 Chronic Other nutritional; endocrine; and metabolic disorders (1 source) Obesity; Translations: [Obesity, unspecified] 04-15-2024 Chronic Other screening for suspected conditions (not mental disorders or infectious disease) (5 sources) Encounter for screening for malignant neoplasm of prostate; Translations: [ENC SCREEN MALIG NEOPLASM PROSTATE] Onset: 04-03-2022 Episodic Residual codes; unclassified (1 source) Pain, unspecified; Translations: [Pain, unspecified] Onset: 06-04-2024 Episodic Substance-related disorders (2 sources) Nicotine dependence; Translations: [Nicotine dependence, unspecified, uncomplicated] 12-18-2023 Chronic Comment on above: LDCT w/o suspicious nodules - 11/2023 Transient cerebral ischemia (1 source) Transient cerebral [...] Test Name Value Interpretation Reference Range Facility Activated partial thrombopla stin time (aPTT) in platelet poor plasma by coagulation aon 12-06-2024 aPTT Coag (PPP) [Time] Activated partial thromboplastin time (aPTT) in platelet poor plasma by coagulation a 22.3-36.2 [facility] Basophils Auto (Bld) [#/Vol] on 12-06-2024 Basophils (Bld) [#/Vol] Automated basophil count 0.0-0.1 [facility] Basophils/100 WBC Auto (Bld) on 12-06-2024 Basophils/100 WBC (Bld) Automated basophil % 0.2-2.0 [facility] Eosinophils/100 WBC Auto (Bl d)on 12-06-2024 Eosinophils/100 WBC (Bld) Automated eosinophil % 0.9-7.0 [facility] Erythrocyte distribution wid th Auto (RBC) [Ratio]on 12-06-2024 Erythrocyte distribution width (RBC) [Ratio] Erythrocyte distribution width [Ratio] by Automated count 11.0-15.0 [facility] Hematocrit Auto (Bld) [Volum e fraction]on 12-06-2024 Hematocrit (Bld) [Volume fraction] Hematocrit [Volume Fraction] of Blood by Automated count 42.0-54.0 [facility] Hemoglobin [Mass/volume] in Bloodon 12-06-2024 Hemoglobin (Bld) [Mass/Vol] Hemoglobin [Mass/volume] in Blood 14.0-18.0 [facility] INR in Platelet poor plasma by Coagulation assayon 12-06-2024 INR Coag (PPP) [Relative time] INR in Platelet poor plasma by Coagulation assay [facility] Comment on above: DESIRED INR:2.0-3.0 CONDITIONS NOT LISTED BELOW2.5-3.5 FOR PROSTHETIC HEART VALVE REPLACEMENT2.5-3.5 RECURRENT THROMBOSIS Laboratory - Hematology and Cell countson 12-06-2024 Immature granulocytes/100 WBC (Bld) 0.3 % 0.0-0.5 [facility] Leukocytes [#/volume] correc paul for nucleated erythrocytes in Blood by Automated counon 12-06-2024 WBC corrected for nucl RBC Auto (Bld) [#/Vol] Leukocytes [#/volume] corrected for nucleated erythrocytes in Blood by Automated coun 4.0-11.0 [facility] Lymphocytes Auto (Bld) [#/Vo l]on 12-06-2024 Lymphocytes (Bld) [#/Vol] Lymphocytes [#/volume] in Blood by Automated count 1.2-3.8 [facility] Lymphocytes/100 WBC Auto (Bl d)on 12-06-2024 Lymphocytes/100 WBC (Bld) Lymphocytes/100 leukocytes in Blood by Automated count 20.5-60.0 [facility] MCH Auto (RBC) [Entitic mass ]on 12-06-2024 MCH (RBC) [Entitic mass] MCH [Entitic mass] by Automated count 25.9-34.0 [facility] MCHC Auto (RBC) [Mass/Vol]on 12-06-2024 MCHC (RBC) [Mass/Vol] MCHC [Mass/volume] by Automated count 29.9-35.2 [facility] MCV Auto (RBC) [Entitic vol] on 12-06-2024 MCV (RBC) [Entitic vol] MCV [Entitic volume] by Automated count 80.0-94.0 [facility] Monocytes Auto (Bld) [#/Vol] on 12-06-2024 Monocytes (Bld) [#/Vol] Automated blood monocyte count 0.3-0.8 [facility] Monocytes/100 WBC Auto (Bld) on 12-06-2024 Monocytes/100 WBC (Bld) Automated monocyte % 1.7-12.0 [facility] Neutrophils Auto (Bld) [#/Vo l]on 12-06-2024 Neutrophils (Bld) [#/Vol] Neutrophils [#/volume] in Blood by Automated count 1.4-6.5 [facility] Neutrophils/100 WBC Auto (Bl d)on 12-06-2024 Neutrophils/100 WBC (Bld) Automated neutrophil % 43.0-75.0 [facility] No Panel Informationon 12-06 Eosinophils # (Auto) 0.1 10 3/uL 0.0-0.7 [facility] Immature Granulocyte # (Auto) 0.02 10 3/uL 0.00-0.03 [facility] Troponin I High Sensitivity 8.0 pg/mL 4.0-76.1 [facility] Comment on above: CUT-OFF POINTS HAVE BEEN ESTABLISHED BASED ON THE FOURTHUNIVERSAL DEFINITION OF MYOCARDIAL INFARCTION. THE UPPERREFERENCE LIMIT (URL) OF TROPONIN, DEFINED THE 99THPERCENTILE OF cTnI DISTRIBUTION IN A REFERENCE POPULATION,HAS BEEN CONFIRMED THE DECISION THRESHOLD FOR MIDIAGNOSIS.99TH PERCENTILE = 76.2 PG/MLNOTE: HIGH-SENSITIVITY TROPONIN ASSAY IS NOT INTENDED TO BEUSED IN ISOLATION BUT SHOULD BE INTERPRETED IN CONJUNCTIONWITH OTHER DIAGNOSTIC AND CLINICAL INFORMATION. Platelet mean volume Auto (B ld) [Entitic vol]on 12-06-2024 Platelet mean volume (Bld) [Entitic vol] Platelet mean volume [Entitic volume] in Blood by Automated count 9.5-13.5 [facility] Platelets Auto (Bld) [#/Vol] on 12-06-2024 Platelets (Bld) [#/Vol] Platelets [#/volume] in Blood by Automated count 150-450 [facility] Prothrombin time (PT)on 11-22 PT Coag (PPP) [Time] Prothrombin time (PT) 9.0- 11.6 [facility] RBC Auto (Bld) [#/Vol]on RBC (Bld) [#/Vol] Erythrocytes [#/volume] in Blood by Automated count 4.70-6.10 [facility] Coding Queryon 08-11-2024 Coding Query [id number] [email or web address] 08-09-2024 Coding Summary HTMLBase 64 JiihhhkjEMs9jMh+PGhlY WQ+RX5PZPIlG19thVBtfW 0aB5FVBRaNMhxiDMATDGj KBnZktpIvHX2emSMyCQDq IC8+PO0sWOCvIktucPIaz 4Y2vHJ1M14qdv0kEIqjzX I6NCYjQaXldyuhf4yaaFs 6IDcuNmluOyBt ENNyiD68JQV6kT50Gc76x YSrnGMvv6ivtJw6BjKnCU XaVYN4cVqeSQzcr3WyGTV hC75ciHHwp5N1 LOExdApwgNUsBuZicXQ9k E5gTGcthiibv2qzxumwMc p8gz05hOOys7L1zCY6T2A urqP2RUKjdBSw OlthiXIPhS6vhztzu1nuu tpmMfOaTZZbNZh4ICe5CD CabPxsVoYgIR09XNP0ZZK wtiViO7NtAQOr sGrvTnG5b2N1Uc3PZ5USF xyoG7QTBGANAAlyyLO+PC 12sk83M4NrEqtxCzw0UZU mWXV0oNR4uH4z TSBkNReum9O3sKX2G0Lbo iHlnb2eb1mkKSSsZNupZ2 3wtXMxm1C4FVIhwRU4RWM rqJtuCoWpvG39 Oyc+WEJjxXjcs9AdApsie 2vle5ekuJt8MbpmTXAqbz WibCpmLRW2h9EoWx2tJNS gzCC6hGR2fK1o ObHiIsU8EGvcD061DwHyf DQbKohbQ27cV2DliSR+PH KjYlk0MPNudXedBC6vB2U hZGRpbmctbGVm uIflSF9oSSCxadhxKUXfq H6mWGQcI2b9AeIjZfJ3PV avF4AwFQNuteuoSv91tW7 tNjIgKtD2KOqw T9FesvO6TTIppCPjMKqvK RA1K88sv9P7MTByVKDiNY S2gSS0vI7hfDpambeycFY mdDsgdmVydGlj SIbqJOyoS444WUYvmKwcJ kNvZGluZyBEYXRlOiAgMT IvMTcvMjAyNDwvdGQ+PHR lPAK4lCfeFIAk eEBcJRjnGd0irTbslHusH W5gLDFnwzriJWRojM2bNE QlsISvqFcmMI6yJKJkprf bp678HiXmIGG9 REGmoMOzT9QblR3uLqDdQ NWiFWRdA3GzdABgMZijU3 63MBbeDyA7KJOdpoMfS1Z sLWFsaWduOiB0 z8U6Sk2Ep4QawsqdH6Hga XEfHiEvZwneKUi2U8FjYk wvdHI+IM36QUNhFM07IAg 4XFO3zYfiSDkh CNRtD4TliZ1hNfTkGBWyA GRkOyc+PHRhYmxlIHdpZH RoPScxMDAlJyBzdHlsZT0 tAe3xFDGzSVSa nTswlETkCtLvk5wjFZWcS RlvIY5nuKilR0NfpKB3FB Mir3x4Mv33J62bE5UzfLU +FDLumPV7mHC5 kO9jFwEoIsE4SVbpI556X gBhuWWqIdxru3jqz6ljfD y8NjD4YRClldTipOnhXXK 2z5JmDx56W30d IHdpZHRoPSIxNSUiIHZhb Pztkm8zuD7kGv9+PGNvbC P6iQW5tF4gXjDsAgP5GGs sB129IvKznDYc Wyrup1qxq6ffuEi0UzExN QLysuDcwNgaWVD9c3VdOp 30V8ZvhKjgc6QvBzv4ao9 0nHArs6X9kZC8 T9SnAIWdaerowJQhwKmtJ R2pVEChxuyrQARdqB0dXC KqE2b7XnHeHvU0SMngE5V chwN9SFQfaRVq TRIbqXTFuT9nxsxtn2uvv qosByKeOLIxGCi7CDt9XX BjvKktUvRbAPU1NfR3KKM 1gTFywO0dsCvb lrneoS5kMdu+UZM5nUZsm SLIPW5mPlfuhUU+PHRkIH O8rBzgKGepZWRhsB5fLMT lM6i3TaLfFnC9 CLrxY1GagkE5SKBbcPZrE OXkdUBLnQ1gqcodl4aawr yqAwGbTCOsOPc2LIq7RYU saWduOiBsZWZ0 ZwA1NOI2hTNeaA9qzTdkl rvjvJ5bEqf+QmlydGggRG F9SUw1Y5EqDsp4WOLxxIv eCO1ibJKzBRrw Df0hlCgzxOrmQF0iDDWmc dxej633BkUkg2chWQZzcR SbLJefTGH3N07cr4E7TDV aLITsVOO2pBL9 vP1ciFcuamugdPDnoQrdk rNoaSkjXBzuUHssW259UL RucFdbZiCeFZd5B5GxKwp 8IEVarJvhZM4p gOSmFCmmMk0uwUaefBweX O4gOXMswuuah170SmVje6 rmEJJrnATgKPxnUYP1R67 qf7A6ZEJaTZOm FST0vYJ3yU8piTpvqoblj GVmdDsgdmVydGljYWwtYW doW215YRDhsMpqWiAorSp 2N8ZmBih9JWYn aQrfEX0uvUCzYCvuDq7pv AfsbRzoPB5pAFHtpuwsg8 05FsMer9xnFXQeyJFgTXv gCRF6U68rk3N5 VQGjCBMdZJA8kCO4yO4za GlnbjogbGVmdDsgdmVydG jxOQvhPJjuO060VKAgxTq nPlBhdGllbnQg AManMRu4E9ZcXittoTJ+P F39FKAxDX84eQDnsQFid6 ictQv1KcSvBUNpABI4oSm oDGfgv7UhXETi C26gdKRip3V5QSEukIbwz JGvFaSyzUL7aY3jXCqmly ger7thlxycVoiri3pclm2 7sW96H74xAZxn ZHRoPSIzMCUiIHZhbGlnb m3esL6xRh2+MBHdzOH8lS F9nV7iZFYoVnF0KYdoC88 9InRvcCIvPjxj k7wrb3uykZr5YrY2OBPpk tNmbFbtOSO2s0JhKz59G2 9sIHdpZHRoPSIyMCUiIHZ txZqhna5dpL6k Ii8+PIUgpHD0vGO4vH0mL zWxYpZ7HRfrR702ObFpoC ZkVsvqQ48fI8WlxLH+PHR tYeg7MEMjvUar WR3oqQAyYUduVs1wWCL2D cXhMdCfDHtiI2EoTNSesa ozmadreFD3DLMuBZNonD2 2Ow3xeRevPONn pOMFyJ8dipznd2eejljqC aPoBYJxIHt0VMx1SZSrmA koXwZiFXV0IkH1SAG3xNB ekV7hwFcteebq pM3sT5VeOONlbnqdGl43k X6pEmRnDvL8QClsHti+UE ATD9qTNdxaMQMCBV0MRKS 2G7QbMln1UBPp fMciHL4kuWMxHZxcOg1df RbxiKlmIN6fHMKfyapwAT GcuZ8mHEViwHRatClfWM1 dOJBhisrag406 CrKtQMO7ADMijMEkP5Njy T8tBxFfAFXqPLItJ7AqqF YgHCgzA604OWxnFqY7CSP vuuDxE1BhJSQu hQsoPfM0n9A7Bj8qUD0eH e2nQIYeJM25EZ33jEXwc6 Q9mVU4F1YuJBAfioyqoib vuJV2ANYpQXAj mD04wVMwEVivZl8fj7L6y 568QCRiABEbmH78Vu8waQ doTMFmiTDEmS5lcdqlk7n vcjogIzAwMDAw FYc8LMp9EKFhnNkwDkQeQ PV7JqF9IYM4wULlzZ8rvE plmcvfaL6oWsf+NzQgWWV sesO4C5TgCkp5 YEAylXhjEH8rrCHpDBuuQ n3rpFntbEvwKZ2xBLOlnq tnKJMnsL3cMOLiiBQukBd lXJ3jDJChofls j491CjMoFFT7NSCavWXyW 4WydG2yPxBhIZAkWDJjO7 MmlVIbLQhrG388VBkxDhU 7TMJoaeLnZ6Gc RWBkxJywLeF5a8K9Ro8KJ MqNEZ17AF30zNLfn7H7zL M1G2WvISBjskvxwgaalMH 5CMQbBCXlzF11 hCBlCKpzFd9kt4V3f496J UIlEFVjlC91Jy1kdZekQL WxsWZUjC2znjfly0vwfkj gIzAwMDAwMDt0 CJh6FUMydKylBfMiQUV2Y qP8XJH0aBBkoX2wyVfnui bthX7wQho+M0C6H0LxJed vdHI+DZ09RRRj MI38mDPudEDnm3cdjTt0U xGkGJGzWRO5dVduVPgeg1 WdFSWmV88qtJLck3S6VOV vbGxhcHNlOyBl mGW7kQ4eUInwdodwj8iub zveAtkwi2gfrj17vN06I1 9sIHdpZHRoPSIzMCUiIHZ ykZbdli6jfL8l Ii8+RFZzhVB3pJA6fA3jN zCbRrC5GCimC508LqBepS TiWamce6owc4ylfDb9SmQ wJSIgdmFsaWdu MWV5x5JwAk03J04zWWozJ HRoPSIyMCUiIHZhbGlnbj 1wnT8aLr3+TF6od4eyda2 2aC76sEB+PHRk NNQ5dGefZWygBJDjdG1dX SefQaK5YMRvKgTioT16kW VsDAlfFi1noVsklMrcUL9 hTUMchqzyl040 AtEux4zcXSRigQBeIZjjS VL1A53os4W2AETqJHCjOO X3nJL1aF2uwOxrnauqcYQ mdDsgdmVydGlj UVceZIbfW077PBLthQvoK qJcsNFdS8gqodGSOE8lMf wvdGQ+QHQjETV0vFfxYXb fMPGhrP1zGSOr T8q7TiKaEwG2XFckJ1Cfg xX3XKZdpJTdTWYrbIRCnX 1edgwvm7fsiwcdHqNcNKF sEJk2OVe8ADYb bDfeZyPoQHB7HeN5ABS3j IVkyV1pcGudmhgcxU6lNh c+RklOOjwvdGQ+PHRkIHN 0eWxlPSdwYWRk gQ4fENBeV9e0VuOoRdX1W HmrF5MqcsB4HYNpqHSkLR GxaQCOrY2frbtjr4yevyj gIzAwMDAwMDt0 FGa0RWUejQogRwJlPWH3I gV1UQL0eKRptE8xlRryld rxxJ1ePwu+TVJOOjwvdGQ +ZWWdIWK4sLbf HVfcHEEtyH8kMUTeA2i0V mGqWiM9NQocM1CejeT2TH RtmIAeHIAxuPEOnN5phjg af9jxsdafKlKt PTTjKMh4QLy7RQZhhXtbS qLfPLR5EuU3ITY3qZQlnQ 4xvKojhlppfP6eIsv+UGF 9PEP7DV32VW43 D0NqSfrmgYJcsOR+PHRhY mxlIHdpZHRoPScxMDAlJy PypObmIX9zBt1wVRMtIRM vbGxhcHNlOiBj b2x (more content not included)... [facility] C Urineon 07-16-2024 C Urine >100,000 cfu/ml [...] Tri/Sulf <=0.5/9.5 Verified Vanc S 2 Verified [facility] Comment on above: Performed By: #### [id number] ####[facility] (DEFAULT)[address] [place] [address] Provider Orderson 07-12-2024 Provider Orders [id number] 2 [id number]#1. 00[facility]IFF [facility] MAGR PACU Record [facility] Record Summary Primary Physician: Lane Chen MD Finalized Date/Time: 07/04/24 14:17:54 Pt. Name: RICARDO GRANT/Sex: 1950 MALE Med Rec #: [id number] Physician: Lane Chen MD Financial #: [id number] Pt. Type: D Room/Bed: / Admit/Disch: 06/02/24 05:52:27 - 06/02/24 10:17:00 Institution: PACU Case Times MAGR Entry 1 In PACU I 10/10/24 08:35:00 Discharge from PACU 06/02/24 09:04:00 I Last Modified By: Lamar Christie RN 07/04/24 14:17:53 Finalized By: Lamar Christie RN Document Signatures Signed By: Colleen Denney RN 06/02/24 09:05 Lamar Christie RN 07/04/24 14:17 Unfinalized History Date/Time Username Reason for Unfinalizing Freetext Reason for Unfinalizing 07/04/24 14:17 MHRSCOTT Correct Documentation Decreasing time by 1 minute in order for charges to drop correctly. [facility] Postoperative Record MAGR Phase II Record Summary Primary Physician: Lane Chen MD Finalized Date/Time: 07/04/24 14:18:22 Pt. Name: RUDYRICARDO./Sex: 1950 MALE Med Rec #: [id number] Physician: Lane Chen MD Financial #: [id number] Pt. Type: D Room/Bed: / Admit/Disch: 06/02/24 05:52:27 - 06/02/24 10:17:00 Institution: Phase II Case Times MAGR Pre-Care [...] in order for charges to drop correctly. [facility] Coding Summaryon 06-09-2024 Coding Summary HTMLBase 64 GzcccyuaOUl5gFi+PGhlY WQ+VZ0QLBSjO73akKWfpP 6hV2RNEQvGAefuGQMJUFs LPrOuoxVpFF2onNZsXYNt IC8+XA3lKIYhAjwbiDHup 8V2eZA1X06oex1dFUucoH R7FOOlQiXrihlpw9uuiXv 6IDcuNmluOyBt CXJroK31SWO6vK05Ab19c SDoxMEos3zbpZt5DeSyGB SkOXV8dKivZYiyp0InREF dQ11lkEFml5S0 EILitBqeuXRjLcLrsDM5o W4zSNfeoytgr6ttslzaUb j8ac59oWGmf1U6kKF1L9J szsR9DKSwuCJz IgbvpLZWrU1hdllcq9hxa sdkXwFaFQJjOMa9AIn8EZ FauOymOfUfBB63HXF3NBR xjtMoX5VsSHDs sOjpSuO0t8O9Ij8QJ8BZH rqwD5CVKADVAKpvpXQ+PC 81pf03W0ZjGoipSdw8XZA qRRV9wIO5oU3b UJDwFEuxc7H8xUY3E8Kqg pCqtq5bp1xiDHCjOJznD5 1ppWZqv8Z0JYOuwOU7LJP xvAxfIpIjrI64 Oyc+TDIgvPkkz2NvMxsgr 5swi8vnvLu0IfzsUZAqgr PtwDieKRV0v7TtGh8zMWC cpBJ2hSP5zJ3a LfOiIeN5WBspI527RsIop LZcAwofQ90tW4YhtNW+PH EfQiu2KFTdvRdcQE3iC8Z hZGRpbmctbGVm jWhqVN0xAKIyyccuXLEnt S7eUVWwU0f7PxZxXxF5LR bcG0KlHEShjphxDg05gM2 lUhHgJfU3TNav C9QqmfH6DZLcnFIuHZvrO TA4C14ia3X7LQHvKBQqHP H2kFT1gF4dgZtvxmddlMA mdDsgdmVydGlj CNktLTqhH050KUEyiHwdZ kNvZGluZyBEYXRlOiAgMT AvMTcvMjAyNDwvdGQ+PHR rVMT7uGbuDKYc hMYuGKtbQv3svXymwXncF V8yJBYargeeKOPckS5xCP JayTYsrVqfTD9vHGAlnsi ry490ToVgBQQ1 WMHguGCqA5RpuV5tEqUvV MQyOPVhF0LqyNUzLNnmP5 87MKchYdW8ASSxrlPnG7M sLWFsaWduOiB0 t7T2Ml0Js3LqrtqhR0Tic FCxNfZfEiywKXz7Y0IlMm wvdHI+TW72YMYiSO74OLc 3MYH4tFwlOSug IBOiS0BkqZ3sFxGqSZKfL GRkOyc+PHRhYmxlIHdpZH RoPScxMDAlJyBzdHlsZT0 iCb2uVADgLISr xRvttBGgOaJfp8ryBMLhD UarKN5iyRoxJ3MroID9TW Com7c6Br99H23mC5YkcNA +ORNvsIV2wPW4 tW4fWqZfBhC8SUpqH141L vEfnWIaVfqda0yyp4hjqL a9SiN2KHYofzIxjXenJXX 0n2LuHs24M89d IHdpZHRoPSIxNSUiIHZhb Dfebg8siY2zDa7+PGNvbC N4hNC0gJ0sCaNoWkU2AZe jQ360BnMmrQCa Atciy7qvn9bpxRr2EyAiO LMucaAxbJfiMWO0z0OmQk 01O7SrsGndm2QrTpn9va1 4uTQsu0B2zFH2 D5QeMRUebrbyyIFjxPhtV Z9tPMJbujlcZAJiqY8ySX SqT8q1NfBhSdF8KKliH7A mymX1FEQlmTEw SVDgzWGOzA4pqudtf2imt utvUvVwSLIiDVd2MAp7RZ MihQyqDvJwRYP9IlT6UEW 7iFHcdS6btPxo aensbS8fFob+AXX9vEJdz KZQGQ5hOdvzbOG+PHRkIH J3fOciFSiwOADztW3cEUP gT0b8IxMdZvS9 AOsnX6AcnuT6TPZplWGrB OZtjWPUgA8aupwll1owll qjKvPzCJDbYAx8GAe5TKE saWduOiBsZWZ0 NdQ4FYY4dAUafH2krHyaz xggtQ8bAak+QmlydGggRG I6ZUx3C1LvGqn4IHWsyZf qFE0mqAHcSJiv Lt6mbFfbdVwnTY6lWOVby soxx924KiWma7sdYXQufY XoQGxnTEZ3F20lz2Y8WNF gIKExZML5yPZ0 rR1mqAurtfwazVWmdNwge zWcdKvyNJvcZArpQ454DN EcxBpxMoAeZLr0V5GsIiv 6QLIaaWtpDW8d uZXoPVftFx2fsUyhkIoaJ S0gPDKilgkfu825QzKgx0 bmWIXvyDYoNAefNIW8L26 dd3B5OJJhAXLv REN2vPO4rO8ufHjbbujpx GVmdDsgdmVydGljYWwtYW zpC947VGQkpKoqUvDefVs 5S0CvSzy8VDCz aVmjUK9imBPsALtnXi2zm TellUrrRP8pXMMkyvotr6 24SyOyt4doJLTmgNGhAMa eVYZ5C35ck1L2 KKBeESImTOZ2uQL8cR2bt GlnbjogbGVmdDsgdmVydG fgBHghNHusE671CWPswRm nPlBhdGllbnQg AVrqCKh6W6LqGfozmIH+P Y05EQSzDE47vLUfdBMlo3 xfsHg0MkOkOGVpNOB5sWh fHGnnk9RpQFVu Q09dtLQve0W3MCWhnFkrc JSzDdSszUJ1iZ1rKCcucu lro8zzrsdxZgqtz5vaci7 8oA45C76mBZuh ZHRoPSIzMCUiIHZhbGlnb i1omY5jFp7+ONLlpWB1jQ P3yQ0uQBDsXpM9DVnyA35 9InRvcCIvPjxj f5xuz7qdgUg9EpN0GIZpw sKdbCkeDPN7s0DtZk62W0 9sIHdpZHRoPSIyMCUiIHZ frTvpco1yeA1x Ii8+RFCriZW9hBL4hC2xW eKiVcD6BSeyX279IoEtkR VeEcpzB35xH9WrpIA+PHR lNei1DGBcgGsd HV9byISpVRgzVo3eYJS5W iNcIoIcEPteK7AjGAPqut hxbbvccKB7FAVyUDOisN7 7Bg6ywAeeWQFg mZFBqY8ufekwz1qbzgakB cLgGBCgQBm3HFa4VJRilZ fhFqJbFCT4QsA4IZQ6dYK smJ6mlEmoljvf vU3gW6CfILGqvvimEb09r X8dFmWaAcM4NFwbQra+UE IQR5nSNzziFQEZGU1ZBFH 1N5ZdGqb7FHFj gSrnZE3kyAVpVSobHf6yj TytfHyvOP1yTRJjwfekGP SzeB3cDKPlrHBifTjgUP4 tKGLaxclbd907 UcVhEDI3GQCcmDDhF2Iez D2jUcBrXWNyWNKcD3AbrT AfFLaiN256BCosXnY0PBE evtOyL0XqSSLe sLbsHrT5f0U3Hi8hJW9pK d1fEPQlNZ08CW90rLKmz2 K7cOR7K4EyRWFzvcpqzmm fpTS3SKWbDIAz jZ41nJXzZDdwHx6zn8A4q 096CXIlIYJecK19Kl3ajT ylBRCkzGZQnS7awjgmk7l vcjogIzAwMDAw SZi8SOq0ORImpXjfZdGrH ZF7CnN0KGK5uEZmyH7ndV cakpgqkR6sBlj+NzQgWWV kvdK5A5CgKzg3 GOEqqSufWR8pxMKgLTdmE z2zyXciyDswFJ5eHXWaog adTJDyuV0uJVRfuFIosDb nWC0rDCDekkba x946UdMjIDY8VQPizAWoI 0ZlyD0rDsSyBTNzHOOrA5 ZfoQRoBGntF373AHauNbA 9XEZhodZpG3Df TYIdpZguTcA7f6Q4Bp5MO YdJUN56RZ42rNAwp7X0nG H2Q2EtONRiiqxgyirnlIG 8PGIzSXAepN88 nRTxQRmjUg2nz4Y1u560T LJrFIGzeX90Do7kbEzgUY UncDFVqR6zqlhgi3qiqur gIzAwMDAwMDt0 IHl7OFYpgCtmUvUcCVY8Q nM2MHM3rPGjzA1etOfvwt jnrX4aQvh+VKL6LCY5kel srmn0D0XmOnga dHI+SE26THJoFV37iUAph PQpf8lirGd3BiNrRKAtKY Z4lVeqRXorf8ZsPOGlP49 fbEDkd0F6TKIu nKwxgKSoBuGjgRH7zG5lH Uaflycdo7ndcdkwDgcjx2 csdf67hK32O87wCKsmMCR oPSIzMCUiIHZh xAibxd4klX0gJb1+PGNvb ZV8mZJ2qJ2iZgUnXtA3BQ gpB148LbWpwUBjNowrk3f tn8tiqEa3DuSp NUHbpfUniFdfWYE1l9WcC w14Z39pLRetCIGsTZJpJS HmUPQsdGdqjk9jbB1pCk8 +PS2ki2szjr89 fN90zNV+GDWnDFO5pBshS IicKBAysK2zKXyuApL9UC RpMbOvaU18rUDqGShuCl7 mySmvnIwsYT9o FFAudftri043QfVtd8bpL JEujKZoXEwqQIG8K74jy2 B3OUUzEWDcDVR1mAK5aF7 hbGlnbjogbGVm dDsgdmVydGljYWwtYWxpZ 185JEQgcJmdMwSbtRDzV8 qmtoZEND0yZqdbwUP+PHR rEQJ3bFuhSUee CUDntS7hAFJeL9p1JcTrF kY5PIdiV7JxisH6VBDbmJ ZhLLNziIEGpU3wyppwu3c vcjogIzAwMDAw LXe8VTf3QUYjuLglGsJvL PE4ByN2PWP2iXSmuR0ciT jfdnkfuV5tYrk+RklOOjw vdGQ+PHRkIHN0 mRukSEhgSPZlvU4yIVIaI 2j4UxZiXhG7ANouI5Qtis M7WSBwwZUoCZRslDKXgG3 gdmkfg1uqsksc BqWnHLTmUVs5VEz8FXTnm GtzDfFcIJJ0DzR8QXN4cM VgfI6hwGywtfsogI5oClp +TVJOOjwvdGQ+ OCHiSSC3tMkcRVfcNJPfd P2mUAFsB2z6NqKxNqY4EM ckA5OaxjL7WOSboHKgUCN gmZQAeQ7zncji c4gplzvmIrPsZAKiMSw2G Yh3GXGtkFubPkTdAMC9Va H8GZH5fPPxoF1zgCphkyg nyQ8zLqz+UGF5 YOG3WE36VK25L2PwOhihg GFibGU+PHRhYmxlIHdpZH RoPScxMDAlJyBzdHlsZT0 lPm0jWTJlSHSd bGx (more content not included)... Normal [facility] BASIC METABOLIC PANLon 06-07 Anion gap [Moles/Vol] 6 mmol/L Normal - [facility] Comment on above: Performed By: #### C BCA, 00117-6, CMP, 84661-9, 2777-1, 11952- 9, 27217-6 #### [facility] ([id number]) [address], [address] [place] [address] Calcium [Mass/Vol] 8.8 mg/dL Normal 8.5-10.5 [facility] Comment on above: Performed By: #### C BCA, 22627-9, CMP, 09301-2, 2777-1, 04140- 9, 61808-1 #### [facility] ([id number]) [address], [address] [place] [address] Chloride [Moles/Vol] 106 mmol/L Normal 98-109 [facility] Comment on above: Performed By: #### C BCA, 20546-8, CMP, 59538-3, 2777-1, 83457- 9, 38863-5 #### [facility] ([id number]) [address], [address] [place] [address] CO2 [Moles/Vol] 28 mmol/L Normal 22-32 [facility] Comment on above: Performed By: #### C BCA, 34870-7, CMP, 92102-7, 2777-1, 59794- 9, 89668-3 #### [facility] ([id number]) [address], [address] [place] [address] Creatinine [Mass/Vol] 0.86 mg/dL Normal 0.60-1.30 [facility] Comment on above: Result Comment: METH OD TRACEABLE TO IDMS STANDARD Performed By: #### C BCA, 66935-2, CMP, 44962-7, 2777-1, 08100-2, 91506-7 #### [facility] ([id number]) [address] [facility] [address] [place] [address] eGFR (CKD-EPI) NON-RACE DEPENDENT >90 Normal >59 [facility] Comment on above: Result Comment: Reported eGFR is based on the CKD-EPI 2020 equation that does not use a race coefficient. Performed By: #### C BCA, 94792-2, CMP, 60294-2, 2777-1, 46213-6, 49450-1 #### [facility] ([id number]) [address] [facility] [address] [place] [address] Glucose [Mass/Vol] 116 mg/dL High 65-99 [facility] Comment on above: Performed By: #### C BCA, 68991-2, CMP, 76376-8, 2777-1, 07492- 9, 97001-3 #### [facility] ([id number]) [address] [facility] [place] [address] Potassium [Moles/Vol] 4.3 mmol/L Normal 3.5-5.0 [facility] Comment on above: Performed By: #### C BCA, 74735-1, CMP, 44539-4, 2777-1, 84567- 9, 03883-5 #### [facility] ([id number]) [address], [address] [place] [address] Sodium [Moles/Vol] 140 mmol/L Normal 134-146 [facility] Comment on above: Performed By: #### C BCA, 84961-9, CMP, 18366-2, 2777-1, 42785- 9, 52638-3 #### [facility] ([id number]) [address], [address] [place] [address] Urea nitrogen [Mass/Vol] 17 mg/dL Normal 5-27 [facility] Comment on above: Performed By: #### C BCA, 18876-2, CMP, 75097-8, 2777-1, 59917- 9, 67505-4 #### [facility] ([id number]) [address], [address] [place] [address] COMPLETE BLOOD COUNTon 06-07 Erythrocyte distribution width (RBC) [Ratio] 13.3 % Normal 11.5-15.0 [facility] Comment on above: Performed By: #### C BCA, 06238-3, CMP, 46475-7, 2777-1, 66032- 9, 74276-7 #### [facility] ([id number]) [address], [address] [place] [address] Hematocrit (Bld) [Volume fraction] 36.5 % Low 39-49 [facility] Comment on above: Performed By: #### C BCA, 35298-7, CMP, 04297-7, 2777-1, 31804- 9, 24325-3 #### [facility] ([id number]) [address], [address] [place] [address] Hemoglobin (Bld) [Mass/Vol] 12.4 g/dL Low 13.0-17.0 [facility] Comment on above: Performed By: #### C BCA, 49386-9, CMP, 03663-5, 2777-1, 82073- 9, 34618-2 #### [facility] ([id number]) [address], [address] [place] [address] MCH (RBC) [Entitic mass] 32.3 pg Normal 27-34 [facility] Comment on above: Performed By: #### C BCA, 33127-3, CMP, 01059-9, 2777-1, 95550- 9, 79842-9 #### [facility] ([id number]) [address], [address] [place] [address] MCHC (RBC) [Mass/Vol] 34.1 g/dL Normal 32-36 [facility] Comment on above: Performed By: #### C BCA, 05990-4, CMP, 10449-6, 2777-1, 15334- 9, 06822-2 #### [facility] ([id number]) [address], [address] [place] [address] MCV (RBC) [Entitic vol] 95 fL Normal 80-100 [facility] Comment on above: Performed By: #### C BCA, 92733-4, CMP, 09787-1, 2777-1, 92132- 9, 15556-2 #### [facility] ([id number]) [address], [address] [place] [address] Platelet mean volume (Bld) [Entitic vol] 7.7 fL Normal 7-12 [facility] Comment on above: Performed By: #### C BCA, 93178-2, CMP, 00400-3, 2777-1, 19147- 9, 70418-1 #### [facility] ([id number]) [address], [address] [place] [address] Platelets (Bld) [#/Vol] 166 10*3/uL Normal 150-450 [facility] Comment on above: Performed By: #### C BCA, 09979-9, CMP, 51329-0, 2777-1, 45404- 9, 34315-7 #### [facility] ([id number]) [address], [address] [place] [address] RBC COUNT 3.85 X10E12/L Low 4.10-5.70 [facility] Comment on above: Performed By: #### C BCA, 28713-3, CMP, 68536-9, 2777-1, 01451- 9, 60655-1 #### [facility] ([id number]) [address], [address] [place] [address] WBC (Bld) [#/Vol] 8.3 10*3/uL Normal 4.0-11.0 [facility] Comment on above: Performed By: #### C BCA, 78848-2, CMP, 98444-1, 2777-1, 79580- 9, 02963-9 #### [facility] ([id number]) [address], [address] [place] [address] MAGNESIUMon 06-07-2024 Magnesium [Mass/Vol] 1.8 mg/dL Normal 1.8-2.6 [facility] Comment on above: Performed By: #### C BCA, 71767-0, CMP, 40718-0, 2777-1, 60138- 9, 12409-1 #### [facility] ([id number]) [address], [address] [place] [address] PHOSPHORUSon 06-07-2024 Phosphate [Mass/Vol] 3.7 mg/dL Normal 2.4-4.9 [facility] Comment on above: Performed By: #### C BCA, 26688-1, CMP, 10942-1, 2777-1, 02099- 9, 68763-2 #### [facility] ([id number]) [address] [address] CBC AND AUTO DIFFon 06-06- 24 ABSOLUTE BASOPHIL 0.0 X10E9/L Normal 0.0-0.2 [facility] Comment on above: Performed By: #### C BCA, 63925-4, CMP, 92502-2, 2777-1, 94216- 9, 80561-6 #### [facility] ([id number]) [address], [address] [place] [address] ABSOLUTE NEUTROPHIL 5.3 X10E9/L Normal 1.5-6.6 [facility] Comment on above: Performed By: #### C BCA, 71075-5, CMP, 23815-5, 2777-1, 79982- 9, 32212-5 #### [facility] ([id number]) [address], [address] [place] [address] Basophils/100 WBC (Bld) 0.3 % Normal [facility] Comment on above: Performed By: #### C BCA, 73431-0, CMP, 18541-7, 2777-1, 71302- 9, 63198-2 #### [facility] ([id number]) [address], [address] [place] [address] Eosinophils (Bld) [#/Vol] 0.1 10*3/uL Normal 0.0-0.4 [facility] Comment on above: Performed By: #### C BCA, 59703-6, CMP, 23864-6, 2777-1, 98152- 9, 74370-9 #### [facility] ([id number]) [address], [address] [place] [address] Eosinophils/100 WBC (Bld) 0.8 % Normal [facility] Comment on above: Performed By: #### C BCA, 74552-0, CMP, 90108-0, 2777-1, 26496- 9, 97647-5 #### [facility] ([id number]) [address], [address] [place] [address] Erythrocyte distribution width (RBC) [Ratio] 13.2 % Normal 11.5-15.0 [facility] Comment on above: Performed By: #### C BCA, 65977-9, CMP, 20901-2, 2777-1, 25502- 9, 61926-7 #### [facility] ([id number]) [address], [address] [place] [address] Hematocrit (Bld) [Volume fraction] 37.1 % Low 39-49 [facility] Comment on above: Performed By: #### C BCA, 05216-4, CMP, 69214-1, 2777-1, 44426- 9, 78965-4 #### [facility] ([id number]) [address], [facility] [address] [place] [address] Hemoglobin (Bld) [Mass/Vol] 12.5 g/dL Low 13.0-17.0 [facility] Comment on above: Performed By: #### C BCA, 23057-7, CMP, 74504-9, 2777-1, 50769- 9, 93295-3 #### [facility] ([id number]) [address], [address] [address] Lymphocytes (Bld) [#/Vol] 1.5 10*3/uL Normal 1.0-3.5 [facility] Comment on above: Performed By: #### C BCA, 74695-6, CMP, 33494-2, 2777-1, 67623- 9, 20218-9 #### [facility] ([id number]) [address] [address] Lymphocytes/100 WBC (Bld) 19.5 % Normal [facility] Comment on above: Performed By: #### C BCA, 92792-0, CMP, 97670-1, 2777-1, 96502- 9, 50952-6 #### [facility] ([id number]) [address] [address] [place] [address] MCH (RBC) [Entitic mass] 32.0 pg Normal 27-34 [facility] Comment on above: Performed By: #### C BCA, 44855-6, CMP, 46703-4, 2777-1, 87660- 9, 17408-6 #### [facility] ([id number]) [address], [address] [place] [address] MCHC (RBC) [Mass/Vol] 33.7 g/dL Normal 32-36 [facility] Comment on above: Performed By: #### C BCA, 66004-0, CMP, 67091-1, 2777-1, 21266- 9, 96656-1 #### [facility] ([id number]) [address], [address] [place] [address] MCV (RBC) [Entitic vol] 95 fL Normal 80-100 [facility] Comment on above: Performed By: #### C BCA, 74168-7, CMP, 42879-2, 2777-1, 22468- 9, 59177-5 #### [facility] ([id number]) [address], [address] [place] [address] Monocytes (Bld) [#/Vol] 0.8 10*3/uL Normal 0-0.9 [facility] Comment on above: Performed By: #### C BCA, 95393-8, CMP, 69979-9, 2777-1, 84529- 9, 45704-5 #### [facility] ([id number]) [address], [address] [place] [address] Monocytes/100 WBC (Bld) 10.1 % Normal [facility] Comment on above: Performed By: #### C BCA, 38977-2, CMP, 54499-5, 2777-1, 56925- 9, 36125-3 #### [facility] ([id number]) [address], [address] [place] [address] Neutrophils/100 WBC (Bld) 69.3 % Normal [facility] Comment on above: Performed By: #### C BCA, 44647-5, CMP, 79992-3, 2777-1, 65425- 9, 29565-1 #### [facility] ([id number]) [address], [address] [place] [address] Platelet mean volume (Bld) [Entitic vol] 7.9 fL Normal 7-12 [facility] Comment on above: Performed By: #### C BCA, 77712-0, CMP, 68351-7, 2777-1, 77768- 9, 82760-1 #### [facility] ([id number]) [address], [address] [place] [address] Platelets (Bld) [#/Vol] 151 10*3/uL Normal 150-450 [facility] Comment on above: Performed By: #### C BCA, 04751-7, CMP, 44300-7, 2777-1, 83058- 9, 69986-4 #### [facility] ([id number]) [address], [address] [place] [address] RBC COUNT 3.90 X10E12/L Low 4.10-5.70 [facility] Comment on above: Performed By: #### C BCA, 10699-7, CMP, 34071-3, 2777-1, 88345- 9, 56187-7 #### [facility] ([id number]) [address], [address] [place] [address] WBC (Bld) [#/Vol] 7.6 10*3/uL Normal 4.0-11.0 [facility] Comment on above: Performed By: #### C BCA, 47041-8, CMP, 39411-6, 2777-1, 28090- 9, 03107-7 #### [facility] ([id number]) [address], [address] [place] [address] COMPREHENSIVE METABOLIC PANE Tim 06-06-2024 Albumin [Mass/Vol] 3.1 g/dL Low 3.2-5.3 [facility] Comment on above: Performed By: #### C BCA, 93849-8, CMP, 30764-5, 2777-1, 39456- 9, 16054-2 #### [facility] ([id number]) [address], [address] [place] [address] ALP [Catalytic activity/Vol] 67 U/L Normal 39-130 [facility] Comment on above: Performed By: #### C BCA, 52546-2, CMP, 75171-6, 2777-1, 02758- 9, 31484-7 #### [facility] ([id number]) [address], [address] [place] [address] ALT [Catalytic activity/Vol] 13 U/L Normal 0-40 [facility] Comment on above: Performed By: #### C BCA, 12414-9, CMP, 45122-6, 2777-1, 84786- 9, 85470-0 #### [facility] ([id number]) [address], [address] [place] [address] Anion gap [Moles/Vol] 7 mmol/L Normal 5-15 [facility] Comment on above: Performed By: #### C BCA, 87591-9, CMP, 58762-1, 2777-1, 00737- 9, 70620-8 #### [facility] ([id number]) [address], [address] [place] [address] AST [Catalytic activity/Vol] 16 U/L Normal 0-41 [facility] Comment on above: Performed By: #### C BCA, 05179-3, CMP, 77951-2, 2777-1, 79425- 9, 47970-4 #### [facility] ([id number]) [address], [address] [place] [address] Bilirubin [Mass/Vol] 0.4 mg/dL Normal 0.3-1.2 [facility] Comment on above: Performed By: #### C BCA, 98133-2, CMP, 52565-0, 2777-1, 03948- 9, 90737-5 #### [facility] ([id number]) [address], [address] [place] [address] Calcium [Mass/Vol] 8.8 mg/dL Normal 8.5-10.5 [facility] Comment on above: Performed By: #### C BCA, 54800-5, CMP, 98099-0, 2777-1, 87345- 9, 98558-7 #### [facility] ([id number]) [address], [address] [place] [address] Chloride [Moles/Vol] 106 mmol/L Normal 98-109 [facility] Comment on above: Performed By: #### C BCA, 46830-2, CMP, 28072-9, 2777-1, 94757- 9, 50634-2 #### [facility] ([id number]) [address], [address] [place] [address] CO2 [Moles/Vol] 26 mmol/L Normal 22-32 [facility] Comment on above: Performed By: #### C BCA, 80530-0, CMP, 10369-6, 2777-1, 74311- 9, 00784-6 #### [facility] ([id number]) [address], [address] [place] [address] Creatinine [Mass/Vol] 0.87 mg/dL Normal 0.60-1.30 [facility] Comment on above: Result Comment: METH OD TRACEABLE TO IDMS STANDARD Performed By: #### C BCA, 15970-4, CMP, 28497-8, 2777-1, 75212-7, 28426-7 #### [facility] ([id number]) [address], [address] [place] [address] eGFR (CKD-EPI) NON-RACE DEPENDENT >90 Normal >59 [facility] Comment on above: Result Comment: Reported eGFR is based on the CKD-EPI 2020 equation that does not use a race coefficient. Performed By: #### C BCA, 73212-7, CMP, 14771-7, 2777-1, 32290-3, 20863-2 #### [facility] ([id number]) [address], [address] [place] [address] Glucose [Mass/Vol] 105 mg/dL High 65-99 [facility] Comment on above: Performed By: #### C BCA, 69639-0, CMP, 97282-0, 2777-1, 08196- 9, 15120-9 #### [facility] ([id number]) [address], [address] [place] [address] Potassium [Moles/Vol] 4.0 mmol/L Normal 3.5-5.0 [facility] Comment on above: Performed By: #### C BCA, 74787-5, CMP, 26040-9, 2777-1, 52672- 9, 72474-4 #### [facility] ([id number]) [address], [address] [place] [address] Protein [Mass/Vol] 5.5 g/dL Low 6.0-8.0 [facility] Comment on above: Performed By: #### C BCA, 43541-3, CMP, 67015-8, 2777-1, 35370- 9, 77693-2 #### [facility] ([id number]) [address], [address] [place] [address] Sodium [Moles/Vol] 139 mmol/L Normal 134-146 [facility] Comment on above: Performed By: #### C BCA, 55785-2, CMP, 07806-3, 2777-1, 76733- 9, 93053-7 #### [facility] ([id number]) [address], [address] [place] [address] Urea nitrogen [Mass/Vol] 14 mg/dL Normal 5-27 [facility] Comment on above: Performed By: #### C BCA, 46966-2, CMP, 91704-7, 2777-1, 52077- 9, 27833-6 #### [facility] ([id number]) [address], [address] [place] [address] Consultation/Specialist Note on 06-06-2024 Consultation/Special ist Note [id number] .00OTGTIFF [facility] MAGNESIUMon 06-06-2024 Magnesium [Mass/Vol] 1.8 mg/dL Normal 1.8-2.6 [facility] Comment on above: Performed By: #### C BCA, 06716-4, CMP, 80972-5, 2777-1, 01155- 9, 84315-7 #### [facility] ([id number]) [address], [address] [place] [address] PHOSPHORUSon 06-06-2024 Phosphate [Mass/Vol] 3.0 mg/dL Normal 2.4-4.9 [facility] Comment on above: Performed By: #### C BCA, 81209-0, CMP, 35436-5, 2777-1, 99165- 9, 13804-4 #### [facility] ([id number]) [address], [address] [place] [address] Provider Orderson 06-06-2024 Provider Orders [id number]#1 [facility]O DIFFon 06-05-20 24 ABSOLUTE BASOPHIL 0.0 X10E9/L Normal 0.0-0.2 [facility] Comment on above: Performed By: #### C BCA, 24627-7, CMP, 32208-1, 2777-1, 67090- 9, 61483-2 #### [facility] ([id number]) [address], [address] [place] [address] ABSOLUTE NEUTROPHIL 7.2 X10E9/L High 1.5-6.6 [facility] Comment on above: Performed By: #### C BCA, 38042-5, CMP, 82303-6, 2777-1, 01759- 9, 20937-9 #### [facility] ([id number]) [address], [address] [place] [address] Basophils/100 WBC (Bld) 0.2 % Normal [facility] Comment on above: Performed By: #### C BCA, 87967-5, CMP, 45501-3, 2777-1, 71658- 9, 26069-4 #### [facility] ([id number]) [address], [address] [place] [address] Eosinophils (Bld) [#/Vol] 0.0 10*3/uL Normal 0.0-0.4 [facility] Comment on above: Performed By: #### C BCA, 35105-9, CMP, 62106-2, 2777-1, 40481- 9, 87386-4 #### [facility] ([id number]) [address], [address] [place] [address] Eosinophils/100 WBC (Bld) 0.4 % Normal [facility] Comment on above: Performed By: #### C BCA, 88325-5, CMP, 25432-6, 2777-1, 59182- 9, 24127-6 #### [facility] ([id number]) [address], [address] [place] [address] Erythrocyte distribution width (RBC) [Ratio] 13.4 % Normal 11.5-15.0 [facility] Comment on above: Performed By: #### C BCA, 19017-9, CMP, 76911-3, 2777-1, 73056- 9, 57313-4 #### [facility] ([id number]) [address], [address] [place] [address] Hematocrit (Bld) [Volume fraction] 36.0 % Low 39-49 [facility] Comment on above: Performed By: #### C BCA, 35507-1, CMP, 54337-2, 2777-1, 10337- 9, 45820-4 #### [facility] ([id number]) [address], [facility] [address] [place] [address] Hemoglobin (Bld) [Mass/Vol] 12.3 g/dL Low 13.0-17.0 [facility] Comment on above: Performed By: #### C BCA, 70084-7, CMP, 89144-6, 2777-1, 14915- 9, 37983-0 #### [facility] ([id number]) [address] [address] Lymphocytes (Bld) [#/Vol] 1.3 10*3/uL Normal 1.0-3.5 [facility] Comment on above: Performed By: #### C BCA, 34084-9, CMP, 08777-0, 2777-1, 50715- 9, 23123-1 #### [facility] ([id number]) [address] [address] Lymphocytes/100 WBC (Bld) 13.3 % Normal [facility] Comment on above: Performed By: #### C BCA, 17003-4, CMP, 08197-3, 2777-1, 06901- 9, 53513-7 #### [facility] ([id number]) [address] [address] MCH (RBC) [Entitic mass] 32.7 pg Normal 27-34 [facility] Comment on above: Performed By: #### C BCA, 17037-5, CMP, 98740-3, 2777-1, 30887- 9, 75535-5 #### [facility] ([id number]) [address], [address] [place] [address] MCHC (RBC) [Mass/Vol] 34.2 g/dL Normal 32-36 [facility] Comment on above: Performed By: #### C BCA, 10230-8, CMP, 41694-3, 2777-1, 18932- 9, 84678-5 #### [facility] ([id number]) [address], [address] [place] [address] MCV (RBC) [Entitic vol] 96 fL Normal 80-100 [facility] Comment on above: Performed By: #### C BCA, 94237-7, CMP, 66715-4, 2777-1, 74527- 9, 77361-6 #### [facility] ([id number]) [address], [address] [place] [address] Monocytes (Bld) [#/Vol] 0.9 10*3/uL Normal 0-0.9 [facility] Comment on above: Performed By: #### C BCA, 18654-5, CMP, 08293-3, 2777-1, 48791- 9, 19267-3 #### [facility] ([id number]) [address], [address] [place] [address] Monocytes/100 WBC (Bld) 9.8 % Normal [facility] Comment on above: Performed By: #### C BCA, 95197-2, CMP, 84852-2, 2777-1, 26705- 9, 43780-8 #### [facility] ([id number]) [address], [address] [place] [address] Neutrophils/100 WBC (Bld) 76.3 % Normal [facility] Comment on above: Performed By: #### C BCA, 55749-0, CMP, 73362-6, 2777-1, 49783- 9, 50751-3 #### [facility] ([id number]) [address], [address] [place] [address] Platelet mean volume (Bld) [Entitic vol] 7.9 fL Normal 7-12 [facility] Comment on above: Performed By: #### C BCA, 89065-0, CMP, 05821-0, 2777-1, 31200- 9, 98414-2 #### [facility] ([id number]) [address], [address] [place] [address] Platelets (Bld) [#/Vol] 148 10*3/uL Low 150-450 [facility] Comment on above: Performed By: #### C BCA, 95744-8, CMP, 45655-6, 2777-1, 68235- 9, 37417-6 #### [facility] ([id number]) [address], [address] [place] [address] RBC COUNT 3.76 X10E12/L Low 4.10-5.70 [facility] Comment on above: Performed By: #### C BCA, 33768-3, CMP, 91842-9, 2777-1, 38930- 9, 78296-3 #### [facility] ([id number]) [address], [address] [place] [address] WBC (Bld) [#/Vol] 9.4 10*3/uL Normal 4.0-11.0 [facility] Comment on above: Performed By: #### C BCA, 40879-9, CMP, 40554-4, 2777-1, 45804- 9, 96674-1 #### [facility] ([id number]) [address], [address] [place] [address] COMPREHENSIVE METABOLIC PANE Tim 06-05-2024 Albumin [Mass/Vol] 3.0 g/dL Low 3.2-5.3 [facility] Comment on above: Performed By: #### C BCA, 26571-0, CMP, 29823-3, 2777-1, 01243- 9, 60873-5 #### [facility] ([id number]) [address], [address] [place] [address] ALP [Catalytic activity/Vol] 64 U/L Normal 39-130 [facility] Comment on above: Performed By: #### C BCA, 63531-5, CMP, 41528-1, 2777-1, 78821- 9, 12541-5 #### [facility] ([id number]) [address], [address] [place] [address] ALT [Catalytic activity/Vol] 13 U/L Normal 0-40 [facility] Comment on above: Performed By: #### C BCA, 46215-0, CMP, 44093-6, 2777-1, 36932- 9, 49835-4 #### [facility] ([id number]) [address], [address] [place] [address] Anion gap [Moles/Vol] 4 mmol/L Low 5-15 [facility] Comment on above: Performed By: #### C BCA, 37896-1, CMP, 80952-6, 2777-1, 61947- 9, 09420-6 #### [facility] ([id number]) [address], [address] [place] [address] AST [Catalytic activity/Vol] 17 U/L Normal 0-41 [facility] Comment on above: Performed By: #### C BCA, 42991-4, CMP, 36075-6, 2777-1, 03537- 9, 34094-5 #### [facility] ([id number]) [address], [address] [place] [address] Bilirubin [Mass/Vol] 0.4 mg/dL Normal 0.3-1.2 [facility] Comment on above: Performed By: #### C BCA, 93188-0, CMP, 43465-1, 2777-1, 95371- 9, 79158-8 #### [facility] ([id number]) [address], [address] [place] [address] Calcium [Mass/Vol] 8.1 mg/dL Low 8.5-10.5 [facility] Comment on above: Performed By: #### C BCA, 88480-6, CMP, 52633-2, 2777-1, 95741- 9, 98131-9 #### [facility] ([id number]) [address], [address] [place] [address] Chloride [Moles/Vol] 110 mmol/L High 98-109 [facility] Comment on above: Performed By: #### C BCA, 01807-0, CMP, 81329-6, 2777-1, 68897- 9, 10263-2 #### [facility] ([id number]) [address], [address] [place] [address] CO2 [Moles/Vol] 24 mmol/L Normal 22-32 [facility] Comment on above: Performed By: #### C BCA, 16401-1, CMP, 47934-1, 2777-1, 37264- 9, 50475-8 #### [facility] ([id number]) [address], [address] [place] [address] Creatinine [Mass/Vol] 1.12 mg/dL Normal 0.60-1.30 [facility] Comment on above: Result Comment: METH OD TRACEABLE TO IDMS STANDARD Performed By: #### C BCA, 46501-1, CMP, 04361-3, 2777-1, 36419-3, 32725-2 #### [facility] ([id number]) [address], [address] [place] [address] GFR/1.73 sq M.predicted among non-blacks MDRD (S/P/Bld) [Vol rate/Area] 69 mL/min/{1.73_m2} Normal >59 [facility] Comment on above: Result Comment: Reported eGFR is based on the CKD-EPI 2020 equation that does not use a race coefficient. Performed By: #### C BCA, 36200-8, CMP, 81985-5, 2777-1, 40038-8, 71835-9 #### [facility] ([id number]) [address], [address] [place] [address] Glucose [Mass/Vol] 96 mg/dL Normal 65-99 [facility] Comment on above: Performed By: #### C BCA, 29356-0, CMP, 66082-4, 2777-1, 65158- 9, 89618-5 #### [facility] ([id number]) [address], [address] [place] [address] Potassium [Moles/Vol] 4.5 mmol/L Normal 3.5-5.0 [facility] Comment on above: Performed By: #### C BCA, 48181-0, CMP, 83669-7, 2777-1, 05547- 9, 57782-9 #### [facility] ([id number]) [address], [address] [place] [address] Protein [Mass/Vol] 5.1 g/dL Low 6.0-8.0 [facility] Comment on above: Performed By: #### C BCA, 44140-7, CMP, 46800-1, 2777-1, 68848- 9, 37538-1 #### [facility] ([id number]) [address], [address] [place] [address] Sodium [Moles/Vol] 138 mmol/L Normal 134-146 [facility] Comment on above: Performed By: #### C BCA, 89781-0, CMP, 73569-5, 2777-1, 35615- 9, 96780-2 #### [facility] ([id number]) [address], [address] [place] [address] Urea nitrogen [Mass/Vol] 26 mg/dL Normal 5-27 [facility] Comment on above: Performed By: #### C BCA, 68486-8, CMP, 64646-1, 2777-1, 50535- 9, 98425-3 #### [facility] ([id number]) [address], [address] [place] [address] CT CTA CAROTIDon 06-05-2024 CT CTA CAROTID [...] Orlando MD on 06/05/2024 4:18 PM Normal [facility] CT CTA HEADon 06-05-2024 CT CTA HEAD [...] anatomy and potential pathology. 100 mL of [id number] intravenous contrast without complication. Arterial blood flow [...] Orlando MD on 06/05/2024 4:13 PM Normal [facility] HGB A1C (GLYCO-HGB)on 2023 Glucose [Mass/Vol] 117 mg/dL Normal [facility] Comment on above: Performed By: #### C BCA, 06611-2, CMP, 62933-4, 2777-1, 96554- 9, 20068-0 #### [facility] ([id number]) [address] [facility], [address] [place] [address] HbA1c (Bld) [Mass fraction] 5.7 % High 4.4-5.6 [facility] Comment on above: Result Comment: NOTE ADA Guidelines Result HgbA1c Normal : less than 5.7 % Prediabetes : 5.7 % to 6.4 % Diabetes : > 6.4 % Use with caution in patients with abnormal hemoglobin variants as the half-life of red blood cells and in vivo glycation rates are affected. Performed By: #### C BCA, 60536-4, CMP, 69018-2, 2777-1, 88333-2, 97932-3 #### [facility] ([id number]) [address], [address] [place] [address] Lipid 1996 panelon 4 Cholesterol [Mass/Vol] 146 mg/dL Low 150-200 [facility] Comment on above: Performed By: #### C BCA, 28210-8, CMP, 04882-3, 2777-1, 06286- 9, 34377-0 #### [facility] ([id number]) [address], [address] [place] [address] Cholesterol in HDL [Mass/Vol] 49 mg/dL Normal >39 [facility] Comment on above: Result Comment: HDL <40 mg/dL - High Risk HDL > or = 40mg/dL- Desirable HDL >60 mg/dL - Negative Risk Performed By: #### C BCA, 01985-4, CMP, 14176-9, 2777-1, 63472-0, 63611-8 #### [facility] ([id number]) [address], [address] [place] [address] Cholesterol in LDL [Mass/Vol] 65 mg/dL Normal <130 [facility] Comment on above: Result Comment: LDL <100 mg/dL - Desirable LDL >160 mg/dL - High Risk Performed By: #### C BCA, 54211-8, CMP, 49727-2, 2777-1, 57638-6, 49221-8 #### [facility] ([id number]) [address], [address] [place] [address] Cholesterol in VLDL [Mass/Vol] 32 mg/dL High 0-30 [facility] Comment on above: Performed By: #### C BCA, 25242-7, CMP, 42948-1, 2777-1, 57008- 9, 38087-8 #### [facility] ([id number]) [address], [address] [place] [address] CHOLESTEROL:HDL 3.0 Normal 1.0-5.0 [facility] Comment on above: Performed By: #### C BCA, 62357-9, CMP, 50593-0, 2777-1, 00675- 9, 39235-0 #### [facility] ([id number]) [address], [address] [place] [address] Triglyceride [Mass/Vol] 158 mg/dL High 27-150 [facility] Comment on above: Performed By: #### C BCA, 85631-0, CMP, 88428-0, 2777-1, 34219- 9, 05713-2 #### [facility] ([id number]) [address], [address] [address] MAGNESIUMon 06-05-2024 Magnesium [Mass/Vol] 1.9 mg/dL Normal 1.8-2.6 [facility] Comment on above: Performed By: #### C BCA, 85201-8, CMP, 88294-1, 2777-1, 07015- 9, 86468-8 #### [facility] ([id number]) [address], [address] [address] MR BRAIN WO CONTon MR BRAIN WO [...] Rios MD on 06/05/2024 6:08 AM Normal [facility] MR MRA HEAD W WO CONTon 05-24 MR MRA HEAD W WO CONT MR MRA HEAD W WO CONT HISTORY: A 74-year-old male with the history of the acute neurological deficit. Expressive aphasia. Stroke is suspected. TECHNIQUE: MR angiogram of the head is performed without and with intracontrast administration by using 3-D iyab-ul-afcfhw technique. Maximum intensity projection images are reconstructed. [...] Rios MD on 06/05/2024 4:30 AM Normal [facility] PHOSPHORUSon 06-05-2024 Phosphate [Mass/Vol] 2.6 mg/dL Normal 2.4-4.9 [facility] Comment on above: Performed By: #### C BCA, 39728-1, CMP, 30116-9, 2777-1, 65918- 9, 49825-7 #### [facility] ([id number]) [address], [address] [place] [address] BLOOD CULTUREon 06-04-2024 Bacteria identified Aer cx Nom (Bld) CULTURE RESULTS NO GROWTH 5 DAYS Normal [facility] Bacteria identified Aer cx Nom (Bld) CULTURE RESULTS NO GROWTH 5 DAYS Normal [facility] CBC AND AUTO DIFFon 06-04-20 ABSOLUTE BASOPHIL 0.1 X10E9/L Normal 0.0-0.2 [facility] Comment on above: Performed By: #### C BCA, 59577-6, CMP, 32121-9, 2777-1, 53915- 9, 74123-3 #### [facility] ([id number]) [address], [address] [place] [address] ABSOLUTE NEUTROPHIL 11.6 X10E9/L High 1.5-6.6 [facility] Comment on above: Performed By: #### C BCA, 56372-6, CMP, 35040-1, 2777-1, 68909- 9, 91082-3 #### [facility] ([id number]) [address], [address] [place] [address] Basophils/100 WBC (Bld) 0.3 % Normal [facility] Comment on above: Performed By: #### C BCA, 15818-5, CMP, 37647-5, 2777-1, 50294- 9, 31808-1 #### [facility] ([id number]) [address], [address] [place] [address] Eosinophils (Bld) [#/Vol] 0.0 10*3/uL Normal 0.0-0.4 [facility] Comment on above: Performed By: #### C BCA, 13666-2, CMP, 44425-0, 2777-1, 52620- 9, 29868-9 #### [facility] ([id number]) [address], [address] [place] [address] Eosinophils/100 WBC (Bld) 0.3 % Normal [facility] Comment on above: Performed By: #### C BCA, 04879-3, CMP, 58206-8, 2777-1, 44221- 9, 06700-1 #### [facility] ([id number]) [address], [facility] [address] [place] [address] Erythrocyte distribution width (RBC) [Ratio] 13.8 % Normal 11.5-15.0 [facility] Comment on above: Performed By: #### C BCA, 45917-9, CMP, 97669-9, 2777-1, 21672- 9, 43825-3 #### [facility] ([id number]) [address], [address] [place] [address] Hematocrit (Bld) [Volume fraction] 40.3 % Normal 39-49 [facility] Comment on above: Performed By: #### C BCA, 96617-7, CMP, 25255-2, 2777-1, 66390- 9, 17323-8 #### [facility] ([id number]) [address], [address] [place] [address] Hemoglobin (Bld) [Mass/Vol] 13.5 g/dL Normal 13.0-17.0 [facility] Comment on above: Performed By: #### C BCA, 34071-8, CMP, 67190-3, 2777-1, 67450- 9, 75138-2 #### [facility] ([id number]) [address] [address] [place] [address] Lymphocytes (Bld) [#/Vol] 1.8 10*3/uL Normal 1.0-3.5 [facility] Comment on above: Performed By: #### C BCA, 01006-8, CMP, 93012-1, 2777-1, 83194- 9, 76895-0 #### [facility] ([id number]) [address], [address] [place] [address] Lymphocytes/100 WBC (Bld) 12.2 % Normal [facility] Comment on above: Performed By: #### C BCA, 23559-1, CMP, 11380-1, 2777-1, 81714- 9, 28245-5 #### [facility] ([id number]) [address], [address] [place] [address] MCH (RBC) [Entitic mass] 32.4 pg Normal 27-34 [facility] Comment on above: Performed By: #### C BCA, 96664-4, CMP, 86079-0, 2777-1, 16821- 9, 74936-7 #### [facility] ([id number]) [address], [address] [place] [address] MCHC (RBC) [Mass/Vol] 33.5 g/dL Normal 32-36 [facility] Comment on above: Performed By: #### C BCA, 19260-0, CMP, 42000-6, 2777-1, 89305- 9, 51223-5 #### [facility] ([id number]) [address], [address] [place] [address] MCV (RBC) [Entitic vol] 97 fL Normal 80-100 [facility] Comment on above: Performed By: #### C BCA, 79716-6, CMP, 91241-6, 2777-1, 90925- 9, 48850-7 #### [facility] ([id number]) [address], [address] [place] [address] Monocytes (Bld) [#/Vol] 1.2 10*3/uL High 0-0.9 [facility] Comment on above: Performed By: #### C BCA, 04255-6, CMP, 56271-9, 2777-1, 23995- 9, 15686-9 #### [facility] ([id number]) [address], [address] [place] [address] Monocytes/100 WBC (Bld) 8.4 % Normal [facility] Comment on above: Performed By: #### C BCA, 28961-2, CMP, 67271-0, 2777-1, 03446- 9, 61392-2 #### [facility] ([id number]) [address], [address] [place] [address] Neutrophils/100 WBC (Bld) 78.8 % Normal [facility] Comment on above: Performed By: #### C BCA, 29064-9, CMP, 72746-9, 2777-1, 17562- 9, 72448-6 #### [facility] ([id number]) [address], [address] [place] [address] Platelet mean volume (Bld) [Entitic vol] 8.1 fL Normal 7-12 [facility] Comment on above: Performed By: #### C BCA, 03887-3, CMP, 39983-3, 2777-1, 29907- 9, 45579-7 #### [facility] ([id number]) [address], [address] [place] [address] Platelets (Bld) [#/Vol] 175 10*3/uL Normal 150-450 [facility] Comment on above: Performed By: #### C BCA, 53889-3, CMP, 30980-9, 2777-1, 38417- 9, 78509-1 #### [facility] ([id number]) [address], [address] [place] [address] RBC COUNT 4.17 X10E12/L Normal 4.10-5.70 [facility] Comment on above: Performed By: #### C BCA, 21847-9, CMP, 80210-1, 2777-1, 55420- 9, 37852-4 #### [facility] ([id number]) [address], [address] [place] [address] WBC (Bld) [#/Vol] 14.7 10*3/uL High 4.0-11.0 [facility] Comment on above: Performed By: #### C BCA, 31323-7, CMP, 43455-8, 2777-1, 07010- 9, 26369-7 #### [facility] ([id number]) [address], [address] [place] [address] COMPREHENSIVE METABOLIC PANE Tim 06-04-2024 Albumin [Mass/Vol] 3.2 g/dL Normal 3.2-5.3 [facility] Comment on above: Performed By: #### C BCA, 69160-9, CMP, 44267-9, 2777-1, 34808- 9, 80517-1 #### [facility] ([id number]) [address], [address] [place] [address] ALP [Catalytic activity/Vol] 67 U/L Normal 39-130 [facility] Comment on above: Performed By: #### C BCA, 68354-1, CMP, 61135-3, 2777-1, 11735- 9, 04683-7 #### [facility] ([id number]) [address], [address] [place] [address] ALT [Catalytic activity/Vol] 13 U/L Normal 0-40 [facility] Comment on above: Performed By: #### C BCA, 42653-8, CMP, 57977-2, 2777-1, 62975- 9, 88543-1 #### [facility] ([id number]) [address], [address] [place] [address] Anion gap [Moles/Vol] 8 mmol/L Normal 5-15 [facility] Comment on above: Performed By: #### C BCA, 26922-5, CMP, 31004-2, 2777-1, 21681- 9, 70905-9 #### [facility] ([id number]) [address], [address] [place] [address] AST [Catalytic activity/Vol] 20 U/L Normal 0-41 [facility] Comment on above: Performed By: #### C BCA, 97051-8, CMP, 81898-3, 2777-1, 65194- 9, 17433-6 #### [facility] ([id number]) [address], [address] [place] [address] Bilirubin [Mass/Vol] 0.5 mg/dL Normal 0.3-1.2 [facility] Comment on above: Performed By: #### C BCA, 36951-0, CMP, 57985-8, 2777-1, 77216- 9, 47781-8 #### [facility] ([id number]) [address], [address] [place] [address] Calcium [Mass/Vol] 7.9 mg/dL Low 8.5-10.5 [facility] Comment on above: Performed By: #### C BCA, 22683-0, CMP, 34450-3, 2777-1, 07916- 9, 87325-7 #### [facility] ([id number]) [address], [address] [place] [address] Chloride [Moles/Vol] 108 mmol/L Normal 98-109 [facility] Comment on above: Performed By: #### C BCA, 47657-4, CMP, 57089-8, 2777-1, 76334- 9, 49816-7 #### [facility] ([id number]) [address], [address] [place] [address] CO2 [Moles/Vol] 20 mmol/L Low 22-32 [facility] Comment on above: Performed By: #### C BCA, 69929-4, CMP, 71684-8, 2777-1, 40218- 9, 27492-4 #### [facility] ([id number]) [address], [address] [place] [address] Creatinine [Mass/Vol] 1.54 mg/dL High 0.60-1.30 [facility] Comment on above: Result Comment: METH OD TRACEABLE TO IDMS STANDARD Performed By: #### C BCA, 17700-9, CMP, 31345-6, 2777-1, 10974-7, 91179-2 #### [facility] ([id number]) [address], [address] [place] [address] GFR/1.73 sq M.predicted among non-blacks MDRD (S/P/Bld) [Vol rate/Area] 47 mL/min/{1.73_m2} Low >59 [facility] Comment on above: Result Comment: Reported eGFR is based on the CKD-EPI 2020 equation that does not use a race coefficient. Performed By: #### C BCA, 41255-4, CMP, 03162-5, 2777-1, 65465-4, 00282-3 #### [facility] ([id number]) [address], [address] [place] [address] Glucose [Mass/Vol] 87 mg/dL Normal 65-99 [facility] Comment on above: Performed By: #### C BCA, 62971-5, CMP, 11540-3, 2777-1, 02174- 9, 70333-0 #### [facility] ([id number]) [address], [address] [place] [address] Potassium [Moles/Vol] 4.8 mmol/L Normal 3.5-5.0 [facility] Comment on above: Performed By: #### C BCA, 58088-3, CMP, 50752-5, 2777-1, 69105- 9, 84562-4 #### [facility] ([id number]) [address], [address] [place] [address] Protein [Mass/Vol] 5.5 g/dL Low 6.0-8.0 [facility] Comment on above: Performed By: #### C BCA, 35143-6, CMP, 32039-9, 2777-1, 47883- 9, 91560-9 #### [facility] ([id number]) [address], [address] [place] [address] Sodium [Moles/Vol] 136 mmol/L Normal 134-146 [facility] Comment on above: Performed By: #### C BCA, 05923-2, CMP, 23543-9, 2777-1, 11097- 9, 64750-1 #### [facility] ([id number]) [address], [address] [place] [address] Urea nitrogen [Mass/Vol] 33 mg/dL High 5-27 [facility] Comment on above: Performed By: #### C BCA, 98253-2, CMP, 24545-5, 2777-1, 93200- 9, 39090-3 #### [facility] ([id number]) [address], [address] [place] [address] ESR Photometric method (Bld) [Velocity]on 06-04-2024 ESR, ERYTHROCYTE SEDIMENTATION RATE 18 mm/h Normal 0-20 [facility] Comment on above: Performed By: #### C BCA, 62072-0, CMP, 17553-0, 2777-1, 65134- 9, 05429-5 #### [facility] ([id number]) [address], [address] [place] [address] Lactate (P stephanie) [Moles/Vol]o n 06-04-2024 LACTATE W/REFLEX 0.9 mmol/L Normal 0.4-2.0 [facility] Comment on above: Result Comment: Result did not trigger repeat Lactate, re-order if needed. Performed By: #### C BCA, 36885-6, CMP, 05758-5, 2777-1, 29631-3, 07795-9 #### [facility] [facility] ([id number]) [address], [address] [place] [address] MAGNESIUMon 06-04-2024 Magnesium [Mass/Vol] 1.8 mg/dL Normal 1.8-2.6 [facility] Comment on above: Performed By: #### C BCA, 07372-5, CMP, 75851-5, 2777-1, 39044- 9, 39173-2 #### [facility] ([id number]) [address], [address] [place] [address] PHOSPHORUSon 06-04-2024 Phosphate [Mass/Vol] 3.1 mg/dL Normal 2.4-4.9 [facility] Comment on above: Performed By: #### C BCA, 16781-5, CMP, 84457-7, 2777-1, 42128- 9, 76948-6 #### [facility] ([id number]) [address], [address] [place] [address] URINALYSISon 06-04-2024 Bilirubin Ql (U) Negative Normal NEG [facility] Comment on above: Performed By: #### U A #### [facility] ([id number]) [address], [address] [place] [address] BLOOD/HGB Large Abnormal NEG [facility] Comment on above: Performed By: #### U A #### [facility] ([id number]) [address], [address] [place] [address] Color (U) YELLOW Normal YELLOW [facility] Comment on above: Performed By: #### U A #### [facility] ([id number]) [address], [address] [place] [address] Glucose Ql (U) Negative Normal NEG [facility] Comment on above: Performed By: #### U A #### [facility] ([id number]) [facility], [address] [place] [address] Ketones Ql (U) Negative Normal NEG [facility] Comment on above: Performed By: #### U A #### [facility] ([id number]) [address], [address] [place] [address] Leukocyte esterase Test strip Ql (U) MODERATE Abnormal NEG [facility] Comment on above: Performed By: #### U A #### [facility] ([id number]) [address] [place] [address], [address] [place] [address] Nitrite Ql (U) Negative Normal NEG [facility] Comment on above: Performed By: #### U A #### [facility] ([id number]) [address] [place] [address], [address] [place] [address] pH (U) 5.5 [pH] Normal 5.0-8.5 [facility] Comment on above: Performed By: #### U A #### [facility] ([id number]) [facility], [address] [place] [address] Protein Ql (U) Trace Abnormal NEG [facility] Comment on above: Performed By: #### U A #### [facility] ([id number]) [facility] [address] [place] [address] R.B.CELLS 23 /hpf High 0-5 [facility] Comment on above: Performed By: #### U A #### [facility] ([id number]) [facility], [address] [place] [address] Specific gravity (U) [Rel density] 1.017 Normal 1.003-1.035 [facility] Comment on above: Performed By: #### U A #### [facility] ([id number]) [address], [address] [place] [address] SQUAMOUS EPITHELIUM <1 Normal 0-5 [facility] Comment on above: Performed By: #### U A #### [facility] ([id number]) [address], [address] [place] [address] TURBIDITY CLEAR Normal CLEAR [facility] Comment on above: Performed By: #### U A #### [facility] ([id number]) [address], [address] [place] [address] Urobilinogen (U) [Mass/Vol] mg/dL Normal <1.1 [facility] Comment on above: Performed By: #### U A #### [facility] ([id number]) [address], [address] [place] [address] W.B.CELLS 5 /hpf Normal 0-5 [facility] Comment on above: Performed By: #### U A #### [facility] ([id number]) [address], [address] [place] [address] URINE CULTUREon 06-04-2024 Bacteria identified Cx Nom (U) CULTURE RESULTS NO GROWTH AT <1000 CFU/mL Normal [facility] Comment on above: Performed By: #### C BCA, 17912-9, CMP, 26899-1, 2777-1, 76235- 9, 36332-4 #### [facility] ([id number]) [address], [address] [place] [address] XR CHEST 1 VWon 06-04-2024 XR CHEST [...] Bazan MD on 06/04/2024 11:15 PM Normal [facility] aPTT Coag (PPP) [Time]on aPTT Coag (Bld) [Time] 28 s Normal 26-37 [facility] Comment on above: Performed By: #### C BCA, 29534-4, CMP, 40884-0, 2777-1, 46434- 9, 26503-4 #### [facility] ([id number]) [address] [place] [address], [address] [place] [address] Consent Formson 06-03-2024 Consent Forms [id number] [facility] Instructions [id number]. [facility] Outside Recordson 06-03-2024 Outside Records [id number]. [facility] Progress Note - Nurseon 05-24 Progress Note - Nurse Patient arrives to [...] on: 06/03/2024 12:41 EDT] Colleen Denney RN [facility] Progress Note - Nurse Clinical Sociologist called and spoke with pts to make sure she was able to get her questions answered. Per pts she has a phone call in to Dr Mejia office and is waiting to hear back from them. Clinical Sociologist explained to pts again that if she [...] on: 06/03/2024 10:44 EDT] Lorene Pollard RN [facility] Progress Note - Nurse Pts called pre surgery and is concerned about the color of urine today in husbands guerra bag. She stated that it looks like a cranberry color. Clinical Sociologist asked her if there were any blood clots and she said no. Clinical Sociologist asked pts if he has been drinking a lot of fluids and she said yes. Per pts he also has some bleeding around his penis. Clinical Sociologist explained to that his penis is probably irritated from the catheter. Pts stated that she is afraid to pull the catheter out because the color of urine. Pts would like to send pictures. Clinical Sociologist informed pt that it is really hard to give her advice without seeing exactly what things look like. Clinical Sociologist informed pts that she should call Dr. Mejia office with any concerns. Clinical Sociologist explained to pt that they may be able to use my chart to send pictures and that depending on whats is going on Dr. Mejia office may want to see him. Pt thanked typewriter assembler and said that she would reach out to Dr. Mejia office as soon as we hang up. [Electronically Signed on: 06/03/2024 10:24 EDT] Lorene Pollard RN [Verified on: 06/03/2024 10:24 EDT] Loreen Pollard RN [facility] Telemetry Stripson Telemetry Strips [id number]. 00OT[facility]IFF [facility] Anesthesia Noteon 06-02-2024 Anesthesia Note Patient: RICARDO [...] on: 06/02/2024 08:52 EDT] Marcos Hoyt MD [facility] Anesthesia Note Patient: RICARDO GRANT [...] BPH (benign prostatic hyperplasia) / SNOMED CT 235925701 / Confirmed COPD (chronic obstructive pulmonary disease) / SNOMED CT 390247874 / Confirmed History of skin cancer / SNOMED CT 1143227517 / Confirmed Hyperlipidemia / SNOMED CT 31364776 / Confirmed Hypertension / SNOMED CT 7072341955 / Confirmed Neuropathy / SNOMED CT 1541728749 / Confirmed Histories Family History: No family history items have been selected or recorded. Procedure history: Cystoscopy ([id number]) on 03/17/2024 at 73 Years. Arthroscopy of knee ([id number]) in 1997 at 48 Years. Comments: 05/18/2024 8:59 Madny Crawford RN ?Right Colonoscopy ([id number]). Elbow ([id number]). Comments: 05/18/2024 9:01 Mandy Crawford RN left [...] Oriented. Review / Management Laboratory Results Plan [place] [employer]#( A) physical status classification: Class III. Anesthetic Preoperative Plan Anesthesia: General. . Anesthetic plan, risks, benefits, and alternatives discussed with the patient and/or family. Patient verbalized understanding. Informed consent was given. Anesthetic technique: General anesthesia. [Electronically Signed on: 06/02/2024 07:38 EDT] Marcos Hoyt MD [Verified on: 06/02/2024 07:38 EDT] Marcos Hoyt MD [facility] Inpatient Patient Summaryon 06-02-2024 Inpatient Patient Summary [place] [id number] Patient Discharge Instructions Name: RICARDO GRANT : 1950 Patient Address: [address] [place] [address] Primary Care Provider: Name: Aayush Escudero After you are discharged if you find you have any questions, please, call [phone] ext [phone] to speak to a nurse. Discharge Diagnosis: 1:BPH (benign prostatic hyperplasia) Prescription Information: If you have been given a prescription for narcotics, seek immediate medical attention if you have any difficulty breathing or any sudden status changes such as confusion and sleepiness. If you or anyone you know is experiencing suicidal thoughts, mental health, alcohol and/or drug addiction problems; contact the [facility] 16/03 Crisis Hotline -Text 4HIZW to [phone]. If you received any narcotics, sedation, or [...] business decisions or sign any legal documents [facility] would like to thank you for allowing us to assist you with your healthcare needs. The following includes patient education materials and information regarding your injury/illness. RUDY RICARDO Ankit has been given the following list of follow-up instructions, prescriptions, and patient education materials: Follow-up Instructions With: Address: When: Lane Chen MD Medications During the course of your visit, your medication list was updated with the most current information. The details of those changes are reflected below: New Medications [id number], [address], [place] [id number], [phone] cephalexin (cephalexin 500 mg oral capsule) 1 [...] needed fo (more content not included)... Normal [facility] MAGR Intraoperative Recordon [facility]-02-2024 [facility] Intra-Op Record Summary Primary Physician: Lane Chen MD Finalized Date/Time: 06/02/24 08:48:28 Pt. Name: RUDYRICARDO/Sex: 1950 MALE Med Rec #: [id number] Physician: Lane Chen MD Financial #: [id number] Pt. Type: D Room/Bed: / Admit/Disch: 06/02/24 [...] Entry [address] Chen MD, Frances Lopes MD, RN Role Performed Surgeon - Primary Anesthesiologist of Ice Cream Man Record Time In 06/02/24 07:48:00 06/02/24 07:41:00 [...] Todd RN, Beryl Balderrama, Sherry Serrano CST EXECUTIVE HOUSEKEEPER Role Performed Ice Cream Man Scrub Personnel Scrub Personnel Time In 06/02/24 [...] Hoyt MD, Frances Ling RN, Imelda Balderrama EXECUTIVE HOUSEKEEPER Last Modified By: Frances Ling RN 06/02/24 [...] E.290 Evaluate (more content not included)... [facility] MAGR Pre-Op Record Summary Primary Physician: Lane Chen MD Finalized Date/Time: 06/02/24 07:41:40 Pt. Name: RICARDO GRANT /Sex: 1950 MALE Med Rec #: [id number] Physician: Lane Chen MD Financial #: [id number] Pt. Type: D Room/Bed: / Admit/Disch: 06/02/24 [...] Signed By: Clarissa Castro RN 06/02/24 07:41 [facility] Patient Handouton 06-02-2024 Patient Handout [facility] Coding Summaryon 06-01-2024 Coding Summary HTMLBase 64 XvdmntnfOCq8wRs+PGhlY WQ+HE9DOXXlK70dzTPltL 3cE4BVAKaUXhmhBWEBQNb JLxVwlsMqGR4dbTCzNGPn IC8+AP4uOSGxCbqepLWpg 3S3cRI9E81amt1zHHnttO Y9VLCvIwJdeoiye1ipsGk 6IDcuNmluOyBt HSYgrV27POH2cU10Ut02o BVylYOrk4wiwAq4QuIlLZ DnOIM5jJrsFFedg7DlDKL dG79omGBsx5Z7 FAJeeFyxjWPePjNxaOY8l U3qLMlijmaut6xtnfwzDz r4fh55cXOxn3E7gEF3H6U fffJ0NFHscOBf QuobiDXRmU3npgwhz6biz rgnZpOoMHFuASd5YGp8IT NggHsoUcNiZM93NDM9SHJ uemImC0VxMJDi iCkmYqK7x6X9Ah0QR9MLT xdrP7RMIIASIAqxqBW+PC 51gx10R1RhTnzaMcv1FJV jGNS7eJG1bZ1x JKJzZWvlx7C6zIE9N7Toy qBvuq0bu1qrTULpQHkbP3 2apIMuz3T6RCFqjLL0LBT eqGfdZeCkyM79 Oyc+BEOyiZtrt1TsVjpwp 8ajx4prtEo9IuzdWYUqwy QcoEjwDFO4o2QkUh6yLDA ruZQ5zWI5qL3l UfMzDtH7POumT673WwBgd NJcCihdB55cR1IesVD+PH KvFui2VQTzqEvjPJ5yV9U hZGRpbmctbGVm tNptZP1xUFPurdokQTSfy J7iRRNlW9c5MaIwGiU5AE dlB7UsRPJazrhcKr89lC3 eFxHnIwZ7MPni Q6XtbnS2GQJemSHjRJaqF UL6A62cp0F5VESpRCQlSW U9cGK8kA4jhBtdwkjzvTY mdDsgdmVydGlj UAxxTHmuS894MVVthWreU kNvZGluZyBEYXRlOiAgMT AvMDkvMjAyNDwvdGQ+PHR xXWH2uUcdIRMj zVPgOVysNw6rmTfkfRrmD W8wHCNvxkmeUBOryY3mTH ZdpSPmqVvcIB0gNOQaqgm sx381UuTrKJG1 ROXmmZNiF0NvyQ9uRuOnQ MAzLUMtZ8LqxZJsSAqaW4 53MUgoUyR6QOKxgbIyV3F sLWFsaWduOiB0 k5S5Dv6Kv4ClmvnlI7Zne FBbPeVwCqfjTSn1R7XcRe wvdHI+BC01AARyOE57IWl 0RSU5bNopCRbd PRKgH9KsvH8cFhXfUVFlI GRkOyc+PHRhYmxlIHdpZH RoPScxMDAlJyBzdHlsZT0 sZg2yIHMfWNFg bJhnbQBnLoTra7ygDMHgB ZyvPC4pjSlkG8VzqFT3BZ Rry0u4Wd54C90pD5PhkZF +GNRzmKS8fJR3 bE9fPeHfFnQ6MLgcX598H zDopOEcCgbyj8gnx8wslM o7RkY5MZYcpvAfdNghZWS 9x9DxWu37J05x IHdpZHRoPSIxNSUiIHZhb Thawy2esM4rSt6+PGNvbC D4hYK0yL6jXjHfVyA2QZo gC945HrKkeUAg Ddmuh3mmd5owmBj6LsAyV VPfjhWzsSvxRZC1w4VdKa 78F5DbmHkbh9MjSnf7zp4 9xCAxx6I0aAQ9 N9XdJKNbmykeqGBcdNfnG G0rXCRhrjjmFWGpoJ4xOX YmZ3w4AzIiFtM7MSquS4V abmV1ULVuvGLe WQVgoFQEwV3iyequh0rsi jzfVwOsTTPdYLo5GEm6KT FgzKxbYvKrVZG9VfO4ZSJ 9iFAezQ4edKxj kygbaZ9kChl+KQL5kQBnc LMXBM1zNuwbuBU+PHRkIH V3wLjiXVvjPUOdkP8sDJV sS4t5YgKrYrU7 XBmrN4ZwbhL9BAPulRNbE ZXahTKUuE8pnlyow4tdbj djYjHqQGEfFZu5RSk6KRY saWduOiBsZWZ0 TyW1TFW3dPDcxS0uzHrfd keviP3jIpo+QmlydGggRG N1MYw5L6YmXbb4NSSsjNt gNW5suHBsKWsn Lf4ukZnsnXyrDP3pWVRuk pauc959ZyNmq9ayOFUrqI PjQDnzZSX2N24md9I2ZVN aQQUaUWJ3uYZ4 fB2jnSkcoyczdUCobNulw iNxlFqzXIhrAKtsO114XG GteZnpQkWvZJg5C8DjLiz 0KDIyhFcwZF7s rYRkIKmoBs1gbNuakUugX N4sHVLkxjsgc631XbJkf7 fkFWHohTJpHMmlGAD7I08 bt5C7AEZmBTAv IYA7nOB8rQ9phTurmwjbw GVmdDsgdmVydGljYWwtYW fjP206DWJkkKygHnIxdRi 0A8JhXdx0DRGi jNcaLB2esWMjZQfaZk6jp MnnfBihGI5iQDAizbjpw6 22NgVjl5qcXTXepJAqZGi pXKK7K62yi9B9 QQKpDOEmWZM1jRW9dW5lp GlnbjogbGVmdDsgdmVydG moBWaeKTerC522OJJdwYm nPlBhdGllbnQg AZbcDJk5X5LoNehkmMR+P B85TMZoHR69fXQfpFPii8 kkgUp3MnTjWYAqOIB7mTh pEAqwa6FxFYSk F16brCYiu6W2HELahTjja YLjVdBroQK8oD0hRJevkq mrl2wluchpLzfdf8xzym4 6mB71S88vWQot ZHRoPSIzMCUiIHZhbGlnb c8gdH0xNf2+ACWerSL2cK B8qF7gNCYpByW4GYtrK10 9InRvcCIvPjxj q3sum0nflIs5TaB5CNXns nCngUrgWHR9r8CpGg33Z8 9sIHdpZHRoPSIyMCUiIHZ sgMnrtn4ifK7a Ii8+BQSzuZT2aFS9cX8dE cJsCsX0SJaqW747ZtXbwU GfUodgT91xU5QfiUD+PHR aOpw6RUCctLax KD7sjOPbONczTo2sJLZ4V uNjYmQoVXkoH3PoEQOkyp vodtgvhPP4APBwYKPsuX6 5Ko1ioDeoCXUf dDNQnV5ligvne5iwjoccW lKtQDWiVLd1POn6JUTusU szPwPzWRV1DaZ2NQO3lTC jhP7kcByfegmd iB9mZ6ZvVCVpptxvFv59a P5kJfTaQlN5AEzgKsp+UE UYZ7kCFbbdEVKJWY2QFCI 0E1XkRdl6APVh yAyfSX6poDMzSXotSw0nz NtfmSktQX9hWMUmhvytCX ToiN1uPLCfdVOloOwuQI2 oPQCkmtoxz915 DdWzVQM2OIOsdIRvQ5Xwr W2tLiDcXISmGGByI2UyvP VnSAouN723OExpLuZ0DNQ jphXsJ8XmKACq cJasMmI1w1B2Ky6dMD5fQ v1dWDYfWE20NU47hKOgj3 C2zCL2T8WsPAIotitfctd jjEV8AOBgEZJc yF74gREkGKozCv7lo8O8x 953WZAlBGSuuD78Ko8iaE qqDUCpzYSAtJ0oftfez4d vcjogIzAwMDAw LXq5KDw2JWAndXqbPxIyH VO7FzD8LSF5aWEwvH8ceW yxatbwzT3tFkz+NzQgWWV ztuK8Y4FcPgd6 WOXnxCcxAA6uoREnOMoiH i7aiWppbLhtAW9zLIUkgj ulSHGecK9xIXQryJRciPv aRK5oDCRmzpvs e825UyViBQE6CSSkjQOmI 7EyiN1nLcGmKXPlCPJuH3 YepSSqSXayC694ZAbxNjO 3EHTmfmYnZ6Or BLRwlOdaShV9y4M0Cv6GH IyMUD15HF17xGTua6I9hV N3Y1EyBNZpdfrmhjiqhUH 3IGLxVXCjwL59 qXVlQJjbNr3td1J5j462V BNpIDAujL86Gn3eyUwyBT ZnfPGTmU8fpmqut9vmywg gIzAwMDAwMDt0 LAm7OQWkwGilZlFbVJL0Q qV9XKH4mNTtqZ9nsSgsag dnmC5aVdi+S6F4P2MnLny vdHI+UP82RYLe VP45cRVsyQVma2fxiPc6L vFeHTFfSUA8wMggGStei6 LjVYIqG46cwEFuf8Z7HBX vbGxhcHNlOyBl yCD4pW8lFPoivkpfv6yzb mvfGmwxa9snjh53dH91H5 9sIHdpZHRoPSIzMCUiIHZ ajPtbjz2emG6r Ii8+CLXvlKG9sMN9zH2fI lEaLjR5ULigA733BzMnhF YrIyres9cep4zeaZd8JuY wJSIgdmFsaWdu TUG2x4LgPd79B85lOBqwL HRoPSIyMCUiIHZhbGlnbj 6mgG0zAo6+BH8oy0xnkv5 2mA42tPX+PHRk VDO6oUzeJPifUNJesJ8fP KreSqT2LNZtJhKkfA36oX QeXScoOl5wmTgjiKshUJ6 rEKIosaope474 PyLsm6fbVDUrgMGbXWbkH XP9F02ix6V7VXWvTJMbZZ Y2hYZ9rW5ywZznehaajRH mdDsgdmVydGlj RGjhWHljL172KFJyfMuzP oCwqEXeC0zdmgEEAC7hEy wvdGQ+ZOFwWFB6oWzoNVi jTCGpcD3eKAEc I3p7BsWwNoX0SVmzL5Dwz bV3FKQviPUgWQQzoVHRgK 3ivnrnf5wadmgnRqNpXUT qZBu8AOg0JVFr mOixJpOkBCM1EaY9WKZ5n QKraO7grMfllapqpP6zGw c+RklOOjwvdGQ+PHRkIHN 0eWxlPSdwYWRk pQ8cHXByO2d0DtWfMtI4O FppG9TnwzG3YHQtiVWlOD RlkCVKfQ9xyadgm7kchsw gIzAwMDAwMDt0 UWr1QWObqVhyPuGcYDE2F xE0NCH7pIOviQ0hpIyrho kclQ3wIps+TVJOOjwvdGQ +EPSsRAE2tDee ABixVCCddI6wEDAvL7y9W fNrPbU8BCwtE2RvjzX5LI UvdLXlQGEneTHNmC0vasr lf8baxhxqNpFb LZSuTOu1BTd1MCSyfZbkH pJsSCS5RjG2IWL2wICfjU 1yfWrtqxawiM4mZek+UGF 7RUC8LM54EC81 X0PePseonJCwiDW+PHRhY mxlIHdpZHRoPScxMDAlJy GqiNvmGL0aZd5oDQGeKOO vbGxhcHNlOiBj b2x (more content not included)... [facility] Progress Note - Nurseon 10-0 Progress Note - Nurse Pre-op call made for 10-10-2024 surgery- pt given arrival time of 0600 tomorrow. Pt denies being sick. 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 [Electronically Signed on: 06/01/2024 09:27 EDT] Mandy Hanson RN [Verified on: 06/01/2024 09:27 EDT] Mandy Hanson RN [facility] Progress Note - Nurseon 04-25 Progress Note - Nurse Dr Yoo reviews pt chart and no new orders were received. [Electronically Signed on: 05/20/2024 11:47 EDT] Mya Lobo RN [Verified on: 05/20/2024 11:47 EDT] Mya Lobo RN [facility] Coding Summaryon 03-21-2024 Coding Summary HTMLBase 64 BowcmutzRCt1tZu+PGhlY WQ+KR0ZSXPhO10rkANpfQ 3hM3KZJIqHUgvsVLXNGXi IHaAbtzWdYT4dzZJnPFOz IC8+FV7rCAVcBvmpqWXbg 7W4uBK0X42iar8nLMbwgK N3QNKnSsGoohybb2fxoCj 6IDcuNmluOyBt MSXzfX33AYQ6nB04Ek73x SIlyOYri6pmlIs6BpLtMO ApTMZ5uWltZGbrl9BdBJV cM95msUOrd0E3 OGTfsPxavDFiWzIcwHQ8w J3qTVqvsirym7wigtuvWl q6qc29hWIgm7L9iJG6D6U retA9SOUlpJAw EyxuxPTJmR4acsxjz3exg tstMiHxQETiGFp7XKp1YI KamLekUaEjPJ12OGJ1LVM bhiVqV2OuIUZh xQuqAsK3x4Z7Aj8QQ3YEL akbQ1MEGTIJYNjpyEU+PC 13vb64K8TrLudzBpw0KZR nOFL1xSL4zA6b DGOtFIxzp7T3iNO4Q2Egz vWacl1gb6ukYJRaRXwdE0 7rvANpx0X4XZGbfJN7LCA eyYwlTsZahJ14 Oyc+GDPgdJroy9RoNzsfd 1ica6nhlPv5PzdxRGPseh TkgHhjAJM9e2WgPo3mBVQ hfQU1jWK0zK8k FnUrYtK9ACxjJ485DiNcx TQtQmofH46fI2EdwWA+PH RpOej3QAKzyLenPP6kV8M hZGRpbmctbGVm eAheTV1nKKOtjiddFOKhv W3rQEBoW6x9CsKbKeC4EE gtP0OqFLDthvykZv09rF6 tTeXvZvQ7RZii P2PucwZ7RBYnxNAyIKhqE EG6J09js3Y0BJVcHIGqER D1eLY4fU5owSfcmdwhqJP mdDsgdmVydGlj YOfmPMfaL126PJDtwEgoN kNvZGluZyBEYXRlOiAgMD cvMjkvMjAyNDwvdGQ+PHR lHMO9xJxiCFPb gPHdHHutBn5npYnsvPvhI X7rGHHvlufvUKAbyE9gCC NcuRNshDnsIT3lAUJultv js563McEdPPV9 FQEgrJFnA8CltH1hMsGmC JAjNUDtT0JefVRlTXcgM0 06CUnyEtM0SFWemdZiI0R sLWFsaWduOiB0 t2S9Pj7Mo8MoyjrjD9Ksi HKiRzKyCaxnABb5L8UfXk wvdHI+UK07NHEsFN94OCv 7CEA2jDljWXhq XPLjY8PzfO5nExPkMGQxH GRkOyc+PHRhYmxlIHdpZH RoPScxMDAlJyBzdHlsZT0 gVx8rIKXoIAVl sAlobNGuVdUin1odPRVnG SldCH7gnHyrN2IwtNQ0KT Rgb0n2Ul65F74uZ0MzaUV +PGMudTO4iNJ4 wC4gKpFwPlI7QPdyU854X mSfaPXvAalvh9ccm7vtvW z0VjW8TWVdleEvjAauRVW 3t0CvPh80Y28p IHdpZHRoPSIxNSUiIHZhb Zsmqm9cxR3cAr6+PGNvbC J1zBP9zU4lEaUbErR0LSl jR297VwBvoKQi Tpnik2nce3ivhRn5FkLfF XJiyiUhgYweGGN0b8UaUq 72L9HmoSvfl1FeVaa8jb0 5cKOeg4A0fMQ2 Y2ObWQXxoogkwWUjsKffN O5aJLXagtaiZAKwvO7tAZ QzX4z3PgKoLdK0KUqfD8F gitT1SXDcgEBi FQOniPLZzM3tckxih9vlt yhcUbUmSNHbZYw1WZs4XS KzsLjkEzWsDGE8BxM4NRW 4eGLxdM5gmSss xskaiM2sSdc+RKR9iFEwq UYILI6mNlgoxAE+PHRkIH O3qIgxSEqtQMZvqT1vFBS nH3h3MwOsBhY3 AOdzI6YvyeO5RROxrFViO IUclQTIqB9tdlsdx1cgrd quXlGpISXjFUm7YPm2KHK saWduOiBsZWZ0 KxH8WAS9pZQlqP7vtCyan hfryN9nIjp+QmlydGggRG H3TRm2A6WuJdd6OJApbGn aDF4cwXVnVVyu Bc6nuApomZzpYU5nBMIas vaoq607XaXus6wzEZFbkO PlIBacVBZ8M88zv9G8UPW rKDBqZSN6rOL2 dR2feGiofvrolMJbtDbxr iCbxWhiQPumDUdkW235XQ RwxIelJtJkRTr3C4EoFkw 1YVKrpMhpQR7q bZJbJXwyYk3vvSjwjNiuM N5yEYCgcpffu577VgUif9 ioOITyyUUsNWjxMLQ5K24 ck7D2DIJvVFAl XCH4sUZ7gD4jmNoccxtxm GVmdDsgdmVydGljYWwtYW jvS649LICfeSzdRtTnjLb 9K4GyDra5IXQi yOsjZG0izMBcMOagOn0fv FjdaJjqFU9lTISsedjad1 19OxFue5flTLGfuYZlORq fKRD6I11bl0L5 JQGhVLZxYKQ5wGV6eL5vn GlnbjogbGVmdDsgdmVydG xuEObzOYozB117TTAcwHt nPlBhdGllbnQg EXvhLCp9H2RvXpaplGO+P G80MPGlFJ72yCRgmRKjc3 tduYp5FcPiHVWwXYS6sTf dFFtzk8YwIBKv T45ufRPlh5U7OZBztBtxw CDcUsXwwRE6nZ7oIOihkr thy9qncareFeadg3qzzc1 2bQ65V04dTMeo ZHRoPSIzMCUiIHZhbGlnb o9xiQ0kJb8+CNYanVJ8wJ K2pO9gYJExSlF8FMxvS09 9InRvcCIvPjxj v9hhu3qsgMk3UqE4PWGlm xPllKktSHP3i0PuLd98Q3 9sIHdpZHRoPSIyMCUiIHZ hmFkjit0xeG2q Ii8+JAJjqMG6nZJ6lB3tW dAkIxG0NDtpF341UmUpsM UmLymaZ61dD8MycYM+PHR dBvq6ZLEutWsw PI8jbJBvHNcfRv6yQWC3U jZoIpMxZAakY1QjRIDzfw jnmbmraCQ6ZPFkNSBcpI5 8Km4gmNgvNMKx lSISsE6qhiedr2vhqhwoF cTgGQKxQJa8RXz0DJFclJ foHbWjLZZ0JcT8LVW5gVV cvI5zrUklxaty gY1cE0YhBKBdkgrmXp45d J5xFaRnDgY5ENmsAxo+UE RAK4mLUrdhLJCSZO9SLPP 5Q6UcAmo0XWBu vUfiBX0nlCKuNZajDc8wm BpzzMxxQH8jDOVfjzkwBW ZarJ5hBOMidFAlhEcvSL6 iFAQdumicb358 SaDdZQX1KBGwyRJkQ9Jit H7oSzKqXBCaWDNrL6MtkF DjADzlH872UPgsRmB8QXM hyaYmY0FfQJYl lMkgAwG1n1K3Dd1uFO3lO o5pDNRjDY01BW72nDAwn2 A2iFT5Z4OlEPJjeiahrvr smLZ7XVFiEKPe nA88zGSbISxrVa3ta1T8j 597GFNxVRXirM61Mc5leT buSLCxqTHZmX2xnnesf8g vcjogIzAwMDAw WIl1LNp8ECZdwYoyQySnF BT4VrJ7EVF0pQLuzL9ltN gnedrfnA1gUkg+NzMgWWV wzzP5L5RwBdn0 HEAefDheLV9xpWIfGIvhN y9snTwigTgxZC8pLRCsuu vuSCWaeT3bMGSduIIqhWb cVY6mKLIkcbmg v960DbGcTMY4CCIhiQLjO 5IidU0hSpZkHJLsVUYaX8 GpgJBoBPinV393WWpdGeC 0NYBidePjL2Ls UDXlpWyzSbF6o0G2Hq0EJ MeHBR51GI73cXKhv8M1nW L3F0DyETUkgzsanfvvrOZ 2TTQxTYQatB78 sXLkAVshIs5qb7X7b526X TXgCMBmdT15Es1okOjqLX FomQEPgX3hpithd9ezehd gIzAwMDAwMDt0 RBs7JFWndWfvAoGzINI1M fG1NPQ2pNDzbQ6mvYxpee ggxG5zMra+GGS9VQQ3rls fpbw6D5VrOwom dHI+EO24ZNRxDF25oVJwo PVbf8lhaPs9RbKgVVPmSP U9kZzgYIjbd1FpGONuC33 wyTTbl7N3JKSw uAkztXFeRqEqwER0oR2oR Wglzcqqz8ayulxsZpuup5 azlu94wO68M10oOKntULP oPSIzMCUiIHZh eTwmuk7siX0sZq2+PGNvb AG7sPG9gU2hZhHyGiU9JA xxG456CySfsGVrNozrs5o fd7hctCm8OePw JWRrurFdtDdbSVT4u1NzO g24W32dVBxpHSHlPJYlQV VfSOVszJhvim1dtR0eOx5 +MX4bh8gwhz83 uL95aKA+ZZCmZAY2wSmyF ImfGWCrrE2xJRfqSdT4CM IkTzAqgV44hONgKIiwIt7 peOfzpEbbFP6f UUOlqmcll834GeGsm9pvY SGfvITtMAdpHWI8H33kc2 Q8EXHfVQVsRUC3aPP5mY0 hbGlnbjogbGVm dDsgdmVydGljYWwtYWxpZ 988WUOynIydWlPhyQZkK1 gtpzOWIJ7yHreyhRQ+PHR fJLT2lNsgOZlj RNIqvW0cHJTlL2k5TdWnD pW2IEwwT1OagbY9AMSpjR JgXUYplNUFyO4atuwkd9c vcjogIzAwMDAw AOp8YAb2UWCqhQbmKaMfO BH6VfE7KTH8pGAdfS9asU ffdbbopW4fGsb+RklOOjw vdGQ+PHRkIHN0 qIixTRajTLElzV1wZLTjK 0t9XfYiHeQ2KQauO2Ulkb K2LTJppPPpJWUyjQTKlU0 iowzpf1mlorbe OtXvYTMxHBl3QDp9OVIsq CnyRkOoBBJ0EpZ9UOW2oR AebE5scVejyhudeN4tPkk +TVJOOjwvdGQ+ BFUuBRU0iLcbMMsqJRKyz Y6uUFCrC1f4QfHaNkZ5WY viI7UafmN3QYUdkDUdHQE kdJEWgI1cuhce r4lwxsfiWdYkHCElVEm4O Rv8XLOnbProVhYdJRZ7Go C1QPF2gEPntV1wyAlaodt muJ8mExv+UGF5 WYL7XC26EY63I4GgGekgo GFibGU+PHRhYmxlIHdpZH RoPScxMDAlJyBzdHlsZT0 bVh6mUMTiZNFk bGx (more content not included)... [facility] Provider Orderson 03-21-2024 Provider Orders [id number]#1. [facility] Consent Formson 03-18-2024 Consent Forms [id number]#[facility]. [facility] Inpatient Patient Summary [facility] [address] [id number] Patient Discharge Instructions Name: RICARDO GRANT : 1950 Patient Address: [address] [place] [address] Primary Care Provider: Name: Aayush Escudreo After you are discharged if you find you have any questions, please, call [phone] ext [phone] to speak to a nurse. Discharge Diagnosis: 1:BPH associated with nocturia; Nocturia Prescription Information: If you have been given a prescription for narcotics, seek immediate medical attention if you have any difficulty breathing or any sudden status changes such as confusion and sleepiness. If you or anyone you know is experiencing suicidal thoughts, mental health, alcohol and/or drug addiction problems; contact the [facility] 16/03 Crisis Hotline -text [id number] hl [phone]. If you received any narcotics, sedation, or [...] business decisions or sign any legal documents [facility] would like to thank you for allowing [...] Strep Thro (more content not included)... Normal [facility] MAGR Intraoperative Recordon 03-17-2024 MAGR Intraoperative Record MAGR Intra-Op Record Summary Primary Physician: Lane Chen MD Finalized Date/Time: 03/17/24 13:58:17 Pt. Name: RICARDO GRANT/Sex: 1950 MALE Med Rec #: [id number] Physician: Lane Chen MD Financial #: [id number] Pt. Type: D Room/Bed: / Admit/Disch: 03/17/24 [...] Entry [address] Chen MD, Ann RN Todd RN, Beryl Role Performed Surgeon - Primary Ice Cream Man Ice Cream Man Time In 03/17/24 13:53:00 03/17/24 13:44:00 03/17/24 13:44:00 Time Out 03/17/24 13:57:00 03/17/24 13:59:00 03/17/24 13:59:00 Procedure Cystoscopy Local Cystoscopy Local Cystoscopy Local Last Modified By: Ann Huang RN, Erica RN Reina, Ann RN 03/17/24 13:58:13 03/17/24 13:58:13 03/17/24 13:58:13 Entry 4 Entry 5 Entry 6 Case Attendee Lauren Palma RN, Kelly EXECUTIVE HOUSEKEEPER Dago, Iwona DOAN EXECUTIVE HOUSEKEEPER Role Performed Ice Cream Man Scrub Personnel Road Advisor Time In 03/17/24 13:44:00 03/17/24 13:44:00 03/17/24 [...] RN, Louie Cordoba Diane RN, Imelda Balderrama EXECUTIVE HOUSEKEEPER, Iwona Loza EXECUTIVE HOUSEKEEPER Last Modified By: Ann Huang RN 03/17/24 [...] measures to prevent (more content not included)... [facility] MAGR Preoperative Recordon 0 03-17-2024 MAGR Preoperative Record MAGR Pre-Op Record Summary Primary Physician: Lane Chen MD Finalized Date/Time: 03/17/24 14:10:40 Pt. Name: RICARDO GRANT /Sex: 1950 MALE Med Rec #: [id number] Physician: Lane Chen MD Financial #: [id number] Pt. Type: D Room/Bed: / Admit/Disch: 03/17/24 [...] Signed By: Sandy Ward RN 03/17/24 14:10 [facility] Patient Handouton 03-17-2024 Patient Handout [facility] CBC AUTO DIFFon 04-03-2022 BASO # 0.0 103/ul Normal 0.0-0.1 [facility] Comment on above: Performed By: #### C BC #### [facility] [address] [address] [address] Ashley Elizabeth Basophils/100 WBC (Bld) 0.5 % Normal 0.2-2.0 [facility] Comment on above: Performed By: #### C BC #### [facility] [address] [place] [address] Dr. Ashley Elizabeth EO # 0.1 103/ul Normal 0.0-0.7 [facility] Comment on above: Performed By: #### C BC #### [facility] [address] [place] [address] Dr. Ashley Elizabeth Eosinophils/100 WBC (Bld) 0.9 % Normal 0.9-7.0 [facility] Comment on above: Performed By: #### C BC #### [facility] [address] [place] [address] Dr. Ashley Elizabeth Erythrocyte distribution width (RBC) [Ratio] 12.7 % Normal 11.0-15.0 [facility] Comment on above: Performed By: #### C BC #### [facility] [address] [place] [address] Dr. Ashley Elizabeth Hematocrit (Bld) [Volume fraction] 42.9 % Normal 42.0-54.0 [facility] Comment on above: Performed By: #### C BC #### [facility] [address] [place] [address] Dr. Ashley Elizabeth Hemoglobin (Bld) [Mass/Vol] 14.2 g/dL Normal 14.0-18.0 [facility] Comment on above: Performed By: #### C BC #### [facility] [address] [place] [address] Dr. Ashley Elizabeth IG # 0.04 10e3/ul Critically high 0.00-0.03 [facility] Comment on above: Performed By: #### C BC #### [facility] [address] [place] [address] Dr. Ashley Elizabeth IG % 0.5 % Normal 0.0-0.5 [facility] Comment on above: Performed By: #### C BC #### [facility] [address] [place] [address] Dr. Ashley Elizabeth LYMPH # 2.2 103/ul Normal 1.2-3.8 [facility] Comment on above: Performed By: #### C BC #### [facility] [address] [place] [address] Dr. Ashley Elizabeth Lymphocytes/100 WBC (Bld) 27.7 % Normal 20.5-60.0 [facility] Comment on above: Performed By: #### C BC #### [facility] [address] [place] [address] Dr. Ashley Elizabeth MANUAL DIFF REQ NO [facility] Comment on above: Performed By: #### C BC #### [facility] [address] [address] [address] Ashley Elizabeth MCH (RBC) [Entitic mass] 31.6 pg Normal 25.9-34.0 [facility] Comment on above: Performed By: #### C BC #### [facility] [address] [place] [address] Dr. Ashley Elizabeth MCHC (RBC) [Mass/Vol] 33.1 g/dL Normal 29.9-35.2 [facility] Comment on above: Performed By: #### C BC #### [facility] [address] [place] [address] Dr. Ashley Elizabeth MCV (RBC) [Entitic vol] 95.5 fL Critically high 80.0-94.0 [facility] Comment on above: Performed By: #### C BC #### [facility] [address] [place] [address] Dr. Ashley Elizabeth MONO # 0.6 103/ul Normal 0.3-0.8 [facility] Comment on above: Performed By: #### C BC #### [facility] [address] [place] [address] Dr. Ashley Elizabeth Monocytes/100 WBC (Bld) 7.2 % Normal 1.7-12.0 [facility] Comment on above: Performed By: #### C BC #### [facility] [address] [place] [address] Dr. Ashley Elizabeth NEUT # 5.0 103/ul Normal 1.4-6.5 [facility] Comment on above: Performed By: #### C BC #### [facility] [address] [address] [address] Ashley Elizabeth Neutrophils/100 WBC (Bld) 63.2 % Normal 43.0-75.0 [facility] Comment on above: Performed By: #### C BC #### [facility] [address] [address] [address] Ashley Elizabeth Platelet mean volume (Bld) [Entitic vol] 9.0 fL Critically low 9.5-13.5 [facility] Comment on above: Performed By: #### C BC #### [facility] [address] [address] [address] Ashley Elizabeth PLT 213 103/ul Normal 150-450 [facility] Comment on above: Performed By: #### C BC #### [facility] [address] [place] [address] Dr. Ashley Elizabeth RBC 4.49 106/ul Critically low 4.70-6.10 [facility] Comment on above: Performed By: #### C BC #### [facility] [address] [address] [address] Ashley Elizabeth WBC 7.9 103/ul Normal 4.0-11.0 [facility] Comment on above: Performed By: #### C BC #### [facility] [address] [place] [address] Dr. Ashley Elizabeth DIRECT LDLon 04-03-2022 Cholesterol in LDL [Mass/Vol] 105 mg/dL Normal [facility] Comment on above: Performed By: #### B MP, DLDL, ALT #### [facility] [address] [place] [address] Dr. Ashley Elizabeth DLDL NORMAL SEE BELOW Normal [facility] Comment on above: Result Comment: <100 mg/dl OPTIMAL 100 - 129 mg/dl NEAR OR ABOVE OPTIMAL 130 - 159 mg/dl BORDERLINE HIGH 160 - 189 mg/dl HIGH >190 mg/dl VERY HIGH Performed By: #### B MP, DLDL, ALT #### [facility] [address] [place] [address] Dr. Ashley Elizabeth PROF CHEM 8 (BAS METB)on Anion gap [Moles/Vol] 13.9 mmol/L Normal [facility] Comment on above: Performed By: #### B OLGA LIDIA RODRIGUEZL, ALT #### [facility] [address] [address] [address] Ashley Elizabeth Calcium [Mass/Vol] 9.1 mg/dL Normal 8.5-10.1 [facility] Comment on above: Performed By: #### B MICAHEL DLDL, ALT #### [facility] [address] [address] [address] Ashley Elizabeth Chloride [Moles/Vol] 101 mmol/L Normal 98-107 [facility] Comment on above: Performed By: #### B OLGA LIDIA RODRIGUEZL, ALT #### [facility] [address] [address] [address] Ashley Elizabeth CO2 [Moles/Vol] 24.6 mmol/L Normal 21.0-32.0 [facility] Comment on above: Performed By: #### B MICHAEL DLDL, ALT #### [facility] [address] [address] [address] Ashley Elizabeth Creatinine [Mass/Vol] 1.28 mg/dL Normal 0.70-1.30 [facility] Comment on above: Performed By: #### B OLGA LIDIA RODRIGUEZL, ALT #### [facility] [address] [place] [address] Dr. Ashley Elizabeth EGFR-AF ALBANIAN >60 Normal >=60 [facility] Comment on above: Performed By: #### B MICHAEL DLDL, ALT #### [facility] [address] [address] [address] Ashley Elizabeth EGFR-NON AF ALBANIAN 55 mL/min/1.73m2 Critically low >=60 [facility] Comment on above: Performed By: #### B MICHAEL DLDL, ALT #### [facility] [address] [address] [address] Ashley Elizabeth Glucose [Mass/Vol] 121 mg/dL Critically high 74-106 T [facility] Comment on above: Performed By: #### B MICHAEL DLDL, ALT #### [facility] [address] [place] [address] Dr. Ashley Elizabeth Potassium [Moles/Vol] 4.5 mmol/L Normal 3.5-5.1 [facility] Comment on above: Performed By: #### B MP, DLDL, ALT #### [facility] [address] [place] [address] Dr. Ashley Elizabeth Sodium [Moles/Vol] 135 mmol/L Critically low 136-145 Th [facility] Comment on above: Performed By: #### B MP, DLDL, ALT #### [facility] [address] [place] [address] Dr. Ashley Elizabeth Urea nitrogen [Mass/Vol] 24.0 mg/dL Critically high 7.0-18.0 [facility] Comment on above: Performed By: #### B MP, DLDL, ALT #### [facility] [address] [place] [address] Dr. Ashley Elizabeth Urea nitrogen/Creatinine [Mass ratio] 18.8 mg/mg Normal [facility] Comment on above: Performed By: #### B MP, DLDL, ALT #### [facility] [address] [place] [address] Dr. Ashley Elizabeth [facility] 04-03-2022 ALT [Catalytic activity/Vol] 45 U/L Normal 16-63 [facility] Comment on above: Performed By: #### B MP, DLDL, ALT #### [facility] [address] [place] [address] Dr. Ashley Dumont 02-07-2022 L - -------- Specimen: [id number] Received: 02/07/22 Status: JESUS Gary Num: [id number] Spec Type: Surgical Subm Dr: Chintan Dsouza Jr, Tissues: A Colon - Polyp (ASCENDING POLYPS) B Colon - Polyp (TRANSVERSE POLYP) Procedures: HE Stain/4, Gross/Micro L4/2 -------- Patient Age/Sex Location Account Attending Physician -------- Ricardo Grant/[facility] [id number] Chintan Dsouza Jr, DO -------- SPEC NUM: [id number] RECD: 02/07/22 STATUS: JESUS GARY NUM: [id number] KARLY: 02/07/22- SUBM DR: Chintan Dsouza Jr, ENTERED: 02/07/22-[address] [facility] [address]: SPEC TYPE: Surgical DEPT: S ORDERED: HE Stain/4, [...] 10% Neutral Buffered Formalin (SM/YJ) -------- Specimen: [id number] Received: 02/07/22 Status: JESUS Raindebbie Num: [id number] Spec Type: Surgical Subm Dr: Chintan Dsouza Jr, DO Tissues: A Colon - Polyp (ASCENDING POLYPS) B Colon - Polyp (TRANSVERSE POLYP) Procedures: HE Stain/4, Gross/Micro L4/2 -------- Patient: Ricardo Grant [id number] (Continued) -------- Specimen: [id number] Received: 02/07/22 (Continued) Signed (signature on file) Arley Poole MD 02/10/22 1455 -------- Specimen: [id number] Received: 02/07/22 Status: JESUS Cookei Num: [id number] Spec Type: Surgical Subm Dr: Chintan Dsouza Jr, DO Tissues: A Colon - Polyp (ASCENDING POLYPS) B Colon - Polyp (TRANSVERSE POLYP) Procedures: HE Stain/4, Gross/Micro L4/2 -------- Patient: Ricardo Grant [id number] (Continued) -------- Specimen: [id number] Received: 02/07/22 (Continued) Microscopic Description A, Two H E stained slides are reviewed. Microscopic examination is performed. B. Two H E stained slides are reviewed. Microscopic examination is performed. This case is interpreted at [facility], [place], [place] CPT Codes A. 14216 B. 19959 -------- -------- Specimen: [id number] Received: 02/07/22 Status: JESUS Gary Num: [id number] Spec Type: Surgical Subm Dr: Chintan Dsouza Jr, DO Tissues: A Colon - Polyp (ASCENDING POLYPS) B Colon - Polyp (TRANSVERSE POLYP) Procedures: HE Stain/4, Gross/Micro L4/2 -------- Patient: Ricardo Grant [id number] (Continued) -------- Signed (signature on file) Arley Poole MD 02/10/22 6087 [facility] COVID-19 Antigenon 2 COVID-19 Antigen Healthcare [...] developed and its performance characteristic determined by [employer] and validated at [facility]. This test has not been FDA cleared [...] for SARS Antigen by [employer] PERFORMED BY: [facility] [address] [place] [address] PATHOLOGIST DEVELOPER SUPPORT ENGINEER SHERRELL WILLS M.D. [facility] Comment on above: Performed By: #### S EBONY COVID-19 ALANIS #### [address] Alanis Ag Negativeon 02-06-20 22 Alanis Ag Negative Negative Normal Negative [facility] Comment on above: Result Comment: This is a duplicate Alanis SARS Antigen (MANSOOR) result to be used for statistical tracking purpose only. PERFORMED BY: [place] [address] PATHOLOGIST DEVELOPER SUPPORT ENGINEER SHERRELL WILLS M.D. Performed By: #### S FILOMENA BECK-Ana Maria THAPA #### [address] OBSOLETEon 09-03-2018 OBSOLETE Refill (NENMMN) RICARDO GRANT ([id number]) 1950 M Date Time Provider Department 09/03/18 BIANCA RIVERAMN During your visit today, we recorded the following information about you: [facility] 09/03/2018 3:41 PM Signed Fax from pharmacy requesting refill. Please E-Scribe. Pending Prescriptions Disp Refills PRAVASTATIN 80 MG TABLET Sig: Take 1 tablet by mouth once daily. JUVE: No Pharmacy Name / Store Number: [facility] Pharmacy Phone #: [phone] [facility] Gloria Reynoso RN, RN 09/03/2018 5:01 PM Signed Medication and dose reviewed. Last refill historical. Last office visit 12/25/17. Future appointment: not scheduled at this time. Appropriate for refill. Please review and if approved e-prescribe as requested below. Routed to [facility]. Gloria Reynoso RN September 03, [...] Status:Closed by NIKA THOMAS on 05/25/19 Normal [facility] Vital Signs Date Time Vital Sign Value Performing Clinician Facility 12-06-2024 14:02-0400 Body height 162.56 cm [facility] 12-06-2024 14:02-0400 Body mass index (BMI) [Ratio] 32.1 kg/m2 [facility] 12-06-2024 14:02-0400 Body weight 84.82 kg [facility] 12-06-2024 14:02-0400 Diastolic blood pressure 89 mm[Hg] [facility] 12-06-2024 14:02-0400 Heart rate 65 /min [facility] 12-06-2024 14:02-0400 Respiratory rate 12 /min [facility] 12-06-2024 14:02-0400 Systolic blood pressure 130 mm[Hg] [facility] 07-19-2024 09:14-0500 Body mass index (BMI) [Ratio] 31.76 kg/m2 Devon Rowell MD Work Phone: [facility] 07-19-2024 09:14-0500 Body weight 83.92 kg Devon Rowell MD Work Phone: [facility] 07-19-2024 09:14-0500 Diastolic blood pressure 56 mm[Hg] Devon Rowell MD Work Phone: [facility] 07-19-2024 09:14-0500 Heart rate 64 /min Devon Rowell MD Work Phone: [facility] 07-19-2024 09:14-0500 Systolic blood pressure 131 mm[Hg] Devon Rowell MD Work Phone: [facility] 06-23-2024 10:22-0400 Body height 160 cm Juan Drummond DPM Work Phone: [facility] 06-23-2024 10:22-0400 Body mass index (BMI) [Ratio] 31.89 kg/m2 Juan Drummond DPM Work Phone: [facility] 06-23-2024 10:22-0400 Body weight 81.65 kg Juanfloresita Drummond DPM Work Phone: [facility] 06-23-2024 10:22-0400 Diastolic blood pressure 80 mm[Hg] Juan Drummond DPM Work Phone: [facility] 06-23-2024 10:22-0400 Heart rate 81 /min Juan Drummond DPM Work Phone: [facility] 06-23-2024 10:22-0400 Systolic blood pressure 126 mm[Hg] Juan Bhanu DPM Work Phone: [facility] 04-10-2023 09:00-0400 Body height 162.56 cm Aayush [employer] Other [facility] Other 04-10-2023 09:00-0400 Body mass index (BMI) [Ratio] 31.31 kg/m2 [facility] [employer] Other [facility] Other 04-10-2023 09:00-0400 Body weight 82.74 kg Aayush Ball Other [facility] Other 04-10-2023 09:00-0400 Respiratory rate 56 /min Aayush Escudero Other [facility] Other Encounters Encounter Date Encounter Type Care Provider Facility Start: 12-06-2024 End: 12-06-[address] [facility] Work Phone: Start: 12-06-2024 End: 12-06-2024 Patient encounter procedure [facility] Work Phone: Start: 12-06-2024 Non-patient / Non-visit [facility] [employer] Work Phone: Start: 10-28-2024 End: 11-02-2024 Telephone encounter [facility] Comment on above: Med Refill Start: 10-25-2024 End: 10-26-2024 Telephone encounter Merlene Beckman CMA [facility] Comment on above: Med Refill Start: 07-19-2024 End: 07-19-2024 Office outpatient visit 25 minutes Devon Rowell MD Work Phone: [facility] Comment on above: Cryptogenic stroke ( CMS-HCC) (Primary Dx) Start: 07-19-2024 End: 07-19-2024 ambulatory [facility] Start: 07-12-2024 End: 07-12-2024 ambulatory Aayush [place] Facility:[facility] Start: 06-23-2024 End: 06-23-2024 Bamboo flowsheet Juan [...] Available Start: 06-10-2024 End: 06-10-2024 ambulatory KATRIN HERNANDEZ [facility] Start: 06-09-2024 End: 07-15-2024 ambulatory [facility] Comment on above: Expressive aphasia ( Primary Dx); Other cerebrovascular vasospasm and vasoconstriction Start: 06-08-2024 End: 06-14-2024 Telephone encounter Jodee Khan RN [facility] Comment on above: Care Navigation Start: 06-07-2024 End: 06-08-2024 Telephone encounter Nga Hong RN [facility] Comment on above: Hospital Follow-up Start: 06-04-2024 End: 06-07-2024 Evaluation and management of inpatient CARMELITA Contreras [facility] Start: 06-04-2024 ambulatory [facility] Start: 06-04-2024 ambulatory [facility] Start: 06-02-2024 End: 06-02-2024 ambulatory [facility] Facility:[facility] Start: 05-18-2024 End: 05-18-2024 ambulatory [facility] Facility:[facility] Start: 03-24-2024 End: 03-24-2024 ambulatory JUAN DRUMMOND Not Available Start: 03-17-2024 End: 03-17-2024 ambulatory [facility] Facility:[facility] Start: 05-15-2023 End: 05-15-2023 ambulatory Aayush Escudero Other [facility] Other Start: 05-15-2023 Nursing evaluation o f patient and report Aayush Escudero [facility] Start: 04-13-2023 End: 04-13-2023 ambulatory Aayush Escudero Other [facility] Other Start: 04-13-2023 Telephone encounter Aayush Escudero FP [facility] Start: 04-10-2023 End: 04-10-2023 ambulatory Aayush Escudero Other [facility] Other Start: 04-10-2023 Patient encounter procedure Aayush Escudero [facility] Start: 04-03-2022 End: 04-04-[address] AAYUSH ESCUDERO Facility:[facility] Start: 06-11-2021 End: 06-11-2021 ambulatory GURVINDER BROOKS Facility:[facility] Procedures Date Procedure Procedure Detail Performing Clinician Start: 07-19-2024 Adult depression screening assessment Devon Rowell MD Work Phone: Start: 06-04-2024 Adult depression screening assessment Nga Hong RN Start: 04-03-[address] FLORES [facility] Comment on above: Performed By: #### P [facility] #### [facility] [address] [place] [address] Dr. Ashley Elizabeth Plan of Treatment Date Care Activity Detail Author Start: 07-19-2025 Adult BMI Screening Adult BMI Screening [facility] Start: 07-19-2025 Depression Screening Depression Screening [facility] Start: 07-19-2025 Tobacco Screening Tobacco Screening [facility] Start: 06-05-2025 Adult BMI Screening Adult BMI Screening [facility] Start: 06-04-2025 Depression Screening Depression Screening [facility] Start: 06-04-2025 Tobacco Screening Tobacco Screening [facility] Start: 12-08-2024 End: 12-08-2024 Patient encounter procedure 12/08/2024 10:00 AM EDT Procedure Visit [facility] [address] [facility] [address] [place] [address] Juan Drummond DPM [address] [facility] [address] [place] [address] [facility] Start: 07-19-2024 End: 07-19-2024 Patient encounter procedure 07/19/2024 9:30 AM EST Office Visit [facility] [address] [place] [id number] Devon Rowell MD [address] [place] [address], [address], [address] [place] [address] [facility] Start: 06-23-2024 End: 06-23-2024 Patient encounter procedure 06/23/2024 10:30 AM EDT Procedure Visit [facility] [address] [facility] [address] [place] [id number] Juan Drummond, DPSurjit [address] [facility] [address] [place] [address] Other polyneuropathy (Primary Dx); Pain due to onychomycosis of toenails of both feet [facility] Comment on above: Other polyneuropathy (Primary Dx); Pain due to onychomycosis of toenails of both feet Start: 06-09-2024 End: 06-09-2025 Wireless Telemetry (In Office) [facility] Work Phone: Comment on above: Expected: 06/09/2024, Expires: Start: 06-09-2024 End: 06-09-2024 Professional / ancillary services management 06/09/2024 10:45 AM EDT Ancillary Procedure [facility] [address] [place] [address] Expressive aphasia; Other cerebrovascular vasospasm and vasoconstriction [facility] Comment on above: Expressive aphasia; Other cerebrovascular vasospasm and vasoconstriction Start: 04-24-2024 COVID-19 Vaccine ( season) COVID-19 Vaccine () [facility] [employer] Start: 2015 Abdominal aortic aneurysm screening Abdominal Aortic Aneurysm (AAA) Screen [facility] [employer] Start: 2015 Fall Risk Screening Fall Risk Screening [facility] Start: 2000 Administration of varicella zoster vaccine Zoster (Shingles) Vaccine (1 of 2) [facility] [facility] Start: 1969 DTaP,Tdap and Td Vaccines (1 - Tdap) DTaP,Tdap and Td Vaccines (1 - Tdap) [facility] [employer] Start: 1968 Adult BMI Follow Up Plan Adult BMI Follow Up Plan [facility] [employer] Start: 1950 Medicare Annual Wellness Visit Medicare Annual Wellness Visit [facility] Start: 1950 Screening for malignant neoplasm of colon [facility] Immunizations Immunization Date Immunization Notes Care Provider Fa mervat 05-18-2024 influenza, high dose seasonal, preservative-free Nga Hong RN [facility] 06-22-2023 RSV, recombinant, protein subunit RSVpreF, adjuvant reconstituted, 0.5 mL, PF Nga Hong RN [facility] 05-15-2023 influenza virus vaccine, unspecified formulation Nga Hong RN [facility] 05-15-2023 influenza, high dose seasonal, preservative-free Aayush Escudero Other [facility] Other 05-06-2022 Influenza Vaccine, Quadrivalent, Adjuvanted Nga Hong RN [facility] 05-06-2022 influenza virus vaccine, unspecified formulation [facility] 05-06-2022 influenza, high dose seasonal, preservative-free Aayush Escudero Other [facility] Other 05-05-2022 COVID-19 Vaccine Pfi zer - Documentation Purposes Only Aayush Escudero Other [facility] Other 12-18-2021 COVID-19 Vaccine Pfi zer - Documentation Purposes Only Aayush Escudero Other [facility] Other 06-11-2021 COVID-19 mRNA, Comirnaty (Pfizer) [facility] 05-17-2021 influenza virus vaccine, split virus (incl. purified surface antigen) Aayush Escudero Other [facility] Other 05-17-2021 influenza virus vaccine, unspecified formulation Nga Hong RN [facility] 12-13-2020 COVID-19 mRNA, Comirnaty (Pfizer) [facility] 11-23-2020 COVID-19 mRNA, Comirnaty (Pfizer) [facility] 04-27-2020 influenza virus vaccine, split virus (incl. purified surface antigen) Aayush Escudero Other [facility] Other 04-27-2020 influenza virus vaccine, unspecified formulation Nga Hong RN [facility] 05-12-2019 Seasonal trivalent influenza vaccine, adjuvanted, preservative free Nga Hong RN [facility] 05-06-2018 influenza virus vaccine, split virus (incl. purified surface antigen) Aayush Escudero Other [facility] Other 05-06-2018 influenza virus vaccine, unspecified formulation [facility] 05-06-2018 Seasonal trivalent influenza vaccine, adjuvanted, preservative free Nga Hong RN [facility] 05-01-2017 influenza virus vaccine, split virus (incl. purified surface antigen) Aayush Escudero Other [facility] Other 05-01-2017 influenza virus vaccine, unspecified formulation [facility] 05-01-2017 influenza, high dose seasonal, preservative-free Nga Hong RN [facility] 02-26-2017 pneumococcal polysaccharide vaccine, 23 valent Aayush Escudero Other [facility] Other 06-18-2016 influenza virus vaccine, split virus (incl. purified surface antigen) Aayush Escudero Other [facility] Other 06-18-2016 influenza virus vaccine, unspecified formulation Nga Hong RN [facility] 02-18-2016 pneumococcal conjuga te vaccine, 13 valent Aayush Escudero Other [facility] Other 06-11-2015 influenza virus vaccine, split virus (incl. purified surface antigen) Aayush Escudero Other [facility] Other 06-11-2015 influenza virus vaccine, unspecified formulation Nga Hong RN [facility] [employer] Payers Date Payer Category Payer Private Health Insurance [facility] [id number] 2023 Managed Care Other (unspecified) [facility] [id number] 2023 Unknown [id number] 2015 Unknown [id number] 2015 Medicare [id number] 1959 Medicare [id number] 1959 Unknown [id number] 1950 Unknown [id number] 2.16.840.1.113418.3.579.2. 593 1950 Unknown [id number] 2.16840.1.800207.3.579.2. 593 1950 Unknown [id number] 2.16.840.1.004414.3.579.2. 1259 1950 Unknown [id number] 2.16.840.1.785137.3.579.2. 1259 1950 Unknown [id number] 2.16.840.1.733822.3.579.2. 1286 1950 Unknown [id number] 2.16.840.1.033343.3.579.2. 1286 1950 Unknown [id number] 2.16.840.1.199922.3.579.2. 1286 1950 Unknown [id number] 2.16.840.1.880182.3.579.2. 1286 1950 Unknown [id number] 2.16.840.1.434614.3.579.2. 1286 1950 Unknown [id number] 2.16.840.1.385858.3.579.2. 1286 1950 Unknown [id number] 2.16.840.1.539494.3.579.2. 1286 1950 Unknown [id number] 2.16.840.1.478754.3.579.2. 718 1950 Unknown [id number] 2.16.840.1.436384.3.579.2. 718 1950 Unknown [id number] 2.16.840.1.310067.3.579.2. 718 1950 Unknown [id number] 2.16.840.1.618707.3.579.2. 718 Social History Date Type Detail Facility Start: 03-24-2024 End: 07-19-2024 Sex Assigned At [facility] Other Start: 03-24-2024 End: 04-15-2024 Tobacco smoking status NHIS Ex-smoker [facility] Start: 08-24-2010 End: 03-24-1984 History of tobacco use Current smoker [facility] Start: 08-24-2010 End: 03-24-1984 History of tobacco use Cigarette Smoker [facility] Start: 03-24-2024 Tobacco use and exposure Former smokeless tobacco user [facility] Start: 06-17-2024 End: 07-19-2024 Alcoholic beverage intake Current drinker of alcohol (finding) [facility] Start: 06-17-2024 End: 07-19-2024 Alcoholic beverage intake [facility] Start: 1950 Sex assigned at Not on file [facility] Start: 06-04-2024 Tobacco use and exposure Smokeless tobacco non-user [facility] Has the [employer], gas, oil, or water [employer] threatened to shut off services in your home in past 12Mo No [facility] How often to you hav e a drink containing alcohol? Monthly or less [facility] How many standard drinks containing alcohol do you have on a typical day? 3 or 4 [facility] How often do you hav e 6 or more drinks on 1 occasion? Never [facility] How hard is it for you to pay for the very basics like food, housing, medical care, and heating Not hard at all [facility] Start: 1950 Sex assigned at Male [facility] Start: 06-01-2024 End: 12-06-2024 Sex Male (finding) [facility] Start: 06-05-2024 Gender identity Identifies as male gender (finding) [facility] NEGATED: Highlighted rowStart: NINF History of tobacco [...] well. Pharmacy notified. documented in this encounter [facility] 10-28-2024 Telephone encount er Note Images from the original note were not included. Refill Request: rosuvastatin (CRESTOR) 20 mg tablet Sig: Take 1 tablet (20 mg total) by mouth nightly. Last Refilled: 07/30/2024 Last Seen: 07/19/2024 [facility] 10-28-2024 Telephone encount er Note Deferred to PCP, and patient was notified. Please call pharmacy and inform them as well. [facility] 10-28-2024 Telephone encount er Note Pharmacy notified. [facility] 10-25-2024 Miscellaneous Notes Formattin g of this note might be different from the original. Images from the original note were not included. Refill request RX: Rosuvastatin 20 mg tablet Sig: take one tablet by mouth at night Last filled: 07/19/24 Last appt: 07/19/24 Next appt: follow up as needed Relayed message. Patient voiced understanding. documented in this encounter [facility] 10-25-2024 Telephone encount er Note Images from the original note were not included. Refill request RX: Rosuvastatin 20 mg tablet Sig: take one tablet by mouth at night Last filled: 07/19/24 Last appt: 07/19/24 Next appt: follow up as needed [facility] 10-25-2024 Telephone encount er Note Relayed message. Patient voiced understanding. [facility] 07-19-2024 History of Presen t illness Narrative Images from the original note were not included. [address] [facility] [address] Patient: Ricardo Grant Date of : 1950 [...] intracranial findings. Patient was then transferred to [facility] for further evaluation. While inpatient,a CTA was [...] CN II: Visual acuity is normal. Visual heerdia full to confrontation. CN III, IV, : [...] 2+ 2+ Achilles 2+ 2+ Coordination Right: Mtzilr-gh-vsdt normal. Tqam-mr-fdvj normal.Left: Qqaqjf-kl-pdse normal. Olre-cs-rurb normal. Gait Casual gait is normal including stance, stride, and arm swing. Romberg is absent. Able to rise from chair without using arms. Assessment and Plan: Diagnoses and all orders for this visit: Cryptogenic stroke (CMS-HCC) Other orders - rosuvastatin (CRESTOR) 20 mg [...] Followup as needed. documented in this encounter [facility] 07-19-2024 Instructions Murtaza Rios MD - 07/19/2024 9:30 AM EST - Please continue taking your aspirin 81 mg daily - Please continue taking your crestor 20 mg nightly - Please continue taking your medications as prescribed - Please follow up with us needed documented in this encounter [facility] 07-19-2024 Miscellaneous Notes Formattin g of this [...] legal medical record. documented in this encounter [facility] 07-19-2024 Progress note Formatting of t his [...] a part of the legal medical record. [facility] 06-23-2024 History of Presen t illness Narrative [...] of unknown origin has been seen been [facility] in the past Allergies: Not on [...] Resource Strain: Low Risk (06/04/2024) Received from [facility] Overall Financial Resource Strain (CARDIA) Difficulty of Paying Living Expenses: Not hard at all Food Insecurity: No Food Insecurity (06/04/2024) [facility] Resident Research Hunger Screening Within the past 12 months we worried whether our food would run out before we got money to buy more.: Never True Within the past 12 months the food we bought just didn't last and we didn't have money to get more.: Never True Transportation Needs: No Transportation Needs (06/04/2024) [facility] Research PRAPARE - Transportation Lack of Transportation (Medical): No Lack of Transportation (Non-Medical): No Physical Activity: Not on file Stress: Not on file Social Connections: Not on file Intimate Partner Violence: Not on file Housing Stability: Low Risk (06/04/2024) Received from [facility] Resident Research Housing Instability Are you worried or concerned [...] and positive PT pedal pulses NEURO: 5.07 [place] Bren monofilament test diminished to digits and [...] Juan Drummond DPM documented in this encounter [facility] 06-08-2024 Miscellaneous Notes Formattin g of this note might be different from the original. Contact Type: Direct contact - Phone call with patient - general Reason for Call: CN introduction. Hospital Course: 74 y.o. male with history of COPD, hypertension, pure hypercholesterolemia, and BPH who presents as transfer from [facility] with expressive aphagia with concern for [...] Ambulance was called he was taken to [place]. There, there was concern for sepsis given [...] hospital was negative. Throughout his admission at [place], patient continued to have episodic episodes of altered mental status where he would become weak. An episode of facial droop was noted upon chart review. CT head noncon was negative. He was transferred to [facility] for further evaluation and concern for stroke. [...] Additionally, given his recent urologic procedure, at [facility] he was continued on Rocephin until 06/07. [...] for 3 consecutive days. Patient voiced understanding. [facility] Education Provided: Patient states he was given [...] message regarding EM documented in this encounter [facility] 06-08-2024 Telephone encount er Note Contact Type: Direct contact - Phone call with patient - general Reason for Call: CN introduction. Hospital Course: 74 y.o. male with history of COPD, hypertension, pure hypercholesterolemia, and BPH who presents as transfer from [facility] with expressive aphagia with concern for [...] Ambulance was called he was taken to [place]. There, there was concern for sepsis given [...] hospital was negative. Throughout his admission at [place], patient continued to have episodic episodes of altered mental status where he would become weak. An episode of facial droop was noted upon chart review. CT head noncon was negative. He was transferred to [facility] for further evaluation and concern for stroke. [...] Additionally, given his recent urologic procedure, at [facility] he was continued on Rocephin until 06/07. [...] for 3 consecutive days. Patient voiced understanding. [facility] Education Provided: Patient states he was given information about this.. Balance (Loss of Balance, Headache, Dizziness), Eyes (Abrupt Vision Changes), Face (Drooping), Arms (Numbness/Weakness Arms/Legs), Speech (Difficulty with Speech), Time (Call 911 Right Away). Patient Verbalizes Understanding. CN provided direct line to call if any questions or concerns and if any new, returning or worsening symptoms. Patient verbalized understanding. [facility] 06-08-2024 Telephone encount er Note Received call from patient stating he was told he would be getting a heart monitor sent to him through the mail after discharge. He is requesting a call back . He would like to know when he should expect delivery [facility] 06-08-2024 Telephone encount er Note Monitor was processed on 06/09 - will need to allow 3-5 business days for processing. Should receive soon. [facility] 06-08-2024 Telephone encount er Note Called patient and left detailed message regarding EM [facility] 06-07-2024 Miscellaneous Notes Formattin g of this [...] hospital? What hospital were they seen at? [facility] What is a good call back number? Judi (Spouse)- [phone] Spoke with Judi and scheduled appt Note* patient will be leaving for [place] 07/21/24 documented in this encounter [facility] 06-07-2024 Telephone encount er Note ----- [...] stroke concerning for cardioembolic phenomenon. Thank you [facility] 06-07-2024 Telephone encount er Note What is the reason for the call? Patients daughter contacted our office stating that she needs to schedule a hospital follow up for the patient. If appointment requested, what is the reason for the appointment? Hospital follow up Is there a referral in the chart? yes Were they seen in the hospital? What hospital were they seen at? [facility] What is a good call back number? Judi (Spouse)- [phone] [facility] 06-07-2024 Telephone encount er Note Spoke with Judi and scheduled appt Note* patient will be leaving for [place] 07/21/24 [facility] 06-06-2024 Note [id number]#[id number] 06-03-2024 Note [id number]#[id number] 06-03-2024 Note [id number]#1.00[facility] 06-02-2024 Note [facility] SURGERY Clinical Discharge Summary PERSON INFORMATION Name RICARDO GRANT Age 74 Years 1950 Sex MALE Language Comoran PCP Aayush Escudero Marital Status Med Service Ambulatory Surgery Acct# Arrival 06/02/2024 05:52:27 Visit Reason Surgery- Cysto, [facility] Acuity LOS 072 19:32 Address: [address] [place] [address] Comment: PROVIDER INFORMATION VITALS INFORMATION Vital Sign [...] mouth) every day. Medication List: New Medications [facility]/pharmacy #[id number], [address], [place] [id number], [phone] cephalexin (cephalexin 500 mg oral capsule) 1 [...] (given by mouth) every day. New Medications [facility]/pharmacy #[id number], [address], [place] [id number], [phone] cephalexin (cephalexin 500 mg oral capsule) 1 [...] tablet) 1 tab(s) (more content not included)... [facility] 03-21-2024 Note [id number] [facility] 03-17-2024 Note [facility] SURGERY Clinical Discharge Summary PERSON INFORMATION Name RICARDO GRANT Age 73 Years 1950 Sex MALE Language Comoran PCP Aayush Escudero Marital Status Med Service Ambulatory Surgery Acct# Arrival 03/17/2024 12:30:36 Visit Reason SURGERY - LOCAL CYSTO Acuity LOS 002 01:59 Address: [address] [place] [address] Comment: PROVIDER INFORMATION VITALS INFORMATION Vital Sign [...] and Radiology Resu (more content not included)... [facility] 04-13-2023 Evaluation note Encounter Date Diagnosis Assessment Notes Mar, Benign prostatic hyperplasia with lower urinary tract symptoms (ICD-10 - N40.1) [facility] Other 08-18-2023 Evaluation note* Encounter Date Diagnosis [...] Z79.899) Mar, Fecal smearing (ICD-10 - R15.1) [facility] Other Evaluation [facility]No [facility] Other Evaluation note* Diagnosis Other polyneuropathy- Primary Pain due to onychomycosis of toenails of both feet documented in this encounter [facility]* Diagnosis Expressive aphasia- Primary Other cerebrovascular vasospasm and vasoconstriction Expressive aphasia Other cerebrovascular vasospasm and vasoconstriction documented [facility] Diagnosis Cryptogenic stroke (CMS-HCC)- Primary [facility] Diagnosis Onset Date Resolution Status Admit Date Benign prostatic hyperplasia with lower urinary tract symptoms acute Apr 2024 1:52pm BPPV (benign paroxysmal posi tional vertigo) acute December 06, 2024 1:52pm Cerebral atherosclerosis acute December 06, 2024 1:52pm Hypercholesterolemia acute 2024 1:52pm Hypertension acute December 06, 2024 1:52pm IFG (impaired fasting glucose) acute December 06, 2024 1:52pm Nicotine dependence acute December 06, 2024 1:52pm [facility] Work Phone: [facility] general Narrative - Reported* Type Description Date Medical History Mixed hyperlipidemia Medical History Essential (primary) hypertension Medical History Hyperlipidemia, unspecified Medical History Polyp of colon Medical History Neuralgia and neuritis Surgical History ARTHROSCOPY KNEE Surgical History ULNAR NERVE RELEASE Surgical History COLONOSCOPY, repeat 5 yrs 2006, 2009,2021 Surgical History LEFT THORACOSTOMY TUBE 2018 Hospitalization History SEE SURGICAL HX [facility] Other InstructionsNot on filedocumented in this encounter [facility] filedocumented in this encounter [facility]Not on filedocumented in this encounter [facility] System[facility]ructionsNot on filedocumented in this encounter [facility] Summary Purpose Family History Relationship Condition Age at Onset Recorded Date/T rickey mother Heart disease Unknown Unknown brother Malignant neoplasm of colon Unknown father Malignant neoplasm of brain Unknown Advance Directives Date Activated Date Inactivated Comments 06/04/2024 6:11 PM 06/07/2024 7:40 PM Date Activated Date Inactivated Comments 06/04/2024 6:11 PM 06/07/2024 7:40 PM Advance Directive Response Recorded Date/ Time Advance Directives No January 30 9:38am Chief Complaint and Reason for Visit Chief Complaint Admit Date Stroke f/u December 06, 2024 1:5 2pm Reason for Visit Admit Date Benign prostatic hyperplasia with lower urinary tract symptoms December 06, 2024 1:52pm BPPV (benign paroxysmal positional verti go) December 06, 2024 1:52pm Cerebral atherosclerosis December 06 1:52pm Hypercholesterolemia December 06, 2024 1: 52pm Hypertension December 06, 2024 1:5 2pm IFG (impaired fasting glucose) November 1:52pm Nicotine dependence December 06, 2024 1:5 2pm Additional Source Comments (unrecognized sect ion and content) No Status Records FoundNo Status Records FoundNo Status Records FoundNo Status Records FoundNo Status Records FoundNo Status Records FoundNo Status Records Found INFORMATION SOURCE (unrecogn ized section and content) DATE CREATED AUTHOR 05/26/2019 [facility] DATE CREATED AUTHOR AUTHOR'S ORGANIZ ATION 02/13/2022 [facility] DATE CREATED AUTHOR AUTHOR'S ORGANIZ ATION 04/05/2022 [facility] DATE CREATED AUTHOR AUTHOR'S ORGANIZ ATION 06/25/2024 [facility] EPIC DATE CREATED AUTHOR AUTHOR'S ORGANIZ ATION 07/21/2024 [facility] DATE CREATED AUTHOR AUTHOR'S ORGANIZ ATION 07/22/2024 [facility] DATE CREATED AUTHOR AUTHOR'S ORGANIZ ATION 08/11/2024 [facility] REASON FOR VISIT (unrecogniz ed section and content) Reason Comments Toenail Care Non DM Nails Reason Onset Date Comments Hospital Follow-up 06/07/2024 Reason Onset Date Comments Care Navigation 06/08/2024 Reason Onset Date Comments Med Refill 10/25/2024 Reason Onset Date Comments Med Refill 10/28/2024 Care Teams (unrecognized sec tion and content) Jail Officer Relationship Specialty Start Date End Date Aayush Escudero MD [address] [place] [address] PCP - General Internal Medicine 03/24/24 Jail Officer Relationship Specialty Start Date End Date Aayush Escudero MD [address] [place] [address] PCP - General Internal Medicine 03/24/24 Jail Officer Relationship Specialty Start Date End Date Aayush Escudero DO [address] [place] [address] PCP - General Internal Medicine 06/06/24 Jail Officer Relationship Specialty Start Date End Date Aayush Escudero DO [address] [place] [address] PCP - General Internal Medicine 06/06/24 Jail Officer Relationship Specialty Start Date End Date Aayush Escudero DO [address], [place] [id number] PCP - General Internal Medicine 06/06/24 Jail Officer Relationship Specialty Start Date End Date Aayush Escudero DO [address] [place] [address] PCP - General Internal Medicine 06/06/24 Team Status: Active Member Role Status Dates Aayush Escudero DO Primary Care Provider Active Team Status: Active Member Role Status Dates Aayush Escudero DO Primary Care Provider Active Start: December 06, 2024 Talib Davis MD Attending Provider Active Start : December 06, 2024 Team Status: Inactive Member Role Status Dates Aayush Escudero DO Primary Care Provide r, Attending Provider Active Start: December 06, 2024 End: December 06, 2024 Goals (unrecognized section and content) Goals may be documented in a n alternate section FOR RECORDS PERTAINING TO PATIENTS WHO ARE [...] BE BASED ON THE PRIMARY CLINICAL RECORDS. [facility]. provides no warranty or guarantee of the accuracy or completeness of information in this document.
[2024-12-07 12:50] LABS: Prostate Specific Antigen Dx 1.41 ng/mL (<=4.00)
== END 2024-12-07 11:19 | disposition home or self-care (01) ==
LOC: LAB 11:20
PROVIDERS: PCP Internal Medicine; Visit Provider Urology
DX: N40.1 Benign prostatic hyperplasia with lower urinary tract symptoms (principal)
CPT/HCPCS: 36415; 84153

== ENCOUNTER 2024-12-07 11:26 | Outpatient (OUT) | payer MEDICARE, OTHER, SELFPAY ==
[2024-12-07 12:25] LABS: Chol HDL Ratio 1.8; Cholesterol 135 mg/dL (<=200); HDL Cholesterol 73 mg/dL (40-60); Triglycerides 110 mg/dL (<=150)
== END 2024-12-07 11:27 | disposition home or self-care (01) ==
LOC: LAB 11:27
PROVIDERS: PCP Internal Medicine; Visit Provider Internal Medicine
DX: N40.1 Benign prostatic hyperplasia with lower urinary tract symptoms (principal); E78.00 Pure hypercholesterolemia, unspecified
CPT/HCPCS: 36415; 80061; 84153

== ENCOUNTER 2024-12-30 09:36 | Outpatient (OUT) | payer MEDICARE, OTHER, SELFPAY ==
--- NOTE | 2024-12-30 09:45 | CT_ITS ---
[address] [address] Patient Name: KEVIN GRANT MRN: [id number] date: 1950 Sex: M Assigned Patient Location: CT Current Patient Location: CT Accession/Order Number: [id number] Exam Date: 12/30/2024 10:36 Report Date: 12/30/2024 10:38 At the request of: BLADE CONROY DO Procedure: CT lung screening low-dose CT CHEST WITHOUT CONTRAST, LOW DOSE SCREENING: CLINICAL DATA: A 74-year old former smoker COMPARISON: None TECHNIQUE: Noncontrast axial CT scan images of the chest were obtained under the low dose screening CT protocol. Coronal and sagittal reconstructed images were also submitted. FINDINGS: Mediastinum : Suboptimal evaluation due to low-dose technique. Thoracic aorta appears normal in caliber. Pulmonary trunk appears nondilated. No pericardial effusion. No lymphadenopathy. The esophagus is grossly unremarkable. Lungs: No focal consolidation, pneumothorax or pleural effusion. Trachea and distal airways appear patent. Emphysema. Mild bronchial wall thickening. Mild lung scarring. No suspicious noncalcified pulmonary nodule or mass. Upper abdomen: No acute findings. Bony thorax and chest wall: Soft tissues surrounding the chest wall demonstrate no acute findings. Osseous structures demonstrate degenerative change. CT/CT lung screening low-dose IMPRESSION: NO SUSPICIOUS PULMONARY NODULE. LUNG - RADS Version 1.0 Assessment: Category 1, Negative (No nodules and definitely benign nodules). Management: Continue annual lung screening with LDCT in 12 months. Impression dictated by: Eligio Swanson Jr., D.O. 12/30/2024 10:38 AM Dictation Location: [place] [address] Electronically authenticated by: [id number] Y Date: 12/30/2024 10:38
== END 2024-12-30 09:37 | disposition home or self-care (01) ==
LOC: CT 09:36
PROVIDERS: PCP Internal Medicine; Visit Provider Internal Medicine
DX: Z87.891 Personal history of nicotine dependence (principal)
CPT/HCPCS: 71271

== ENCOUNTER 2025-04-17 11:25 | Outpatient (OUT) | payer MEDICARE, OTHER, SELFPAY ==
--- OUTSIDE RECORDS SUMMARY | 2025-04-17 07:20 | XMS_ITS | Continuity of Care Document ---
Author Organization [facility] Address [address] [place] [address] Phone Care Team Providers Care Camp Dishwasher Name Role Phone Kota Aayush HARRIS Primary Care Provider [phone] Aayush Escudero DO Attending Provider [phone] Care Teams Patient Care Team Team Status: Active Member Role Status Dates Aayush Escudero DO Primary Care Provider Active Patient Care Team Team Status: Inactive Member Role Status Dates Aayush Escudero DO Primary Care Provider Active Start: April 17, 2025 End: April 17, 2025 Aayush Escudero DO Attending Provider Active Sta rt: April 17, 2025 End: April 17, 2025 Chief Complaint and Reason for Visit Chief Complaint Admit Date Wellness April 17, 2025 10 :20am Reason for Visit Admit Date Benign prostatic hyperplasia with lower urinary tract symptoms April 17, 2025 10:20am Cerebral atherosclerosis April 17 10:20am Chronic bronchitis, simple April 17, 2025 10:20am Hypercholesterolemia April 17, 2025 1 0:20am Hypertension April 17, 2025 10 :20am IFG (impaired fasting glucose) April 172024 10:20am Nicotine dependence April 17, 2025 10 :20am Obesity April 17, 2025 10 :20am Medicare annual wellness visit, subseque nt April 17, 2025 10:20am Screening PSA (prostate specific antigen ) April 17, 2025 10:20am Allergies, Adverse Reactions, Alerts Allergen Type Severity Reaction Last Updated Verified Status Comments amoxicillin Allergy Unknown Hives December 06, 2024 1:57pm Yes Active Onset Date: 08/11/2016 Social History Smoking Status Status Start Date End Date Date of Observa tion Ex-smoker (finding) March 252023 11:26am Observation Status Observation Response Date of Response Legal Sex Male (finding) Sex Assigned At Male 1950 Family History Relationship Condition Age at Onset Recorded Date/T rickey mother Heart disease Unknown Unknown brother Malignant neoplasm of colon Unknown father Malignant neoplasm of brain Unknown Unknown Problems Active Problems Medical Problem Onset Date Status Comments Peripheral polyneuropathy Unknown Active Nicotine dependence Unknown Active LDCT w/o suspicious nodules - 11/2023, 12/2024 Screening PSA (prostate spec ific antigen) Unknown Active PSA: 2.63 2023, 1.41 - 11/2024 BPPV (benign paroxysmal posi tional vertigo) Unknown Active Chronic bronchitis, simple Unknown Active Cerebral atherosclerosis Unknown Active Lef t MCA ischemic stroke - 05/2024 Hypercholesterolemia Unknown Active IFG (impaired fasting glucose) Unknown Active Benign prostatic hyperplasia with lower urinary tract symptoms Unknown Active Hypertension Unknown Active Echo: LVEF 60%, RV size/function normal - 11/2023 Obesity Unknown Active Inactive/Resolved Problems Medical Problem Onset Date Status Comments Personal history of colonic polyps Unknown Resolved Problem List clean-u p per request of Phys. EHR Cmte Medications Medication Status Dose Units Route Directions Qty Days St art Date Stop Date End Date Instructions Adherence Alfuzosin 10 mg tablet extended release 24 hr Discont inued 10 MG PO Daily 2023 6:56pm December 04, 2023 10:45 am after evening meal Pravastatin 80 mg tablet Discont inued 0 .ROUTE .COMPLEX January 06, 2024 1:21pm 2023 11:38 am TAKE 1 TABLET EVERY EVENING Amlodipine 5 mg tablet Discont inued 0 .ROUTE .COMPLEX January 06, 2024 1:21pm Mar 2023 11:38 am TAKE 1 TABLET DAILY Lisinopril 40 mg tablet Discont inued 0 .ROUTE .COMPLEX January 06, 2024 1:21pm Mar 2023 11:38 am TAKE 1 TABLET DAILY Fluticasone -Umeclidin- Vilanter (Trelegy Ellipta) 100-62.5-25 mcg blister with device Active 1 INH INHALA TION Daily 180 2024 1:00am Complies with drug therapy Rosuvastati n 20 mg tablet Discont inued 20 MG PO Daily October 25, 2024 1:00am February 08, 2025 1:13p m Amlodipine 5 mg tablet Discont inued 0 .ROUTE .COMPLEX December 14, 2024 12:38p m March 07, 2025 9:23a m TAKE 1 TABLET DAILY Lisinopril 40 mg tablet Active 0 .ROUTE .COMPLEX December 14, 2024 12:39p m TAKE 1 TABLET DAILY Complies with drug therapy Albuterol Sulfate 90 mcg/actuati on HFA aerosol inhaler Active 2 PUFF INHALA TION Every 6 hours 25.5 February 08, 2025 1:12pm Complies with drug therapy Rosuvastati n 20 mg tablet Active 20 MG PO Daily February 08, 2025 1:13pm Complies with drug therapy Amlodipine 5 mg tablet Active 0 .ROUTE .COMPLEX March 07, 2025 9:23am TAKE 1 TABLET DAILY Complies with drug therapy Amlodipine 5 mg tablet Discont inued 5 MG PO Daily February 07, 2022 12:00a m January 06, 2024 1:21p m Pravastatin 80 mg tablet Discont inued 80 MG PO Bedtime February 07, 2022 12:00a m January 06, 2024 1:21p m Amitriptyli ne 25 mg tablet Discont inued 25 MG PO Daily February 07, 2022 12:00a m 2023 10:57 am Lisinopril 40 mg tablet Discont inued 40 MG PO Daily February 07, 2022 12:00a m January 06, 2024 1:21p m Fluticasone -Umeclidin- Vilanter (Trelegy Ellipta) 100-62.5-25 mcg blister with device Discont inued 1 INH INHALA TION Twice daily February 07, 2022 12:00a m 2023 10:57 am Alfuzosin 10 mg tablet extended release 24 hr Discont inued MG PO 2023 1:00am 2023 6:29p m FreeTextSi tablet Orally after evening meal; Note: Source Status: Taking; Refills: 5; Qty: 30 Tablet; Provider: Ktoa Machado Albuterol Sulfate 90 mcg/actuati on HFA aerosol inhaler Discont inued INHALA TION 2023 1:00am December 04, 2023 10:44 am 2 (two) Puff Puff every 4 hours PRN SOB, cough [id number] Sul-Nacl-Jameel l-Asb-C (Moviprep) 100-7.5-2.6 91 gram powder in packet Discont inued PO As Directed 2023 1:00am Marus 2023 11:37 am FreeTextSig: as directed Orally 1; Note: Source Status: Not-Takingund efinedPRN; Refills: 0; Provider: Kota Looney ( ) Alfuzosin 10 mg tablet extended release 24 hr Discont inued 10 MG PO Daily 2023 6:28pm 2023 7:06p m after evening meal Albuterol Sulfate 90 mcg/actuati on HFA aerosol inhaler Discont inued 2 PUFF INHALA TION Every 6 hours 8.5 December 04, 2023 12:00a m February 08, 2025 1:13p m Alfuzosin 10 mg tablet extended release 24 hr Discont inued 10 MG PO Daily 30 December 04, 2023 10:43a m Augus t 2023 11:37 am after evening meal Levofloxaci n 500 mg tablet Discont inued 500 MG PO Daily 10 December 04, 2023 12:00a m Augus t 2023 11:37 am Oxybutynin Chloride 10 mg tablet extended release 24hr Discont inued MG PO Daily April 15, 2024 12:00a m Octob er 2023 1:22p m Amlodipine 5 mg tablet Discont inued 5 MG PO Daily April 15, 2024 11:36a m December 14, 2024 12:39 pm Lisinopril 40 mg tablet Discont inued 40 MG PO Daily April 15, 2024 11:36a m December 14, 2024 12:39 pm Pravastatin 80 mg tablet Discont inued 80 MG PO Daily April 15, 2024 11:36a m Octob er 2023 1:23p m Vibegron (Gemtesa) 75 mg tablet Active 75 MG PO Daily April 17, 2025 12:00a m Complies with drug therapy Suzetrigine (Journavx) 50 mg tablet Active 50 MG PO Twice daily 10 5 April 17, 2025 12:00a m Complies with drug therapy Aspirin 81 mg tablet,bryson yed release (/EC) Active 81 MG PO Daily 30 30 2023 12:00a m Complies with drug therapy Rosuvastati n 40 mg tablet Discont inued 40 MG PO Daily 30 30 2023 12:00a m October 25, 2024 11:05 am Meclizine 25 mg tablet Active 25 MG PO Daily as needed December 06, 2024 12:00a m Complies with drug therapy Immunizations Immunization Event Date Not Given Reason Dose Number Personalization Specialist Lot Number Vaccine Information Statement (VIS) Detail Administration Location COVID-19 mRNA, Comirnaty (AMVONET) November 23, 2020 COVID-19 mRNA, Comirnaty (AMVONET) December 13, 2020 COVID-19 mRNA, Comirnaty (AMVONET) May 05, 2022 COVID-19 mRNA, Comirnaty (AMVONET) June 11, 2021 COVID-19 mRNA, Comirnaty (AMVONET) December 18, 2021 Fluzone TIV High-Dose 65YR+ May 18, 2024 [id number] [facility] influenza, unspecified formulation June 11, 2015 influenza, unspecified formulation June 18, 2016 influenza, unspecified formulation May 01, 2017 influenza, unspecified formulation May 06, 2018 influenza, unspecified formulation April 27, 2020 influenza, unspecified formulation May 17, 2021 influenza, unspecified formulation May 06, 2022 influenza, unspecified formulation May 15, 2023 Pneumococcal Conjugate Vaccine, 13 valent February 18, 2016 Pneumococcal Polysacc. Vaccine, 23 valent February 26, 2017 Vital Signs Vital Reading Result Reference Range Collection Date/Time Height 64 [in_i] April 17 10:49am Weight 84.87 kg April 17 10:49am Heart Rate 60 /min 60-100 April 17 10:49am Respiratory rate 12 /min -March 10:49am BP Systolic 139 mm[Hg] 100-140 April 17 10:49am BP Diastolic 89 mm[Hg] 60-100 April 17 10:49am BMI (Body Mass Index) 32.1 kg/m2 April 17, 2025 10:49am Advance Directives Advance Directive Response Recorded Date/ Time Advance Directives No January 30 9:38am Insurance Providers Guarantor Ricardo Disla Address [address] [place] [id number] Contact Info. Home Phone: Payer Policy Id Subscriber's Name Subscriber Id Effectiv e Date Expiration Date MMO [id number] Ricardo Disla [id number] Medicare [id number] Ricardo Disla [id number] Medicare [employer] [id number] Ricardo Disla [id number] [facility] [id number] Ricardo Disla [id number] Encounters Encounter Location(s) Arrival/Admit Date Discharge/Depart Date Provider(s) Departed Physician/Prov ider Office Visit -[facility] April 17, 2025 10:20am April 17, 2025 11:19am Aayush Escudero , Recent Diagnosis Onset Date Admit Date Benign prostatic hyperplasia with lower urinary tract symptoms Unknown April 17, 2025 10:20am Cerebral atherosclerosis Unknown April 17, 2025 10:20am Chronic bronchitis, simple Unknown Marus t 2024 10:20am Hypercholesterolemia Unknown March 10:20am Hypertension Unknown April 17 10:20am IFG (impaired fasting glucose) Unknown A ug2024 10:20am Nicotine dependence Unknown April 17, 2025 10:20am Obesity Unknown April 17 10:20am Medicare annual wellness visit, subsequent Unkno wn April 17, 2025 10:20am Screening PSA (prostate specific antigen) Unknow n April 17, 2025 10:20am Assessments Diagnosis Onset Date Resolution Status Admit Date Benign prostatic hyperplasia with lower urinary tract symptoms acute Mar ust 2024 10:20am Cerebral atherosclerosis acute April 17, 2025 10:20am Chronic bronchitis, simple acute April 17, 2025 10:20am Hypercholesterolemia acute Augu st 2024 10:20am Hypertension acute April 17, 2025 10:20am IFG (impaired fasting glucose) acute April 17, 2025 10:20am Nicotine dependence acute Augus t 2024 10:20am Obesity acute April 17, 025 10:20am Medicare annual wellness vis it, subsequent noneactive April 17 10:20am Screening PSA (prostate spec ific antigen) noneactive April 17 10:20am Plan of Treatment Author Aayush Escudero [facility] Authored April 17, 2025 11 :13am No s/s of acute, focal neuro logic deficits. I have reviewed stroke symptoms and instructed them to go to the ER for any suspicious symptoms. They have been instructed to continue secondary preventive measures. Cryptogenic cerebral infarction - B/L frontal cerebral infarctions Continue ASA and Rosuvastatin without interruption I have instructed this patient to consume a healthy, low-fat, low-salt diet. I have also encouraged them to continue exercise with weight loss to achieve/maintain a BMI < 30. I have instructed this patient on the correct procedure for obtaining home BP measurements: - rest for 5 minutes w/o talking. - positioned w/ feet on floor and arms supported. - average best 2/3 readings w/ goal < 135/85. - update office w/ home readings in 2 weeks. Continue Amlodipine and Lisinopril without interruption His A1C is between 5.7-6.5%. Instructed on low carb, high fiber diet. Instructed on routine exercise program for 30-60min three times weekly. Instructed on correlation between obesity and insulin resistance and encouraged to lose weight. Monitor A1C every 6 months. I have instructed this patient on a low fat, high fiber diet and exercise. I have discussed the primary and secondary prevention benefits attributed to lowering LDL cholesterol. I have also discussed the medical treatment of elevated cholesterol, which is based on the 10 year ASCVD risk. Continue Crestor without interruption This patient has been encouraged to quit tobacco use immediately. They are aware of the hazards associated with tobacco use, including but not limited to respiratory infections, vascular disease and cancers. Scheduled for yearly LDCT chest for lung cancer screening is recommended. LDCT: no suspicious nodules 12/2024, Symptoms tolerable s/p laser treatment 05/2024 Failed multiple drug trials, now using Gemtesa w/ improvement I have instructed this patient on the recommended lifestyle changes, which includes a low fat, high fiber diet along with a regular exercise routine. I have also reviewed the recommended age-appropriate preventive testing for this patient. I have also reviewed the recommended vaccines for their age and risk factors. No ER/hospital visits for AECOPD. No maintenance inhalers necessary. Continue Trelegy without interruption STEPHANIE as needed. I have recommended yearly PSA testing. I have informed him that the PSA can be elevated w/ cancer, infection and enlarged prostates. I have explained to the patient, that If his PSA is elevated, while there are many causes, referral will be recommended to r/o cancer. He would be referred to Urology, who may recommend an MRI, TRUS/bx or possibly continued monitoring. He is agreeable to this plan of action PSA: 2.63 - 03/2024, 1.41 - 11/2024 I have instructed this patient on a low-fat, high-fiber diet. I have also instructed them to reduce calories, portions sizes, sweet drinks and snacks. I have also recommended they exercise for 30 minutes, 3-5 times weekly. They are aware of the comorbid conditions associated with excessive weight: Diabetes, HTN, Hyperlipidemia, CAD and arthritis. Future Tests Future scheduled test information is unavailable Pending Tests Test Name Ordered Date Scheduled Date Comprehensive Metabolic Panel April 17, 2025 11:11am Future Visits Future appointment information is unavailable Referrals to Other Providers Referral information is unavailable Future Procedures Procedure Name Ordered Date Scheduled Date A1C with Estimated Average Glu April 17, 2025 11:12am Complete Blood Count Auto Diff April 17, 2025 11:11am Lipid Panel April 17, 2025 11:11am Future Medications Future medication information is unavailable Patient Instructions Patient instructions are unavailable
--- OUTSIDE RECORDS SUMMARY | 2025-04-17 11:29 | XMS_ITS | Clinical Summary ---
Author Organization [facility] Address [address] [place], [place] [id number] Care Team Providers Care At Risk Specialist Name Role Phone Aayush Escudero Primary Care Provider [phone] Allergies Active Allergy Reactions Criticality Noted Date Comments Amoxicillin-Pot Clavulanate Hives 12/26/19 18 Medications lisinopril (ZESTRIL, PRINIVIL) 40 mg tablet Take 40 mg by mouth once daily. Active pravastatin (PRAVACHOL) 80 mg tablet Take 80 mg by mouth once daily. Active aspirin, enteric coated (ASPIRIN, ENTERIC COATED) 81 mg EC tablet Take 81 mg by mouth as needed (3 times a week). Active ascorbic acid (VITAMIN C ORAL) Take by mouth. Active ergocalciferol, vitamin D2, (VITAMIN D2 ORAL) Take by mouth. Active fluticasone/juan r meterol (ADVAIR HFA INHALATION) Inhale as instructed. Active gabapentin (NEURONTIN) 300 mg capsule Take 3 capsules by mouth three times daily. 810 capsule 3 02/09/2018 Active amitriptyline (ELAVIL) 10 mg tabletIndicatio ns:Disturbance of skin sensation Take 2 tablets by mouth daily at bedtime. 180 tablet 3 05/24/2018 Active Active Problems Problem Noted Date Diagnosed Date Disturbance of skin sensation 12/25/2017 Obesity, Class I, BMI 30-34.9 E66.9 12/25/2017 Family History Medical History Relation Comments Colon Cancer Brother 1 Heart Brother 2 Cancer Father brain Breast Cancer Mother Diabetes Mother Heart Mother neuropathy Mother Relation Status Comments Brother 1 Brother 2 Father Mother Social History Tobacco Use Types Packs/Day Years Used Date Smoking Tobacco: Former Cigarettes 1 42 0 08/24/1968 - 08/24/2010 Smokeless Tobacco: Never Tobacco Cessation:Counseling Given: No Alcohol Use Standard Drinks/Week Comments Yes 0 (1 standard drink = 0.6 oz pure alcohol) rare in 2018; prior 4 beers a day PHQ-2 Answer Date Recorded PHQ-2 score 0 12/25/2017 Area Deprivation Index Answer Date Phi rded National Score (1-100), lower number is lower ri sk Not on file 07/31/2020 State Score (1-10), lower number is lower risk N ot on file 07/31/2020 Data from: https://www.neighborhoodatlas.medicine.[facility]/. 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 Not on file Not on file N ot on file Last Filed Vital Signs Vital Sign Reading Time Taken Comments Blood Pressure 129/66 12/25/2017 7:47 AM EDT Pulse 63 12/25/2017 7:47 AM EDT Temperature - - Respiratory Rate 18 12/25/2017 7:47 AM EDT Oxygen Saturation - - Inhaled Oxygen Concentration - - Weight 81.6 kg (180 lb) 12/25/2017 7:47 AM EDT Height 162.6 cm (5' 4 ) 12/25/2017 7:47 AM EDT Body Mass Index 30.9 12/25/2017 7:47 AM EDT Plan of Treatment Health Maintenance Due Date Last Done Comments Abdominal Aortic Aneurysm Screening 1950 Anxiety Screening 1968 Depression Screening 1968 Hepatitis C Screening 1968 DTaP,Tdap,Td Vaccine (1 - Tdap) [address] Colonography 1995 Cologuard (FIT-DNA) 1995 Colonoscopy 1995 Colorectal Cancer Screening 1995 Diabetes Screening 1995 Fecal Occult Blood 1995 Sigmoidoscopy 1995 Pneumococcal Vaccine: 50+ (1 of 1 - PCV) 2000 Shingrix Vaccine (1 of 2) 2000 Advance Directive Discussion 08/24/2024 Influenza Vaccine (#1) 2025 RSV Vaccine (1 - 1-dose 75+ series) [address] [place] [address] MEDICARE [facility] Care Teams At Risk Specialist Relationship Specialty Start Date End Date Aayush Escudero DO [address] [place] [address] PCP - General Internal Medicine 12/21/17
--- OUTSIDE RECORDS SUMMARY | 2025-04-17 11:29 | XMS_ITS | Encounter Summary ---
Author Organization [facility] Address [address] [place] [id number] Care Team Providers Care Cyber Security Administrator Name Role Phone Aayush Escudero Primary Care Provider [phone] Source Comments In the event this information is protected by the Federal Confidentiality of Alcohol and Drug AbusePatient Records regulations: The Federal rules restrict any use of the information to criminally investigate or prosecute any alcohol or drug abuse patient.[facility] Encounter Details Date Type Department Care Team (Late st Contact Info) Description 05/06/2018 Patient Msg Medical Records [address] [place] [id number] Provider, [facility] B6 level high Social History Tobacco Use Types Packs/Day Years Used Date Smoking Tobacco: Former Cigarettes 1 42 0 08/24/1968 - 08/24/2010 Smokeless Tobacco: Never Alcohol Use Standard Drinks/Week Comments Yes 0 (1 standard drink = 0.6 oz pure alcohol) rare in 2018; prior 4 beers a day PHQ-2 Answer Date Recorded PHQ-2 score 0 12/25/2017 Sex and Gender Information Value Date Recorded Sex Assigned at Not on file Legal Sex Male 9:46 AM EDT Gender Identity Not on file Sexual Orientation Not on file 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
--- OUTSIDE RECORDS SUMMARY | 2025-04-17 11:29 | XMS_ITS | Clinical Summary ---
Author Organization [facility] Address [id number] [address] [place] [address] Care Team Providers Care Supervisor Delivery Department Name Role Phone Aayush Escudero Primary Care Provider [phone] Allergies Active Allergy Reactions Criticality Noted Date Comments Amoxicillin Hives 04/15/2024 Amoxicillin-Pot Clavulanate Hives 06/04/20 24 Medications lisinopriL (PRINIVIL,ZESTR IL) 40 mg tablet Take 1 tablet (40 mg total) by mouth in the morning. Active amLODIPine (NORVASC) 5 mg tablet Take 1 tablet (5 mg total) by mouth in the morning. Active fluticasone propion-salmete roL (ADVAIR) 250-50 mcg/dose DISKUS Inhale 1 puff in the morning and 1 puff before bedtime. Active cholecalciferol 1,000 units tablet Take 1 tablet (1,000 Units total) by mouth in the morning. Active ascorbic acid (VITAMIN C) 500 mg tablet Take 1 tablet (500 mg total) by mouth in the morning. Active zinc gluconate 50 mg tablet Take 1 tablet (50 mg total) by mouth in the morning. Active aspirin 81 mg Take 1 tablet (81 mg total) by mouth in the morning. 30 tablet 2 06/07/2024 Active polyethylene glycol (GLYCOLAX) 17 gram packetIndicatio ns:constipation Take 17 g by mouth in the morning. Indications: constipation . 06/07/2024 Active sennosides-docu sate sodium (SENOKOT-S) 8.6-50 mg Take 2 tablets by mouth nightly. 06/07/2024 Active ciprofloxacin HCl (CIPRO) 500 mg tablet Take 1 tablet (500 mg total) by mouth in the morning and 1 tablet (500 mg total) before bedtime. 07/18/2024 Active rosuvastatin (CRESTOR) 20 mg tablet Take 1 tablet (20 mg total) by mouth nightly. 30 tablet 2 07/19/2024 Active Active Problems Problem Noted Date Diagnosed Date Seizure 06/05/2024 Expressive aphasia 06/04/2024 Immunizations Immunization Administration Dates Next Due COVID-19, mRNA, LNP-S, PF, 3 0mcg/0.3mL Dose 05/05/2022,12/18/2021 Influenza High Dose Preserva tive Free IM 05/18/2024,05/01/2017 Influenza Vaccine, Quadrival ent, Adjuvanted 05/06/2022 Influenza, Trivalent, Adjuvanted 05/12/2019,04/24 Influenza, Unspecified 05/15/2023,2020,04/27/2020,06/18,06/11/2015 Pneumococcal Conjugate 13-Valent 02/18/2016 Pneumococcal Polysaccharide 02/26/2017 RSV, recombinant, protein keene bunit RSVpreF, adjuvant reconstituted, 0.5 mL, PF 06/22/2023 Social History Tobacco Use Types Packs/Day Years Used Date Smoking Tobacco: Former Cigarettes S tarted: 2010 Smokeless Tobacco: Never Tobacco Cessation:Counseling Given: Not Answered Alcohol Use Standard Drinks/Week Comments Yes 2 (1 standard drink = 0.6 oz pur e alcohol) [facility] Utilities Answer Date Recorded In the past 12 months has [employer], oil, or water [employer] threatened to shut off services in your home? No 06/04/2024 AUDIT-C Answer Date Recorded Q1: How often do you have a drink containing alc ohol? Monthly or less 06/04/2024 Q2: How many drinks containi ng alcohol do you have on a typical day when you are drinking? 3 or 4 06/04/2024 Q3: How often do you have si x or more drinks on one occasion? Never 06/04/2024 Overall Financial Resource Strain (CARDIA) Answe r Date Recorded How hard is it for you to pa y for the very basics like food, housing, medical care, and heating? Not hard at all 06/04/2024 PHQ-2 Answer Date Recorded Total Score 0 07/19/2024 PRAPARE - Transportation Answer Date Re corded In the past 12 months, has l ack of transportation kept you from medical appointments or from getting medications? No 05/24 In the past 12 months, has l ack of transportation kept you from meetings, work, or from getting things needed for daily living? No 06/04/2024 Housing Instability Answer Date Recorde d Are you worried or concerned that in the next two months you may not have stable housing that you own, rent or stay in as a part of a household? No 06/04/2024 Hunger Screening Answer Date Recorded Within the past 12 months we worried whether our food would run out before we got money to buy more. Never True 07/19/2024 Within the past 12 months th e food we bought just didn't last and we didn't have money to get more. Never True 07/19/2024 Sex and Gender Information Value Date Recorded Sex Assigned at Male 06/05/2024 9:15 AM EDT Legal Sex Male 12:01 PM EDT Gender Identity Male 06/05/2024 9:15 AM EDT Sexual Orientation Not on file Last Filed Vital Signs Vital Sign Reading Time Taken Comments Blood Pressure 131/56 07/19/2024 9:14 AM EST Pulse 64 07/19/2024 9:14 AM EST Temperature 37 C (98.6 F) 06/07/2024 8:50 AM EDT Respiratory Rate 26 06/07/2024 12:21 PM EDT Oxygen Saturation 94% 06/07/2024 12:21 PM EDT Inhaled Oxygen Concentration - - Weight 83.9 kg (185 lb) 07/19/2024 9:14 AM EST Height 162.6 cm (5' 4 ) 06/04/2024 6:10 PM EDT Body Mass Index 31.76 06/04/2024 6:10 PM EDT Plan of Treatment Health Maintenance Due Date Last Done Comments Adult BMI Follow Up Plan 1968 DTaP,Tdap and Td Vaccines (1 - Tdap) 1969 Zoster (Shingles) Vaccine (1 of 2) 2000 Abdominal Aortic Aneurysm (A AA) Screen 2015 Fall Risk Screening 2015 COVID-19 Vaccine (2023- 5 season) 2024 06/28/2024, 05/21/2023, 05/05/2022, Additional history exists Influenza Vaccine 04/24/2025 05/18/2024, , 05/06/2022, Additional history exists Adult BMI Screening 07/19/2025 07/19/2024 Depression Screening 07/19/2025 07/19/2024 Tobacco Screening 07/19/2025 07/19/2024 Goals Goal Patient Goal Type Associated Problems Recent Progress Patient-Stated? Author Patient is planning to transition home with self care/family assist at discharge. General Yes Sara Lopez LSW Note: Evaluation of progress towards goal: Patient is planning to transition home with self care/family assist at discharge. Medical Devices Not on file Insurance MEDICARE [facility] Advance Directives * Full Code (Latest Code Status on File) Date Activated Date Inactivated Comments 06/04/2024 6:11 PM 06/07/2024 7:40 PM Care Teams Supervisor Delivery Department Relationship Specialty Start Date End Date Aayush Escudero DO [address] [place] [address] PCP - General Internal Medicine 06/06/24
--- OUTSIDE RECORDS SUMMARY | 2025-04-17 11:29 | XMS_ITS | Encounter Summary ---
Author Organization [facility] Address [address] [place] [id number] Care Team Providers Care Motor Patrol Operator Name Role Phone Aayush Escudero Primary Care Provider [phone] Source Comments In the event this information is protected by the Federal Confidentiality of Alcohol and Drug AbusePatient Records regulations: The Federal rules restrict any use of the information to criminally investigate or prosecute any alcohol or drug abuse patient.[facility] Encounter Details Date Type Department Care Team (Late st Contact Info) Description 09/07/2018 Patient Msg Medical Records [address] [place] [id number] Provider, [facility] Refill Unable to be Processed Social History Tobacco Use Types Packs/Day Years [...] on filedocumented in this encounter Care Teams Motor Patrol Operator Relationship Specialty Start Date End Date Aayush Escudero DO [address] [place] [address] PCP - General Internal Medicine 12/21/17 documented as of this encounter
--- OUTSIDE RECORDS SUMMARY | 2025-04-17 11:29 | XMS_ITS | Clinical Summary ---
Author Organization [facility] Address [address] [facility] [place] [place] [address] Care Team Providers Care Oven Technician Name Role Phone Aayush Escudero DO Primary Care Provider [phone] Allergies No known active allergies Medications lisinopril 40 MG tablet Take 40 mg by mouth Daily 4 Active amLODIPine (Norvasc) 5 MG tablet Take 5 mg by mouth Daily 4 Active pravastatin (Pravachol) 80 MG tablet Take 80 mg by mouth Daily 4 Active zinc gluconate 50 MG tablet Take 50 mg by mouth Daily 4 Active ammonium lactate (Lac-Hydrin) 12 % lotionIndicatio ns:Xerosis cutis Apply 1 application topically if needed for dry skin Apply to feet twice daily 350 mL 5 03/18/20 25 Active Problems No known active problems Encounters Date Type Department Care Team Description 02/16/2025 9:40 AM EDT Procedure Visit [facility] [address] [place] [address] [place] [phone] Juan Drummond DPM Xerosis cutis (Primary Dx); Other polyneuropathy; Pain due to onychomycosis of toenails of both feet 02/16/2025 Bamboo flowsheet [facility] [address] [place] [address] [place] [phone] Juan Drummond DPM 02/16/2025 Travel from Last 3 Months Family History Medical History Relation Name Comments Cancer Father Diabetes Mother Heart disease Mother Relation Name Status Comments Father Mother Social History Tobacco Use Types Packs/Day Years Used Date Smoking Tobacco: Former Cigarettes Q uit: 03/24/1984 Passive Smoke Exposure: Never Smokeless Tobacco: Former Tobacco Cessation:Counseling Given: Yes Alcohol Use Standard Drinks/Week Comments Yes 3 (1 standard drink = 0.6 oz pur e alcohol) Sex and Gender Information Value Date Recorded Sex Assigned at Not on file Legal Sex Male 9:17 AM EDT Gender Identity Not on file Sexual Orientation Not on file Last Filed Vital Signs Vital Sign Reading Time Taken Comments Blood Pressure 126/80 06/23/2024 10:22 AM EDT Pulse 81 06/23/2024 10:22 AM EDT Temperature - - Respiratory Rate 18 02/16/2025 9:41 AM EDT Oxygen Saturation - - Inhaled Oxygen Concentration - - Weight 81.6 kg (180 lb) 02/16/2025 9:41 AM EDT Height 160 cm (5' 3 ) 02/16/2025 9:41 AM EDT Body Mass Index 31.89 02/16/2025 9:41 AM EDT Plan of Treatment Upcoming Encounters Date Type Department Care Team ([facility] st Contact Info) Description 04/27/2025 9:10 AM EDT Procedure Visit [facility] [address] [facility] [address] [place] [phone] Juan Drummond DPM [address] [facility] [address] [place] [address] Health Maintenance Due Date Last Done Comments CT Colonography 1950 Colonoscopy 1950 Colorectal Cancer Screening 1950 FIT-DNA 1950 FIT 1950 FOBT 1950 Sigmoidoscopy 1950 Influenza Vaccine (#1) 2025 4, 05/15/2023, 05/06/2022, Additional history exists Pneumococcal Vaccine: 65+ Years Completed 7, 02/18/2016 [place] [address] [facility] [place] [address] Care Teams Oven Technician Relationship Specialty Start Date End Date Aayush Escudero DO [address] [place] [phone] PCP - General Internal Medicine 12/08/24
--- OUTSIDE RECORDS SUMMARY | 2025-04-17 11:29 | XMS_ITS | Encounter Summary ---
Author Organization [facility] Address [id number] [address] [place] [address] Care Team Providers Care Security Operations Analyst Name Role Phone Aayush Escudero Primary Care Provider [phone] Encounter Details Date Type Department Care Team (Late st Contact Info) Description 06/04/2024 Orders Only [facility] [address] [place] [phone] Transcribe, Orders Support User Pain Social History Tobacco Use Types Packs/Day Years Used Date Smoking Tobacco: Former Cigarettes S tarted: 2010 Smokeless Tobacco: Never Alcohol Use Standard Drinks/Week Comments Yes 2 (1 standard drink = 0.6 oz pur e alcohol) [facility] Utilities Answer Date Recorded In the past 12 months has [employer], gas, oil, or water [employer] threatened to shut off services in your [...] Never 06/04/2024 Overall Financial Resource Strain (CARDIA) Rembertoe r Date Recorded How hard is it for you to pa y for the very basics like food, housing, medical care, and heating? Not hard at all 06/04/2024 PHQ-2 Answer Date Recorded Total Score 0 06/04/2024 PRAPARE - Transportation Answer Date Re corded [...] got money to buy more. Never True 06/04/2024 Within the past 12 months th e food we bought just didn't last and we didn't have money to get more. Never True 06/04/2024 Sex and Gender Information Value Date Recorded Sex Assigned at Male 06/05/2024 9:15 AM EDT Legal Sex Male 12:01 PM EDT Gender Identity Male 06/05/2024 9:15 AM EDT Sexual Orientation Not on file documented as of this encounter Functional Status * Audit-C Score Answer Date of Assessment Author 2 06/04/2024 6:08 PM EDT Niecy Knight RN * Question Answer Date of Assessment Author Q1: How often do you have a drink containing alcohol? Monthly or less 06/04/2024 6:08 PM Mis Barone RN Q2: How many drinks containing alcohol do you have on a typical day when you are drinking? 3 or 4 06/04/2024 6:08 PM EDT Mis Knight RN Q3: How often do you have six or more drinks on one occasion? Never 06/04/2024 6:08 PM EDT Mis Knight RN * Question Answer Date of Assessment Author Functional Status Independent 06/04/2024 6:03 PM EDT Mis Knight RN documented as of this encounter Mental Status * Question Answer Entry Date Author Overall Cognitive Status WFL 06/06/2024 10:36 AM EDT Estela Orosco, Student Speech Therapy documented in this encounter Plan of Treatment Not on file documented as of this encounter Goals Goal Patient Goal Type Associated Problems Recent Progress Patient-Stated? Author Patient is planning to transition home with self care/family assist at discharge. General Yes Jessica, Sara, KADY Note: Evaluation of progress towards goal: Patient is planning to transition home with self care/family assist at discharge. documented as of this encounter Results * CT brain without contrast stroke alert (06/04/2024 8:00 AM EDT) us Scanning Provider External IMG CT ORDERABLES Fin al Result * CT brain without contrast (06/03/2024 9:10 PM EDT) us Scanning Provider External IMG CT ORDERABLES Fin al Result * X-ray chest 1 view (06/03/2024 8:40 PM EDT) us Scanning Provider External IMG DIAGNOSTIC IMAGIN G ORDERABLES Final Result documented in this encounter Visit Diagnoses Diagnosis Pain Generalized pain documented in this encounter Additional Health Concerns Assessment Noted Time PHQ-9 Depression Total Score: 0 06/04/20 24 6:09 PM EDT documented as of this encounter Care Teams Security Operations Analyst Relationship Specialty Start Date End Date Aayush Escudero DO [address] [place] [address] PCP - General Internal Medicine 06/06/24 documented as of this encounter
[2025-04-17 11:50] LABS: Hematocrit 46.2 % (42.0-54.0); Hemoglobin 15.5 g/dL (14.0-18.0); Immature Granulocytes Abs Auto 0.03 10^3/uL (0.00-0.03); Immature Granulocytes Pct Auto 0.4 % (0.0-0.5); Lymphocytes Absolute Auto 2.4 10^3/uL (1.2-3.8); Mean Corpuscular HGB Conc 33.5 g/dL (29.9-35.2); Mean Corpuscular Hemoglobin 31.9 pg (25.9-34.0); Mean Corpuscular Volume 95.1 fL (80.0-94.0); Platelet Count 195 10^3/uL (150-450); Red Blood Count 4.86 10^6/uL (4.70-6.10); White Blood Count 8.2 10^3/uL (4.0-11.0)
[2025-04-17 14:48] LABS: Alanine Aminotransferase 33 U/L (16-63); Albumin Globulin Ratio 1.0; Albumin Level 3.9 g/dL (3.4-5.0); Alkaline Phosphatase 81 U/L (46-116); Anion Gap 15.1; Aspartate Amino Transferase 22 U/L (15-37); Blood Urea Nitrogen 18.0 mg/dL (7.0-18.0); Calcium 9.2 mg/dL (8.5-10.1); Carbon Dioxide 26.5 mmol/L (21.0-32.0); Chloride 104 mmol/L (98-107); Cholesterol 169 mg/dL (<=200); Estimated GFR (African America >60 (>=60 mL/min/1.73m^2); Estimated GFR (Non-African Ame >60 (>=60 mL/min/1.73m^2); Globulin 4.1 g/dL; Glucose 102 mg/dL (74-106); HDL Cholesterol 77 mg/dL (40-60); Potassium 4.6 mmol/L (3.5-5.1); Sodium 141 mmol/L (136-145); Total Protein 8.0 g/dL (6.4-8.2); Triglycerides 108 mg/dL (<=150); VLDL CHOLESTEROL 21.6 mg/dL
== END 2025-04-17 11:26 | disposition home or self-care (01) ==
LOC: LAB 11:26
PROVIDERS: PCP Internal Medicine; Visit Provider Internal Medicine
DX: E78.00 Pure hypercholesterolemia, unspecified (principal); R73.01 Impaired fasting glucose; I10 Essential (primary) hypertension
CPT/HCPCS: 36415; 80053; 80061; 83036; 85025